=== PATIENT | male | born 1940 | race Caucasian/White ===

== ENCOUNTER → 2016-05-06 | Outpatient (REF) | payer MEDICARE ==
[~2016-05-06] MED LIST: ALLO10TA PO; ASPI81TA11 PO; BACT800T5 PO; BUSP10TA PO; CARV12.5 PO; CEPH500C PO; CETI10TA PO; COLC1TAB5 PO; COUM2.5T11 PO; CRES20TA PO; DICL50TA2 PO; FLOM5CAP PO; HYDR1TAB97 PO; METF500T PO; PANT40TA2 PO; SERT25TA85 PO; STIO1AER IN; VALS160T3 PO; VITA100037 PO; [UNRECOGNIZED DRUG - CODE] PO
== END | disposition home or self-care (01) ==
LOC: M LAB REF 16:21
PROVIDERS: ATTEND Surgery
DX: C44.519 Basal cell carcinoma of skin of other part of trunk (principal)

== ENCOUNTER 2016-09-09 18:03 | Emergency (ER) | payer MEDICARE ==
[~2016-09-09] VITALS: Ht 172.7 cm; Wt 93.0 kg
[~2016-09-09 18:03] MED LIST changes: +HYDR-3713 PO; -HYDR1TAB97 PO; +SERT25TA PO; -SERT25TA85 PO
[2016-09-09] MEDS ORDERED: DOXYCYCLINE HYCLATE 100 MG TAB As Ordered ONE (19:32)
[2016-09-09] MEDS ORDERED: DOXY100C37 PO (20:07)
[2016-09-09 20:17] VITALS: BP 137/78
[2016-09-09] MEDS ORDERED: DOXYCYCLINE HYCLATE 100 MG TAB PO ONE (20:30)
== END 2016-09-09 20:30 | disposition home or self-care (01) ==
LOC: M ED 19:20
DX: S30.860A Insect bite (nonvenomous) of lower back and pelvis, initial encounter (principal); W57.XXXA Bitten or stung by nonvenomous insect and other nonvenomous arthropods, initial encounter; Y92.89 Other specified places as the place of occurrence of the external cause; Y93.89 Activity, other specified; Y99.8 Other external cause status; E11.9 Type 2 diabetes mellitus without complications; N40.0 Benign prostatic hyperplasia without lower urinary tract symptoms; M10.9 Gout, unspecified; Z88.5 Allergy status to narcotic agent; Z79.899 Other long term (current) drug therapy; Z79.84 Long term (current) use of oral hypoglycemic drugs

== ENCOUNTER 2016-10-01 12:15 | Emergency (ER) | payer MEDICARE ==
[~2016-10-01] VITALS: Ht 172.7 cm; Wt 93.0 kg
[~2016-10-01 12:15] MED LIST changes: +DOXY100C37 PO
[2016-10-01] MEDS ORDERED: DOXY-278 PO (12:31)
[2016-10-01] MEDS ORDERED: FLAX10005 PO (12:31)
[2016-10-01] MEDS ORDERED: TRAD5TAB PO (12:31)
[2016-10-01] MEDS ORDERED: ASPI1TAB PO (12:31)
[2016-10-01] MEDS ORDERED: FURO40TA2 PO (12:31)
[2016-10-01] MEDS ORDERED: COCO1000 PO (12:31)
--- NOTE | 2016-10-01 13:29 | ED PDOC ---
Post-Departure Follow-Up Patient presents to the ED for evaluation of painless hematuria. He states that he noted blood in his urine last night. This morning, he again noted blood and a large clot. He denies any recent trauma, urinary symptoms, fever/ chills, abdominal pain. He has previously had a TURP for BPH. The remainder of his H&P and ROS are as noted on the T-sheet. Saline lock established, CBC, BMP, UA/Cx, coags and CT abd/pelvis w/o contrast ordered for evaluation YUNIOR DIEZ Oct 01, 2016 13:29
[2016-10-01 13:54] LABS: BASO # 0.1 K/mm3 (0.0-0.2); EOS # 0.2 K/mm3 (0.0-0.50); EOS % 2.3 % (0.0-3.0); LARGE UNSTAINED CELL # 0.2 K/mm3 (0.0-0.4); LARGE UNSTAINED CELL % 1.6 % (0.0-4.0); LYMPH # 2.2 K/mm3 (1.5-4.5); MEAN CORPUSCULAR HEMOGLOBIN 29.6 pg (27.0-33.0); MEAN CORPUSCULAR HGB CONC 34.4 g/dl (32.0-36.5); MEAN CORPUSCULAR VOLUME 86.1 fl (80.0-96.0); MONO # 0.6 K/mm3 (0.0-0.8); MONO % 5.9 % (0.0-5.0); NEUTROPHILS # 6.3 K/mm3 (1.8-7.7); NEUTROPHILS % 66.2 % (36.0-66.0); PLATELET COUNT, AUTOMATED 150 k/mm3 (150-450); RED CELL DISTRIBUTION WIDTH 14.6 % (11.5-14.5); WHITE BLOOD COUNT 9.4 K/mm3 (4.0-10.0)
[2016-10-01 13:57] LABS: INR 1.18
--- NOTE | 2016-10-01 14:09 | REP ---
CT ABDOMEN AND PELVIS WITHOUT IV OR ORAL CONTRAST: Renal stone protocol. HISTORY: Lower back pain and gross hematuria. Comparison CT study is from September 30, 2003. CT FINDINGS: Digital preliminary slurry blender radiograph demonstrates ventral hernia repair sutures projecting in the upper abdomen. The lung bases are essentially clear. Minimal linear fibrosis on the right. There are epicardial pacemaker leads seen coursing through a some xyphoid ventral broad-based hernia which transmits fat from the abdomen. The hernia repair is just below this. There is a tiny ventral hernia transmitting a small bowel loop without obstruction just below the hernia repair in the anterior abdominal wall. The liver and the spleen are normal in size and homogeneous in texture. The gallbladder is unremarkable. No pancreatic abnormality is seen. The adrenal glands are normal bilaterally. There is a cyst in the upper pole right kidney measuring 1.6 cm in diameter. There is a left lower pole renal cyst which is somewhat larger measuring 3.6 cm. Lastly, there is a lower pole cyst on the left which measures 4.6 cm in greatest diameter. These are both larger than on the [address] study. No intrarenal calculus is seen on either side. No renal mass lesion is observed. Normal caliber aorta is seen. Then the urinary bladder is not well distended. There is eccentric mural thickening along the right side of the bladder wall however and a right-sided bladder mass must be suspected. There are dystrophic calcifications in the prostate gland. Seminal vesicles are unremarkable. Ventral hernia mesh is seen in the lower abdomen bilaterally as well. No bony destructive lesion is seen. IMPRESSION: Probable right lateral bladder wall mass. No evidence of urinary calculus or renal mass. Bilateral renal cysts noted. Ventral hernia repair and bilateral inguinal hernia repair. Diverticulosis of the left and right colon. Signed by Zev Jimenez MD 10/01/2016 04:27 P
[2016-10-01 14:10] LABS: CALCIUM LEVEL 9.7 MG/DL (8.8-10.2); CREATININE FOR GFR 2.46 MG/DL (0.70-1.30); GLOMERULAR FILTRATION RATE 27.4 (>42); POTASSIUM SERUM 3.7 MEQ/L (3.5-5.1)
--- NOTE | 2016-10-01 14:57 | ED PDOC ---
Post-Departure Follow-Up Results reviewed. Discussed findings with Dr Pires. He advises that it's ok to discharge the patient with instructions to call the office to schedule follow-up next week. YUNIOR DIEZ. [facility] Oct 01, 2016 14:57
--- NOTE | 2016-10-01 15:02 | ED PDOC ---
Post-Departure Follow-Up Discussed results and discharge plan with the patient, including follow-up, next week with Dr Pires. Questions answered. Patient and his state understanding. YUNIOR DIEZ. [facility] Oct 01, 2016 15:02
[2016-10-01 15:20] VITALS: BP 110/67
--- NOTE | 2016-10-02 15:09 | ED PDOC ---
Post-Departure Follow-Up DR COBOS FAXED FORMAL REPORT OF CT ABD/P FOR FU Harshad Gaytan MD Oct 02, 2016 15:09
== END 2016-10-01 15:21 | disposition home or self-care (01) ==
LOC: M ED 14:13
DX: R31.0 Gross hematuria (principal); R93.5 Abnormal findings on diagnostic imaging of other abdominal regions, including retroperitoneum; I10 Essential (primary) hypertension; E11.9 Type 2 diabetes mellitus without complications; F32.9 Major depressive disorder, single episode, unspecified; E78.00 Pure hypercholesterolemia, unspecified; K57.92 Diverticulitis of intestine, part unspecified, without perforation or abscess without bleeding; I49.9 Cardiac arrhythmia, unspecified; Z95.0 Presence of cardiac pacemaker; Z87.891 Personal history of nicotine dependence; Z88.5 Allergy status to narcotic agent; Z79.899 Other long term (current) drug therapy; Z79.2 Long term (current) use of antibiotics; Z79.82 Long term (current) use of aspirin

== ENCOUNTER → 2016-10-04 | Outpatient (REF) | payer MEDICARE ==
[~2016-10-04] MED LIST changes: +ASPI1TAB PO; +COCO1000 PO; +DOXY-278 PO; +FLAX10005 PO; +FURO40TA2 PO; +TRAD5TAB PO
== END ==
LOC: M SMT 13:14
PROVIDERS: ATTEND Urology
DX: N32.89 Other specified disorders of bladder (principal)

== ENCOUNTER → 2016-10-20 | Outpatient (CLI) | payer MEDICARE ==
[~2016-10-20] MED LIST changes: +ALLO100T PO; +ASPI-101 PO; -ASPI81TA11 PO; +CARV6.25 PO; +CEFD1CAP8 PO; +COLC1TAB14 PO; -COLC1TAB5 PO; -COUM2.5T11 PO; +COUM2.5T17 PO; +Coumadin PO; -METF500T PO; +METF500T13 PO; +MUCI600T31 PO; +PROAAER10 INH; +SERT-138 PO; +TYLE325T5 PO; -VITA100037 PO; +VITA100067 PO
--- NOTE | 2016-10-20 12:21 | REP ---
Clinical: Adenopathy. Comparison: 05/23/2006 . Technique: PA and lateral. Findings: The mediastinum and cardiac silhouette are normal. Pacemaker in stable position. Evidence of prior sternotomy. The lung khalil are clear and without acute consolidation, effusion, or pneumothorax. The skeletal structures are intact and normal. Impression: No acute cardiopulmonary process. Signed by Osito Julio MD 10/20/2016 12:13 P
== END ==
LOC: M RAD 11:55
PROVIDERS: ATTEND Urology
DX: C67.2 Malignant neoplasm of lateral wall of bladder (principal); R59.1 Generalized enlarged lymph nodes

== ENCOUNTER → 2016-11-02 | Outpatient (REF) | payer MEDICARE | LOC: M LAB REF 11:57 | PROVIDERS: ATTEND Urology | DX: N32.89 Other specified disorders of bladder (principal); R31.0 Gross hematuria; C67.2 Malignant neoplasm of lateral wall of bladder ==

== ENCOUNTER → 2016-12-01 | Outpatient (CLI) | payer MEDICARE ==
[2016-12-01 17:54] LABS: MEAN CORPUSCULAR HEMOGLOBIN 28.8 pg (27.0-33.0); MEAN CORPUSCULAR HGB CONC 33.6 g/dl (32.0-36.5); MEAN CORPUSCULAR VOLUME 85.6 fl (80.0-96.0); RED CELL DISTRIBUTION WIDTH 14.4 % (11.5-14.5); WHITE BLOOD COUNT 7.8 K/mm3 (4.0-10.0)
[2016-12-01 19:51] LABS: CALCIUM LEVEL 9.2 MG/DL (8.8-10.2); CREATININE FOR GFR 1.93 MG/DL (0.70-1.30); GLOMERULAR FILTRATION RATE 36.3 (>42); POTASSIUM SERUM 4.4 MEQ/L (3.5-5.1)
== END ==
LOC: M LAB 16:31
PROVIDERS: ATTEND Urology
DX: C67.2 Malignant neoplasm of lateral wall of bladder (principal); N40.1 Benign prostatic hyperplasia with lower urinary tract symptoms; R73.01 Impaired fasting glucose

== ENCOUNTER 2017-02-02 00:05 | Inpatient (IN) | payer MEDICARE ==
[~2017-02-02] VITALS: Ht 172.7 cm; Wt 60.7 kg
[~2017-02-02 00:05] MED LIST changes: -ALLO100T PO; -CARV6.25 PO; -CEFD1CAP8 PO; -Coumadin PO; -MUCI600T31 PO; -PROAAER10 INH; -SERT-138 PO; -TYLE325T5 PO
[2017-02-02] MEDS ORDERED: CRES20TA PO (00:54)
[2017-02-02] MEDS ORDERED: ACETAMINOPHEN TAB 650MG DOSE (2X325MG) PO ONE (01:00)
[2017-02-02] MEDS ORDERED: NS 1,000 ML IV ONE (01:00)
[2017-02-02] MEDS ORDERED: ONDANSETRON 4MG/2ML VIAL (J2405) IV ONE (01:00)
[2017-02-02 02:00] LABS: INR 2.26
[2017-02-02 02:07] LABS: BASO # 0.1 10^3/uL (0.0-0.2); BASO % 0.4 % (0.0-1.0); IMMATURE GRANULOCYTE % 1.3 % (0-0); LYMPH # 0.7 10^3/uL (1.5-4.5); LYMPH % 5.2 % (24.0-44.0); MEAN CORPUSCULAR HEMOGLOBIN 27.6 pg (27.0-33.0); MEAN CORPUSCULAR HGB CONC 33.4 g/dl (32.0-36.5); MEAN CORPUSCULAR VOLUME 82.5 fl (80.0-96.0); MONO # 0.8 10^3/uL (0.0-0.8); MONO % 5.8 % (0.0-5.0); NEUTROPHILS # 11.9 10^3/uL (1.8-7.7); NEUTROPHILS % 87.3 % (36.0-66.0); PLATELET COUNT, AUTOMATED 105 10^3/uL (150-450); RED CELL DISTRIBUTION WIDTH 14.7 % (11.5-14.5); WHITE BLOOD COUNT 13.7 10^3/uL (4.0-10.0)
[2017-02-02 02:08] LABS: ALBUMIN 3.7 GM/DL (3.2-5.2); ALBUMIN/GLOBULIN RATIO 0.93 (1.00-1.93); BILIRUBIN,DIRECT 0.1 MG/DL (0.0-0.2); BILIRUBIN,TOTAL 0.5 MG/DL (0.2-1.0); CALCIUM LEVEL 8.9 MG/DL (8.8-10.2); CREATININE FOR GFR 2.28 MG/DL (0.70-1.30); GLOMERULAR FILTRATION RATE 29.9 (>42); POTASSIUM SERUM 4.6 MEQ/L (3.5-5.1); TOTAL PROTEIN 7.7 GM/DL (6.4-8.2)
[2017-02-02 02:13] LABS: MICROSCOPIC INDICATED? MAN YES (NO)
[2017-02-02 02:15] LABS: RBC, URINE TNTC /hpf (0-3)
[2017-02-02 02:19] LABS: BACTERIA, URINE SMALL AMOUNT; HYALINE CAST, URINE NONE SEEN /lpf (0-1); MICROSCOPIC EXAM UNSPUN; SQUAMOUS EPITHELIAL CELL URINE NONE SEEN /hpf (SMALL AMT)
[2017-02-02] MEDS ORDERED: PIPERACILLIN/TAZOBACTAM SOD 2.25 GM in D5W 50 ML IV ONE (02:45)
--- NOTE | 2017-02-02 03:10 | REPUSA ---
CLINICAL HISTORY: Abdominal pain. TECHNIQUE: Multiple axial, sagittal and coronal CT images were obtained through the abdomen and pelvi s without administration of IV contrast material. Patient ingested oral contrast. COMMENTS: Moderate sliding hiatal hernia. Partial small bowel obstruction. Transition zone in the right lower quadrant without bowel perforation or pneumatosis intestinalis. 3.5 cm right renal well-defined hypodense lesion suggestive of a cyst. Mild large bowel fecal stasis. Uncomplicated colonic diverticulosis. Atherosclerotic, tortuous ectatic aorta iliac arteries. Mild prostatomegaly. Prostatic calcifications. The liver is of uniform attenuation without mass or defect. There is no intra or extrahepatic biliary ductal dilatation. The spleen is normal. The gallbladder is within normal limits. The pancreas is of normal contour and attenuation characteristics. There is no evidence of adrenal mass. The kidneys are normal in size, shape and configuration. No renal or ureteral calculi are identified. There is no hydroureter or hydronephrosis. There is no evidence for appendicitis. There is no evidence of abdominal ascites or lymphadenopathy. There is no evidence of intrinsic or extrinsic bladder mass. There is no pelvic ascites or lymphadeno jenny. Images of the lung bases show no evidence of pleural or parenchymal mass. Minimal right pleural effusion. Passive atelectatic airspace disease of the right lower lobe. The bony structures are free of lytic or blastic lesions. Multilevel degenerative changes are seen in volving the thoracolumbar spine. Scattered calcifications are seen involving the aorta and major branches compatible with atherosclero sis. IMPRESSION: Partial small bowel obstruction. This was not present on prior exam performed on 11/19/2016. Transition zone in the right lower quadrant. No bowel perforation or pneumatosis intestinalis. Thank you for your kind referral of this patient.
[2017-02-02] MEDS ORDERED: TYLE325T5 PO (03:21)
[2017-02-02] MEDS ORDERED: ALLO100T PO (03:21)
[2017-02-02] MEDS ORDERED: CARV6.25 PO (03:21)
[2017-02-02] MEDS ORDERED: PROAAER10 INH (03:21)
[2017-02-02] MEDS ORDERED: Coumadin PO (03:21)
[2017-02-02] MEDS ORDERED: MUCI600T31 PO (03:21)
[2017-02-02] MEDS ORDERED: SERT-138 PO (03:21)
--- NOTE | 2017-02-02 03:47 | HPEPDOC ---
General Date of Admission 02-02-17 Chief Complaint The patient is a 76-year-old male admitted with a reason for visit of Urinary Problem. Source: Patient, Family Exam Limitations: No limitations Timing/Duration: 4-6 hours Associated Symptoms: Chills History of Present Illness 76 y/o male with past medical history of bladder cancer, CAD/CABG,COPD,HTN,DM2, Gout, COOPER w/ cpap,GERD,CKD3 and hx. of prostate cancer presents to the ED with complaint of "urinating out clots" four hours after receiving BCG therapy for his current bladder cancer. The pt states that when he had the BCG done in the past, he did have some very minor blood in his urine but today it was increased in amount and alarmed him, stated that he could feel the clots coming out and they were painful and dark in color. Admitted to chills and a fever of 103.1 at home during the event. Denied n/v, diarrhea, abdominal pain, cp or SOB or dizziness. The pt does state that he has been intermittently taking his Coumadin pills for his "sugar issues", as he was given them after his knee surgery over one year ago and apparently the pt did not finish them and has had some left over, he decided to take these left over pills with most recent ingestion being one day ago, because he thought they could help with his "sugar control for his diabetes". He denies hx of a. fib or extremity or pulmonary clots. Home Medications Scheduled (Valsartan/Hydrochlorothia 160-25 mg) 1 Tab Tab, 0.5 TAB PO BID, (Reported) Allopurinol (Allopurinol) 100 Mg Tab, 200 MG PO DAILY, (Reported) Aspirin (Aspirin 81) 81 Mg Tab, 81 MG PO DAILY, (Reported) Buspirone HCl (Buspirone HCl) 10 Mg Tab, 10 MG PO BID, (Reported) Carvedilol (Carvedilol) 6.25 Mg Tab, 6.25 MG PO BID, (Reported) Linagliptin Base (Tradjenta) 5 Mg Tab, 5 MG PO DAILY, (Reported) Pantoprazole Sodium (Pantoprazole Sodium) 40 Mg Tab, 40 MG PO DAILY, (Reported) Sertraline HCl (Sertraline HCl) 100 Mg Tab, 100 MG PO QHS, (Reported) Tamsulosin Hydrochloride (Flomax) 0.4 Mg Cap, 0.4 MG PO QHS, (Reported) [Coumadin] , Unknown Dose PO DAILY, (Reported) Scheduled PRN Albuterol Sulfate (Proair Hfa) 108 Mcg/Act Aer, 2 PUFF INH Q4H PRN for SOB/ WHEEZING, (Reported) Cetirizine HCl (Cetirizine HCl) 10 Mg Tab, 10 MG PO DAILY PRN for ALLERGIES, ( Reported) Guaifenesin (Mucinex) 600 Mg Tab, 600 MG PO Q12H PRN for CONGESTION, (Reported) Allergies Coded Allergies: Morphine (Verified Adverse Reaction, Mild, SENSITIVITY - ITCHING, 05/20/16) Past Medical History Medical History bladder cancer CAD/CABG- Follows with [facility] Nuclear Stress 07/23/15 Low risk EF 64%- [facility] COPD GOLD Stage 3- Dr Bedolla Wh[place]arral HTN DM2 RA SSS/pacer Gout Uses home CPAP GERD CKD3 Seasonal allergies hx prostate cancer Surgical History cataract Pacer CABG hernia repair bowel resection right TKA Family History Significant Family History: No pertinent family hx Social History * Smoker: Denies Alcohol: Denies Drugs: denies Psychosocial History: No pertinent psych hx Review of Symptoms Constitutional: Reports: Chills, Fever, Malaise, Fatigue, Denies: Night Sweats, Weakness Eyes: Denies: Pain, Vision change ENT: Denies: Ear Pain Skin: Denies: Rash, Lesions Pulmonary: Denies: Dyspnea, Cough Cardiovascular: Denies: Chest Pain, Palpitations, Lt Headedness Gastrointestinal: Denies: Nausea, Vomiting, Abdominal Pain, Diarrhea, Constipation, Melena, Hematochezia Genitourinary: Reports: Dysuria, Hematuria, Denies: Frequency, Incontinence, Retention Hematologic: Denies: Bruising Musculoskeletal: Denies: Neck Pain Neurological: Denies: Weakness Psych: Reports: Mood Normal Physical Examination General Exam: Positive: Alert, Cooperative, No Acute Distress Eye Exam: Positive: Conjunctiva & lids normal, EOMI, Negative: Sclera icteric, Ptosis ENT Exam: Positive: Atraumatic, Mucous membr. moist/pink, Pharynx Normal, Tongue Midline, Nares Patent, Negative: Pharyngeal Edema Neck Exam: Positive: Supple Chest Exam: Positive: Clear to auscultation, Normal air movement, Negative: Rales, Rhonchi, Wheezing Heart Exam: Positive: Rate Normal, Normal S1, Normal S2 Telemetry: Positive: No significant arrhythmia Abdomen Exam: Positive: Normal bowel sounds, Soft, Negative: Tenderness, Hepatospenomegaly Extremity Exam: Negative: Clubbing, Cyanosis, Edema Skin Exam: Positive: Nl turgor and temperature Vital Signs Vital Signs Date Time Temp Pulse Resp B/P (MAP) Pulse Ox O2 Delivery O2 Flow Rate FiO2 02/02/17 03:35 82 91 02/02/17 03:29 148/76 (100) 02/02/17 03:20 16 02/02/17 03:14 98.9 02/02/17 00:23 Room Air Laboratory Data Labs 24H Laboratory Tests 2 02/02/17 01:19: Bedside Urine Color (LAB) REDH, Bedside Urine Appearance (LAB) TURBIDH, Bedside Urine pH (LAB) 5.0, Bedside Urine Specific [place] (LAB 1.010, Bedside Urine Protein (LAB) 3+H, Bedside Urine Glucose (UA) NEGATIVE, Bedside Urine Ketones ( LAB) NEGATIVE, Bedside Urine Blood POSITIVEH, Bedside Urine Nitrite (LAB) OBSCUREDH, Bedside Urine Bilirubin (LAB) OBSCUREDH, Bedside Urine Urobilinogen ( LAB) OBSCUREDH, Bedside Urine Leukocyte Esterase (L POSITIVEH, Urine WBC 10-15H , Urine RBC TNTCH, Urine Squamous Epithelial Cells NONE SEEN, Urine Bacteria SMALL AMOUNTH, Urine Hyaline Casts NONE SEEN, Urine Sediment Examination UNSPUN 02/02/17 01:31: Immature Granulocyte % (Auto) 1.3H, White Blood Count 13.7H, Red Blood Count 5.04, Hemoglobin 13.9L, Hematocrit 41.6L, Mean Corpuscular Volume 82.5, Mean Corpuscular Hemoglobin 27.6, Mean Corpuscular Hemoglobin Concent 33.4, Red Cell Distribution Width 14.7H, Platelet Count 105L, Neutrophils (%) (Auto) 87.3H, Lymphocytes (%) (Auto) 5.2L, Monocytes (%) (Auto) 5.8H, Eosinophils (%) (Auto) 0.0, Basophils (%) (Auto) 0.4, Neutrophils # (Auto) 11.9H, Lymphocytes # (Auto) 0.7L, Monocytes # (Auto) 0.8, Eosinophils # (Auto) 0.0, Basophils # (Auto) 0.1, Immature Granulocyte # (Auto) 0.2H, Nucleated Red Blood Cells % (auto) 0.0, Prothrombin Time 25.8H, Prothromb Time International Ratio 2.26, Activated Partial Thromboplast Time 36.2, Anion Gap 6L, Glomerular Filtration Rate 29.9L, Lactic Acid Level 2.3*H, Calcium Level 8.9, Aspartate Amino Transf (AST/SGOT) 13L, Alanine Aminotransferase (ALT/SGPT) 19, Alkaline Phosphatase 54, Total Bilirubin 0.5, Direct Bilirubin 0.1, Total Protein 7.7, Albumin 3.7, Albumin/ Globulin Ratio 0.93L, Lipase 211 CBC/BMP Laboratory Tests 02/02/17 01:31 Red Blood Count 5.04, Mean Corpuscular Volume 82.5, Mean Corpuscular Hemoglobin 27.6, Mean Corpuscular Hemoglobin Concent 33.4, Red Cell Distribution Width 14.7 H, Neutrophils (%) (Auto) 87.3 H, Lymphocytes (%) (Auto) 5.2 L, Monocytes ( %) (Auto) 5.8 H, Eosinophils (%) (Auto) 0.0, Basophils (%) (Auto) 0.4, Neutrophils # (Auto) 11.9 H, Lymphocytes # (Auto) 0.7 L, Monocytes # (Auto) 0.8 , Eosinophils # (Auto) 0.0, Basophils # (Auto) 0.1 Microbiology Microbiology 02/02/17 Blood Culture, Received Pending 02/02/17 Blood Culture, Received Pending 02/02/17 Urine Culture, Received Pending Problems (1) Hematuria Status: Acute Problem Text: 2/2 UTI vs adverse reaction to BCG will begin cefepime will speak to urology in AM for cx on pt. UA, blood cx pending, pt is afebrile now but 102.3 on presentation WBC 13.7 will hold home aspirin for now ct ab/pelvis shows: Partial small bowel obstruction. This was not present on prior exam performed on 11/19/2016. Transition zone in the right lower quadrant. No bowel perforation or pneumatosis intestinalis. Thank you for your kind referral of this patient. (2) Hypertension Status: Chronic Response to Treatment: Stable Problem Text: 148/76 c/w home valsartan and coreg (3) Coronary artery disease Status: Chronic Response to Treatment: Stable Problem Text: holding pts home aspirin in light of hematuria (4) Stage III chronic kidney disease Status: Chronic Response to Treatment: Stable Problem Text: creatine 2.28 seems to be at baseline pt received bolus of fluids in ED, do not see need for fluid therapy at this time (5) Diabetes mellitus Status: Chronic Response to Treatment: Stable Problem Text: sliding scale coverage const. carb diet HgA1C pending (6) Gout Status: Chronic Response to Treatment: Stable Problem Text: c/w home allopurinol (7) DVT prophylaxis Status: Acute Response to Treatment: Stable Problem Text: scd teds Plan / VTE VTE Prophylaxis Ordered?: Yes GME ATTESTATION GME ATTESTATION My preceptor for this patient encounter was physically present in the building during the encounter and was fully available. As needed, all aspects of the patient interview, examination, medical decision making process, and medical care plan development were reviewed and approved by the preceptor. Preceptor is aware and concurs with the plan as stated in the body of this note and will attest to such by his/her cosignature. ATTENDING NOTE I have both independently examined this patient as well as reviewed the note. I have discussed in detail with the resident the findings and plan of treatment as documented in the residents note. I will continue to follow the patient and offer further guidance to the patients care as necessary during this hospital stay. JULISSA Mcallister MD, DO Feb 02, 2017 03:47 PAVITHRA JENKINS MD Feb 02, 2017 18:57
[2017-02-02] MEDS ORDERED: DEXTROSE 50% 50 ML SYRINGE IV PRN (04:45)
[2017-02-02] MEDS ORDERED: GLUCAGON FOR INJ 1 MG VIAL (J1610) SC PRN (04:45)
[2017-02-02] MEDS ORDERED: GLUCOSE 4 GM CHEW TABLET PO PRN (04:45)
[2017-02-02] MEDS ORDERED: guaiFENesin ER 600 MG TAB PO PRN (05:00)
[2017-02-02] MEDS ORDERED: CETIRIZINE (ZyrTEC) 10 MG TAB PO PRN (05:00)
[2017-02-02 06:00] VITALS: BP 105/55
--- NOTE | 2017-02-02 07:02 | ECGEPIP ---
Stationary ECG Study [facility] Test Date: 2017-02-02 Pat Name: URSULA NORRIS Department: Room: - Gender: M Management Scientist: : 1940 Requested By: PAVITHRA JENKINS Order Number: [id number] Reading MD: Janey Metzger Measurements Intervals [place] Rate: 64 P: 58 [place]: 164 QRS: 20 QRSD: 85 T: 31 QT: 416 QTc: 430 Interpretive Statements SINUS RHYTHM NONSPECIFIC ST T-WAVE ABNORMALITY NO PRIOR Electronically Signed On 02-02-2017 7:02:06 EDT by Janey Metzger
[2017-02-02 07:33] LABS: MEAN CORPUSCULAR HEMOGLOBIN 27.5 pg (27.0-33.0); MEAN CORPUSCULAR HGB CONC 33.3 g/dl (32.0-36.5); MEAN CORPUSCULAR VOLUME 82.6 fl (80.0-96.0); RED CELL DISTRIBUTION WIDTH 14.8 % (11.5-14.5); WHITE BLOOD COUNT 11.3 10^3/uL (4.0-10.0)
[2017-02-02 08:00] VITALS: BP 94/58
[2017-02-02 08:02] LABS: ALBUMIN 3.3 GM/DL (3.2-5.2); ALBUMIN/GLOBULIN RATIO 0.83 (1.00-1.93); BILIRUBIN,TOTAL 0.6 MG/DL (0.2-1.0); CREATININE FOR GFR 2.03 MG/DL (0.70-1.30); GLOMERULAR FILTRATION RATE 34.2 (>42); MAGNESIUM LEVEL 1.7 MG/DL (1.8-2.4); POTASSIUM SERUM 4.1 MEQ/L (3.5-5.1); TOTAL PROTEIN 7.3 GM/DL (6.4-8.2)
[2017-02-02] MEDS: CEFEPIME HCL 0.5 GM in D5W 50 ML IV SCH (08:23)
[2017-02-02] MEDS: HumaLOG INSULIN (NovoLOG) PER UNIT SC SCH ×3 (08:23→17:10)
[2017-02-02] MEDS: ALLOPURINOL 100 MG TAB PO SCH (08:24)
[2017-02-02] MEDS: PANTOPRAZOLE 40MG TAB (PROTONIX) PO SCH (08:24)
[2017-02-02] MEDS: busPIRone 10 MG TAB PO SCH ×2 (08:24→21:05)
[2017-02-02 09:00] VITALS: BP 94/58
[2017-02-02] MEDS ORDERED: CARVedilol 6.25 MG TAB PO SCH (09:00)
[2017-02-02] MEDS ORDERED: VALSARTAN 80 MG TAB (DIOVAN) PO SCH (09:00)
[2017-02-02] MEDS ORDERED: NS 500 ML IV ONE ×2 (09:45→12:30)
[2017-02-02] MEDS ORDERED: ACETAMINOPHEN TAB 650MG DOSE (2X325MG) PO PRN (10:30)
--- NOTE | 2017-02-02 11:49 | SMCUROLCON ---
Urology Consultation General Date of Consultation 02/02/17 Reason For Consultation This patient is seen for Pyelonephritis. History of Present Illness This is a 76 y/o M w/ a PMH significant for CAD s/p 3v CABG in 2009, CKD, BPH (s /p TURP several years ago), bladder neck contracture (s/p cysto and dilation in 2015), and bladder cancer s/p TURBT this year, presenting to the hospital for fevers and chills since yesterday. The patient notes that he has received 3 doses of intravesical BCG and experienced mild fevers and chills after the first two. Yesterday after the 3rd treatment he had a large amount of fevers and chills and therefore EMS was called. Per the patient's , his temp was 103 when they arrived. He has been in the ER since early this morning. Blood and urine cultures were obtained and cefepime has been given. He feels better at this time. Other than mild dysuria, he feels that he is emptying his bladder. He denies abdominal or flank pain. A CT A/P was obtained that was negative for stones or hydro. Past Medical History Medical History see HPI Surgical Hstory see HPI Medications Current Medications Current Medications Acetaminophen (Tylenol Tab) 650 mg Q4HP PRN PO PAIN OR FEVER; Start 02/02/17 at 10:30; Stop 03/04/17 at 10:29 Allopurinol (Zyloprim) 200 mg DAILY PO Last administered on 02/02/17 08:24; Start 02/02/17 at 09:00; Stop 03/04/17 at 08:59 Buspirone HCl (Buspar) 10 mg BID PO Last administered on 02/02/17 08:24; Start 02/02/17 at 09:00; Stop 03/04/17 at 08:59 Carvedilol (COReg) 6.25 mg BID PO ; Start 02/02/17 at 09:00; Stop 02/02/17 at 09:45; Status DC Cefepime HCl 0.5 gm/Dextrose 50 ml @ 100 mls/hr Q24H IV Last administered on 02/02/17 08:23; Start 02/02/17 at 08:00; Stop 02/09/17 at 07:59 Cetirizine HCl (ZyrTEC) 10 mg DAILY PRN PO ALLERGIES; Start 02/02/17 at 05:00 ; Stop 03/04/17 at 04:59 Dextrose (Dextrose 50%) 25 ml ASDIRECTED PRN IV SEE LABEL COMMENTS; Start 03/11 at 04:45; Stop 03/04/17 at 04:44 Glucagon (Glucagon) 1 mg ASDIRECTED PRN SC SEE LABEL COMMENTS; Start 02/02/17 at 04:45; Stop 03/04/17 at 04:44 Glucose (Glucose) 16 GM ASDIRECTED PRN PO SEE LABEL COMMENTS; Start 02/02/17 at 04:45; Stop 03/04/17 at 04:44 Guaifenesin (Mucinex Tab Er) 600 mg Q12H PRN PO CONGESTION; Start 02/02/17 at 05:00; Stop 03/04/17 at 04:59 Home Med (Med Rec Complete!) ASDIRECTED XX ; Start 02/02/17 at 03:30; Stop at 03:30; Status DC Insulin Human Lispro (HumaLOG INSULIN) SEE PROTOCOL TABLE AC SC Last administered on 02/02/17 08:23; Start 02/02/17 at 07:30; Stop 03/04/17 at 07 :29 Insulin Human Lispro (HumaLOG INSULIN) SEE PROTOCOL TABLE QHS SC ; Start at 21:00; Stop 03/04/17 at 20:59 Pantoprazole Sodium (Protonix) 40 mg DAILY PO Last administered on 02/02/17 08:24; Start 02/02/17 at 09:00; Stop 03/04/17 at 08:59 Sertraline HCl (Zoloft) 100 mg QHS PO ; Start 02/02/17 at 21:00; Stop at 20:59 Tamsulosin HCl (Flomax) 0.4 mg QHS PO ; Start 02/02/17 at 21:00; Stop at 20:59 Valsartan (Diovan) 160 mg DAILY PO ; Start 02/02/17 at 09:00; Stop 02/02/17 at 09:45; Status DC Allergies Allergies: Coded Allergies: Morphine (Verified Adverse Reaction, Mild, SENSITIVITY - ITCHING, 05/20/16) Review of Systems Constitutional: Reports: Fever, Chills Skin: Denies: Rash, Lesions Pulmonary: Denies: Dyspnea, Cough Cardiovascular: Denies Chest Pain, Denies Palpitations Gastrointestinal: Denies: Nausea, Vomiting, Abdominal Pain Genitourinary: Reports: Dysuria Musculoskeletal: Denies: Neck Pain, Back Pain Neurological: Denies: Weakness, Numbness, Incoordination, Change in Speech Psych: Reports: Mood Normal, Denies: Anxiety, Depression Physical Examination General Exam: Alert, No Acute Distress Chest Exam: Clear to auscultation Heart Exam: Rate Normal, Regular Rhythm Skin Exam: Nl turgor and temperature Psych Exam: Mental status NL, Mood NL Vital Signs/I&O Vital Signs Date Time Temp Pulse Resp B/P (MAP) Pulse Ox O2 Delivery O2 Flow Rate FiO2 02/02/17 09:00 94/58 02/02/17 09:00 65 02/02/17 08:00 97.7 18 96 Room Air I&O- Last 24 Hours up to 6 AM 02/03/17 06:00 Intake Total 600 ml Output Total 300 ml Balance 300 ml Laboratory Data 24H Labs Laboratory Tests 2 02/02/17 01:19: Bedside Urine Color (LAB) REDH, Bedside Urine Appearance (LAB) TURBIDH, Bedside Urine pH (LAB) 5.0, Bedside Urine Specific [place] (LAB 1.010, Bedside Urine Protein (LAB) 3+H, Bedside Urine Glucose (UA) NEGATIVE, Bedside Urine Ketones ( LAB) NEGATIVE, Bedside Urine Blood POSITIVEH, Bedside Urine Nitrite (LAB) OBSCUREDH, Bedside Urine Bilirubin (LAB) OBSCUREDH, Bedside Urine Urobilinogen ( LAB) OBSCUREDH, Bedside Urine Leukocyte Esterase (L POSITIVEH, Urine WBC 10-15H , Urine RBC TNTCH, Urine Squamous Epithelial Cells NONE SEEN, Urine Bacteria SMALL AMOUNTH, Urine Hyaline Casts NONE SEEN, Urine Sediment Examination UNSPUN 02/02/17 01:31: Immature Granulocyte % (Auto) 1.3H, White Blood Count 13.7H, Red Blood Count 5.04, Hemoglobin 13.9L, Hematocrit 41.6L, Mean Corpuscular Volume 82.5, Mean Corpuscular Hemoglobin 27.6, Mean Corpuscular Hemoglobin Concent 33.4, Red Cell Distribution Width 14.7H, Platelet Count 105L, Neutrophils (%) (Auto) 87.3H, Lymphocytes (%) (Auto) 5.2L, Monocytes (%) (Auto) 5.8H, Eosinophils (%) (Auto) 0.0, Basophils (%) (Auto) 0.4, Neutrophils # (Auto) 11.9H, Lymphocytes # (Auto) 0.7L, Monocytes # (Auto) 0.8, Eosinophils # (Auto) 0.0, Basophils # (Auto) 0.1, Immature Granulocyte # (Auto) 0.2H, Nucleated Red Blood Cells % (auto) 0.0, Prothrombin Time 25.8H, Prothromb Time International Ratio 2.26, Activated Partial Thromboplast Time 36.2, Anion Gap 6L, Glomerular Filtration Rate 29.9L, Lactic Acid Level 2.3*H, Calcium Level 8.9, Aspartate Amino Transf (AST/SGOT) 13L, Alanine Aminotransferase (ALT/SGPT) 19, Alkaline Phosphatase 54, Total Bilirubin 0.5, Direct Bilirubin 0.1, Total Protein 7.7, Albumin 3.7, Albumin/ Globulin Ratio 0.93L, Lipase 211 02/02/17 07:17: Anion Gap 8, Glomerular Filtration Rate 34.2L, Calcium Level 9.0, Aspartate Amino Transf (AST/SGOT) 12L, Alanine Aminotransferase (ALT/SGPT) 17, Alkaline Phosphatase 46, Total Bilirubin 0.6, Total Protein 7.3, Albumin 3.3, Albumin/ Globulin Ratio 0.83L, Estimated Mean Plasma Glucose 189H, Hemoglobin A1c 8.2H, Lactic Acid Followup at 4 Hours 1.7, Blood Urea Nitrogen 33H, Creatinine 2.03H, Sodium Level 136, Potassium Level 4.1, Chloride Level 102, Carbon Dioxide Level 26, Magnesium Level 1.7L, C-Reactive Protein, Quantitative 2.94H 02/02/17 07:18: Bedside Glucose (Misc Panel) 161H CBC/BMP Laboratory Tests 02/02/17 01:31 Red Blood Count 5.04, Mean Corpuscular Volume 82.5, Mean Corpuscular Hemoglobin 27.6, Mean Corpuscular Hemoglobin Concent 33.4, Red Cell Distribution Width 14.7 H, Neutrophils (%) (Auto) 87.3 H, Lymphocytes (%) (Auto) 5.2 L, Monocytes ( %) (Auto) 5.8 H, Eosinophils (%) (Auto) 0.0, Basophils (%) (Auto) 0.4, Neutrophils # (Auto) 11.9 H, Lymphocytes # (Auto) 0.7 L, Monocytes # (Auto) 0.8 , Eosinophils # (Auto) 0.0, Basophils # (Auto) 0.1 02/02/17 07:17 Red Blood Count 4.83, Mean Corpuscular Volume 82.6, Mean Corpuscular Hemoglobin 27.5, Mean Corpuscular Hemoglobin Concent 33.3, Red Cell Distribution Width 14.8 H, Calcium Level 9.0, Aspartate Amino Transf (AST/SGOT) 12 L, Alanine Aminotransferase (ALT/SGPT) 17, Alkaline Phosphatase 46, Total Bilirubin 0.6, Total Protein 7.3, Albumin 3.3 Microbiology Microbiology 02/02/17 Blood Culture, Received Pending 02/02/17 Blood Culture, Received Pending 02/02/17 Urine Culture, Received Pending Assessment This is a 76 y/o M w/ HG bladder cancer on intravesical BCG therapy, being admitted for fevers and chills after receiving a BCG treatment yesterday. Given his symptoms, he likely has a UTI, but BCG sepsis has to be a consideration as well. He improved after a dose of cefepime in the ER, making BCG sepsis less likely. Plan - f/u blood and urine cultures - continue broad spectrum antibiotics until cultures come back - if patient continues to spike fevers despite broad-spectrum antibiotics, will need to consider this as possible BCG sepsis - if that happens will need to obtain TB cultures and start anti-TB therapy - please obtain a PVR to ensure the patient is emptying his bladder well - if not, patient will need to have a catheter placed NEELA COBOS MD Feb 02, 2017 10:47
[2017-02-02 12:00] VITALS: BP 100/62
[2017-02-02] MEDS ORDERED: NS 1,000 ML IV SCH (12:30)
--- NOTE | 2017-02-02 13:46 | IPN ---
DATE: 02/02/2017 Mr. Salas feels much better than he did last night. No complaints of pain, chest pain, shortness of breath, is laughing and joking. Temperature 97.7. Pulse 65. Respiratory rate 18. Blood pressure 94/58. 96% on room air. Intake and output (I's and O's) notable for net fluid balance. Body mass index 31.8. Is awake. Appropriately interactive. Pleasantly conversant. Breathing is symmetrical at rest. Heart is regular rate and rhythm. Abdomen, soft, doughy, nontender. White cell count 11.3, hemoglobin 13.3, platelets of 113. BUN 33, creatinine 2.03 and improving. Hemoglobin A1c 8.2. Lactic acid is normalized at 1.7. Magnesium is 1.7. My assessment is as follows: This is a 76-year-old with hematuria and possible pyelonephritis. Plan is as follows: 1. Infectious disease. Patient is going to be continued on broad-spectrum antibiotics. Patient did receive BCG. Based on his clinic performance thus far, I believe that he most likely has a urinary tract infection (UTI) or pyelonephritis. Continue current care. I have discussed this case on the phone with Dr. Pires. I greatly appreciate his input in the patient's management. 2. Patient has hypertension. Currently is hypotensive. Holding valsartan and Coreg. 3. Patient has history of coronary artery disease. 4. Patient has chronic kidney disease stage III. Creatinine is improving. 5. Patient has diabetes mellitus. 6. Patient has gout. 7. 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 8. Patient has been taking Coumadin at home that he had left over from his orthopedic surgery in attempt to better control his blood sugars.
[2017-02-02 15:00] VITALS: BP 139/69
[2017-02-02 20:00] VITALS: BP 118/59
[2017-02-02] MEDS ORDERED: TAMSULOSIN 0.4 MG CAP PO SCH (21:00)
[2017-02-02] MEDS ORDERED: SERTRALINE 100 MG TAB PO SCH (21:00)
[2017-02-02] MEDS ORDERED: HumaLOG INSULIN (NovoLOG) PER UNIT SC SCH (21:00)
[2017-02-03] VITALS: BP 128/67
[2017-02-03 04:00] VITALS: BP 137/71
[2017-02-03 06:03] LABS: MEAN CORPUSCULAR HEMOGLOBIN 27.5 pg (27.0-33.0); MEAN CORPUSCULAR HGB CONC 32.8 g/dl (32.0-36.5); MEAN CORPUSCULAR VOLUME 83.9 fl (80.0-96.0); RED CELL DISTRIBUTION WIDTH 15.3 % (11.5-14.5); WHITE BLOOD COUNT 9.7 10^3/uL (4.0-10.0)
[2017-02-03 06:09] LABS: INR 1.98
[2017-02-03 06:28] LABS: ALBUMIN 2.9 GM/DL (3.2-5.2); ALBUMIN/GLOBULIN RATIO 0.76 (1.00-1.93); BILIRUBIN,TOTAL 0.3 MG/DL (0.2-1.0); CALCIUM LEVEL 8.2 MG/DL (8.8-10.2); CREATININE FOR GFR 1.95 MG/DL (0.70-1.30); GLOMERULAR FILTRATION RATE 35.8 (>42); MAGNESIUM LEVEL 1.8 MG/DL (1.8-2.4); POTASSIUM SERUM 4.1 MEQ/L (3.5-5.1); TOTAL PROTEIN 6.7 GM/DL (6.4-8.2)
[2017-02-03 08:00] VITALS: BP 170/80
[2017-02-03] MEDS: PANTOPRAZOLE 40MG TAB (PROTONIX) PO SCH (08:07)
[2017-02-03] MEDS: busPIRone 10 MG TAB PO SCH (08:07)
[2017-02-03] MEDS: CEFEPIME HCL 0.5 GM in D5W 50 ML IV SCH (08:08)
[2017-02-03] MEDS: HumaLOG INSULIN (NovoLOG) PER UNIT SC SCH ×2 (08:08→11:58)
[2017-02-03] MEDS: ALLOPURINOL 100 MG TAB PO SCH (08:08)
--- NOTE | 2017-02-03 10:13 | IPNPDOC ---
Assessment/Plan Date Seen The patient was seen on 02/03/17. Patient Summary This is a 76 y/o M w/ HG bladder cancer on intravesical BCG therapy, admitted for fevers and chills after receiving a BCG treatment on Tuesday. He has been well since receiving cefepime on admission. His urine culture is negative. Blood cultures are still pending. PVR yesterday was 27cc, indicating that he is emptying his bladder well. His symptoms were likely a reaction to BCG, but given his clinical improvement, not likely BCG sepsis. Given he has had worsening reactions w/ each BCG, I would recommend against any additional BCG treatments. The patient will discuss this w/ his urologist in [place] once he is discharged. Plan/VTE VTE Prophylaxis Ordered?: Yes Plan - continue to follow cultures - should blood cultures remain negative, should be ok discharge patient home tomorrow - strongly recommend against any additional intravesical BCG therapy - on discharge patient will continue care w/ his urologist in [place] Subjective Review oF Systems Chief Complaint The patient is a 76-year-old male admitted with a reason for visit of Pyelonephritis. Events since Last Encounter No acute events o/n. Patient denies pain. Denies dysuria. No feelings of incomplete emptying. No f/c/ns. Objective Physical Examination General Exam: Alert, Cooperative, No Acute Distress Heart Exam: Positive: Normal S1, Normal S2 ABDOMEN EXAM: Soft, No: Tenderness Skin Exam: Nl turgor and temperature Neuro Exam: Normal Speech Psych Exam: Mental status NL, Mood NL Vital Signs/I&O Vital Signs Date Time Temp Pulse Resp B/P (MAP) Pulse Ox O2 Delivery O2 Flow Rate FiO2 02/03/17 08:00 98.4 72 18 170/80 (110) 97 Room Air I&O- Last 24 Hours up to 6 AM 02/04/17 06:00 Output Total 200 ml Balance -200 ml Laboratory Data Labs 24H Laboratory Tests 2 02/02/17 11:40: Bedside Glucose (Misc Panel) 138H 02/02/17 16:56: Bedside Glucose (Misc Panel) 172H 02/02/17 20:46: Bedside Glucose (Misc Panel) 225H 02/03/17 05:43: Nucleated Red Blood Cells % (auto) 0.0, Prothrombin Time 23.2H, Prothromb Time International Ratio 1.98, Anion Gap 7L, Glomerular Filtration Rate 35.8L, Blood Urea Nitrogen 27H, Creatinine 1.95H, Sodium Level 139, Potassium Level 4.1, Chloride Level 107, Carbon Dioxide Level 25, Calcium Level 8.2L, Aspartate Amino Transf (AST/SGOT) 13L, Alanine Aminotransferase (ALT/SGPT) 18, Alkaline Phosphatase 40L, Total Bilirubin 0.3, Total Protein 6.7, Albumin 2.9L, Magnesium Level 1.8, C-Reactive Protein, Quantitative 5.33H, Albumin/Globulin Ratio 0.76L CBC/BMP Laboratory Tests 02/03/17 05:43 Red Blood Count 4.54, Mean Corpuscular Volume 83.9, Mean Corpuscular Hemoglobin 27.5, Mean Corpuscular Hemoglobin Concent 32.8, Red Cell Distribution Width 15.3 H, Calcium Level 8.2 L, Aspartate Amino Transf (AST/SGOT) 13 L, Alanine Aminotransferase (ALT/SGPT) 18, Alkaline Phosphatase 40 L, Total Bilirubin 0.3, Total Protein 6.7, Albumin 2.9 L FSBS Laboratory Tests Test 02/02/17 11:40 02/02/17 16:56 02/02/17 20:46 Range/Units Bedside Glucose (Misc Panel) 138 172 225 83-110 MG/DL Microbiology Microbiology 02/02/17 Blood Culture - Preliminary, Resulted No growth after 24 hours . All specim... 02/02/17 Blood Culture - Preliminary, Resulted No growth after 24 hours . All specim... 02/02/17 Urine Culture - Final, Complete NEELA COBOS MD Feb 03, 2017 10:03
[2017-02-03 12:00] VITALS: BP 145/71
[2017-02-03] MEDS ORDERED: CEFD1CAP8 PO (12:32)
--- NOTE | 2017-02-03 16:41 | DSES ---
DATE OF ADMISSION: 02/02/2017 DATE OF DISCHARGE: 02/03/2017 Specialists involved in his care include: Dr. Pires. No complications during his stay. No procedures performed during his stay. DISCHARGE DIAGNOSIS: Urinary tract infection. SECONDARY DIAGNOSES: 1. Bacille Calmette-[place] (BCG) reaction. 2. Coronary artery disease. 3. Bladder cancer. 4. Chronic obstructive pulmonary disease (COPD), Gold stage III. 5. Hypertension. 6. Diabetes. SUMMARY OF HIS HOSPITALIZATION: This is a 76-year-old who within one day of receiving Bacille Calmette-[place] (BCG) presented with fever, chills, and hematuria. He presented to our emergency department and was admitted to the hospitalist service. He was treated with empiric antibiotics and was seen in consultation by Dr. Pires for hospital BCG reaction. It was thought that because of his quick reaction to antibiotics that it was unlikely that he had a BCG reaction. He was treated with empiric antibiotics. Urine culture was not positive for any single organism of clinical significance. He improved to the point of ambulating without difficulty, tolerating a diet, and felt to back to his baseline so he is discharged home. On the day of discharge, he is awake, alert, pleasant and easily conversant. Temperature is 98.2, pulse 74, respiratory rate 18, blood pressure 145/71, 96% on room air. LABORATORY DATA: White cell count 9.7, platelets of 104. BUN 27, creatinine 1.95 which is likely his baseline. DISCHARGE INSTRUCTIONS: Include the followin. Followup with Dr. Degroot at [facility] 02/09/2017 at 10:00 a.m. 2. Call urology in [place] for followup instructions. 3. Diet and activity as tolerated. DISCHARGE MEDICATIONS: Continue with: - cefdinir 300 mg by mouth twice a day for seven days - albuterol two puffs inhaled every four hours as needed for shortness of breath or wheeze - allopurinol 200 mg by mouth daily - aspirin 81 mg by mouth daily - BuSpar 10 mg by mouth twice a day - Coreg 6.25 mg by mouth twice a day - cetirizine 10 mg by mouth daily as needed - Coumadin continue with home dosing - guaifenesin 600 mg every two hours as needed for congestion - Tradjenta 5 mg by mouth daily - Protonix 40 mg by mouth daily - sertraline 100 mg by mouth daily at bedtime - Flomax 0.4 mg by mouth daily at bedtime - valsartan/hydrochlorothiazide 160/25 half-tablet by mouth daily Please note that the patient was taking Coumadin at home and he is instructed to discontinue that.
== END 2017-02-03 14:58 | disposition home or self-care (01) | DRG 696 ==
LOC: EDBD 00:05 → M ED 00:05 → M ED INP 04:38 → M PCU 14:41
PROVIDERS: ADMIT Hospitalist; ATTEND Internal Medicine
DX: R31.9 Hematuria, unspecified (principal); I25.10 Atherosclerotic heart disease of native coronary artery without angina pectoris; J44.9 Chronic obstructive pulmonary disease, unspecified; I12.9 Hypertensive chronic kidney disease with stage 1 through stage 4 chronic kidney disease, or unspecified chronic kidney disease; N39.0 Urinary tract infection, site not specified; E11.22 Type 2 diabetes mellitus with diabetic chronic kidney disease; M10.9 Gout, unspecified; T50.A95A Adverse effect of other bacterial vaccines, initial encounter; G47.33 Obstructive sleep apnea (adult) (pediatric); J30.2 Other seasonal allergic rhinitis; I95.9 Hypotension, unspecified; N18.3 Chronic kidney disease, stage 3 (moderate); C67.9 Malignant neoplasm of bladder, unspecified; Z85.46 Personal history of malignant neoplasm of prostate; Z95.1 Presence of aortocoronary bypass graft; Z79.82 Long term (current) use of aspirin; Z79.899 Other long term (current) drug therapy; Z88.5 Allergy status to narcotic agent; Z95.0 Presence of cardiac pacemaker; Z96.651 Presence of right artificial knee joint; Z90.49 Acquired absence of other specified parts of digestive tract

== ENCOUNTER → 2017-12-16 | Outpatient (CLI) | payer MEDICARE | LOC: M RAD 12:53 | DX: R33.9 Retention of urine, unspecified (principal) | CPT/HCPCS: 76857 ==

== ENCOUNTER → 2018-02-07 | Outpatient (CLI) | payer MEDICARE ==
[2018-02-07 10:40] LABS: HEMATOCRIT 47.6 % (42.0-52.0); HEMOGLOBIN 15.5 g/dl (13.5-17.5); MEAN CORPUSCULAR HGB CONC 32.6 g/dl (32.0-36.5); MEAN CORPUSCULAR VOLUME 86.1 fl (80.0-96.0); RED BLOOD COUNT 5.53 10^6/uL (4.30-6.10); RED CELL DISTRIBUTION WIDTH 15.6 % (11.5-14.5); WHITE BLOOD COUNT 9.1 10^3/uL (4.0-10.0)
[2018-02-07 10:51] LABS: INR 0.98; PROTHROMBIN TIME 13.1 SECONDS (12.1-14.4)
[2018-02-07 10:59] LABS: ERYTHROCYTE SEDIMENTATION RATE 14 mm/hr (0-20)
[2018-02-07 11:02] LABS: ALBUMIN 3.9 GM/DL (3.2-5.2); ALBUMIN/GLOBULIN RATIO 0.91 (1.00-1.93); ALKALINE PHOSPHATASE 67 U/L (45-117); ALT/SGPT 23 U/L (12-78); ANION GAP 7 MEQ/L (8-16); AST/SGOT 15 U/L (7-37); BILIRUBIN,TOTAL 0.5 MG/DL (0.2-1.0); BLOOD UREA NITROGEN 32 MG/DL (7-18); CALCIUM LEVEL 8.8 MG/DL (8.8-10.2); CARBON DIOXIDE LEVEL 28 MEQ/L (21-32); CHLORIDE LEVEL 101 MEQ/L (98-107); CREATININE FOR GFR 2.58 MG/DL (0.70-1.30); GLOMERULAR FILTRATION RATE 25.8 (>42); GLUCOSE, FASTING 254 MG/DL (70-100); POTASSIUM SERUM 4.4 MEQ/L (3.5-5.1); SODIUM LEVEL 136 MEQ/L (136-145); TOTAL PROTEIN 8.2 GM/DL (6.4-8.2)
[2018-02-07 11:12] LABS: POS COUNT POS FLAG
== END ==
LOC: M LAB 09:34
DX: Z01.818 Encounter for other preprocedural examination (principal); M16.11 Unilateral primary osteoarthritis, right hip; J44.9 Chronic obstructive pulmonary disease, unspecified; E11.9 Type 2 diabetes mellitus without complications; Z95.0 Presence of cardiac pacemaker; Z98.890 Other specified postprocedural states; R94.31 Abnormal electrocardiogram [ECG] [EKG]
CPT/HCPCS: 71046

== ENCOUNTER 2018-02-27 05:44 | Inpatient (IN) | payer MEDICARE ==
[2018-02-27 06:28] LABS: HEMATOCRIT 46.1 % (42.0-52.0); HEMOGLOBIN 15.1 g/dl (13.5-17.5); MEAN CORPUSCULAR HGB CONC 32.8 g/dl (32.0-36.5); MEAN CORPUSCULAR VOLUME 85.4 fl (80.0-96.0); RED CELL DISTRIBUTION WIDTH 15.3 % (11.5-14.5); WHITE BLOOD COUNT 9.7 10^3/uL (4.0-10.0)
[2018-02-27 07:00] LABS: POS COUNT POS FLAG
[2018-02-27] MEDS: LR 1,000 ML IV ×4 (07:03→23:20)
[2018-02-27] MEDS: BUPIVACAINE LIPOSOME/PF 1.3% 20 ML VIAL (13.3MG/ML)(EXPAREL) As Ordered (07:13)
[2018-02-27] MEDS ORDERED: PROPOFOL 200 MG/20 ML VIAL As Ordered (07:18)
[2018-02-27] MEDS ORDERED: MIDAZOLAM INJ 2 MG/2 ML VIAL (J2250) As Ordered (07:18)
[2018-02-27] MEDS ORDERED: BUPIVACAINE/DEXTROSE 0.75% 2 ML AMP As Ordered (07:18)
[2018-02-27 07:21] LABS: GLUCOSE, FASTING 175 MG/DL (70-100)
[2018-02-27] MEDS: ceFAZolin 1GM INJ (J0690 PER 500MG) As Ordered (08:33)
[2018-02-27] MEDS: OMEGA-3 1000MG CAPSULE PO (09:00)
[2018-02-27] MEDS: TRANEXAMIC ACID 100 MG/ML 10ML VIAL As Ordered (09:00)
[2018-02-27] MEDS: EPINEPHrine INJ 1 MG/ML 1ML AMP As Ordered (09:00)
[2018-02-27] MEDS ORDERED: MORPHINE 1MG/ML IN 0.9% NACL 100ML IV BAG As Ordered (09:23)
[2018-02-27] MEDS ORDERED: ONDANSETRON 4MG/2ML VIAL (J2405) IV (10:00)
[2018-02-27] MEDS ORDERED: ACETAMINOPHEN TAB 650MG DOSE (2X325MG) PO (10:00)
[2018-02-27] MEDS ORDERED: HYDROMORPHONE HCL 0.5 MG/ 0.5 ML SYRINGE (J1170 PER 1) IV ×2 (10:00)
[2018-02-27] MEDS ORDERED: FLEET ENEMA PR (10:00)
[2018-02-27] MEDS ORDERED: fentaNYL 100 MCG/2 ML INJECTION (J3010) IV (10:00)
[2018-02-27] MEDS: PERCOCET 5MG/325MG TAB PO ×3 (12:57→20:58)
[2018-02-27] MEDS: HYDROMORPHONE HCL 0.5 MG/ 0.5 ML SYRINGE (J1170 PER 1) IV ×3 (14:23→21:53)
[2018-02-27] MEDS ORDERED: PANTOPRAZOLE 40MG TAB (PROTONIX) PO (14:30)
[2018-02-27] MEDS ORDERED: ALBUTEROL 90 MCG/ACT 8GM HFA INHALER INH (14:30)
[2018-02-27] MEDS ORDERED: GLUCAGON FOR INJ 1 MG VIAL (J1610) SC (14:30)
[2018-02-27] MEDS ORDERED: GLUCOSE 4 GM CHEW TABLET PO (14:30)
[2018-02-27] MEDS ORDERED: DEXTROSE 50% 50 ML SYRINGE IV (14:30)
[2018-02-27] MEDS ORDERED: guaiFENesin ER 600 MG TAB PO (14:30)
[2018-02-27 16:24] LABS: BEDSIDE GLUCOSE 134 MG/DL (83-110)
[2018-02-27] MEDS: LACTOBACILLUS ACIDOPHILUS CAP (BACID) PO (16:29)
[2018-02-27] MEDS: ALLOPURINOL 100 MG TAB PO (16:29)
[2018-02-27] MEDS: CETIRIZINE (ZyrTEC) 10 MG TAB PO (16:31)
[2018-02-27] MEDS: VITAMIN D 1,000 INTERNATIONAL UNITS TABLET PO (16:31)
[2018-02-27] MEDS: WARFARIN SOD 5 MG TAB PO (16:31)
[2018-02-27] MEDS: HumaLOG INSULIN (NovoLOG) PER UNIT SC ×2 (17:49→21:00)
[2018-02-27 20:31] LABS: BEDSIDE GLUCOSE 183 MG/DL (83-110)
[2018-02-27] MEDS: SYMBICORT 80/4.5MCG INHALER 6GM INH (21:00)
[2018-02-27] MEDS: CARVedilol 6.25 MG TAB PO (21:54)
[2018-02-27] MEDS: SERTRALINE 100 MG TAB PO (21:54)
[2018-02-27] MEDS: TAMSULOSIN 0.4 MG CAP PO (21:54)
[2018-02-27] MEDS: busPIRone 10 MG TAB PO (21:54)
[2018-02-28] MEDS: PERCOCET 5MG/325MG TAB PO ×4 (01:18→20:01)
[2018-02-28 06:14] LABS: HEMATOCRIT 38.6 % (42.0-52.0); MEAN CORPUSCULAR HGB CONC 32.4 g/dl (32.0-36.5); MEAN CORPUSCULAR VOLUME 86.4 fl (80.0-96.0); RED BLOOD COUNT 4.47 10^6/uL (4.30-6.10); RED CELL DISTRIBUTION WIDTH 15.2 % (11.5-14.5); WHITE BLOOD COUNT 11.3 10^3/uL (4.0-10.0)
[2018-02-28 06:22] LABS: INR 1.27; PROTHROMBIN TIME 16.1 SECONDS (12.1-14.4)
[2018-02-28 06:38] LABS: ANION GAP 6 MEQ/L (8-16); BLOOD UREA NITROGEN 27 MG/DL (7-18); CALCIUM LEVEL 8.3 MG/DL (8.8-10.2); CARBON DIOXIDE LEVEL 27 MEQ/L (21-32); CHLORIDE LEVEL 103 MEQ/L (98-107); GLOMERULAR FILTRATION RATE 32.8 (>42); GLUCOSE, FASTING 158 MG/DL (70-100); POTASSIUM SERUM 4.3 MEQ/L (3.5-5.1); SODIUM LEVEL 136 MEQ/L (136-145)
[2018-02-28 06:57] LABS: HEMOGLOBIN 12.5 g/dl (13.5-17.5); POS COUNT POS FLAG
[2018-02-28] MEDS: SYMBICORT 80/4.5MCG INHALER 6GM INH ×2 (07:35→20:22)
[2018-02-28] MEDS: HumaLOG INSULIN (NovoLOG) PER UNIT SC ×4 (08:35→21:00)
[2018-02-28] MEDS: busPIRone 10 MG TAB PO ×2 (08:36→20:58)
[2018-02-28] MEDS: ALLOPURINOL 100 MG TAB PO (08:36)
[2018-02-28] MEDS: LACTOBACILLUS ACIDOPHILUS CAP (BACID) PO (08:36)
[2018-02-28] MEDS: SENOKOT S TAB PO ×2 (08:36→20:59)
[2018-02-28] MEDS: CARVedilol 6.25 MG TAB PO ×2 (08:37→20:59)
[2018-02-28] MEDS: MIRALAX *UNIT DOSE* 17GM PACKET PO (08:37)
[2018-02-28] MEDS: MOM 30ML SUSPENSION UDC PO (08:37)
[2018-02-28] MEDS: OMEGA-3 1000MG CAPSULE PO (10:25)
[2018-02-28 11:44] LABS: BEDSIDE GLUCOSE 142 MG/DL (83-110)
[2018-02-28 16:47] LABS: BEDSIDE GLUCOSE 178 MG/DL (83-110)
[2018-02-28] MEDS: WARFARIN SOD 5 MG TAB PO (17:54)
[2018-02-28] MEDS: SERTRALINE 100 MG TAB PO (20:58)
[2018-02-28] MEDS: TAMSULOSIN 0.4 MG CAP PO (20:58)
[2018-02-28 21:16] LABS: BEDSIDE GLUCOSE 142 MG/DL (83-110)
[2018-03-01 06:53] LABS: HEMOGLOBIN 12.8 g/dl (13.5-17.5); MEAN CORPUSCULAR HEMOGLOBIN 28.4 pg (27.0-33.0); MEAN CORPUSCULAR HGB CONC 32.8 g/dl (32.0-36.5); MEAN CORPUSCULAR VOLUME 86.7 fl (80.0-96.0); RED CELL DISTRIBUTION WIDTH 15.4 % (11.5-14.5); WHITE BLOOD COUNT 13.5 10^3/uL (4.0-10.0)
[2018-03-01 07:10] LABS: POS COUNT POS FLAG
[2018-03-01 07:14] LABS: INR 1.15; PROTHROMBIN TIME 14.9 SECONDS (12.1-14.4)
[2018-03-01 07:21] LABS: ANION GAP 5 MEQ/L (8-16); BLOOD UREA NITROGEN 30 MG/DL (7-18); CALCIUM LEVEL 8.8 MG/DL (8.8-10.2); CARBON DIOXIDE LEVEL 30 MEQ/L (21-32); CHLORIDE LEVEL 102 MEQ/L (98-107); CREATININE FOR GFR 2.11 MG/DL (0.70-1.30); GLOMERULAR FILTRATION RATE 32.6 (>42); GLUCOSE, FASTING 134 MG/DL (70-100); MAGNESIUM LEVEL 2.1 MG/DL (1.8-2.4); POTASSIUM SERUM 4.3 MEQ/L (3.5-5.1); SODIUM LEVEL 137 MEQ/L (136-145)
[2018-03-01] MEDS: HumaLOG INSULIN (NovoLOG) PER UNIT SC ×4 (07:59→20:52)
[2018-03-01] MEDS: LACTOBACILLUS ACIDOPHILUS CAP (BACID) PO (08:00)
[2018-03-01] MEDS: CARVedilol 6.25 MG TAB PO ×2 (08:00→20:57)
[2018-03-01] MEDS: busPIRone 10 MG TAB PO ×2 (08:00→20:56)
[2018-03-01] MEDS: OMEGA-3 1000MG CAPSULE PO (08:00)
[2018-03-01] MEDS: ALLOPURINOL 100 MG TAB PO (08:03)
[2018-03-01] MEDS: PERCOCET 5MG/325MG TAB PO ×3 (08:03→22:48)
[2018-03-01] MEDS: MOM 30ML SUSPENSION UDC PO (08:04)
[2018-03-01] MEDS: SENOKOT S TAB PO ×2 (08:04→20:56)
[2018-03-01] MEDS: MIRALAX *UNIT DOSE* 17GM PACKET PO (08:04)
[2018-03-01] MEDS: SYMBICORT 80/4.5MCG INHALER 6GM INH ×2 (11:22→20:48)
[2018-03-01 12:04] LABS: BEDSIDE GLUCOSE 177 MG/DL (83-110)
[2018-03-01] MEDS: ASPIRIN 81 MG ENTERIC TAB PO (14:41)
[2018-03-01] MEDS: ENOXAPARIN 40 MG/0.4 ML SYRINGE (J1650) SC (14:42)
[2018-03-01 16:45] LABS: BEDSIDE GLUCOSE 173 MG/DL (83-110)
[2018-03-01] MEDS: WARFARIN SOD 7.5 MG TAB PO (17:48)
[2018-03-01 20:25] LABS: BEDSIDE GLUCOSE 142 MG/DL (83-110)
[2018-03-01] MEDS: SERTRALINE 100 MG TAB PO (20:56)
[2018-03-01] MEDS: TAMSULOSIN 0.4 MG CAP PO (20:56)
[2018-03-02 02:25] LABS: BEDSIDE GLUCOSE 149 MG/DL (83-110)
[2018-03-02 07:30] LABS: HEMATOCRIT 34.7 % (42.0-52.0); HEMOGLOBIN 11.2 g/dl (13.5-17.5); MEAN CORPUSCULAR HEMOGLOBIN 27.7 pg (27.0-33.0); MEAN CORPUSCULAR HGB CONC 32.3 g/dl (32.0-36.5); MEAN CORPUSCULAR VOLUME 85.9 fl (80.0-96.0); RED BLOOD COUNT 4.04 10^6/uL (4.30-6.10); RED CELL DISTRIBUTION WIDTH 15.4 % (11.5-14.5); WHITE BLOOD COUNT 11.1 10^3/uL (4.0-10.0)
[2018-03-02 07:33] LABS: PROTHROMBIN TIME 18.4 SECONDS (12.1-14.4)
[2018-03-02] MEDS: SYMBICORT 80/4.5MCG INHALER 6GM INH (07:43)
[2018-03-02 07:48] LABS: ANION GAP 6 MEQ/L (8-16); BLOOD UREA NITROGEN 36 MG/DL (7-18); CALCIUM LEVEL 8.4 MG/DL (8.8-10.2); CARBON DIOXIDE LEVEL 28 MEQ/L (21-32); CHLORIDE LEVEL 101 MEQ/L (98-107); CREATININE FOR GFR 2.31 MG/DL (0.70-1.30); GLOMERULAR FILTRATION RATE 29.4 (>42); GLUCOSE, FASTING 147 MG/DL (70-100); MAGNESIUM LEVEL 2.1 MG/DL (1.8-2.4); POTASSIUM SERUM 4.1 MEQ/L (3.5-5.1); SODIUM LEVEL 135 MEQ/L (136-145)
[2018-03-02] MEDS: SENOKOT S TAB PO (08:14)
[2018-03-02] MEDS: HumaLOG INSULIN (NovoLOG) PER UNIT SC ×2 (08:14→12:10)
[2018-03-02] MEDS: LACTOBACILLUS ACIDOPHILUS CAP (BACID) PO (08:15)
[2018-03-02] MEDS: ASPIRIN 81 MG ENTERIC TAB PO (08:15)
[2018-03-02] MEDS: VITAMIN D 1,000 INTERNATIONAL UNITS TABLET PO (08:15)
[2018-03-02] MEDS: ALLOPURINOL 100 MG TAB PO (08:15)
[2018-03-02] MEDS: OMEGA-3 1000MG CAPSULE PO (08:15)
[2018-03-02] MEDS: busPIRone 10 MG TAB PO (08:18)
[2018-03-02] MEDS: CARVedilol 6.25 MG TAB PO (08:18)
[2018-03-02] MEDS: MIRALAX *UNIT DOSE* 17GM PACKET PO (08:19)
[2018-03-02] MEDS: MOM 30ML SUSPENSION UDC PO (08:19)
[2018-03-02 08:38] LABS: POS COUNT POS FLAG
[2018-03-02] MEDS: PERCOCET 5MG/325MG TAB PO (09:31)
[2018-03-02 12:01] LABS: BEDSIDE GLUCOSE 124 MG/DL (83-110)
== END 2018-03-02 12:43 | disposition home or self-care (01) | DRG 470 ==
LOC: M OR 05:44 → M MS5PR 11:40
PROVIDERS: Orthopaedic Surgery
PROC: 0SR9029 Replacement of Right Hip Joint with Metal on Polyethylene Synthetic Substitute, Cemented, Open Approach (ICD-10-PCS; principal; 2018-02-27 07:30)
DX: M16.11 Unilateral primary osteoarthritis, right hip (principal); N18.3 Chronic kidney disease, stage 3 (moderate); Z79.899 Other long term (current) drug therapy; Z79.82 Long term (current) use of aspirin; I25.10 Atherosclerotic heart disease of native coronary artery without angina pectoris; J44.9 Chronic obstructive pulmonary disease, unspecified; K21.9 Gastro-esophageal reflux disease without esophagitis; G47.33 Obstructive sleep apnea (adult) (pediatric); I12.9 Hypertensive chronic kidney disease with stage 1 through stage 4 chronic kidney disease, or unspecified chronic kidney disease; E11.9 Type 2 diabetes mellitus without complications; K57.30 Diverticulosis of large intestine without perforation or abscess without bleeding; Z95.0 Presence of cardiac pacemaker; E78.00 Pure hypercholesterolemia, unspecified; M10.9 Gout, unspecified; Z85.46 Personal history of malignant neoplasm of prostate; Z85.51 Personal history of malignant neoplasm of bladder; Z96.651 Presence of right artificial knee joint; F41.9 Anxiety disorder, unspecified; F32.9 Major depressive disorder, single episode, unspecified; K59.00 Constipation, unspecified

== ENCOUNTER → 2018-03-06 | Outpatient (REF) | payer MEDICARE ==
[2018-03-06 12:39] LABS: INR 2.95; PROTHROMBIN TIME 31.4 SECONDS (12.1-14.4)
== END ==
LOC: M LABDRAW1 11:40
DX: Z79.01 Long term (current) use of anticoagulants (principal)
CPT/HCPCS: 85610

== ENCOUNTER → 2018-03-09 | Outpatient (REF) | payer MEDICARE ==
[2018-03-09 12:10] LABS: INR 2.79; PROTHROMBIN TIME 30.1 SECONDS (12.1-14.4)
== END ==
LOC: M LABDRAW1 11:21
DX: Z51.81 Encounter for therapeutic drug level monitoring (principal); Z79.01 Long term (current) use of anticoagulants; Z98.890 Other specified postprocedural states
CPT/HCPCS: 85610

== ENCOUNTER → 2018-03-13 | Outpatient (REF) | payer MEDICARE ==
[2018-03-13 12:27] LABS: INR 1.39; PROTHROMBIN TIME 17.3 SECONDS (12.1-14.4)
== END ==
LOC: M LABDRAW1 09:45
DX: Z51.81 Encounter for therapeutic drug level monitoring (principal); Z79.01 Long term (current) use of anticoagulants; Z96.641 Presence of right artificial hip joint
CPT/HCPCS: 85610

== ENCOUNTER → 2018-03-15 | Outpatient (REF) | payer MEDICARE ==
[2018-03-15 12:08] LABS: INR 1.23; PROTHROMBIN TIME 15.7 SECONDS (12.1-14.4)
== END ==
LOC: M LABDRAW1 11:31
DX: Z51.81 Encounter for therapeutic drug level monitoring (principal); Z79.01 Long term (current) use of anticoagulants; Z96.641 Presence of right artificial hip joint
CPT/HCPCS: 85610

== ENCOUNTER → 2018-03-20 | Outpatient (REF) | payer MEDICARE ==
[2018-03-20 12:30] LABS: INR 1.26
== END ==
LOC: M LABDRAW1 10:01
DX: Z79.01 Long term (current) use of anticoagulants (principal)
CPT/HCPCS: 85610

== ENCOUNTER → 2018-03-23 | Outpatient (REF) | payer MEDICARE ==
[2018-03-23 13:00] LABS: INR 1.51; PROTHROMBIN TIME 18.4 SECONDS (12.1-14.4)
== END ==
LOC: M LABDRAW1 11:46
DX: Z51.81 Encounter for therapeutic drug level monitoring (principal); Z79.01 Long term (current) use of anticoagulants; Z96.651 Presence of right artificial knee joint
CPT/HCPCS: 85610

== ENCOUNTER → 2018-03-27 | Outpatient (REF) | payer MEDICARE ==
[2018-03-27 13:28] LABS: INR 1.84; PROTHROMBIN TIME 21.6 SECONDS (12.1-14.4)
== END ==
LOC: M LABDRAW1 09:29
DX: Z51.81 Encounter for therapeutic drug level monitoring (principal); Z79.01 Long term (current) use of anticoagulants; Z98.890 Other specified postprocedural states
CPT/HCPCS: 85610

== ENCOUNTER → 2018-05-01 | Outpatient (REF) | payer MEDICARE ==
[~2018-05-01] MED LIST changes: +ALLO100T PO; -ASPI-101 PO; +ASPI-225 PO; +ASPI1CHW2 PO; +ASPI81TAEC PO; +CARV6.25 PO; +CEFD1CAP8 PO; +Coumadin PO; -DOXY-278 PO; +DOXY-350 PO; +Docusate Sod/Senna PO; +FISH7.5C PO; +FLOM0.4C39 PO; -FLOM5CAP PO; +GLIP5TAB20 PO; +LOSA100T5 PO; +MUCI600T31 PO; -PANT40TA2 PO; +PANT40TA3 PO; +PEG1POW PO; +PERC5TAB12 PO; +PROAAER10 INH; +PROBCAP4 PO; +SERT-138 PO; +SYMB80INH INH; +TYLE325T5 PO; +VITA500T3 PO; +WARF-18 PO
[2018-05-01 11:11] LABS: ALBUMIN 3.6 GM/DL (3.2-5.2); BILIRUBIN,TOTAL 0.4 MG/DL (0.2-1.0); CALCIUM LEVEL 8.7 MG/DL (8.8-10.2); CHOLESTEROL RISK RATIO 6.921 (<5); CREATININE FOR GFR 2.2 MG/DL (0.70-1.30); GLOMERULAR FILTRATION RATE 31.1 (>42); POTASSIUM SERUM 4.6 MEQ/L (3.5-5.1); TOTAL PROTEIN 7.7 GM/DL (6.4-8.2)
[2018-05-01 11:28] LABS: MALB URINE SIEMENS 29.2 MG/L; MAU/CREAT RATIO 21.9 MCG/MG (0.0-30.0)
[2018-05-01 11:38] LABS: HEMOGLOBIN A1c 6.8 %
== END ==
LOC: M LABDRAW1 09:15
PROVIDERS: ATTEND Nurse Practitioner Adult Health
DX: I25.708 Atherosclerosis of coronary artery bypass graft(s), unspecified, with other forms of angina pectoris (principal); E11.8 Type 2 diabetes mellitus with unspecified complications; E78.2 Mixed hyperlipidemia

== ENCOUNTER → 2018-08-09 | Outpatient (REF) | payer MEDICARE ==
[~2018-08-09] MED LIST changes: -ASPI1TAB PO; +ASPI81TA26 PO; -CRES20TA PO; +CRES20TA2 PO; -SERT25TA PO; +SERT25TA85 PO
[2018-08-09 16:48] LABS: HEMOGLOBIN A1c 7.6 %
== END ==
LOC: M SFHCPLAZ 14:07
PROVIDERS: ATTEND Nurse Practitioner Adult Health
DX: E11.8 Type 2 diabetes mellitus with unspecified complications (principal)
CPT/HCPCS: 36415; 83036; G0463

== ENCOUNTER → 2018-12-20 | Outpatient (REF) | payer MEDICARE ==
[~2018-12-20] MED LIST changes: +CYAN500T8 PO; -VITA500T3 PO
[2018-12-20 14:02] LABS: ALBUMIN 4.1 GM/DL (3.2-5.2); ALT/SGPT 21 U/L (12-78); BILIRUBIN,TOTAL 0.4 MG/DL (0.2-1.0); BLOOD UREA NITROGEN 33 MG/DL (7-18); CALCIUM LEVEL 9.3 MG/DL (8.8-10.2); CARBON DIOXIDE LEVEL 27 MEQ/L (21-32); CHLORIDE LEVEL 103 MEQ/L (98-107); CHOLESTEROL LEVEL 286 MG/DL (<200); CHOLESTEROL RISK RATIO 7.333 (<5); CREATININE FOR GFR 2.22 MG/DL (0.70-1.30); GLOMERULAR FILTRATION RATE 30.6 (>42); GLUCOSE, FASTING 137 MG/DL (70-100); HDL CHOLESTEROL 39 MG/DL (>40); NON-HDL-C 247 MG/DL; POTASSIUM SERUM 4.8 MEQ/L (3.5-5.1); SODIUM LEVEL 139 MEQ/L (136-145); TOTAL PROTEIN 8.1 GM/DL (6.4-8.2); TRIGLYCERIDES LEVEL 549 MG/DL (<150)
[2018-12-20 14:19] LABS: MALB URINE SIEMENS 16.6 MG/L; MAU/CREAT RATIO 14.6 MCG/MG (0.0-30.0)
[2018-12-20 14:20] LABS: HEMOGLOBIN A1c 6.8 %
== END ==
LOC: M SFHCPLAZ 11:27
PROVIDERS: ATTEND Nurse Practitioner Adult Health
DX: E11.8 Type 2 diabetes mellitus with unspecified complications (principal); I10 Essential (primary) hypertension; E78.2 Mixed hyperlipidemia
CPT/HCPCS: 36415; 80053; 80061; 82043; 83036; G0463

== ENCOUNTER 2019-03-08 13:50 | Emergency (ER) | payer MEDICARE ==
[~2019-03-08] VITALS: Ht 172.7 cm; Wt 93.6 kg
[2019-03-08] MEDS ORDERED: ACETAMINOPHEN 500 MG TAB PO ONE (15:45)
--- NOTE | 2019-03-08 16:29 | REP ---
Right rib series: Five views including PA chest. History: Bruising and pain. Comparison study: February 07, 2018. Findings: PA chest radiograph shows multilead pacemaker in the right heart via the left side. Median sternotomy wires are again seen. Heart size is borderline unchanged. There is some linear fibrosis in the left base. There is no evidence of pneumothorax or hydrothorax. Mediastinum is not traumatically widened. The aorta is calcific and somewhat tortuous. Multiple views of the right ribcage show no visible rib fracture or bony destructive lesion. There are sutures in the upper abdomen. Degenerative changes are seen in the thoracic spine. Impression: No acute abnormality. A multilead pacemaker. Borderline heart size. No rib fracture seen. Electronically Signed by Zev Jimenez MD 03/08/2019 05:24 P
--- NOTE | 2019-03-08 16:44 | REP ---
CT right shoulder without contrast: History: Severe bruising, swelling. Question triceps are bicep tear. Comparison: Right rib views. CT findings: The glenohumeral and acromioclavicular joints are normally aligned. There is osteoarthritic spurring at the AC joint and to a lesser extent at the glenohumeral articulation. There is no evidence of occult fracture. There is some inferolateral spurring of the acromion process. There is no visible soft tissue hematoma or abnormal fluid collection. The visualized right lung is unremarkable. Pacemaker is noted. Impression: No occult fracture. AC joint and glenohumeral joint effusion. No significant soft tissue hematoma or abnormal fluid collection is appreciated. Electronically Signed by Zev Jimenez MD 03/08/2019 05:24 P
--- NOTE | 2019-03-08 16:55 | REP ---
Right upper extremity duplex venous ultrasound: History: Severe bruising, swelling, pain. Rule out venous thrombosis. Findings: The right internal jugular, axillary, brachial, basilic, and cephalic veins are anechoic and compressible in the left upper extremity. Color flow imaging is homogeneous. Spectral Doppler interrogation is unremarkable. There is no evidence of right upper extremity venous thrombosis. Impression: Negative right upper extremity duplex venous ultrasound. No evidence of venous thrombosis. Electronically Signed by Zev Jimenez MD 03/08/2019 04:47 P
[2019-03-08 18:15] LABS: BASO # 0.1 10^3/uL (0.0-0.2); BASO % 0.9 % (0.0-1.0); HEMATOCRIT 42.8 % (42.0-52.0); HEMOGLOBIN 13.5 g/dl (13.5-17.5); LYMPH # 1.8 10^3/uL (1.5-5.0); LYMPH % 19.3 % (24.0-44.0); MEAN CORPUSCULAR HEMOGLOBIN 27.3 pg (27.0-33.0); MEAN CORPUSCULAR HGB CONC 31.5 g/dl (32.0-36.5); MEAN CORPUSCULAR VOLUME 86.5 fl (80.0-96.0); MONO # 0.8 10^3/uL (0.0-0.8); MONO % 8.8 % (0.0-5.0); NEUTROPHILS # 6.3 10^3/uL (1.5-8.5); NEUTROPHILS % 69.2 % (36.0-66.0); RED BLOOD COUNT 4.95 10^6/uL (4.30-6.10); WHITE BLOOD COUNT 9.1 10^3/uL (4.0-10.0)
[2019-03-08 18:24] LABS: INR 1.14; PROTHROMBIN TIME 14.4 SECONDS (11.8-14.0)
[2019-03-08 18:25] LABS: PARTIAL THROMBOPLASTIN TIME 27.9 SECONDS (25.0-38.4)
[2019-03-08] MEDS ORDERED: NS 1,000 ML IV ONE (18:30)
--- NOTE | 2019-03-08 18:37 | ECGEPIP ---
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
[2019-03-08 18:43] LABS: ALBUMIN 3.6 GM/DL (3.2-5.2); ALT/SGPT 22 U/L (12-78); BILIRUBIN,DIRECT < 0.1 MG/DL (0.0-0.2); BILIRUBIN,TOTAL 0.6 MG/DL (0.2-1.0); BLOOD UREA NITROGEN 31 MG/DL (7-18); CALCIUM LEVEL 9.2 MG/DL (8.8-10.2); CARBON DIOXIDE LEVEL 30 MEQ/L (21-32); CHLORIDE LEVEL 105 MEQ/L (98-107); CPK CREATINE PHOSPHOKINASE 147 U/L (39-308); CREATININE FOR GFR 2.14 MG/DL (0.70-1.30); GLUCOSE, FASTING 78 MG/DL (70-100); LIPASE 209 U/L (73-393); MB/CK RELATIVE INDEX 1.36 (< OR =4); SODIUM LEVEL 139 MEQ/L (136-145); TOTAL PROTEIN 8.2 GM/DL (6.4-8.2); TROPONIN I < 0.02 NG/ML (< 0.10)
[2019-03-08] MEDS ORDERED: PATIROMER SORBITEX CALCIUM 8.4 GM POWDER PACKET (VELTASSA) PO ONE (19:15)
[2019-03-08 19:28] VITALS: BP 155/74
--- NOTE | 2019-03-08 19:54 | REPVR ---
PROCEDURE INFORMATION: Exam: CT Chest Without Contrast Exam date and time: 03/08/2019 7:12 PM Clinical history: 78 years old, male; Other: Hematoma; Additional info: Looking hematoma TECHNIQUE: Imaging protocol: Computed tomography of the chest without contrast. 3D rendering: MIP reconstructed images were created and reviewed. Radiation optimization: All CT scans at this facility use at least one of these dose optimization techniques: automated exposure control; mA and/or kV adjustment per patient size (includes targeted exams where dose is matched to clinical indication); or iterative reconstruction. COMPARISON: CR Ribs uni W-PA CHEST ONLY 03/08/2019 3:49 PM FINDINGS: Tubes, catheters and devices: Cardiac pacing device demonstrated. Lungs: Unremarkable. No consolidation. No masses. Pleural space: Unremarkable. No pneumothorax. No pleural effusion. Heart: Status post CABG. Aorta: The aorta demonstrates mild atherosclerotic calcification. Lymph nodes: Unremarkable. No enlarged lymph nodes. Kidneys and ureters: Left renal hypodensity measures 3.6 cm likely representing a cyst. Finding is stable in comparison to the prior study 2016. Bones/joints: The spine demonstrates mild degenerative changes. Status post sternotomy. Soft tissues: Upper abdominal and lower thoracic midline subxiphoid ventral hernia. IMPRESSION: 1. Upper abdominal and lower thoracic midline subxiphoid ventral hernia. 2. No acute intrathoracic findings. Electronically signed by: Bola Domínguez On 03/08/2019 19:54:00 PM
== END 2019-03-08 20:29 | disposition left against medical advice (07) ==
LOC: M ED 13:50
DX: E87.5 Hyperkalemia (principal); S40.021A Contusion of right upper arm, initial encounter; S20.211A Contusion of right front wall of thorax, initial encounter; M79.89 Other specified soft tissue disorders; X50.0XXA Overexertion from strenuous movement or load, initial encounter; Y92.096 Garden or yard of other non-institutional residence as the place of occurrence of the external cause; Y93.H1 Activity, digging, shoveling and raking; Y99.8 Other external cause status; J44.9 Chronic obstructive pulmonary disease, unspecified; K21.9 Gastro-esophageal reflux disease without esophagitis; K57.92 Diverticulitis of intestine, part unspecified, without perforation or abscess without bleeding; N18.3 Chronic kidney disease, stage 3 (moderate); I25.10 Atherosclerotic heart disease of native coronary artery without angina pectoris; F41.9 Anxiety disorder, unspecified; F32.9 Major depressive disorder, single episode, unspecified; Z95.0 Presence of cardiac pacemaker; Z95.1 Presence of aortocoronary bypass graft; Z85.46 Personal history of malignant neoplasm of prostate; Z85.51 Personal history of malignant neoplasm of bladder

== ENCOUNTER → 2019-03-09 | Outpatient (CLI) | payer MEDICARE ==
[2019-03-09 13:43] LABS: CREATININE FOR GFR 1.94 MG/DL (0.70-1.30); GLOMERULAR FILTRATION RATE 35.8 (>42); POTASSIUM SERUM 4.7 MEQ/L (3.5-5.1)
== END ==
LOC: M LAB 12:36
DX: E87.5 Hyperkalemia (principal)

== ENCOUNTER → 2019-05-04 | Outpatient (REF) | payer MEDICARE ==
[2019-05-04 15:00] LABS: ALBUMIN 3.7 GM/DL (3.2-5.2); CALCIUM LEVEL 8.8 MG/DL (8.8-10.2); CREATININE FOR GFR 2.27 MG/DL (0.70-1.30); GLOMERULAR FILTRATION RATE 29.9 (>42); MAGNESIUM LEVEL 1.7 MG/DL (1.8-2.4); PHOSPHORUS LEVEL 1.7 MG/DL (2.5-4.9); POTASSIUM SERUM 4.9 MEQ/L (3.5-5.1); URIC ACID 5.8 MG/DL (3.5-7.2)
== END ==
LOC: M LAB REF 14:01
PROVIDERS: ATTEND Internal Medicine Nephrology
DX: N18.3 Chronic kidney disease, stage 3 (moderate) (principal); M1A.30X0 Chronic gout due to renal impairment, unspecified site, without tophus (tophi)

== ENCOUNTER → 2019-08-11 | Outpatient (CLI) | payer MEDICARE ==
[~2019-08-11] MED LIST changes: -ASPI-225 PO; +ASPI81TA78 PO
== END ==
LOC: M LABSMTC 10:00
PROVIDERS: ATTEND Family Medicine
DX: Z11.59 Encounter for screening for other viral diseases (principal); Z20.828 Contact with and (suspected) exposure to other viral communicable diseases

== ENCOUNTER 2020-02-22 10:44 | Emergency (ER) | payer MEDICARE ==
[~2020-02-22] VITALS: Ht 172.7 cm; Wt 101.6 kg
[~2020-02-22 10:44] MED LIST changes: +PANT40TA29 PO; -PANT40TA3 PO
--- NOTE | 2020-02-22 12:05 | REP ---
INDICATION: CHEST PAIN. COMPARISON: March 08, 2019.. TECHNIQUE: Upright AP radiograph. FINDINGS: A multilead pacemaker is again noted in the right heart view of the left side. Median sternotomy wires are noted. Moderate cardiac enlargement is seen. These findings are unchanged. Pulmonary vasculature is cephalized. There is mild linear bibasilar fibrosis. No acute infiltrate is seen. There is no evidence of pleural effusion or pulmonary edema. IMPRESSION: Cardiomegaly with pacemaker. Prior sternotomy. Mild bibasilar fibrosis. No evidence of pleural effusion, pulmonary edema, or infiltrate. <Electronically signed by Darin Jimenez > 02/22/20 [id number]
[2020-02-22] MEDS ORDERED: MAGN1CAP PO (12:33)
[2020-02-22] MEDS ORDERED: VALS160T3 PO (12:33)
[2020-02-22] MEDS ORDERED: MELO15TA28 PO (12:33)
[2020-02-22] MEDS ORDERED: ADV250INH PO (12:33)
[2020-02-22] MEDS ORDERED: ZYLO300T6 PO (12:33)
[2020-02-22] MEDS ORDERED: FURO40TA2 PO (12:33)
[2020-02-22] MEDS ORDERED: GLIP10TA18 PO (12:33)
[2020-02-22 12:34] LABS: BASO # 0.1 10^3/uL (0.0-0.2); BASO % 0.7 % (0.0-1.0); HEMATOCRIT 44.6 % (42.0-52.0); LYMPH # 1.4 10^3/uL (1.5-5.0); LYMPH % 15.5 % (24.0-44.0); MEAN CORPUSCULAR HEMOGLOBIN 28.3 pg (27.0-33.0); MEAN CORPUSCULAR HGB CONC 31.4 g/dl (32.0-36.5); MEAN CORPUSCULAR VOLUME 90.3 fl (80.0-96.0); MONO # 0.7 10^3/uL (0.0-0.8); MONO % 7.6 % (0.0-5.0); NEUTROPHILS # 6.6 10^3/uL (1.5-8.5); NEUTROPHILS % 74.7 % (36.0-66.0); RED BLOOD COUNT 4.94 10^6/uL (4.30-6.10); WHITE BLOOD COUNT 8.8 10^3/uL (4.0-10.0)
[2020-02-22 12:46] LABS: INR 1.03; PARTIAL THROMBOPLASTIN TIME 25.4 SECONDS (24.2-38.5); PROTHROMBIN TIME 13.7 SECONDS (12.5-14.3)
[2020-02-22 13:18] LABS: ALT/SGPT 26 U/L (12-78); BILIRUBIN,DIRECT < 0.1 MG/DL (0.0-0.2); BILIRUBIN,TOTAL 0.6 MG/DL (0.2-1.0); BLOOD UREA NITROGEN 28 MG/DL (7-18); CALCIUM LEVEL 9.3 MG/DL (8.8-10.2); CARBON DIOXIDE LEVEL 28 MEQ/L (21-32); CHLORIDE LEVEL 103 MEQ/L (98-107); CK-MB VALUE MASS 1.9 NG/ML (<3.6); CPK CREATINE PHOSPHOKINASE 126 U/L (39-308); CREATININE FOR GFR 2.41 MG/DL (0.70-1.30); GLOMERULAR FILTRATION RATE 27.8 (>42); GLUCOSE, FASTING 142 MG/DL (70-100); LIPASE 164 U/L (73-393); MB/CK RELATIVE INDEX 1.51 (< OR =4); NT-PRO BNP 741 PG/ML (<450); POTASSIUM SERUM 6.3 MEQ/L (3.5-5.1); SODIUM LEVEL 137 MEQ/L (136-145); TOTAL PROTEIN 8.3 GM/DL (6.4-8.2); TROPONIN I < 0.02 NG/ML (< 0.10)
[2020-02-22 13:57] LABS: CALCIUM LEVEL 9.7 MG/DL (8.8-10.2); CREATININE FOR GFR 2.38 MG/DL (0.70-1.30); GLOMERULAR FILTRATION RATE 28.2 (>42); POTASSIUM SERUM 5.2 MEQ/L (3.5-5.1)
--- NOTE | 2020-02-22 15:04 | REP ---
INDICATION: upper abdominal pain; left flank pain COMPARISON: 02/02/2017. TECHNIQUE: CT Scan of the abdomen and pelvis was performed without intravenous contrast. Sagittal and coronal reconstruction images performed. FINDINGS: Lung bases: There are mild bibasilar fibro atelectatic changes. In the midline of the upper abdomen there are metallic clips in the anterior abdominal wall presumably from prior hernia surgery. There is a small anterior abdominal hernia just superior to this containing noninflamed fat, at the level of the diaphragms. A little more inferiorly there is another smaller anterior abdominal hernia in the midline containing noninflamed fat. Liver: Grossly unremarkable. Gallbladder: Unremarkable. Spleen: Grossly unremarkable.. Adrenals: Normal. Pancreas: Grossly unremarkable.. Kidneys: No hydronephrosis or nephrolithiasis. Ureters demonstrate no dilatation or calculus. A cyst in the upper pole the right kidney laterally measures approximately 1 point 8 cm in diameter. There are 2 adjacent cysts in the lower pole of the left kidney measuring 4 cm and 5 cm in maximum diameter. Small and large bowel: There is diffuse colonic diverticulosis. There is no acute diverticulitis. There is large amount of fecal material in the sigmoid colon. Free fluid: None. Abdominal aorta: No aneurysm. Scattered atherosclerotic calcifications. Adenopathy: None. Appendix: Not inflamed. Osseous structures: There are degenerative changes of the spine without compression fracture. There is a right hip prosthesis. Pelvis: No mass. No bladder calculus seen. There are metallic clips in the anterior wall of the pelvis. IMPRESSION: No acute abnormalities identified. <Electronically signed by Federico Encarnacion > 02/22/20 [id number]
[2020-02-22 15:37] VITALS: BP 163/77
--- NOTE | 2020-02-23 07:48 | ECGEPIP ---
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
== END 2020-02-22 15:41 | disposition home or self-care (01) ==
LOC: M ED 10:44
DX: N18.6 End stage renal disease (principal); R10.12 Left upper quadrant pain; R10.32 Left lower quadrant pain; R39.198 Other difficulties with micturition; Z85.51 Personal history of malignant neoplasm of bladder; I11.9 Hypertensive heart disease without heart failure; E11.9 Type 2 diabetes mellitus without complications; K21.9 Gastro-esophageal reflux disease without esophagitis; K57.92 Diverticulitis of intestine, part unspecified, without perforation or abscess without bleeding; Z95.1 Presence of aortocoronary bypass graft; Z95.0 Presence of cardiac pacemaker; Z88.5 Allergy status to narcotic agent; Z79.899 Other long term (current) drug therapy; Z79.51 Long term (current) use of inhaled steroids

== ENCOUNTER 2020-07-17 11:35 | Inpatient (IN) | payer MEDICARE ==
[~2020-07-17] VITALS: Ht 172.7 cm; Wt 103.5 kg
[~2020-07-17 11:35] MED LIST changes: +ADV250INH PO; +ASPI-569 PO; -ASPI81TAEC PO; +CYAN500T14 PO; -CYAN500T8 PO; +GLIP10TA18 PO; +MAGN1CAP PO; +MELO15TA28 PO; -PEG1POW PO; +POLY17PO18 PO; +ZYLO300T6 PO
[2020-07-17] MEDS ORDERED: DIGOXIN INJ 0.5 MG/2 ML AMP (J1160) IV ONE ×2 (12:30→15:10)
[2020-07-17 12:38] LABS: BASO # 0.1 10^3/uL (0.0-0.2); BASO % 0.8 % (0.0-1.0); EOS # 0.1 10^3/uL (0.0-0.5); EOS % 0.5 % (0.0-3.0); HEMATOCRIT 41.5 % (42.0-52.0); LYMPH # 1.7 10^3/uL (1.5-5.0); LYMPH % 16.5 % (24.0-44.0); MEAN CORPUSCULAR HGB CONC 31.3 g/dl (32.0-36.5); MEAN CORPUSCULAR VOLUME 92.6 fl (80.0-96.0); MONO # 0.8 10^3/uL (0.0-0.8); MONO % 7.5 % (2.0-8.0); NEUTROPHILS # 7.5 10^3/uL (1.5-8.5); PLATELET COUNT, AUTOMATED 106 10^3/uL (150-450); RED BLOOD COUNT 4.48 10^6/uL (4.30-6.10); WHITE BLOOD COUNT 10.3 10^3/uL (4.0-10.0)
--- NOTE | 2020-07-17 12:45 | REP ---
INDICATION: CHEST PAIN. COMPARISON: Comparison chest x-ray is from February 22, 2020. TECHNIQUE: Portable upright AP chest radiograph. FINDINGS: Lungs are well inflated and free of infiltrate. There is mild linear fibrosis in the left base. Prior sternotomy is noted. Mild cardiomegaly is noted. Median sternotomy wires are seen. These findings are unchanged. Pulmonary vasculature is not increased. No evidence of pleural effusion or pulmonary edema seen. IMPRESSION: Cardiomegaly with pacemaker. Linear fibrosis left base. Otherwise no acute disease.. <Electronically signed by Darin Jimenez > 07/17/20 [id number]
[2020-07-17 13:11] LABS: ALBUMIN 4.1 GM/DL (3.2-5.2); ALT/SGPT 23 U/L (12-78); BILIRUBIN,DIRECT 0.1 MG/DL (0.0-0.2); BILIRUBIN,TOTAL 0.3 MG/DL (0.2-1.0); BLOOD UREA NITROGEN 73 MG/DL (7-18); CALCIUM LEVEL 8.8 MG/DL (8.8-10.2); CARBON DIOXIDE LEVEL 22 MEQ/L (21-32); CHLORIDE LEVEL 107 MEQ/L (98-107); CK-MB VALUE MASS 6.6 NG/ML (<3.6); CPK CREATINE PHOSPHOKINASE 263 U/L (39-308); CREATININE FOR GFR 3.73 MG/DL (0.70-1.30); GLOMERULAR FILTRATION RATE 16.8 (>42); GLUCOSE, FASTING 162 MG/DL (70-100); MB/CK RELATIVE INDEX 2.51 (< OR =4); POTASSIUM SERUM 5.4 MEQ/L (3.5-5.1); SODIUM LEVEL 138 MEQ/L (136-145); TOTAL PROTEIN 7.9 GM/DL (6.4-8.2); TROPONIN I < 0.02 NG/ML (< 0.10)
[2020-07-17 13:30] LABS: MAGNESIUM LEVEL 1.7 MG/DL (1.8-2.4)
[2020-07-17] MEDS ORDERED: ZINC1TAB2 PO (13:48)
[2020-07-17] MEDS ORDERED: BAYE325T13 PO (13:48)
[2020-07-17] MEDS ORDERED: ZOLO100T PO (13:48)
[2020-07-17] MEDS ORDERED: PROBCAP14 PO (13:48)
[2020-07-17] MEDS ORDERED: COLC0.6T47 PO (13:48)
[2020-07-17] MEDS ORDERED: D31000TA2 PO (13:48)
[2020-07-17] MEDS ORDERED: ACET-683 PO (13:50)
[2020-07-17 14:04] LABS: RSV AMPLIFICATION NEGATIVE (NEGATIVE)
[2020-07-17] MEDS ORDERED: MAG SULF 1GM/100ML (MAG RUN) 1 GM in IV 1 EA IV ONE (15:30)
[2020-07-17 17:01] VITALS: BP 138/86
[2020-07-17] MEDS: FUROSEMIDE 100MG/10ML VIAL (J1940) IV ONE ×2 (19:00→20:23)
[2020-07-17 20:00] VITALS: BP 117/66
[2020-07-17] MEDS: SYMBICORT 80/4.5MCG INHALER 6GM INH SCH (20:15)
[2020-07-17] MEDS: busPIRone 10 MG TAB PO SCH (21:16)
[2020-07-17] MEDS: DOCUSATE SODIUM 100MG CAPSULE PO SCH (21:16)
[2020-07-17] MEDS: APIXABAN 5 MG TAB (ELIQUIS) PO SCH (21:16)
[2020-07-17] MEDS: allopurinoL 300 MG TAB PO SCH (21:17)
[2020-07-17] MEDS: SERTRALINE 100 MG TAB PO SCH (21:17)
--- NOTE | 2020-07-17 23:21 | HPEPDOC ---
General Date of Admission 07/17/20 Date of Service: Jul 17, 2020 Chief Complaint The patient is a 79-year-old male admitted with a reason for visit of High Heartrate. Source: Patient, RN/MD History of Present Illness 79 year old male non complaint with doctor's appointments has not seen PMD for > 1 year and has missed many nephrology appointments, has not seen any cardiolog ist recently, with PMH of CAD s/p CABG, CKD stage 4 Baseline (creatinine 2.2 to 2.4), COPD does not use Symbicort as insurance does not pay for it only uses proair, COOPER does not use CPAP though as 2 CPAP machines at home ( because of high electric bill), Chronic SOB uses 's oxygen at night 1 to 2 liters ( not prescribed to him), obesity, bladder cancer and prostate cancer ( had 3 cycles of chemotherapy was supposed to get 6 but could not tolerate it) has noticed rapid heart rate in the 120s for the past 3 months. He has had intermittent palpitations also. He has also been having exertional SOB which has been worsening recently that prompted him to go to the ED at [facility] 2 days a go. At that time he was told that he was fluid overloaded and his heart rate was rapid . He was managed in the and was instructed to see his PMD or reed polisher. He came to our ED today for evaluation. In the ED he was noted to be in Afib with RVR with rate in 130s. He had soft BPs on arrival so he was given a dose of IV digoxin with improvement of heart rate to 110. He was also noted to have a cr eatinine of 3.7 elevated from baseline, hyperkalemia at 5.4 and hypomagnesemia at 1.7. He was admitted for Afib with RVR, Sourav on CKD and electrolyte imbalance. Home Medications Scheduled Allopurinol (Zyloprim) 300 Mg Tablet, 300 MG PO QHS, (Reported) Aspirin (Aspirin) 325 Mg Tablet, 325 MG PO DAILY, (Reported) Budesonide/Formoterol (Symbicort 80-4.5 Mcg Inhaler) 60 Puff/Inhaler Aers, 2 PUF F INH BID, (Reported) Buspirone HCl (Buspirone HCl) 10 Mg Tab, 10 MG PO BID, (Reported) Carvedilol (Carvedilol) 6.25 Mg Tab, 12.5 MG PO BID, (Reported) Cholecalciferol (Vitamin D3) (Vitamin D3) 1,000 Unit Tablet, 1,000 UNITS PO DAILY, (Reported) Cyanocobalamin (Vitamin B-12) (Vitamin B-12) 500 Mcg Tab, 1,000 MCG PO DAILY, (Reported) Glipizide (Glipizide ER) 10 Mg Tab.er.24, 10 MG PO DAILY, (Reported) Lactobacillus Acidophilus (Probiotic) 1 Each Capsule, 1 CAP PO DAILY, (Reported) Linagliptin (Tradjenta) 5 Mg Tab, 5 MG PO QHS, (Reported) Meloxicam (Meloxicam) 15 Mg Tablet, 15 MG PO DAILY, (Reported) Pantoprazole Sodium (Pantoprazole Sodium) 40 Mg Tab, 40 MG PO DAILY, (Reported) Sertraline Hcl (Zoloft) 100 Mg Tablet, 100 MG PO QHS, (Reported) Valsartan/Hydrochlorothiazide (Valsartan-Hctz 160-25 mg Tab) 1 Each Tablet, 1 TAB PO DAILY, (Reported) Zinc (Zinc) 50 Mg Tablet, 50 MG PO DAILY, (Reported) Scheduled PRN Acetaminophen (Acetaminophen) 500 Mg Tablet, 1,000 MG PO Q6H PRN for PAIN, (Reported) Colchicine (Colchicine) 0.6 Mg Tablet, 0.6 MG PO DAILY PRN for GOUT FLARE, (Reported) Allergies Coded Allergies: codeine (Verified Adverse Reaction, Mild, confusion, 03/08/19) morphine (Verified Adverse Reaction, Mild, itching, 03/08/19) Past Medical History Medical History CAD, S/P BYPASS DM II WITH NEUROPATHY HTN COPD using 's oxygen at night. Not prescribed. GERD COOPER has CPAP has not used for years. DIVERTULOSIS WITH PREVIOUS DIVERTICULITIS SINUS NODE DYSFUNCTION, S/P PACEMAKER SVT HYPERCHOLESTEROLEMIA CKD stage 4 BASAL CELL CARCINOMA GOUT BLADDER CANCER PROSTATE CANCER THORMBOCYTOPENIA GERD Surgical History DOUBLE HERNIA REPAIR 1996 PACEMAKER INSERTION 2001 PROSTATE SURGERY FOR BPH 2005 CATARACT BOTH EYES 2006 TRIPLE BYPASS- OPEN HEART SURGERY 2010 PACEMAKER GENERATOR REPLACEMENT 2010 BOWEL RESECTION- DIVERTICULITIS 2012 HERNIA REPAIR with MESH 2013 RIGHT KNEE COMPLETE REPLACEMENT 2016 TURBT (SECOND PROCEDURE WAS FOR RESTAGING, NEGATIVE PATHOLOGY) TURP/TUIBN 11/2016 RIGHT HIP ARTHROPLASTY 02/27/2018 Family History FATHER: , DIAGNOSED WITH DIABETES, HEART DISEASE MOTHER: , DIABETES, HYPERTENSION, HEART DISEASE SISTER: , BONE CANCER Social History * Smoker: former Smoker Alcohol: rarely Drugs: denies A-FIB/CHADSVASC A-FIB History Current/History of A-Fib/PAF?: No Review of Systems Constitutional: Denies: Chills, Fever, Night Sweats Eyes: Denies: Pain, Vision change ENT: Denies: Head Aches, Ear Pain, Dysphagia Skin: Denies: Rash, Lesions, Breakdown Pulmonary: Reports: Dyspnea Cardiovascular: Reports: Palpitations, Edema; Denies: Chest Pain, Orthopnea, Paroxysmal Noc. Dyspnea Gastrointestinal: Denies: Nausea, Vomiting, Abdominal Pain, Diarrhea Genitourinary: Denies: Dysuria, Frequency, Incontinence, Retention Hematologic: Denies: Bruising, Bleeding Excessively Physical Examination General Exam: Positive: Alert, Cooperative, No Acute Distress Eye Exam: Positive: PERRLA, Conjunctiva & lids normal, EOMI; Negative: Sclera icteric ENT Exam: Positive: Atraumatic, Mucous membr. moist/pink, Pharynx Normal Neck Exam: Positive: Supple; Negative: JVD, thyromegaly Chest Exam: Positive: Wheezing (few scattered wheezing.), Other (few basal crackles) Heart Exam: Positive: Tachycardic, Irregular Rhythm, Normal S1, Normal S2; Negative: Regular Rhythm, Gallops, Murmurs, Rubs Telemetry: Positive: Atrial fibrillation Abdomen Exam: Positive: Normal bowel sounds, Soft, Other (obese, abdominal scars); Negative: Tenderness Extremity Exam: Positive: Edema (1+ edema), Normal pulses; Negative: Clubbing, Cyanosis Skin Exam: Positive: Nl turgor and temperature; Negative: Breakdown, Lesion Neuro Exam: Positive: Normal Speech, Strength at 5/5 X4 ext, Normal Tone Psych Exam: Positive: Memory Intact, Oriented x 3 Vital Signs Vital Signs Date Time Temp Pulse Resp B/P (MAP) Pulse Ox O2 Delivery O2 Flow Rate FiO2 07/17/20 15:05 111 20 96 Room Air 07/17/20 15:00 109/76 (87) 07/17/20 11:36 98.6 Laboratory Data Labs 24H Laboratory Tests 2 07/17/20 12:06: Immature Granulocyte % (Auto) 1.7, Neutrophils (%) (Auto) 73.0H, Lymphocytes (%) (Auto) 16.5L, Monocytes (%) (Auto) 7.5, Eosinophils (%) (Auto) 0.5, Basophils (%) (Auto) 0.8, Neutrophils # (Auto) 7.5, Lymphocytes # (Auto) 1.7, Monocytes # (Auto) 0.8, Eosinophils # (Auto) 0.1, Basophils # (Auto) 0.1, Nucleated Red Blood Cells % (auto) 0.0, Anion Gap 9, Glomerular Filtration Rate 16.8L, Calcium Level 8.8, Magnesium Level 1.7L, Total Bilirubin 0.3, Direct Bilirubin 0.1, Aspartate Amino Transf (AST/SGOT) 15, Alanine Aminotransferase (ALT/SGPT) 23, Alkaline Phosphatase 51, Total Creatine Kinase 263, Creatine Kinase MB 6.6H, Creatine Kinase MB Relative Index 2.51, Troponin I < 0.02, Total Protein 7.9, Albumin 4.1, Albumin/Globulin Ratio 1.1, Thyroid Stimulating Hormone (TSH) 2.830 07/17/20 13:16: Coronavirus (COVID-19)(PCR) NEGATIVE, Influenza Type A (RT-PCR) NEGATIVE, Influenza Type B (RT-PCR) NEGATIVE, Respiratory Syncytial Virus (PCR) NEGATIVE CBC/BMP Laboratory Tests 07/17/20 12:06 Assessment/Plan 79 year old male non complaint with doctor's appointments has not seen PMD for > 1 year and has missed many nephrology appointments, has not seen any reed polisher recently, with PMH of CAD s/p CABG, CKD stage 4 Baseline (crea tinine 2.2 to 2.4), COPD does not use Symbicort as insurance does not pay for it only uses proair, COOPER does not use CPAP though as 2 CPAP machines at home ( because of high electric bill), Chronic SOB uses 's oxygen at night 1 to 2 liters ( not prescribed to him), obesity, bladder cancer and prostate cancer ( had 3 cycles of chemotherapy was supposed to get 6 but could not tolerate it) has noticed rapid heart rate in the 120s for the past 3 months. He has had intermittent palpitations also. He has also been having exertional SOB which has been worsening recently that prompted him to go to the ED at [facility] 2 days ago. At that time he was told that he was fluid overloaded and his heart rate was rapid . He was managed in the and was instructed to see his PMD or reed polisher. He came to our ED today for evaluation. In the ED he was noted to be in Afib with RVR with rate in 130s. He had soft BPs on arrival so he was given a dose of IV digoxin with improvement of heart rate to 110. He was also noted to have a creatinine of 3.7 elevated from baseline, hyperkalemia at 5.4 and hypomagnesemia at 1.7. He was admitted for Afib with RVR, Sourav on CKD and electrolyte imbalance. Afib with RVR will give another dose of IV digoxin and then continue po digoxin will resume coreg when Bp improves echo. will start on eliquis. stop ASA. Sourav on CKD will mild fluid overload will give 1 dose of IV lasix hold ARBs and HCTZ Has been on meloxicam. this is stopped. consult nephrology Hyperkalemia stop ARBs, 2 gm potassium diet Hypomagnesemia replaced COPD will continue symbicort. CAD/CABG will stop ASA as will be starting eliquis will restart coreg when bp better DM continue glipizide. Gout allopurinol Anxiety/depression sertraline and buspirone GERD PPI Sinus node dysfunction s/p pacemaker. Plan / VTE VTE Prophylaxis Ordered?: Yes MOLINA PEREA MD Jul 17, 2020 15:27
[2020-07-18] VITALS: BP 129/78
--- NOTE | 2020-07-18 01:50 | ECGEPIP ---
[facility] - ED Test Date: 2020-07-17 Pat Name: URSULA NORRIS Department: Room: - Gender: Male [employer] Bunch Trimmer: VINICIUS : 1940 Requested By: SALVATORE Singh Order Number: [id number] Reading MD: Arnold Elmore Measurements Intervals [place] Rate: 122 P: IN: QRS: 1 QRSD: 76 T: 7 QT: 312 QTc: 444 Interpretive Statements Atrial fibrillation/flutter with rapid ventricular rate NSTTW ABNORMALITY(S) RHYTHM/RATE CHANGE COMPARED TO 02/22/20 Electronically Signed on 07-18-2020 1:49:44 EDT by Arnold Elmore
[2020-07-18 04:00] VITALS: BP 101/55
[2020-07-18] MEDS: SYMBICORT 80/4.5MCG INHALER 6GM INH SCH ×2 (07:24→20:05)
[2020-07-18 07:42] LABS: BASO # 0.1 10^3/uL (0.0-0.2); BASO % 0.8 % (0.0-1.0); EOS # 0.1 10^3/uL (0.0-0.5); EOS % 0.6 % (0.0-3.0); HEMATOCRIT 42.2 % (42.0-52.0); HEMOGLOBIN 13.4 g/dl (13.5-17.5); LYMPH # 1.9 10^3/uL (1.5-5.0); LYMPH % 17.1 % (24.0-44.0); MEAN CORPUSCULAR HEMOGLOBIN 29.4 pg (27.0-33.0); MEAN CORPUSCULAR HGB CONC 31.8 g/dl (32.0-36.5); MEAN CORPUSCULAR VOLUME 92.5 fl (80.0-96.0); MONO # 0.9 10^3/uL (0.0-0.8); MONO % 8.5 % (2.0-8.0); NEUTROPHILS # 7.8 10^3/uL (1.5-8.5); RED BLOOD COUNT 4.56 10^6/uL (4.30-6.10); WHITE BLOOD COUNT 10.9 10^3/uL (4.0-10.0)
[2020-07-18] MEDS: PANTOPRAZOLE 40MG TAB (PROTONIX) PO SCH (07:58)
[2020-07-18] MEDS: glipiZIDE XL 5 MG TABCR PO SCH (07:58)
[2020-07-18] MEDS: APIXABAN 5 MG TAB (ELIQUIS) PO SCH ×2 (07:58→21:52)
[2020-07-18] MEDS: DOCUSATE SODIUM 100MG CAPSULE PO SCH ×2 (07:59→21:52)
[2020-07-18] MEDS: busPIRone 10 MG TAB PO SCH ×2 (07:59→21:51)
[2020-07-18] MEDS: DIGOXIN 0.25 MG TAB PO SCH (07:59)
[2020-07-18 08:00] VITALS: BP 142/88
[2020-07-18] MEDS: FUROSEMIDE 100MG/10ML VIAL (J1940) IV SCH ×2 (08:00→17:24)
[2020-07-18 08:05] LABS: CALCIUM LEVEL 8.8 MG/DL (8.8-10.2); CREATININE FOR GFR 3.61 MG/DL (0.70-1.30); GLOMERULAR FILTRATION RATE 17.4 (>42); POTASSIUM SERUM 5.1 MEQ/L (3.5-5.1)
[2020-07-18 08:21] LABS: NEUTROPHILS % 71.4 % (36.0-66.0)
[2020-07-18] MEDS ORDERED: ELIQ5TAB PO (09:02)
--- NOTE | 2020-07-18 09:18 | IPNPDOC ---
Subjective Date Seen The patient was seen on 07/18/20. Subjective Chief Complaint/HPI Patient is comfortable. No complaints this morning, No palpitation. No chest pain , no sob. Objective Physical Examination General Exam: Positive: Alert, Cooperative, No Acute Distress Eye Exam: Positive: PERRLA, Conjunctiva & lids normal, EOMI; Negative: Sclera icteric ENT Exam: Positive: Atraumatic, Mucous membr. moist/pink, Pharynx Normal Neck Exam: Positive: Supple; Negative: JVD, thyromegaly Chest Exam: Positive: Clear to auscultation, Other (few basal crackles) Heart Exam: Positive: Tachycardic, Irregular Rhythm, Normal S1, Normal S2; Negative: Regular Rhythm, Gallops, Murmurs, Rubs Telemetry: Positive: Atrial fibrillation Abdomen Exam: Positive: Normal bowel sounds, Soft, Other (obese, abdominal scars); Negative: Tenderness Extremity Exam: Positive: Edema (1+ edema), Normal pulses; Negative: Clubbing, Cyanosis Skin Exam: Positive: Nl turgor and temperature; Negative: Breakdown, Lesion Neuro Exam: Positive: Normal Speech, Strength at 5/5 X4 ext, Normal Tone Psych Exam: Positive: Memory Intact, Oriented x 3 Assessment /Plan Assessment 79 year old male non complaint with doctor's appointments has not seen PMD for > 1 year and has missed many nephrology appointments, has not seen any car diologist recently, with PMH of CAD s/p CABG, CKD stage 4 Baseline (creatinine 2.2 to 2.4), COPD does not use Symbicort as insurance does not pay for it only uses proair, COOPER does not use CPAP though as 2 CPAP machines at home ( because of high electric bill), Chronic SOB uses 's oxygen at night 1 to 2 liters ( not prescribed to him), obesity, bladder cancer and prostate cancer ( had 3 cycles of chemotherapy was supposed to get 6 but could not tolerate it) has noticed rapid heart rate in the 120s for the past 3 months. He has had intermittent palpitations also. He has also been having exertional SOB which has been worsening recently that prompted him to go to the ED at [facility] 2 days ago. At that time he was told that he was fluid overloaded and his heart rate was rapid . 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 He came to our ED today for evaluation. In the ED he was noted to be in Afib with RVR with rate in 130s. He had soft BPs on arrival so he was given a dose of IV digoxin with improvement of heart rate to 110. He was also noted to have a creatinine of 3.7 elevated from baseline, hyperkalemia at 5.4 and hypomagnesemia at 1.7. He was admitted for Afib with RVR, Samia on CKD and electrolyte imbalance. Afib with RVR will continue po digoxin and Coreg increased dose. echo. started on eliquis. stop ASA. Samia on CKD Continue IV lasix. hold ARBs and HCTZ Has been on meloxicam. this is stopped. consulted nephrology Hyperkalemia stop ARBs, 2 gm potassium diet Hypomagnesemia replaced COPD will continue symbicort. Pateitn only uses proair at home Not hypoxic. Did not need any oxygen at night. CAD/CABG will stop ASA as will be starting eliquis continue coreg DM continue glipizide. Gout allopurinol Anxiety/depression sertraline and buspirone GERD PPI Sinus node dysfunction s/p pacemaker. Plan/VTE VTE Prophylaxis Ordered?: Yes VS, I&O, 24H, Fishbone Vital Signs/I&O Vital Signs Date Time Temp Pulse Resp B/P (MAP) Pulse Ox O2 Delivery O2 Flow Rate FiO2 07/18/20 08:00 97.6 118 19 142/88 (106) 95 Room Air I&O- Last 24 Hours up to 6 AM 07/18/20 06:00 Intake Total 480 ml Output Total 150 ml Balance 330 ml Laboratory Data 24H LABS Laboratory Tests 2 07/17/20 12:06: Immature Granulocyte % (Auto) 1.7, Neutrophils (%) (Auto) 73.0H, Lymphocytes (%) (Auto) 16.5L, Monocytes (%) (Auto) 7.5, Eosinophils (%) (Auto) 0.5, Basophils (%) (Auto) 0.8, Neutrophils # (Auto) 7.5, Lymphocytes # (Auto) 1.7, Monocytes # (Auto) 0.8, Eosinophils # (Auto) 0.1, Basophils # (Auto) 0.1, Nucleated Red Blood Cells % (auto) 0.0, Anion Gap 9, Glomerular Filtration Rate 16.8L, Calcium Level 8.8, Magnesium Level 1.7L, Total Bilirubin 0.3, Direct Bilirubin 0.1, Aspartate Amino Transf (AST/SGOT) 15, Alanine Aminotransferase (ALT/SGPT) 23, Alkaline Phosphatase 51, Total Creatine Kinase 263, Creatine Kinase MB 6.6H, Creatine Kinase MB Relative Index 2.51, Troponin I < 0.02, Total Protein 7.9, Albumin 4.1, Albumin/Globulin Ratio 1.1, Thyroid Stimulating Hormone (TSH) 2.830 07/17/20 13:16: Coronavirus (COVID-19)(PCR) NEGATIVE, Influenza Type A (RT-PCR) NEGATIVE, Influenza Type B (RT-PCR) NEGATIVE, Respiratory Syncytial Virus (PCR) NEGATIVE 07/18/20 07:16: Immature Granulocyte % (Auto) 1.6, Neutrophils (%) (Auto) 71.4H, Lymphocytes (%) (Auto) 17.1L, Monocytes (%) (Auto) 8.5H, Eosinophils (%) (Auto) 0.6, Basophils (%) (Auto) 0.8, Neutrophils # (Auto) 7.8, Lymphocytes # (Auto) 1.9, Monocytes # (Auto) 0.9H, Eosinophils # (Auto) 0.1, Basophils # (Auto) 0.1, Nucleated Red Blood Cells % (auto) 0.0, Anion Gap 9, Glomerular Filtration Rate 17.4L, Calcium Level 8.8 CBC/BMP Laboratory Tests 07/17/20 12:06 07/18/20 07:16 MOLINA PEREA MD Jul 18, 2020 09:18
[2020-07-18] MEDS: CARVedilol 12.5 MG TAB PO SCH ×2 (09:40→21:52)
[2020-07-18 12:00] VITALS: BP 102/64
[2020-07-18 16:00] VITALS: BP 155/80
[2020-07-18] MEDS ORDERED: ACETAMINOPHEN 500 MG TAB PO PRN (17:50)
[2020-07-18] MEDS ORDERED: MOM 30ML SUSPENSION UDC PO PRN (17:50)
[2020-07-18] MEDS ORDERED: BREO1INH PO (17:53)
[2020-07-18] MEDS ORDERED: STIO1AER IN (17:55)
[2020-07-18 20:00] VITALS: BP 123/63
[2020-07-18] MEDS: SERTRALINE 100 MG TAB PO SCH (21:51)
[2020-07-18] MEDS: allopurinoL 300 MG TAB PO SCH (21:52)
[2020-07-18] MEDS: SENOKOT S TAB PO SCH (21:52)
[2020-07-19] VITALS: BP 112/64
[2020-07-19 04:00] VITALS: BP 112/64
[2020-07-19 05:27] LABS: BASO # 0.1 10^3/uL (0.0-0.2); BASO % 0.7 % (0.0-1.0); EOS # 0.1 10^3/uL (0.0-0.5); EOS % 0.7 % (0.0-3.0); HEMATOCRIT 41.6 % (42.0-52.0); HEMOGLOBIN 13.1 g/dl (13.5-17.5); LYMPH # 1.7 10^3/uL (1.5-5.0); LYMPH % 15.3 % (24.0-44.0); MEAN CORPUSCULAR HEMOGLOBIN 28.9 pg (27.0-33.0); MEAN CORPUSCULAR HGB CONC 31.5 g/dl (32.0-36.5); MEAN CORPUSCULAR VOLUME 91.8 fl (80.0-96.0); MONO # 1.1 10^3/uL (0.0-0.8); MONO % 9.7 % (2.0-8.0); NEUTROPHILS # 8.3 10^3/uL (1.5-8.5); NEUTROPHILS % 72.5 % (36.0-66.0); RED BLOOD COUNT 4.53 10^6/uL (4.30-6.10); WHITE BLOOD COUNT 11.4 10^3/uL (4.0-10.0)
[2020-07-19 05:50] LABS: ALBUMIN 3.8 GM/DL (3.2-5.2); CALCIUM LEVEL 8.5 MG/DL (8.8-10.2); CREATININE FOR GFR 3.71 MG/DL (0.70-1.30); GLOMERULAR FILTRATION RATE 16.9 (>42); PHOSPHORUS LEVEL 5.1 MG/DL (2.5-4.9); POTASSIUM SERUM 4.8 MEQ/L (3.5-5.1); URIC ACID 7.4 MG/DL (3.5-7.2)
[2020-07-19] MEDS: PANTOPRAZOLE 40MG TAB (PROTONIX) PO SCH (07:48)
[2020-07-19 07:49] VITALS: BP 115/65
[2020-07-19] MEDS: glipiZIDE XL 5 MG TABCR PO SCH (07:49)
[2020-07-19] MEDS: CARVedilol 12.5 MG TAB PO SCH (07:49)
[2020-07-19] MEDS: APIXABAN 5 MG TAB (ELIQUIS) PO SCH (07:50)
[2020-07-19] MEDS: SENOKOT S TAB PO SCH (07:50)
[2020-07-19] MEDS: DOCUSATE SODIUM 100MG CAPSULE PO SCH (07:50)
[2020-07-19] MEDS: DIGOXIN 0.25 MG TAB PO SCH (07:50)
[2020-07-19] MEDS: busPIRone 10 MG TAB PO SCH (07:56)
[2020-07-19 08:00] VITALS: BP 115/67
[2020-07-19] MEDS: SYMBICORT 80/4.5MCG INHALER 6GM INH SCH (08:29)
[2020-07-19 12:00] VITALS: BP 114/56
[2020-07-19] MEDS ORDERED: AMLO1TAB24 PO (12:50)
[2020-07-19] MEDS ORDERED: TORS20TA2 PO (12:50)
[2020-07-19] MEDS ORDERED: CARV12.5 PO (12:50)
[2020-07-19] MEDS ORDERED: DIGO0.253 PO (12:50)
--- NOTE | 2020-07-19 12:57 | IPN ---
PROGRESS NOTE DATE: 07/19/2020 Mr. Salas is seen this morning on his bedside. He is feeling better and denies any feeling of palpitations. He has no dyspnea or leg edema. He denies any nausea, vomiting, fever, or chills. PHYSICAL EXAMINATION: Temperature 97.5 degrees Fahrenheit, heart rate 92 per minute, respiratory rate 18 per minute, blood pressure 115/67 mmHg, and oxygen saturation 94% on room air. His head is atraumatic. Neck supple, and jugular venous distention (JVD) difficult to be assessed. Heart sounds are irregular and somewhat tachycardic. Lungs sound clear to auscultation. Abdomen is obese, soft, and nontender, and bowel sounds are normal. Extremities without any cyanosis or clubbing. He has no peripheral edema. Neurologically, he is awake, alert, and oriented times three. Today's labs show WBC count 11.4, hemoglobin 13, hematocrit 41.6. Sodium 136, potassium 4.8, CO2 of 23, BUN 81, and creatinine 3.7. His uric acid level is 7.4, potassium 8.5, and phosphorus 5.1. PROBLEMS: 1. Acute on chronic renal failure. His kidney function is essentially unchanged since admission. Patient has known history of stage IV of chronic kidney disease. At this point, there is no emergent indication for dialysis, and I have discussed with the patient and explained to him that he is likely to require dialysis in near future and will need to have an arteriovenous (AV) fistula placed. 2. Atrial fibrillation with rapid ventricular rate. This is most likely a chronic issue, and now his ventricular rate is well controlled. Patient can be followed up as an outpatient. He is on beta sean and digoxin. 3. Congestive heart failure. Volume status seems well compensated. Patient should be switched back to his regular outpatient diuretic. 4. History of gout. His uric acid level was slightly elevated, and he should continue with allopurinol. He is currently asymptomatic. DISPOSITION: From a renal standpoint, patient can be discharged to home today and followup with his primary architectural renderer as an outpatient.
--- NOTE | 2020-07-19 13:58 | DS.PDOC ---
Discharge Summary General Date of Admission Jul 17, 2020 at 15:09 Date of Discharge 07/19/20 Discharge Summary PROCEDURES PERFORMED DURING STAY: [None]. DISCHARGE DIAGNOSES: A fib with RVR. REBECCA on CKD stage 4. Hyperkalemia Hypomagnesemia SECONDARY DIAGNOSIS: CKD stage 4 CAD, S/P BYPASS DM II WITH NEUROPATHY HTN COPD using 's oxygen at night. Not prescribed. GERD COOPER has CPAP has not used for years. 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 COMPLICATIONS/CHIEF COMPLAINT: Afib/Ckd. HOSPITAL COURSE: 79 year old male non complaint with doctor's appointments has not seen PMD for > 1 year and has missed many nephrology appointments, has not seen any records and information manager recently, with PMH of CAD s/p CABG, CKD stage 4 Baseline (creatinine 2.2 to 2.4), COPD does not use Symbicort as insurance does not pay for it only uses proair, COOPER does not use CPAP though as 2 CPAP machines at home ( because of high electric bill), Chronic SOB uses 's oxygen at night 1 to 2 liters ( not prescribed to him), obesity, bladder cancer and prostate cancer ( had 3 cycles of chemotherapy was supposed to get 6 but could not tolerate it) has noticed rapid heart rate in the 120s for the past 3 months. He has had intermittent palpitations also. He has also been having exertional SOB which has been worsening recently that prompted him to go to the ED at [facility] 2 days ago. At that time he was told that he was fluid overloaded and his heart rate was rapid . He was managed in the and was instructed to see his PMD or records and information manager. He came to our ED today for evaluation. In the ED he was noted to be in Afib with RVR with rate in 130s. He had soft BPs on arrival so he was given a dose of IV digoxin with improvement of heart rate to 110. He was also noted to have a creatinine of 3.7 elevated from baseline, hyperkalemia at 5.4 and hypomagnesemia at 1.7. He was admitted for Afib with RVR, Rebecca on CKD and electrolyte imbalance. Afib with RVR will continue po digoxin and Coreg increased dose. echo done started on eliquis. stop ASA 325 Rebecca on CKD stage 4 stopped ARBs and HCTZ Has been on meloxicam. this is stopped. started on torsemide and amlodipine Hyperkalemia stopped Valsartan Hypomagnesemia replaced COPD will continue symbicort. Kathleen only uses proair at home Not hypoxic. Did not need any oxygen at night. CAD/CABG will stop ASA as will be starting eliquis continue coreg dose increased DM continue glipizide. Gout allopurinol Anxiety/depression sertraline and buspirone GERD PPI Sinus node dysfunction s/p pacemaker. DISCHARGE MEDICATIONS: Please see below. ALLERGIES: Please see below. PHYSICAL EXAMINATION ON DISCHARGE: VITAL SIGNS: Please see below. General Exam: Positive: Alert, Cooperative, No Acute Distress Eye Exam: Positive: PERRLA, Conjunctiva & lids normal, EOMI; Negative: Sclera icteric ENT Exam: Positive: Atraumatic, Mucous membr. moist/pink, Pharynx Normal Neck Exam: Positive: Supple; Negative: JVD, thyromegaly Chest Exam: Positive: Clear to auscultation, Other (few basal crackles) Heart Exam: Positive: Tachycardic, Irregular Rhythm, Normal S1, Normal S2; Negative: Regular Rhythm, Gallops, Murmurs, Rubs Telemetry: Positive: Atrial fibrillation Abdomen Exam: Positive: Normal bowel sounds, Soft, Other (obese, abdominal scars); Negative: Tenderness Extremity Exam: Positive: Edema (1+ edema), Normal pulses; Negative: Clubbing, Cyanosis Skin Exam: Positive: Nl turgor and temperature; Negative: Breakdown, Lesion Neuro Exam: Positive: Normal Speech, Strength at 5/5 X4 ext, Normal Tone Psych Exam: Positive: Memory Intact, Oriented x 3 LABORATORY DATA: Please see below. IMAGING: CXR: Lungs are well inflated and free of infiltrate. There is mild linear fibrosis in the left base. Prior sternotomy is noted. Mild cardiomegaly is noted. Median sternotomy wires are seen. These findings are unchanged. Pulmonary vasculature is not increased. No evidence of pleural effusion or pulmonary edema seen. IMPRESSION: Cardiomegaly with pacemaker. Linear fibrosis left base. Otherwise no acute disease.. ACTIVITY: [As tolerated]. DIET: Carb consistent diet, 2 liter fluid restriction DISCHARGE PLAN: Home DISPOSITION: . DISCHARGE INSTRUCTIONS: Follow up PMD in 2 weeks, Follow up with Nephrology in 1 week Follow up with own records and information manager. ITEMS TO FOLLOWUP ON ON OUTPATIENT: Echo results. DISCHARGE CONDITION: [Stable]. TIME SPENT ON DISCHARGE: 35 minutes. Vital Signs/I&Os Vital Signs Date Time Temp Pulse Resp B/P (MAP) Pulse Ox O2 Delivery O2 Flow Rate FiO2 07/19/20 12:00 98.1 93 18 114/56 (75) 94 Room Air I&O- Last 24 Hours up to 6 AM 07/19/20 06:00 Intake Total 1380 ml Output Total 2325 ml Balance -945 ml Laboratory Data Labs 24H Laboratory Tests 2 07/19/20 04:58: Immature Granulocyte % (Auto) 1.1, Neutrophils (%) (Auto) 72.5H, Lymphocytes (%) (Auto) 15.3L, Monocytes (%) (Auto) 9.7H, Eosinophils (%) (Auto) 0.7, Basophils (%) (Auto) 0.7, Neutrophils # (Auto) 8.3, Lymphocytes # (Auto) 1.7, Monocytes # (Auto) 1.1H, Eosinophils # (Auto) 0.1, Basophils # (Auto) 0.1, Nucleated Red Blood Cells % (auto) 0.0, Anion Gap 9, Glomerular Filtration Rate 16.9L, Uric Acid 7.4H, Calcium Level 8.5L, Phosphorus Level 5.1H, Albumin 3.8 07/19/20 11:54: Bedside Glucose (Misc Panel) 240H CBC/BMP Laboratory Tests 07/19/20 04:58 FSBS Laboratory Tests Test 07/19/20 11:54 Range/Units Bedside Glucose (Misc Panel) 240 83-110 MG/DL Discharge Medications Scheduled Allopurinol (Zyloprim) 300 Mg Tablet, 300 MG PO QHS, (Reported) Amlodipine Besylate (Amlodipine Besylate) 5 Mg Tablet, 5 MG PO BID Apixaban (Eliquis) 5 Mg Tablet, 5 MG PO BID Aspirin (Aspirin) 325 Mg Tablet, 325 MG PO DAILY, (Reported) Budesonide/Formoterol (Symbicort 80-4.5 Mcg Inhaler) 60 Puff/Inhaler Aers, 2 PUFF INH BID, (Reported) Buspirone HCl (Buspirone HCl) 10 Mg Tab, 10 MG PO BID, (Reported) Carvedilol (Carvedilol) 12.5 Mg Tablet, 25 MG PO BID Cholecalciferol (Vitamin D3) (Vitamin D3) 1,000 Unit Tablet, 1,000 UNITS PO DAILY, (Reported) Cyanocobalamin (Vitamin B-12) (Vitamin B-12) 500 Mcg Tab, 1,000 MCG PO DAILY, (Reported) Digoxin (Digoxin) 250 Mcg Tablet, 0.25 MG PO DAILY Glipizide (Glipizide ER) 10 Mg Tab.er.24, 10 MG PO DAILY, (Reported) Lactobacillus Acidophilus (Probiotic) 1 Each Capsule, 1 CAP PO DAILY, (Reported) Linagliptin (Tradjenta) 5 Mg Tab, 5 MG PO QHS, (Reported) Pantoprazole Sodium (Pantoprazole Sodium) 40 Mg Tab, 40 MG PO DAILY, (Reported) Sertraline Hcl (Zoloft) 100 Mg Tablet, 100 MG PO QHS, (Reported) Torsemide (Torsemide) 20 Mg Tablet, 20 MG PO DAILY Zinc (Zinc) 50 Mg Tablet, 50 MG PO DAILY, (Reported) Scheduled PRN Acetaminophen (Acetaminophen) 500 Mg Tablet, 1,000 MG PO Q6H PRN for PAIN, (Reported) Colchicine (Colchicine) 0.6 Mg Tablet, 0.6 MG PO DAILY PRN for GOUT FLARE, (Reported) Allergies Coded Allergies: codeine (Verified Adverse Reaction, Mild, confusion, 03/08/19) morphine (Verified Adverse Reaction, Mild, itching, 03/08/19) MOLINA PEREA MD Jul 19, 2020 13:58
--- NOTE | 2020-07-21 09:45 | CR ---
NEPHROLOGY CONSULTATION DATE: 07/18/2020 ATTENDING PHYSICIAN: Modesta Gonzalez M.D. REASON FOR CONSULTATION: Acute renal failure superimposed on chronic kidney disease. HISTORY OF PRESENT ILLNESS: Mr. Salas is a 79-year-old male with multiple chronic medical problems including history of coronary artery disease; status post CABG, history of stage 4 chronic kidney disease and history of COPD. He has longstanding type 2 diabetes, however, has very sporadic follow-up with his primary care physician and other physicians. He presented to the Emergency Room with palpitations and was noticed to have atrial fibrillation with rapid ventricular rate. He was also noticed to have acute renal failure superimposed on chronic kidney disease. He was admitted last evening and a nephrology consultation was requested. Patient is seen this morning. PAST MEDICAL HISTORY: Significant for: 1. Longstanding diabetes. 2. Stage 4 of chronic kidney disease. 3. Hypertension. 4. COPD. 5. Obstructive sleep apnea. 6. History of coronary artery disease; status post coronary artery bypass surgery. 7. History of pacemaker placement. 8. History of SVT; now atrial fibrillation. 9. Hypercholesterolemia. 10.History of gout. 11.History of bladder and prostate cancer. 12.History of chronic thrombocytopenia. 13.History of gastroesophageal reflux disease. PAST SURGICAL HISTORY: Also quite lengthy includin. Double hernia repair. 2. Pacemaker placement. 3. Prostate surgery. 4. Cataract surgery bilaterally. 5. Triple vessel coronary artery bypass surgery. 6. History of bowel resection due to diverticulitis. 7. History of incisional hernia repair. 8. Right knee surgery. 9. TURBT. 10.Right hip arthroplasty. FAMILY HISTORY: Father with diabetes and heart problems. Mother with hypertension, heart disease and diabetes. One sister is with bone cancer. PERSONAL AND SOCIAL HISTORY: Patient is a former smoker and denies any drug use. He rarely consumes alcohol. ALLERGIES: He has allergies to codeine and morphine. HOME MEDICATIONS: Include: 1. Allopurinol 300 mg daily. 2. Aspirin 325 mg daily. 3. Symbicort 80/4.5 mcg b.i.d. 4. Buspirone 10 mg b.i.d. 5. Carvedilol 6.25 mg b.i.d. 6. Vitamin D 1,000 units daily. 7. Vitamin B12 500 mcg daily. 8. Glipizide ER 10 mg daily. 9. Tradjenta 5 mg daily. 10.Meloxicam 15 mg daily. 11.Protonix 40 mg daily. 12.Zoloft 100 mg daily. 13.Valsartan/HCTZ 160/25 mg daily. REVIEW OF SYSTEMS: Patient denies any fever or chills. He reports shortness of breath and tachycardia, for which he was seen in the Emergency Room at hospital a few days ago, however, follow-up with his regular physicians have been very sporadic and has not seen his primary physician for about a year. Ears, nose and throat are unremarkable. He is quite talkative and talks mostly irrelevant. Cardiovascular system is significant for atrial fibrillation with rapid ventricular rate. He also has lower extremity edema. Respiratory system is significant for COPD and obstructive sleep apnea. He denies any hemoptysis or pleuritic type of chest pain. GI system is significant for gastroesophageal reflux disease. He denies any vomiting or diarrhea. system is significant for history of prostate cancer and bladder cancer. He denies any dysuria or hematuria. Musculoskeletal system is significant for leg edema and history of gout. Psychosocial system is significant for noncompliance with medical care. He denies any depression or anxiety. Neurological system is negative for seizures or stroke. Hematological system is significant for thrombocytopenia and anemia. Skin is negative for rash or ulcers. PHYSICAL EXAMINATION: VITALS: Temperature 97.3 degrees Fahrenheit, heart rate 92 per minute, respiratory rate 18 per minute, blood pressure 102/64 mmHg, oxygen saturation 93%. HEENT: Head is atraumatic. Neck is supple and JVD is about 7 to 8 cm above sternal angle. No thyroid enlargement. Oral mucosa is moist and healthy. LUNGS: With slightly diminished breath sounds at bases and basilar rales. HEART: Sounds are irregular and somewhat tachycardic. ABDOMEN: Obese, soft and nontender. Bowel sounds are normal. EXTREMITIES: Without any cyanosis or clubbing. Lower extremity edema is 1+. NEUROLOGIC: He is awake, alert and without a focal deficit. LABORATORY DATA: WBC 10.9, hemoglobin 13.4, hematocrit 42. Sodium 139, potassium 5.1, CO2 24, BUN 76, creatinine 3.61, glucose 125 and calcium 8.8. PROBLEMS: 1. Acute renal failure superimposed on chronic kidney disease: Patient has known history of stage 4 chronic kidney disease, however, he has not been seen by nephrology since November of last year. He has been noncompliant with his medical care. Acute kidney injury is most likely related to atrial fibrillation and it is quite possible that his kidney function will improve once his cardiac function is improved. There is no emergent indication for dialysis at present. 2. Congestive heart failure: Most likely related to rapid atrial fibrillation. I would suggest to diurese him and monitor kidney function on a daily basis. 3. Hyperkalemia: He had mild hyperkalemia on admission, which has already improved. He has been on angiotensin receptor sean as an outpatient, which should be stopped permanently due to decline in kidney function. 4. Hypertension: Blood pressure is somewhat on the low side and antihypertensives will need to be adjusted. Angiotensin receptor sean should be stopped and beta-sean and calcium channel blockers can be optimized. 5. Gout: Is currently asymptomatic and has been on Allopurinol 300 mg daily. His uric acid level should be checked and Allopurinol dose may need to be adjusted in view of decline in kidney function. Thank you for involving me in the care of Mr. Salas. I will follow him along with you.
--- NOTE | 2020-07-21 09:59 | ECHO ---
DATE OF PROCEDURE: 07/18/2020 Age: 79 Gender: Male REFERRING PHYSICIAN: Modesta Gonzalez MD. PATIENT LOCATION: Room 3217. REASON FOR STUDY: Cardiac arrhythmias. 2D MEASUREMENTS: IVS 1.2 cm LV 4.6 cm LVPW 1.2 cm LA 4.3 cm Aorta 3.3 cm IVC 1.9 cm DOPPLER MEASUREMENT Peak velocity across the aortic valve 1.9 m/s Peak velocity across the LVOT 0.9 m/s Mitral E 0.64 Maximum tricuspid valve velocity 2.4 m/s 2D COMMENTS: 1. Normal left ventricular size and wall thickness, but with a mildly to moderately depressed global left ventricular systolic function. The estimated left ventricular systolic ejection fraction is 40% to 45%. 2. Mildly dilated left atrium. The right atrium and the right ventricle also appear to be dilated. The right ventricular free wall was not well visualized. 3. The atrial septum appeared to be normal without evidence of defect or shunt. 4. Normal aortic root. 5. Trace pericardial effusion noted. No evidence of cardiac tamponade. 6. Mildly calcified aortic valve with minimally restricted leaflet motion. Mildly calcified mitral annulus with normal anterior mitral valve leaflet motion. Normal tricuspid valve and pulmonic valve. The proximal pulmonary artery branches also appear to be normal in size in limited views. 7. The inferior vena cava was mildly enlarged. Central venous pressure might be elevated. 8. Pacemaker/AICD wire artifacts noted. DOPPLER: Detects trace aortic regurgitation, trace mitral regurgitation, and mild tricuspid regurgitation. The calculated pulmonary artery systolic pressure varies between 30 to 40 mmHg. Assessment of the left ventricular diastolic function was limited. IMPRESSION: 1. Probably mildly to moderately depressed global left ventricular systolic function with normal left ventricular size. Assessment of the left ventricular diastolic function was inconclusive. 2. Aortic valve sclerosis with trivial aortic stenosis and trace aortic regurgitation. 3. Mildly enlarged left atrium with trace mitral regurgitation and mitral annular calcification. 4. Mild tricuspid regurgitation with mild pulmonary hypertension. The right heart chambers were dilated. Could not rule out some degree of right ventricular systolic dysfunction. 5. Trace pericardial effusion. No evidence of cardiac tamponade. 6. There were features of elevated central venous pressure, the inferior vena cava was mildly enlarged. 7. Pacemaker/AICD wire artifacts noted. [facility]
== END 2020-07-19 15:09 | disposition home or self-care (01) | DRG 309 ==
LOC: M ED 11:35 → M ED INP 15:09 → ENRESERV 16:00 → M PCU 16:50
PROVIDERS: ADMIT Internal Medicine Nephrology; ATTEND Internal Medicine Nephrology
DX: I48.91 Unspecified atrial fibrillation (principal); N17.9 Acute kidney failure, unspecified; N18.4 Chronic kidney disease, stage 4 (severe); I25.10 Atherosclerotic heart disease of native coronary artery without angina pectoris; E11.40 Type 2 diabetes mellitus with diabetic neuropathy, unspecified; I12.9 Hypertensive chronic kidney disease with stage 1 through stage 4 chronic kidney disease, or unspecified chronic kidney disease; J44.9 Chronic obstructive pulmonary disease, unspecified; G47.33 Obstructive sleep apnea (adult) (pediatric); K21.9 Gastro-esophageal reflux disease without esophagitis; I49.5 Sick sinus syndrome; E78.00 Pure hypercholesterolemia, unspecified; D69.6 Thrombocytopenia, unspecified; E11.22 Type 2 diabetes mellitus with diabetic chronic kidney disease; E83.42 Hypomagnesemia; F41.9 Anxiety disorder, unspecified; E87.5 Hyperkalemia; E66.9 Obesity, unspecified; M10.9 Gout, unspecified; F32.9 Major depressive disorder, single episode, unspecified; Z85.51 Personal history of malignant neoplasm of bladder; Z85.46 Personal history of malignant neoplasm of prostate; Z98.41 Cataract extraction status, right eye; Z98.42 Cataract extraction status, left eye; Z96.651 Presence of right artificial knee joint; Z95.0 Presence of cardiac pacemaker; Z90.49 Acquired absence of other specified parts of digestive tract; Z96.641 Presence of right artificial hip joint; Z79.82 Long term (current) use of aspirin; Z79.899 Other long term (current) drug therapy; Z88.5 Allergy status to narcotic agent; Z95.1 Presence of aortocoronary bypass graft; Z87.891 Personal history of nicotine dependence; Z20.822 Contact with and (suspected) exposure to COVID-19; Z92.21 Personal history of antineoplastic chemotherapy; Z68.34 Body mass index [BMI] 34.0-34.9, adult

== ENCOUNTER 2020-08-04 13:46 | Inpatient (IN) | payer MEDICARE ==
[~2020-08-04] VITALS: Ht 172.7 cm; Wt 96.6 kg
[~2020-08-04 13:46] MED LIST changes: +ACET-683 PO; +AMLO1TAB24 PO; +BAYE325T13 PO; +BREO1INH PO; +COLC0.6T47 PO; +D31000TA2 PO; +DIGO0.253 PO; +ELIQ5TAB PO; +PROBCAP14 PO; +TORS20TA2 PO; +ZINC1TAB2 PO; +ZOLO100T PO
[2020-08-04] MEDS ORDERED: NS 500 ML IV ONE (14:45)
--- NOTE | 2020-08-04 15:29 | REP ---
INDICATION: fall, left chest bruise. COMPARISON: 03/08/2019 TECHNIQUE: Noncontrast enhanced helical CT FINDINGS: Limited noncontrast enhanced evaluation of the mediastinum and pulmonary loren show no gross abnormalities or significant changes compared to the prior exam. There are no pleural or pericardial effusions. Respiratory motion artifact is seen throughout the lung khalil limiting the detail. No gross masses or pulmonary nodules have developed since the last exam. Evaluation of the osseous structures shows evidence of previous median sternotomy status quo. Degenerative changes are seen involving the imaged portion of the spine. There is no evidence of an acute fracture. The pacemaker devices unchanged. IMPRESSION: No evidence of acute disease or significant change compared to the prior exam as described above. <Electronically signed by Kiran Christianson > 08/04/20 [id number]
--- NOTE | 2020-08-04 15:48 | REP ---
INDICATION: ruq pain. COMPARISON: 02/22/2020 TECHNIQUE: No contrast FINDINGS: There is a small ventral hernia status quo. Limited evaluation of the liver, gallbladder, spleen, pancreas, adrenal glands, and kidneys show no gross abnormalities or significant changes from the prior exam. Left renal cysts are again noted and are unchanged. There are scattered colonic diverticula status quo. There is no evidence of free fluid or free air. Limited evaluation of the abdominal aorta and para-regions show no significant changes from the prior exam or gross abnormalities. There is no significant change in appearance of the imaged osseous structures. IMPRESSION: There is no evidence of acute disease or significant change compared to the prior exam. <Electronically signed by Kiran Christianson > 08/04/20 [id number]
[2020-08-04 16:08] LABS: BASO # 0.1 10^3/uL (0.0-0.2); BASO % 0.5 % (0.0-1.0); HEMATOCRIT 44.2 % (42.0-52.0); HEMOGLOBIN 14.3 g/dl (13.5-17.5); LYMPH # 1.5 10^3/uL (1.5-5.0); LYMPH % 14.3 % (24.0-44.0); MEAN CORPUSCULAR HEMOGLOBIN 29.4 pg (27.0-33.0); MEAN CORPUSCULAR HGB CONC 32.4 g/dl (32.0-36.5); MEAN CORPUSCULAR VOLUME 90.9 fl (80.0-96.0); MONO # 1.1 10^3/uL (0.0-0.8); NEUTROPHILS # 7.9 10^3/uL (1.5-8.5); NEUTROPHILS % 74.1 % (36.0-66.0); RED BLOOD COUNT 4.86 10^6/uL (4.30-6.10); WHITE BLOOD COUNT 10.6 10^3/uL (4.0-10.0)
[2020-08-04 16:16] LABS: INR 1.66
[2020-08-04 16:29] LABS: ALBUMIN 3.7 GM/DL (3.2-5.2); BILIRUBIN,DIRECT 0.2 MG/DL (0.0-0.2); BILIRUBIN,TOTAL 0.6 MG/DL (0.2-1.0); CALCIUM LEVEL 9.3 MG/DL (8.8-10.2); CK-MB VALUE MASS 1.8 NG/ML (<3.6); CREATININE FOR GFR 2.46 MG/DL (0.70-1.30); GLOMERULAR FILTRATION RATE 27.2 (>42); MB/CK RELATIVE INDEX 2.28 (< OR =4); POTASSIUM SERUM 3.9 MEQ/L (3.5-5.1); TOTAL PROTEIN 7.8 GM/DL (6.4-8.2); TROPONIN I 0.02 NG/ML (< 0.10)
--- NOTE | 2020-08-04 18:56 | REP ---
INDICATION: ruq pain. FINDINGS: Multiple ultrasonographic images of the liver show the hepatic parenchymal echo texture to appear unremarkable. There are no focal masses. There is no intrahepatic ductal dilatation. The common bile duct measures approximately 5 mm in its greatest transverse dimension. Multiple ultrasonographic images of the gallbladder show no focal or diffuse gallbladder wall thickening. There are no echogenic foci within the gallbladder lumen, which casts acoustic shadows. There is no pericholecystic edema. Images of the pancreatic region show no gross abnormality. The imaged portion of the right kidney is unchanged compared to prior renal ultrasound examination of 08/14/2015. IMPRESSION: Unremarkable right upper quadrant ultrasound. Accredited by the [employer] in General Ultrasound. <Electronically signed by Kiran Christianson > 08/04/20 [id number]
[2020-08-04] MEDS ORDERED: CARV25TA PO (19:39)
[2020-08-04] MEDS ORDERED: BUSP15TA47 PO (19:39)
[2020-08-04] MEDS ORDERED: TORS20TA2 PO (19:39)
[2020-08-04] MEDS ORDERED: ELIQ5TAB PO (19:39)
[2020-08-04] MEDS ORDERED: DIGO0.253 PO (19:39)
[2020-08-04] MEDS ORDERED: AMLO1TAB24 PO (19:39)
[2020-08-04 20:26] LABS: RSV AMPLIFICATION NEGATIVE (NEGATIVE)
[2020-08-04] MEDS ORDERED: APIXABAN 5 MG TAB (ELIQUIS) PO SCH (21:00)
[2020-08-04] MEDS ORDERED: DIGOXIN IMMUNE FAB (OVINE) 40MG VIAL (J1162) IV ONE (21:35)
[2020-08-04] MEDS ORDERED: MAALOX 30 ML SUSP *UDC PO PRN (21:45)
[2020-08-04] MEDS ORDERED: DEXTROSE 50% 50 ML SYRINGE IV PRN (21:55)
[2020-08-04] MEDS ORDERED: GLUCOSE 4GM CHEW TABLET PO PRN (21:55)
[2020-08-04] MEDS ORDERED: GLUCAGON INJ 1MG VIAL SC PRN (21:55)
[2020-08-04] MEDS: ACETAMINOPHEN TAB 650MG DOSE (2X325MG) PO PRN (22:13)
--- NOTE | 2020-08-04 22:24 | HPEPDOC ---
[facility] Medical History & Physical Date of Admission Aug 04, 2020 Date of Service: Aug 04, 2020 Attending Physician: KELSEY GARCIAS MD History and Physical CHIEF COMPLAINT: Nausea and visual disturbances HISTORY OF PRESENT ILLNESS: Taj (prefers to be called Skip) is a pleasant 79yo male with an extensive PMHx, most notably paroxysmal afib - - just started on eliquis after hospitalization 2 wks ago (07/19-) when px in afib w/ rvr, CKD stage IV, CAD s/p CABG x3, sinus node dysfunction sp pacemaker, NIDDM, COPD only using prn albuterol, sleep apnea not on cpap, and prostate CA/bladder CA/basal cell CA, who presented to the ED on 08/04/20 after being driven in by his (Bren) due to two weeks of nausea with dry heaves but no emesis, dry mouth, and constant "yellow flashes" in his field of vision. The dry heaves have gotten "so much worse" over the past 24-48 hours. Patient describes a dry mouth as "[place]," and the "yellow flashes" are constant but decrease in frequency as the day progresses. In addition, patient has been unable to eat any appreciable solid foods for the past week due to the persistent nausea. As mentioned, he was recently hospitalized at [facility] for 3 days late last month when he presented in atrial fibrillation with rapid ventricular response, as well as hyperkalemia and acute renal failure superimposed on his chronic kidney disease. He presented with softer blood pressures at that time and was given IV digoxin, which improved his HR. He was discharged home with 3 new medications: Eliquis 5 mg bid, digoxin (0.125 mg bid), and torsemide 20 mg qd. He reports that almost from the time he got home after discharge, his nausea, dry heaves, and yellow flashes started. He returned to the ED today simply because 2 weeks of symptoms was "long enough." He reports losing approximately 10 pounds unintentionally over the past 2 weeks due to the decreased solid food intake, and has had a productive cough of white/yellow sputum. At time of our admission exam, he denies any chest pain, chest pressure, palpitations, abdominal pain, constipation, diarrhea, or blood in stool. He also denies any recent fever, chills, or night sweats. It is important to note that patient is not the greatest historian, and some of information was supplied by his who is present at time of admission. In the emergency department, he had notable labs of WBC 10.6, BUN 34, creatinine 2.46, and digoxin level of 4. An UA and imaging were essentially unremarkable (RUQ U/S negative; CT chest and CT abd/pel showed no acute pathology). He was also administered a 500 cc NS bolus. Admitting hospitalist service spoke with on-call fast food restaurant manager regarding the digoxin level. Director Of Regulatory Affairs service recommended treating the patient with Digifab due to symptomatic, clinical digoxin toxicity in the setting of advanced CK D. Patient was admitted under the care of the hospitalist service with telemetry for continued management primarily for digoxin toxicity. Patient is a full code and that was verbally confirmed again in the ED. He does not currently have a primary care provider, and is been greater than 1 year since he has had 1. He has not seen any fast food restaurant manager recently and was struggling to follow-up with 1 after his most recent admission last month. He does follow regularly as an outpatient with Dr. Puckett of the [facility]. PAST MEDICAL HISTORY: Paroxysmal atrial fibrillation on Eliquis (admitted from for A. fib with RVR; discharged on oral digoxin) Coronary artery disease status post CABG 3 with pacemaker Simus node dysfunction, s/p pacemaker NIDDM with neuropathy Hypertension Chronic kidney disease stage IV; follows with Nephrology/Dr. Puckett as outpatient COPD; only uses prn albuterol inhaler at home and at times will use 's supplemental oxygen Sleep apnea, not using CPAP Hypercholesterolemia Prostate cancer; completed 3 cycles of chemotherapy and was supposed to get a total of 6 but stopped due to intolerance Basal cell carcinoma Bladder cancer Obesity Diverticulitis, s/p bowel resection in 2011 Diverticulosis BPH GERD Thrombocytopenia SVT Gout PAST SURGICAL HISTORY: Transurethral resection of bladder tumor (TURBT); second procedure was for restaging, negative pathology in October 2016 Transurethral resection of prostate (TURP)/transurethral incision of bladder neck, November 2016 Hernia repair 1995 Hernia repair with mesh, 2013. Bowel resection due to diverticulitis, 2011 Patient has had 2 total pacemakers; first pacemaker was inserted in 2001, with pacemaker generator replacement done in 2009 Coronary artery bypass graft 3, 2009 Cataract surgery both eyes, 2006 Prostate surgery for BPH, 2005 Right total knee arthroplasty, 2016. 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 He had 10 children from prior marriage and relationships, 8 children are still living. He formally smoked one pack per day of cigarettes for 10 years, but quit 30 years ago. He also formerly chewed tobacco but quit this 50 years ago. Currently drinks alcohol very rarely, about 2 times per month. Denies any current or former IV or illicit drug use FAMILY HISTORY: Father: ; heart disease and diabetes Mother: ; hypertension, diabetes, and heart disease Sister: at 65 years old due to bone cancer. Son: at 56 years old after IA and history of alcoholism ALLERGIES: Please see below. REVIEW OF SYSTEMS: 10 point review of systems complete, all negative otherwise stated in HPI HOME MEDICATIONS: Please see below. PHYSICAL EXAMINATION: VITAL SIGNS: Please see below. GENERAL APPEARANCE: Pleasant elderly obese male lying upright in bed. No acute distress. Alert and oriented 3. Accompanied by his . HEENT: Normocephalic, atraumatic. Noninjected sclerae, with no appreciable icterus., PERRLA. There is a small amount of exudate/discharge over the right lateral canthus. ORAL CAVITY: No upper or lower teeth present. Mildly dry mucous membranes with no fragile erythema or exudate. NECK: Wide circumference to neck. His soft with trachea midline. No lymphadenopa thy appreciated. CARDIOVASCULAR: Quite distant heart sounds. Borderline bradycardic rate, regular rhythm. No murmurs or rubs are appreciated, but again, heart sounds were distant. LUNGS: Decreased tidal volume was moderately diminished breath sounds bilaterally. Symmetric chest expansion. No significant adventitious breath sounds are appreciated. ABDOMEN: Soft, obese, with vertical midline well-healed scars, both superiorly and inferiorly to the umbilicus. There is diffuse mild tenderness in all quadrants with no rigidity. Difficult to assess for hepatosplenomegaly secondary to habitus. Normoactive bowel sounds throughout. EXTREMITIES: Bilateral lower extremities are free of pitting edema. No calf tenderness. Fungus of great toes bilaterally. NEUROLOGICAL: Alert and oriented 3. No focal deficits appreciated. Non- dysarthric speech. PSYCHIATRIC: Mood and affect appear appropriate. LABORATORY DATA: Please see below. IMAGING: CT abdomen/pelvis without contrast, 08/04/20 FINDINGS: There is a small ventral hernia status quo. Limited evaluation of the liver, gallbladder, spleen, pancreas, adrenal glands, and kidneys show no gross abnormalities or significant changes from the prior exam. Left renal cysts are again noted and are unchanged. There are scattered colonic diverticula status quo. There is no evidence of free fluid or free air. Limited evaluation of the abdominal aorta and para- regions show no significant changes from the prior exam or gross abnormalities. There is no significant change in appearance of the imaged osseous structures. IMPRESSION: There is no evidence of acute disease or significant change compared to the prior exam. CT chest without contrast, 08/04/20 FINDINGS: Limited noncontrast enhanced evaluation of the mediastinum and pulmonary loren show no gross abnormalities or significant changes compared to the prior exam. There are no pleural or pericardial effusions. Respiratory motion artifact is seen throughout the lung khalil limiting the detail. No gross masses or pulmonary nodules have developed since the last exam. Evaluation of the osseous structures shows evidence of previous median sternotomy status quo. Degenerative changes are seen involving the imaged portion of the spine. There is no evidence of an acute fracture. The pacemaker devices unchanged. IMPRESSION: No evidence of acute disease or significant change compared to the prior exam as described above. Right upper quadrant ultrasound, 08/04/20 IMPRESSION: Unremarkable right upper quadrant ultrasound. MICROBIOLOGY: Please see below. ASSESSMENT & PLAN: This is a 79yo male w/ extensive PMHx - - notable for parox Afib on eliquis, CAD s/p CABG x3, sinus node dysfubction s/p PM, NIDDM, COPD, sleep apnea not on home CPAP, and s/p basal cell/prostate/bladder CA, who presented on 08/04/20 w/ worsening nausea causing decreased solid food intake, dry heaves, and visual disturbances who was found to have a sDigoxin level of 4 and was admitted with telemetry and treated with IV Digifab for symptomatic, clinical digoxin toxicity. #Symptomatic digoxin toxicity -initial digoxin level of 4 -recently started on po digoxin (0.125 bid) upon hosp d/c two weeks ago; *has had characteristic digoxin side effect sxs since - - nausea, visual disturbances, and had witnessed PVCs on monitoring in the ED -admitting hospitalist service spoke with on-call fast food restaurant manager Dr. Loco who advised treating with Digifab. *Important to note Dr. Loco said sDigoxin levels will remain falsely elevated since DigiFab inactivates the digoxin, but it remains bounded immunoglobulin and hence the serum level will remain higher than the true amount. -Upon discharge, Dr. Loco will see the patient as an outpatient since the patient does not currently have a fast food restaurant manager. -telemetry ordered -Electrolytes were relatively unremarkable upon admission. #CKD Stage 4 -initial sCr 2.46; recent baseline appears to be about 2.22.4. *Of note, upon discharge 2 weeks ago, serum creatinine was 3 -Initial calculated GFR of 27%, which is actually improved from last GFR prior to discharge 2 weeks ago. -Follows with Dr. Puckett as an outpatient but has not seen him since his most recent discharge. -recently started on torsemide as outpt; this was contd upon admission. #NIDDM with neuropathy -SSI and FS ac & hs -CC & 2g Na diet -Hypoglycemic protocol #Paroxysmal afib -admitted just 2 weeks ago after presenting with afib w/ rvr. Started on eliquis -ekg was sinus rhythm upon ED presentation -home eliquis was continued, but due to pt nearly being 80yo and having a baseline Cr 2.2-2.4 (well above the 1.5 threshold for Eliquis dosing), decision was made to change bid dosing -has h/o sinus node dysfunction and is s/p pacemaker #COPD -reportedly only uses prn albuterol at home consistently since has reported insurance issues with symbicort; symbicort nonetheless continued -O2 88-92% titration orders #CAD s/p CABG -on telemetry #Anxiety and depression -home sertraline and buproprion contd #GERD -home ppi continued #History of gout -home allopurinol continued #DVT prophylaxis: home eliquis was continued, but due to pt nearly being 80yo and having a baseline Cr 2.2-2.4 (well above the 1.5 threshold for Eliquis dosing), decision was made to change bid dosing Code status: Full code Disposition: PCU admission with telemetry and observation for improvement in dig toxicity symptoms. Upon improvement, can be discharged with outpatient f/u with cardiology (Dr. Loco), nephro (Dr. Puckett), and to establish with a pcp. Vital Signs Vital Signs Date Time Temp Pulse Resp B/P (MAP) Pulse Ox O2 Delivery O2 Flow Rate FiO2 08/04/20 22:18 97.4 76 18 136/59 (84) 96 Room Air Laboratory Data Labs 24H Laboratory Tests 2 08/04/20 15:49: Immature Granulocyte % (Auto) 1.1, Neutrophils (%) (Auto) 74.1H, Lymphocytes (%) (Auto) 14.3L, Monocytes (%) (Auto) 10.0H, Eosinophils (%) (Auto) 0.0, Basophils (%) (Auto) 0.5, Neutrophils # (Auto) 7.9, Lymphocytes # (Auto) 1.5, Monocytes # (Auto) 1.1H, Eosinophils # (Auto) 0.0, Basophils # (Auto) 0.1, Nucleated Red Blood Cells % (auto) 0.0, Prothrombin Time 20.0H, Prothromb Time International Ratio 1.66, Activated Partial Thromboplast Time 31.0, Anion Gap 6L, Glomerular Filtration Rate 27.2L, Lactic Acid Level 1.4, Calcium Level 9.3, Total Bilirubin 0.6, Direct Bilirubin 0.2, Aspartate Amino Transf (AST/SGOT) 16, Alanine Aminotransferase (ALT/SGPT) 22, Alkaline Phosphatase 61, Total Creatine Kinase 79, Creatine Kinase MB 1.8, Creatine Kinase MB Relative Index 2.28, Troponin I 0.02, Total Protein 7.8, Albumin 3.7, Albumin/Globulin Ratio 0.9, Lipase 135, Digoxin Level 4.0*H 08/04/20 18:27: Urine Color YELLOW, Urine Appearance CLEAR, Urine pH 5.0, Urine Specific [place] 1.014, Urine Protein NEGATIVE, Urine Glucose (UA) NEGATIVE, Urine Ketones NEGATIVE, Urine Blood NEGATIVE, Urine Nitrite NEGATIVE, Urine Bilirubin NEGATIVE, Urine Urobilinogen 0.2, Urine Leukocyte Esterase NEGATIVE, Urine WBC (Auto) 1, Urine RBC (Auto) 2, Urine Hyaline Casts (Auto) 0, Urine Bacteria (Auto) NEGATIVE, Urine Squamous Epithelial Cells 0, Urine Sperm (Auto) 08/04/20 19:38: Coronavirus (COVID-19)(PCR) NEGATIVE, Influenza Type A (RT-PCR) NEGATIVE, Influenza Type B (RT-PCR) NEGATIVE, Respiratory Syncytial Virus (PCR) NEGATIVE CBC/BMP Laboratory Tests 08/04/20 15:49 Home Medications Scheduled Allopurinol (Zyloprim) 300 Mg Tablet, 300 MG PO QHS Amlodipine Besylate (Amlodipine Besylate) 5 Mg Tablet, 5 MG PO BID Apixaban (Eliquis) 5 Mg Tablet, 5 MG PO BID Budesonide/Formoterol (Symbicort 80-4.5 Mcg Inhaler) 60 Puff/Inhaler Aers, 2 PUFF INH BID Buspirone HCl (Buspirone HCl) 15 Mg Tablet, 15 MG PO BID Carvedilol (Carvedilol) 25 Mg Tablet, 25 MG PO BID Cholecalciferol (Vitamin D3) (Vitamin D3) 1,000 Unit Tablet, 1,000 UNITS PO DAILY Cyanocobalamin (Vitamin B-12) (Vitamin B-12) 500 Mcg Tab, 1,000 MCG PO DAILY Glipizide (Glipizide ER) 10 Mg Tab.er.24, 10 MG PO DAILY Lactobacillus Acidophilus (Probiotic) 1 Each Capsule, 1 CAP PO DAILY Linagliptin (Tradjenta) 5 Mg Tab, 5 MG PO QHS Pantoprazole Sodium (Pantoprazole Sodium) 40 Mg Tab, 40 MG PO DAILY Sertraline Hcl (Zoloft) 100 Mg Tablet, 100 MG PO QHS Torsemide (Torsemide) 20 Mg Tablet, 20 MG PO DAILY Zinc (Zinc) 50 Mg Tablet, 50 MG PO DAILY Scheduled PRN Acetaminophen (Acetaminophen) 500 Mg Tablet, 1,000 MG PO Q6H PRN for PAIN Colchicine (Colchicine) 0.6 Mg Tablet, 0.6 MG PO DAILY PRN for GOUT FLARE Allergies Coded Allergies: digoxin (Verified Adverse Reaction, Severe, 08/05/20) codeine (Verified Adverse Reaction, Mild, confusion, 03/08/19) morphine (Verified Adverse Reaction, Mild, itching, 03/08/19) A-FIB/CHADSVASC A-FIB History Current/History of A-Fib/PAF?: Yes Current PO Anticoag Therapy: Yes GME ATTESTATION GME ATTESTATION My faculty preceptor for this patient encounter was physically present during the encounter and was fully available. All aspects of the patient interview, examination, medical decision making process, and medical care plan development were reviewed and approved by the faculty preceptor. The faculty preceptor is aware and concurs with the plan as stated in the body of this note and will attest to such by his/her cosignature. ATTENDING NOTE I, Alexander Garcias, have independently examined this patient and performed my own physical exam, as well as reviewed the documentation and edited where necessary. I have discussed in detail with the resident / student the findings and plan of treatment as documented by the resident / student and edited their note. I agree with their findings and treatment plan and have edited their documentation. I will continue to follow the patient during this hospital stay. JAVIER RIVAS D.O. Aug 04, 2020 22:24 KELSEY GARCIAS MD Aug 12, 2020 06:44
[2020-08-04 22:49] VITALS: BP 113/75
[2020-08-04] MEDS ORDERED: NS IV ONE (23:00)
[2020-08-04] MEDS ORDERED: DIGOXIN IMMUNE FAB IV ONE (23:00)
[2020-08-04] MEDS: busPIRone 5 MG TAB PO SCH (23:27)
[2020-08-04] MEDS: SERTRALINE 100 MG TAB PO SCH (23:27)
[2020-08-04] MEDS: CARVedilol 12.5 MG TAB PO SCH (23:27)
[2020-08-05] VITALS (20 sets, daily range): BP systolic 109–145; BP diastolic 59–65; O2SAT 84–96
[2020-08-05] MEDS ORDERED: NS 1,000 ML IV ONE (02:00)
--- NOTE | 2020-08-05 02:45 | ECGEPIP ---
[facility] - ED Test Date: 2020-08-04 Pat Name: URSULA NORRIS Department: Room: - Gender: Male Etl Lead: BRIANNA : 1940 Requested By: SALVATORE Singh Order Number: [id number] Reading MD: Arnold Elmore Measurements Intervals [place] Rate: 63 P: 67 HI: 170 QRS: 9 QRSD: 86 T: 6 QT: 344 QTc: 352 Interpretive Statements Normal sinus rhythm Nonspecific ST abnormality RHYTHM/RATE CHANGE COMPARED TO 07/17/20 Electronically Signed on 08-05-2020 2:44:44 EDT by Arnold Elmore
[2020-08-05 05:46] LABS: HEMATOCRIT 38.9 % (42.0-52.0); HEMOGLOBIN 12.4 g/dl (13.5-17.5); MEAN CORPUSCULAR HEMOGLOBIN 29.2 pg (27.0-33.0); MEAN CORPUSCULAR HGB CONC 31.9 g/dl (32.0-36.5); MEAN CORPUSCULAR VOLUME 91.5 fl (80.0-96.0); RED BLOOD COUNT 4.25 10^6/uL (4.30-6.10); WHITE BLOOD COUNT 8.8 10^3/uL (4.0-10.0)
[2020-08-05 06:12] LABS: ALBUMIN 3.3 GM/DL (3.2-5.2); BILIRUBIN,TOTAL 0.5 MG/DL (0.2-1.0); CALCIUM LEVEL 8.9 MG/DL (8.8-10.2); CREATININE FOR GFR 2.1 MG/DL (0.70-1.30); GLOMERULAR FILTRATION RATE 32.6 (>42); POTASSIUM SERUM 3.2 MEQ/L (3.5-5.1); TOTAL PROTEIN 6.9 GM/DL (6.4-8.2)
[2020-08-05] MEDS ORDERED: POTASSIUM CHLORIDE 10 MEQ SR TABLET PO ONE (06:55)
[2020-08-05] MEDS ORDERED: MAG SULF 1GM/100ML (MAG RUN) 1 GM in IV 1 EA IV ONE (06:55)
[2020-08-05] MEDS: SYMBICORT 80/4.5MCG INHALER 6GM INH SCH ×2 (07:59→20:59)
[2020-08-05] MEDS: busPIRone 5 MG TAB PO SCH ×2 (09:17→20:57)
[2020-08-05] MEDS: HumaLOG INSULIN (NovoLOG) PER UNIT SC SCH ×4 (09:17→21:00)
[2020-08-05] MEDS: VITAMIN D 1,000 INTERNATIONAL UNITS TABLET PO SCH (09:17)
[2020-08-05] MEDS: CARVedilol 12.5 MG TAB PO SCH ×2 (09:18→20:59)
[2020-08-05] MEDS: APIXABAN 2.5 MG TAB (ELIQUIS) PO SCH ×2 (09:18→20:59)
[2020-08-05] MEDS: CYANOCOBALAMIN 500 MCG TAB PO SCH (09:18)
[2020-08-05] MEDS: TORSEMIDE 20 MG TAB PO SCH (09:18)
[2020-08-05] MEDS: PANTOPRAZOLE 40MG TAB (PROTONIX) PO SCH (09:19)
[2020-08-05] MEDS: amLODIPine 5 MG TAB PO SCH ×2 (09:19→20:58)
--- NOTE | 2020-08-05 09:25 | IPNPDOC ---
Text Note Date of Service The patient was seen on 08/05/20. NOTE Subjective: Patient seen and examined at bedside. No acute overnight events reported. Patient has no new medical complaints this morning. States he is feeling much better. Objective: General: NAD, lying comfortably in bed, in good spirits HEENT: NC/AT, EOMI Lungs: CTA B/L Heart: +S1S2, RRR Abd: obese, soft, NT, +BS Ext: no edema A/P: 79yo male w/ extensive PMHx - - notable for parox Afib on eliquis, CAD s/p CABG x3, sinus node dysfubction s/p PM, NIDDM, COPD, sleep apnea not on home CPAP, and s/p basal cell/prostate/bladder CA, who presented on 08/04/20 w/ worsening na usea causing decreased solid food intake, dry heaves, and visual disturbances who was found to have a sDigoxin level of 4 and was admitted with telemetry and treated with IV Digifab for symptomatic, clinical digoxin toxicity. #Symptomatic digoxin toxicity -initial digoxin level of 4 -recently started on po digoxin (0.125 bid) upon hosp d/c two weeks ago; *has had characteristic digoxin side effect sxs since - - nausea, visual disturbances, and had witnessed PVCs on monitoring in the ED -admitting hospitalist service spoke with on-call patient carrier Dr. Loco who advised treating with Digifab. *Important to note Dr. Loco said sDigoxin levels will remain falsely elevated since DigiFab inactivates the digoxin, but it remains bounded immunoglobulin and hence the serum level will remain higher than the true amount. -Upon discharge, Dr. Loco will see the patient as an outpatient since the patient does not currently have a patient carrier. -telemetry ordered -Electrolytes were relatively unremarkable upon admission. #CKD Stage 4 -initial sCr 2.46; recent baseline appears to be about 2.22.4. *Of note, upon discharge 2 weeks ago, serum creatinine was 3 -Initial calculated GFR of 27%, which is actually improved from last GFR prior to discharge 2 weeks ago. -Follows with Dr. Puckett as an outpatient but has not seen him since his most recent discharge. -recently started on torsemide as outpt; this was contd upon admission. #NIDDM with neuropathy -SSI and FS ac & hs -CC & 2g Na diet -Hypoglycemic protocol #Paroxysmal afib -admitted just 2 weeks ago after presenting with afib w/ rvr. Started on eliquis -ekg was sinus rhythm upon ED presentation -home eliquis was continued, but due to pt nearly being 80yo and having a baseline Cr 2.2-2.4 (well above the 1.5 threshold for Eliquis dosing), decision was made to change bid dosing -has h/o sinus node dysfunction and is s/p pacemaker #COPD -reportedly only uses prn albuterol at home consistently since has reported insurance issues with symbicort; symbicort nonetheless continued -O2 88-92% titration orders #CAD s/p CABG -on telemetry #Anxiety and depression -home sertraline and buproprion contd #GERD -home ppi continued #History of gout -home allopurinol continued #DVT prophylaxis: home eliquis was continued, but due to pt nearly being 80yo and having a baseline Cr 2.2-2.4 (well above the 1.5 threshold for Eliquis dosing), decision was made to change bid dosing Code status: Full code Disposition: PCU admission with telemetry and observation for improvement in dig toxicity symptoms. Upon improvement, can be discharged with outpatient f/u with cardiology (Dr. Loco), nephro (Dr. Puckett), and to establish with a pcp. VS,Fishbone, I+O VS, Fishbone, I+O Laboratory Tests 08/04/20 15:49 08/05/20 05:24 Vital Signs Date Time Temp Pulse Resp B/P (MAP) Pulse Ox O2 Delivery O2 Flow Rate FiO2 08/05/20 09:18 61 145/63 08/05/20 08:00 97.4 18 95 Room Air I&O- Last 24 Hours up to 6 AM 08/05/20 06:00 Intake Total 660 ml Output Total 0 ml Balance 660 ml SHAYNE BARBA MD Aug 05, 2020 09:25
[2020-08-05] MEDS: ACETAMINOPHEN TAB 650MG DOSE (2X325MG) PO PRN (18:15)
[2020-08-05] MEDS: SERTRALINE 100 MG TAB PO SCH (20:59)
[2020-08-05] MEDS: allopurinoL 300 MG TAB PO SCH (21:00)
[2020-08-06] VITALS (10 sets, daily range): BP systolic 122–150; BP diastolic 59–66; O2SAT 92–97
[2020-08-06 05:33] LABS: HEMATOCRIT 38.8 % (42.0-52.0); HEMOGLOBIN 12.4 g/dl (13.5-17.5); MEAN CORPUSCULAR VOLUME 90.9 fl (80.0-96.0); RED BLOOD COUNT 4.27 10^6/uL (4.30-6.10); WHITE BLOOD COUNT 8.5 10^3/uL (4.0-10.0)
[2020-08-06 05:48] LABS: CALCIUM LEVEL 8.8 MG/DL (8.8-10.2); CREATININE FOR GFR 2.09 MG/DL (0.70-1.30); GLOMERULAR FILTRATION RATE 32.8 (>42); MAGNESIUM LEVEL 1.6 MG/DL (1.8-2.4); POTASSIUM SERUM 3.4 MEQ/L (3.5-5.1)
[2020-08-06] MEDS: HumaLOG INSULIN (NovoLOG) PER UNIT SC SCH ×4 (07:30→20:12)
[2020-08-06] MEDS: SYMBICORT 80/4.5MCG INHALER 6GM INH SCH ×2 (08:08→20:31)
[2020-08-06] MEDS ORDERED: SLF 3 ML SYR IV PRN (09:55)
[2020-08-06] MEDS: amLODIPine 5 MG TAB PO SCH ×2 (10:06→20:38)
[2020-08-06] MEDS: busPIRone 5 MG TAB PO SCH ×2 (10:06→20:37)
[2020-08-06] MEDS: CARVedilol 12.5 MG TAB PO SCH ×2 (10:07→20:39)
[2020-08-06] MEDS: TORSEMIDE 20 MG TAB PO SCH (10:07)
[2020-08-06] MEDS: VITAMIN D 1,000 INTERNATIONAL UNITS TABLET PO SCH (10:07)
[2020-08-06] MEDS: CYANOCOBALAMIN 500 MCG TAB PO SCH (10:07)
[2020-08-06] MEDS: PANTOPRAZOLE 40MG TAB (PROTONIX) PO SCH (10:07)
[2020-08-06] MEDS: APIXABAN 2.5 MG TAB (ELIQUIS) PO SCH ×2 (10:08→20:38)
[2020-08-06] MEDS ORDERED: POTASSIUM CHLORIDE 10 MEQ SR TABLET PO ONE (10:30)
--- NOTE | 2020-08-06 11:19 | IPN ---
PROGRESS NOTE DATE: 08/06/2020 SUBJECTIVE: Taj is seen in PCU admitted with digoxin toxicity. He feels better. No more nausea or visual disturbance. Telemetry has been unremarkable. OBJECTIVE: VITAL SIGNS: Blood pressure 146/66, afebrile, heart rate 63. GENERAL: Alert, conversant, and hard of hearing. In no distress. LUNGS: Clear. HEART: Regular rate and rhythm. ABDOMEN: Soft and nontender with no masses. EXTREMITIES: No peripheral edema. SKIN: Unremarkable. NEUROLOGIC: Shows no tremor. LABORATORY DATA: CBC is unremarkable. Potassium 3.4, creatinine 2.09. IMPRESSION AND PLAN: 1. Digoxin toxicity status post Digibind. Follow-up digoxin levels are not reliable. Clinically he does not seem to be digoxin toxic. I would like him to stay another day on telemetry and then will discharge him. Dr. Loco will see him as an outpatient. 2. Stage IV chronic kidney disease. He has chronic kidney disease. Creatinine is actually better than it was during his last admission. He had an outpatient appointment to see nephrology, but was readmitted before he got to the outpatient appointment. 3. Diabetes. He is on fingerstick blood sugar with coverage. He can resume his diabetic medications as an outpatient. 4. Anticoagulation issues. Eliquis dose has been adjusted. He will need a primary care provider, as well as a cardiology referral upon discharge.
[2020-08-06] MEDS: SLF 3 ML SYR IV SCH ×2 (14:00→21:54)
[2020-08-06] MEDS: SERTRALINE 100 MG TAB PO SCH (20:37)
[2020-08-06] MEDS: allopurinoL 300 MG TAB PO SCH (20:38)
[2020-08-07] VITALS (14 sets, daily range): BP systolic 126–143; BP diastolic 60–79; O2SAT 93–96
[2020-08-07] MEDS: SLF 3 ML SYR IV SCH (05:39)
[2020-08-07 05:48] LABS: HEMATOCRIT 40.3 % (42.0-52.0); HEMOGLOBIN 12.9 g/dl (13.5-17.5); MEAN CORPUSCULAR HEMOGLOBIN 28.8 pg (27.0-33.0); RED BLOOD COUNT 4.48 10^6/uL (4.30-6.10); WHITE BLOOD COUNT 9.9 10^3/uL (4.0-10.0)
[2020-08-07 06:13] LABS: CALCIUM LEVEL 9.3 MG/DL (8.8-10.2); CREATININE FOR GFR 2.08 MG/DL (0.70-1.30); MAGNESIUM LEVEL 1.5 MG/DL (1.8-2.4); POTASSIUM SERUM 3.8 MEQ/L (3.5-5.1)
[2020-08-07] MEDS: SYMBICORT 80/4.5MCG INHALER 6GM INH SCH (07:05)
[2020-08-07] MEDS: PANTOPRAZOLE 40MG TAB (PROTONIX) PO SCH (08:01)
[2020-08-07] MEDS: HumaLOG INSULIN (NovoLOG) PER UNIT SC SCH ×2 (08:01→11:59)
[2020-08-07] MEDS: VITAMIN D 1,000 INTERNATIONAL UNITS TABLET PO SCH (08:01)
[2020-08-07] MEDS: amLODIPine 5 MG TAB PO SCH (08:01)
[2020-08-07] MEDS: CYANOCOBALAMIN 500 MCG TAB PO SCH (08:02)
[2020-08-07] MEDS: CARVedilol 12.5 MG TAB PO SCH (08:02)
[2020-08-07] MEDS: APIXABAN 2.5 MG TAB (ELIQUIS) PO SCH (08:02)
[2020-08-07] MEDS: TORSEMIDE 20 MG TAB PO SCH (08:03)
[2020-08-07] MEDS: busPIRone 5 MG TAB PO SCH (08:03)
--- NOTE | 2020-08-07 09:42 | IPN ---
PROGRESS NOTE DATE: 08/07/2020 SUBJECTIVE: Taj is having some problems with his pacemaker. He is having a rapid pacemaker discharge, tachycardia around 150, occurred last night and again this morning. Causes palpitations. He denies any chest pain or shortness of breath with this. He otherwise feels well. Digoxin toxicity symptoms have resolved. No nausea or visual disturbance. OBJECTIVE: VITAL SIGNS: Blood pressure is 126/60, pulse is 75. Telemetry was reviewed. Pacemaker firing at times around 150. HEENT: Unremarkable. LUNGS: Clear. HEART: Regular rhythm. ABDOMEN: Soft, nontender. EXTREMITIES: No peripheral edema. LABORATORY DATA: CBC unremarkable. Electrolytes unremarkable. Creatinine is down 2.0. IMPRESSION: 1. Pacemaker malfunction, spoke with Dr. Loco who will do a pacemaker interrogation and plans to see the patient as an outpatient for formal cardiology consultation. 2. Digoxin toxicity status post Digibind, clinically this is resolved. 3. Stage III-IV chronic kidney disease, creatinine is slowly improving. He is supposed to see Nephrology, after last appointment got readmitted before then. 4. Diabetes, continue sliding scale insulin coverage. 5. Atrial fibrillation, anticoagulation, the dose was adjusted after admission.
--- NOTE | 2020-08-07 16:20 | DSES ---
DISCHARGE SUMMARY DATE OF ADMISSION: 08/04/2020 DATE OF DISCHARGE: 08/07/2020 PRINCIPAL DIAGNOSIS: Digoxin toxicity. SECONDARY DIAGNOSES: 1. Malfunctioning cardiac pacemaker. 2. Acute superimposed on chronic kidney disease. 3. Type 2 diabetes. 4. Hypertensive heart disease. HISTORY OF PRESENT ILLNESS: Taj Salas was admitted with digoxin toxicity. See details in history and physical from admission. HOSPITAL COURSE: He was given Digibind and symptoms of digoxin toxicity resolved. He was observed on telemetry. Overnight and again this morning, he had pacemaker malfunction and Dr. Loco did pacemaker interrogation and reprogramming. 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 Renal function slowly improved during the hospitalization. Care needs to be taken when dosing medications in light of his renal function. Today the patient is insisting on discharge. He did wait until Dr. Loco could reprogram the pacemaker. I do not have Dr. Loco's notes back, but he called me indicating he has done the procedure and the pacemaker is functioning better currently. His physical examination is as summarized below. DISPOSITION: The patient is discharged in improved and stable condition. DISCHARGE INSTRUCTIONS: Follow-up with primary care provider in a week and follow-up with his coil spring assembler in [place] in one to two weeks. DISCHARGE MEDICATIONS: We stopped the digoxin. Otherwise, he is on 1. Tylenol as needed. 2. Allopurinol 300 mg q. h.s. 3. Amlodipine 5 mg b.i.d. 4. Eliquis 5 mg b.i.d. 5. Symbicort 80/4.5 one inhalation b.i.d. 6. Buspirone 15 mg b.i.d. 7. Carvedilol 25 mg b.i.d. 8. Vitamin D 1000 units daily. 9. Cholchicine 0.6 mg p.r.n. for gout flare-up. 10. Vitamin B12 at 1000 mcg daily. 11. Glipizide 10 mg daily. 12. Trajenta 5 mg q. h.s. 13. Protonix 40 mg daily. 14. Sertraline (Zoloft) 100 mg q. h.s. 15. Torsemide 20 mg daily. 16. Zinc. DISCHARGE ACTIVITY: As tolerated. DISCHARGE DIET: No added salt diet advised. DISCHARGE LABORATORY DATA: No pending labs at this time.
== END 2020-08-07 16:31 | disposition home or self-care (01) | DRG 392 ==
LOC: M ED 13:46 → M ED INP 21:20 → ENRESERV 21:49 → M PCU 22:40
PROVIDERS: ADMIT Family Medicine; ATTEND Family Medicine
DX: R11.0 Nausea (principal); N18.4 Chronic kidney disease, stage 4 (severe); T82.897A Other specified complication of cardiac prosthetic devices, implants and grafts, initial encounter; T46.0X5A Adverse effect of cardiac-stimulant glycosides and drugs of similar action, initial encounter; I48.0 Paroxysmal atrial fibrillation; I25.10 Atherosclerotic heart disease of native coronary artery without angina pectoris; I49.5 Sick sinus syndrome; I13.10 Hypertensive heart and chronic kidney disease without heart failure, with stage 1 through stage 4 chronic kidney disease, or unspecified chronic kidney disease; E78.00 Pure hypercholesterolemia, unspecified; E11.22 Type 2 diabetes mellitus with diabetic chronic kidney disease; J44.9 Chronic obstructive pulmonary disease, unspecified; K21.9 Gastro-esophageal reflux disease without esophagitis; N40.0 Benign prostatic hyperplasia without lower urinary tract symptoms; E66.9 Obesity, unspecified; M10.9 Gout, unspecified; D69.6 Thrombocytopenia, unspecified; F41.9 Anxiety disorder, unspecified; F32.9 Major depressive disorder, single episode, unspecified; E11.40 Type 2 diabetes mellitus with diabetic neuropathy, unspecified; G47.30 Sleep apnea, unspecified; Z85.46 Personal history of malignant neoplasm of prostate; Z85.51 Personal history of malignant neoplasm of bladder; Z85.828 Personal history of other malignant neoplasm of skin; Z45.018 Encounter for adjustment and management of other part of cardiac pacemaker; Z95.1 Presence of aortocoronary bypass graft; Z79.01 Long term (current) use of anticoagulants; Z92.21 Personal history of antineoplastic chemotherapy; Z90.49 Acquired absence of other specified parts of digestive tract; Z98.41 Cataract extraction status, right eye; Z98.42 Cataract extraction status, left eye; Z96.651 Presence of right artificial knee joint; Z96.641 Presence of right artificial hip joint; Z87.891 Personal history of nicotine dependence; Z20.822 Contact with and (suspected) exposure to COVID-19; Z79.84 Long term (current) use of oral hypoglycemic drugs; Z79.899 Other long term (current) drug therapy; Z88.5 Allergy status to narcotic agent; Z88.8 Allergy status to other drugs, medicaments and biological substances; Z68.32 Body mass index [BMI] 32.0-32.9, adult

== ENCOUNTER → 2020-10-28 | Outpatient (REF) | payer MEDICARE ==
[~2020-10-28] MED LIST changes: +BUSP15TA47 PO; +CARV25TA PO; -DOXY100C37 PO; +DOXY1CAP62 PO
== END ==
LOC: M LAB REF 17:04
PROVIDERS: ATTEND Internal Medicine Nephrology
DX: N18.4 Chronic kidney disease, stage 4 (severe) (principal)

== ENCOUNTER → 2020-11-26 | Outpatient (CLI) | payer MEDICARE ==
[2020-11-26 14:19] LABS: CALCIUM LEVEL 9.1 MG/DL (8.8-10.2); CHOLESTEROL RISK RATIO 7.696 (<5); CREATININE FOR GFR 2.03 MG/DL (0.70-1.30); GLOMERULAR FILTRATION RATE 33.9 (>42); HEMOGLOBIN A1c 6.7 %; POTASSIUM SERUM 4.5 MEQ/L (3.5-5.1)
[2020-11-26 14:26] LABS: MALB URINE SIEMENS 46.1 MG/L; MAU/CREAT RATIO 42.2 MCG/MG (0.0-30.0)
== END ==
LOC: M PLALAB 09:09
PROVIDERS: ATTEND Student in an Organized Health Care Education/Training Program
DX: E11.9 Type 2 diabetes mellitus without complications (principal)

== ENCOUNTER → 2021-01-21 | Outpatient (REF) | payer MEDICARE | LOC: M LAB REF 17:24 | PROVIDERS: ATTEND Internal Medicine Nephrology | DX: N18.32 Chronic kidney disease, stage 3b (principal) ==

== ENCOUNTER → 2021-02-06 | Outpatient (REF) | payer MEDICARE | LOC: M LAB REF 13:05 | PROVIDERS: ATTEND Internal Medicine Nephrology | DX: N18.32 Chronic kidney disease, stage 3b (principal) ==

== ENCOUNTER 2021-02-16 12:44 | Inpatient (IN) | payer MEDICARE ==
[~2021-02-16 12:44] MED LIST changes: +DOXY-443 PO; -DOXY1CAP62 PO
[2021-02-16] MEDS ORDERED: cefTRIAXone SOD 2 GM in D5W MINI-BAG PLUS 50 ML IV ONE ×2 (13:05→13:50)
[2021-02-16] MEDS ORDERED: NS 1,000 ML IV SCH (13:20)
--- NOTE | 2021-02-16 13:26 | REP ---
INDICATION: SEPSIS/SHOCK. COMPARISON: 07/17/2020 as well as other prior exams. TECHNIQUE: Single portable AP view of the chest was performed. FINDINGS: There is mild mixed interstitial and alveolar infiltrate in the lower lungs bilaterally. Cardiomegaly is unchanged. There is calcification and tortuosity of the thoracic aorta. The mediastinal silhouette is unchanged. Multiple sternal wires are present. A left pacemaker is again noted. IMPRESSION: Mild bilateral infiltrates. Cardiomegaly. <Electronically signed by Federico Encarnacion > 02/16/21 [id number]
[2021-02-16 13:33] LABS: VENOUS BASE EXCESS -1.4 (-2.0-2.0); VENOUS O2 SATURATION 93.4 % (60.0-80.0); VENOUS PARTIAL PRESSURE CO2 29.7 mmHg (38.0-50.0); VENOUS PARTIAL PRESSURE O2 66.2 mmHg (30.0-50.0); VENOUS PH 7.468 UNITS (7.330-7.430); VENOUS STANDARD HCO3 23.2 MEQ/L; VENOUS TOTAL CO2 21.9 MEQ/L (24.0-28.0)
[2021-02-16 13:37] LABS: BASO % 0.1 % (0.0-1.0); HEMATOCRIT 43.1 % (42.0-52.0); HEMOGLOBIN 14.2 g/dl (13.5-17.5); LYMPH # 0.8 10^3/uL (1.5-5.0); LYMPH % 11.4 % (24.0-44.0); MEAN CORPUSCULAR HEMOGLOBIN 26.4 pg (27.0-33.0); MEAN CORPUSCULAR HGB CONC 32.9 g/dl (32.0-36.5); MEAN CORPUSCULAR VOLUME 80.3 fl (80.0-96.0); MONO # 0.6 10^3/uL (0.0-0.8); MONO % 8.6 % (2.0-8.0); NEUTROPHILS # 5.7 10^3/uL (1.5-8.5); NEUTROPHILS % 79.1 % (36.0-66.0); RED BLOOD COUNT 5.37 10^6/uL (4.30-6.10); WHITE BLOOD COUNT 7.2 10^3/uL (4.0-10.0)
[2021-02-16 13:44] LABS: INR 1.8; PROTHROMBIN TIME 21.3 SECONDS (12.7-14.5)
[2021-02-16 13:45] LABS: PARTIAL THROMBOPLASTIN TIME 49.6 SECONDS (25.9-37.0)
[2021-02-16 13:56] LABS: AMORPHOUS SEDIMENT SMALL (NEGATIVE); APPEARANCE, URINE HAZY (CLEAR); BACTERIA, URINE AUTO NEGATIVE (NEGATIVE); BILIRUBIN, URINE AUTO NEGATIVE (NEGATIVE); BLOOD, URINE BLOOD 2+ (NEGATIVE); COLOR, URINE YELLOW (YELLOW); GLUCOSE, URINE (UA) AUTO NEGATIVE (NEGATIVE); KETONE, URINE AUTO TRACE mg/dL (NEGATIVE); LEUKOCYTE ESTERASE, URINE AUTO NEGATIVE (NEGATIVE); NITRITE, URINE AUTO NEGATIVE (NEGATIVE); PROTEIN, URINE AUTO 2+ mg/dL (NEGATIVE); RBC, URINE AUTO 1 /HPF (0-3); SPECIFIC GRAVITY URINE AUTO 1.016 (1.002-1.035); SQUAMOUS EPITHELIAL CELL UR AU 1 /HPF (0-6); WBC, URINE AUTO 2 /HPF (0-3)
[2021-02-16 14:04] LABS: BILIRUBIN,DIRECT 0.4 MG/DL (0.0-0.2); BILIRUBIN,TOTAL 0.8 MG/DL (0.2-1.0); C REACTIVE PROTEIN QUANTITATIV 20.9 MG/DL (0.00-0.30); CALCIUM LEVEL 8.8 MG/DL (8.8-10.2); CK-MB VALUE MASS 4.1 NG/ML (<3.6); CREATININE FOR GFR 2.09 MG/DL (0.70-1.30); GLOMERULAR FILTRATION RATE 32.7 (>35); MB/CK RELATIVE INDEX 0.6 (< OR =4); POTASSIUM SERUM 3.5 MEQ/L (3.5-5.1); TOTAL PROTEIN 7.3 GM/DL (6.4-8.2); TROPONIN I 0.12 NG/ML (< 0.10)
--- OUTSIDE RECORDS SUMMARY | 2021-02-16 14:13 | CCD | Continuity of Care Document ---
Author Author Pacer[facility] Taj Patel Organization Unknown Address [address] [place] [address], [place] [address] Phone Unavailable Care Team Providers Care Behavioral Health Aide Name Role Phone Ying Hall PA-C AUTM [phone] Pablito Christie MD AUTM [phone] Problems Active Problems Provider Date History of coronary artery bypass grafting Nato Loco MD Onset: 10/07/2020 Sinus node dysfunction Nato Loco MD Onset: 1 Cardiac pacemaker in situ Nato Loco MD Onset: 2020 Essential hypertension Nato Loco MD Onset: 1 Mixed hyperlipidemia Nato Loco MD Onset: 10/07/2020 Dietary management surveillance Nato Loco MD Onset: 10/07/2020 Atherosclerosis of coronary artery without angina pectoris D raoul Loco MD Onset: 10/07/2020 Atrial flutter Nato Loco MD Onset: 10/07/2020 Electrocardiogram abnormal ALLISON Joyce Onset: Social History Type Date Description Comments Sex Unknown ETOH Use Occasionally consumes alcohol Tobacco Use Start: Unknown End: Unknown Patient is a former smoker started at age 17, at most 1/2 ppd, quit 1989 Smoking Status Reviewed: 10/07/20 Patient is a former smoker st arted at age 17, at most 1/2 ppd, quit 1989 Exercise Type/Frequency Does not exercise curren tly Exercise Limitations Orthopedic Problem bilatera l foot pain Exercise Limitations Imbalance Allergies, Adverse Reactions, Alerts Active Allergies Criticality Reaction | Severity Comments Date Crestor Unable to assess criticality myalgia 10/07/2020 Gabapentin Unable to assess criticality Other (See Comments) 12/17/2020 Morphine And Related Unable to assess criticality Itching | Severe 12/17/2020 Tramadol Unable to assess criticality Other (See Comments) 12/17/2020 Inactive Allergies NKDA Unable to assess criticality 10/07/2020 Medications Active Medications SIG Qnty Indications Ordering Provide r Date Vascepa 1gm Capsules 2 caps by mouth twice a day (take with meals) 360caps E78.2 Nato Loco MD Colchicine 0.6mg Capsules 1 by mouth once daily Unknown 10/06/2020 Zinc Chelated 50mg Tablets 1 by mouth once daily Unknown 10/06/2020 Torsemide 20mg Tablets 1 by mouth every day as needed Unknown 10/06/2020 Zoloft 100mg Tablets 1 by mouth every day Unknown 10/06/2020 Pantoprazole Sodium 40mg Tablets D R 1 by mouth every day Unknown 10/06/2020 Tradjenta 5mg Tablets 1 by mouth every day Unknown 10/06/2020 Probiotic Capsules 1 by mouth every day Unknown 10/06/2020 Glipizide 10mg Tablets 1 b y mouth daily Unknown 10/06/2020 Vitamin B12 1000mcg Tablets ER 1 by mouth every day Unknown 10/06/2020 Vitamin D (Cholecalciferol) 25mcg (1000 Ut) Tablets 1 by mouth every day Unknown 021 Buspirone HCL 15mg Tablets 1 by mouth twice a day Unknown 10/06/2020 Budesonide/Formoterol Fumarate Dihydrate 160-4.5mcg/Act Aerosol 2 puff twice a day Unknown 10/06/2020 Eliquis 5mg Tablets 1 by mouth twice a day Unknown 10/06/2020 Amlodipine Besylate 5mg Tablets 1 by mouth every day Unknown 10/06/2020 Allopurinol 300mg Tablets 1 by mouth every day Unknown 10/06/2020 Acetaminophen Extra Strength 500mg Tablets 1-2 by mouth as needed Unknown 10/06 Immunizations Description No Information Available Vital Signs Date Vital Result Comment 12/05/2020 3:21pm Weight 217.00 lb Height 68 inches 5'8" BMI (Body Mass Index) 33.0 kg/m2 BP Systolic Sitting 120 mmHg Ra, large cuff BP Diastolic Sitting 78 mmHg Ra, large cuff 10/07/2020 1:02pm Weight 210.00 lb Home Weight 200lb home weight Height 68 inches 5'8" BMI (Body Mass Index) 31.9 kg/m2 Heart Rate 93 /min BP Systolic Sitting 133 mmHg CBP, large cuff/Ra BP Diastolic Sitting 71 mmHg CBP, large cuff/Ra Results Test Acquired Date Facility Test Result H/L Range Note Hemoglobin A1c 11/26/2020 [facility] [phone] Hemoglobin A1c 6.7 % Normal 1 Estimated Average Glucose 146 mg/dL High 60-110 Lipid Panel 11/26/2020 [facility] [phone] Triglycerides Level 382 mg/dL High <150 Cholesterol Level 254 mg/dL High <200 HDL Cholesterol 33 mg/dL Low >40 LDL Cholesterol 145 mg/dL High <100 Non-HDL-C 221 mg/dL Normal Cholesterol Risk Ratio 7.696 High <5 Basic Metabolic Profile 11/26/2020 [facility] [phone] Glucose, Fasting 161 mg/dL High 70-100 Blood Urea Nitrogen 31 mg/dL High 7-18 Creatinine For GFR 2.03 mg/dL High 0.70-1.30 Glomerular Filtration Rate 33.9 Low >42 2 Sodium Level 138 mEq/L Normal 136-145 Potassium Serum 4.5 mEq/L Normal 3.5-5.1 Chloride Level 104 mEq/L Normal 98-107 Carbon Dioxide Level 30 mEq/L Normal 21-32 Anion Gap 4 mEq/L Low 8-16 Calcium Level 9.1 mg/dL Normal 8.8-10.2 Microalbumin Random 11/26/2020 [facility] [phone] Creatinine, Urine 109.0 mg/dL Normal Malb Urine Siemens 46.1 mg/L Normal Rosoce/Creat Ratio 42.2 MCG/MG High 0.0-30.0 3 1 REFERENCE RANGES: <=5.6% NORMAL 5.7-6.4% SUGGESTS IMPAIRED GLUCOSE META BOLISM/PREDIABETIC >= 6.5% ABNORMAL 2 Units are mL/min/1.73 m2 Chronic Kidney Disease Staging per NKF: Stage I & II GFR >=60 Normal to Mildly Decreased Stage III GFR 30-59 Moderately Decreased Stage IV GFR 15-29 Severely Decreased Stage V GFR <15 Very Little GFR Left ESRD GFR <15 on FARM OPERATOR 3 THE [place] 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 THE THRESHOLD FOR CLINICAL ALBUMINURIA IS REACHED AT 300 MCG/MG. THE CLASSIFICATION OF A PATIENT SHOULD BE BASED UPON AT LEAST 2 OF 3 ABNORMAL RESULTS ON SPECIMENS COLLECTED WITHIN A 3 TO 6 MONTH TIME FRAME. Procedures Date Code Description Status 01/20/2021 22558 Remote Interrogate D evice Eval Cardioverter/Defibrillator-90 Days Completed 01/20/2021 09287 Remote Interrogation Device Eval Pacemaker System Up To 90 Days Completed 12/05/2020 97781 Office/Outpatient Established Mo d MDM 30-39 Min Completed 12/05/2020 35384 ECG 12-Lead Completed 10/07/2020 26330 Office/Outpatient New Moderate M DM 45-59 Minutes Completed 10/07/2020 45450 Arterial Pressure Wa veform Analysis For Assessment Of Central Art Completed 10/07/2020 67135 ECG 12-Lead Completed Medical Devices Description No Information Available Encounters Type Date Location Provider Dx Diagnosis Office Visit 12/05/2020 3:30p Main Office ALLISON Joyce I48 .3 Typical atrial flutter R94.31 Abnormal electrocardiogram [ ECG] [EKG] Office Visit 10/07/2020 1:00p Main Office Nato Loco MD I25.1 0 Athscl heart disease of [place] coronary artery w/o ang pctrs Z95.1 Presence of aortocoronary by pass graft I48.3 Typical atrial flutter I49.5 Sick sinus syndrome Z95.0 Presence of cardiac pacemake r I10 Essential (primary) hyperten latha E78.2 Mixed hyperlipidemia Z71.3 Dietary counseling and surve illance Assessments Date Code Description Provider 01/20/2021 Z95.0 Presence of cardiac pacemaker [facility] 12/05/2020 I48.3 Typical atrial flutter ALLISON Joyce 12/05/2020 R94.31 Abnormal electrocardiogram [ECG] [EKG] ALLISON Joyce 10/07/2020 I25.10 Atherosclerotic hear t disease of [place] coronary artery without angina pectoris Nato Loco MD 10/07/2020 Z95.1 Presence of aortocoronary bypass graft Nato Loco MD 10/07/2020 I48.3 Typical atrial flutter Nato Loco MD 10/07/2020 I49.5 Sick sinus syndrome Nato nickerson MD 10/07/2020 Z95.0 Presence of cardiac pacemaker Da vipavan Loco MD 10/07/2020 I10 Essential (primary) hypertension Nato Loco MD 10/07/2020 E78.2 Mixed hyperlipidemia Nato celis MD 10/07/2020 Z71.3 Dietary counseling and surveilla nce Nato Loco MD Plan of Treatment Future Appointment(s):* 04/22/2021 7:00 am - [facility] at Main Office * 04/14/2021 11:15 am - Nato Loco MD at Main Office 12/05/2020 - ALLISON Joyce* I48.3 Typical atrial flutter* Recommendations:* Continue Eliquis at the current dosage Will continue to monitor pacemaker reports for possible episodes of atrial flutter/atrial fibrillation Patient agreeable to contact the office with any sustained episodes of palpitations or tachycardia * R94.31 Abnormal electrocardiogram [ECG] [EKG]* Recommendations:* No further evaluation is needed at this time. * All * Follow up:* As scheduled with Dr. Loco Functional Status Functional Condition Comment Date Status Independent with all ADL's Activ e Mental Status Description No Information Available Referrals Refer to Reason for Referral Status Appt Date Juan Manuel-Pablito Soto MD 1. Paroxysmal Typical Atria l Flutter; please consider RF ablation so that patient can get off of long-term anticoagulation. 2. Pacemaker in situ with 2 atrial leads (both broken) and 1 ventricular lead (set to VVI 50); conservative management versus lead extractions and replacement of atrial lead. Sent [facility] [address] [place] [address] [phone]
--- OUTSIDE RECORDS SUMMARY | 2021-02-16 14:13 | CCD ---
Author Author [facility] Address Unknown Phone Unavailable Care Team Providers Care Brand Strategist Name Role Phone Ying Hall Unavailable PROBLEMS Type Condition ICD9-CM Code RDX47-CE Code Onset Dates Condition S tatus W/U Status Risk SNOMED Code Notes Problem Depression F32.9 Active confirmed 80493906 Problem Hypertension I10 Active confirmed 0047961 3 Problem Gout M10.9 Active confirmed 28469226 Problem Chronic obstructive pulmonary disease, unspecified COPD ty pe J44.9 Active confirmed 01927755 Problem Hyperlipidemia E78.5 Active confirmed 47298 004 Problem Chronic kidney disease, unspecified CKD stage N18. 9 Active confirmed 157439486 Problem Daytime somnolence R40.0 Active confirmed 1 00420161439 Problem Thrombocytopenia D69.6 Active confirmed 415 062763 Problem Atrial fibrillation, unspecified type I48.91 Ac tive confirmed 40313305 Problem Type 2 diabetes mellitus wit hout complication, unspecified whether fpc insulin use E11.9 Active confirmed 001230200 Problem Dysphagia, unspecified type R13.10 Active confirmed 96180939 Problem Arthritis M19.90 Active confirmed 7716548 Problem Essential hypertension I10 Active confirmed 48766984 Problem History of permanent cardiac pacemaker placement Z 95.0 Active confirmed 340046181 Problem Chronic congestive heart failure, unspecified he art failure type I50.9 Active confirmed 74288911 Problem Stage 4 chronic kidney disease N18.4 Active confir med 348852519 ALLERGIES Allergen (clinical drug ingredient) Drug/Non Drug Allergy do cumented on EMR Reaction Allergy Type Onset Date Status morphine Morphine Sulfate([facility] Code:[address]-48) rash Drug A llergy Active BCG Live Unknown Drug Allergy Active Gabapentin Unknown Non Drug Allergy Active Statins Muscle aches Non Drug Allergy Active ENCOUNTERS from 1940 to 2020-11-20 Encounter Location Date Provider Diagnosis [address] [address] Oct, Ying Hall IMMUNIZATIONS Vaccine Route Administration Date Status INFLUENZA 3 YRS AND OLDER Preservative free IM Intramuscular Mar 02, 2017 Administered Influenza preservative free IM Intramuscular Feb 06, 2020 Adm inistered Influenza preservative free IM Intramuscular Mar 15, 2019 Adm inistered Pneumococcal Prevnar 13 IM Intramuscular Jan 18, 2019 Admini stered SOCIAL HISTORY Tobacco Use: Social History Observation Description Date Details (start date - stop date) Former Smoker Sex Assigned At : Social History Observation Description Sex Assigned At Unknown Tobacco Use/Smoking Question Answer Notes Are you a former smoker How long has it been since you last smoked? > 10 years REASON FOR REFERRAL No Information VITAL SIGNS No information MEDICATIONS Medication SIG (Take, Route, Frequency, Duration) Notes Start Da te End Date Status Torsemide 20 MG as directed Orally A ctive Colcrys 0.6 MG 1 tablet Orally for 30 day(s) Active amLODIPine Besylate 5 MG 1 tablet Orally twice a day for 90 days Jul, Active Zinc 50 MG 1 tablet Orally Once a day for 30 day(s) Active Advair Diskus 250-50 MCG/DOSE 1 puff Inhalation once daily Dec, Not-Taking glipiZIDE XL 10 MG 1 tablet with food Orally Once a day for 90 Active Digoxin 250 MCG 0.5 tablet Orally Once a day for 30 day(s) Active Allopurinol 100 MG 1 tab Orally Once a day for 90 Active busPIRone HCl 15 MG 1 tablet Orally twice a day for 30 Active Tradjenta 5 MG 1 tablet Orally Once a day for 90 Active Sertraline HCl 100 MG 1 tablet Orally Once a day for 90 Active Acetaminophen 500 MG 1 capsule as needed Orally every 6 hrs Active Pantoprazole Sodium 40 MG 1 tablet Orally Once a day for 30 day(s) Active Vitamin B12 1000 MCG 1 tablet Orally Once a day for 30 day(s) Active busPIRone HCl 10 MG 1 tablet Orally twice a day Active Symbicort 80-4.5 MCG/ACT 2 puffs Inhalation Twice a day for 90 Active Vitamin D3 25 MCG (1000 UT) 1 capsule Orally Once a day for 30 day(s) Active ProAir HFA 108 (90 Base) MCG/ACT INHALE TWO PUFFS BY M OUTH EVERY 4 HOURS NEEDED for 75 Unknown 4 wheeled walker with seat as directed with long handl es and seat Dx 428 for 999 days Jun, Active Eliquis 5 MG orally Orally twice a day for 90 days Active Lactobacillus Probiotic - as directed Orally Active Carvedilol 25 MG 1 tablet with food Orally Twice a day for 90 day(s) Active PROCEDURES No Information RESULTS No Results REASON FOR VISIT refill MEDICAL (GENERAL) HISTORY Type Description Date Medical History Diverticulitis Medical History HTN Medical History Umbilical hernia Medical History colonoscopy 2007 (polyps) Medical History Gout Medical History DM with neuropathy Medical History Bursitis shoulder Medical History HLD Medical History CAD Medical History Bladder cancer Medical History Prostate cancer Medical History A fib Medical History CKD stage 4 Medical History CHF Surgical History Pacemaker 2010 Surgical History CABG 2009 Surgical History Colon resection 2011 Surgical History Prostate surgery 2004 Surgical History Hiatal hernia repair Nov 2013 Surgical History bladder surgery 2018 Hospitalization History With surgeries Hospitalization History [facility] allergic reaction 2017 Goals Section No Information Health Concerns No Information MEDICAL EQUIPMENT No Information MENTAL STATUS No Information FUNCTIONAL STATUS No Information ASSESSMENTS No Information PLAN OF TREATMENT Medication Medication Name Sig Start Date Stop Date Tradjenta 5 MG 1 tablet Orally Once a day for 90 Eliquis 5 MG orally Orally twice a day for 90 days busPIRone HCl 15 MG 1 tablet Orally twice a day for 30 Allopurinol 100 MG 1 tab Orally Once a day for 90 amLODIPine Besylate 5 MG 1 tablet Orally twice a day for 90 days Jul, Symbicort 80-4.5 MCG/ACT 2 puffs Inhalation Twice a day for 90 glipiZIDE XL 10 MG 1 tablet with food Orally Once a day for 90 Carvedilol 25 MG 1 tablet with food Orally Twice a day for 90 da y(s) Sertraline HCl 100 MG 1 tablet Orally Once a day for 90 Insurance Providers Payer Name Payer Address Payer Phone Insured Name Patient Relati onship to Insured Coverage Start Date Coverage End Date [employer] - [place]IC[place] [address] [place] [address] Taj Salas [employer] - [employer] [address] [facility] [address] Taj Salas [facility] [employer] [facility] [address] [facility] [phone] Taj Salas
--- OUTSIDE RECORDS SUMMARY | 2021-02-16 14:13 | CCD ---
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 He denies any angina or CHF symptoms. He apparently had a stress test in 2015 which was unremarkable. Problem Gout due to renal impairment, unspecifie d chronicity, unspecified site M10.30 Active confirmed 286246514 He is on a llopurinol and is followed by nephrology. Problem Gross hematuria R31.0 Active confirmed 1979 70014 Problem Anxiety F41.9 Active confirmed 19911999 Problem Essential hypertension I10 Active confirmed 95699914 Problem Benign prostatic hyperplasia with lower urinary tract symptoms N40.1 Active confirmed 789603166 He is on tamsul osin and is followed by the urologist. He had a TURP in November 2016. Problem Type 2 diabetes mellitus wit h complication, without long-term current use of insulin E11.8 Active confirmed 77124607 He is on glipizide and Tradjenta for his diabetes mellitus. He apparently has been followed at a different facility up until November of this year, and had his hemoglobin A1c monitored regularly, most recently apparently this past Summer. I do not have records from his prior provider. I am aware that his urine microalbumin was negative in January 2018 but his last hemoglobin A1c result is not available to me. He assures me it was acceptable. Problem Pacemaker Z95.0 Active confirmed 558795699 Problem Diverticulosis of intestine without bleeding, unspecified intestinal tract location K57.90 Active confirmed 79706324 Problem Right hip pain M25.551 Active confirmed 3169 [id number] Problem Hx of bladder cancer Z85.51 Active confirmed 754802844 Bladder cancer was resected in Summer 2016 and he is regularly followed by a urologist. 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 Problem Mixed hyperlipidemia E78.2 Active confirmed 613219960 He is not on statin therapy and I do not have sufficient records to know why this has not been provided to him. He is followed by a psychology tech. Problem Dysthymia F34.1 Active confirmed 33201597 T his is well-controlled with buspirone and sertraline. Problem Obstructive sleep apnea syndrome G47.33 Active conf irmed 90959780 He has a history of sleep apnea and is followed by the magento web developer. Problem Primary osteoarthritis of right hip M16.11 Acti ve confirmed 949953965 Problem Suspected sleep apnea G47.30 Active confirmed 54435374 Problem Chronic obstructive pulmonary disease, unspecified COPD ty pe J44.9 Active confirmed 13651993 Problem Paroxysmal atrial fibrillation I48.0 Active confir med 599081440 Problem Stage 3 chronic kidney disease N18.3 Active confir med 676112847 He is seen by nephrology. His preoperative testing indicates that his GFR is 26 with a creatinine of 2.58. With his nephrology visit just a week prior to that, his creatinine was 1.92 with a GFR of 34. PTH levels are followed in the nephrology office. He also apparently has hyperuricemia associated with his renal disease and is on allopurinol therapy. Problem Gastroesophageal reflux disease without esophagitis K21.9 Active confirmed 374462395 He is on Protonix th erapy with controlled symptoms. 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 He is also followed by a water valve repairer. Problem Mild asthma without complication, unspecified wh ether persistent J45.909 Active confirmed 841443989 He is on Symbi gadiel and sees a magento web developer regularly. Problem Depressed left ventricular systolic function I51.9 Active confirmed 232596570 Problem Coronary artery disease invo lving coronary bypass graft of [place] heart with angina pectoris I25.709 Active confirmed 096737111 ALLERGIES Allergen (clinical drug ingredient) Drug/Non Drug Allergy do cumented on EMR Reaction Allergy Type Onset Date Status morphine Morphine Sulfate([facility] Code:[address]-31) Confusion Drug A llergy Active gabapentin Gabapentin([facility] Code:[address]-78) shakes Drug Allergy Active tramadol Tramadol HCl([facility] Code:[address]-75) shakes Drug Aller gy Active ENCOUNTERS from 1940 to 2021-02-12 Encounter Location Date Provider Diagnosis [place] [id number] [facility] [phone] [place] [address] Jan, Ramakrishna Anjelica Dysthymia F34.1 ; Type 2 brisa betes mellitus with complication, without long-term current use of insulin E11.8 ; Paroxysmal atrial fibrillation I48.0 and Mild asthma without complication, unspecified whether persistent J45.909 IMMUNIZATIONS Vaccine Route Administration Date Status Influenza 18 yrs & older Flublok IM Intramuscular Feb 08, 2018 Administered Pneumococcal Adult 0.5mL Pneumovax 23 Unknown Jan 23 16 Administered SOCIAL HISTORY Tobacco Use: Social History Observation Description Date Details (start date - stop date) Former Smoker Sex Assigned At : Social History Observation Description Sex Assigned At Unknown Education: Question Answer Notes Level of Education: Finished High School Audit Question Answer Notes Total Score: 0 Interpretation: Alcohol Education Mormonism: Question Answer Notes Mormonism 08 Jain Domestic Violence: Question Answer Notes Status: Does the patient divulge that the partner hit them? No Does the patient divulge that the partner hits the chi ldren in the household? No Does the patient consider the partner abusive? No Has the patient ever been in a situation involving domestic violence? No Has the patietn ever been injured, homeb ound, or hospitalized due to an altercation with significant other? No Sexual Hx: Question Answer Notes Had sex in the last 12 months (vaginal, oral, or anal)? No Have you ever had an STD? No Drug and Alcohol Question Answer Notes Total Score: 0 Interpretation: No problems reported Alcohol Screening: Question Answer Notes Did you have a drink containing alcohol in the past year? Ye s Points 2 Interpretation Negative How many drinks did you have on a typica l day when you were drinking in the past year? 1 or 2 (0 points) How often did you have a drink containing alcohol in t he past year? Two to four times a month (2 points) BMI Care Goal Follow-Up Question Answer Notes Above Normal BMI Follow-Up Weight monitoring Tobacco Use: Question Answer Notes Are you a: former smoker How long has it been since you last smoked? > 10 years REASON FOR REFERRAL No Information VITAL SIGNS No information MEDICATIONS Medication SIG (Take, Route, Frequency, Duration) Notes Start Da te End Date Status Carvedilol 25 MG 1 tablet with food Orally Twice a day for 90 days Active Symbicort 80-4.5 MCG/ACT 2 puffs Inhalation Twice a day for 90 days Active Tamsulosin HCl 0.4 MG 1 capsule 30 minutes after t he same meal each day Orally Once a day Not-Taking Torsemide 20 MG as directed Orally on [facility] discharge 08/07/20Jul, 021 Active Tradjenta 5 MG 1 tablet Orally Once a day @ dinner for 90 days Active ProAir HFA 108 (90 Base) MCG/ACT 2 puffs Inhalation ev hanna 4 hours as needed for wheezing or dyspnea for 90 day(s) Jan, Active Losartan Potassium-HCTZ 100-25 MG 1 tablet Orally Once a day Not-Taking Lactobacillus Probiotic - as directed Orally Active Allopurinol 300 MG 1 tablet Orally once daily Active busPIRone HCl 15 MG 1 tablet Orally twice daily for 90 days Active Cyanocobalamin 500 MCG 1 tablet Orally Once a day for 30 day (s) on discharge from [facility] Active Acetaminophen 500 MG 1 capsule as needed Orally every 6 hrs as needed for pain on hospital d/c 08/07/20 Jul, Active ZyrTEC Allergy 10 mg 1 tablet Orally Once a day as needed for 90 day( s) Not-Taking Zinc 50 MG 1 tablet Orally Once a day for 30 day(s) on [facility] discharge 08/07/20 Jul, Active Vitamin D-3 1000 UNIT 1 capsule Orally Two per week Active Cholecalciferol 25 MCG (1000 UT) 1 capsule Orally Once a day for 30 day(s) on discharge 4/15/21 15 Apr, 2021 Active glipiZIDE 10 MG 1 tablet Orally Once a day for 90 days Active Eliquis 2.5 MG 1 tab Orally bid for 90 days 11 Dec, 2020 Active Sertraline HCl 100 MG 1 tablet Orally Once a day for 90 days Active amLODIPine Besylate 5 MG 1 tablet Orally bid for 90 days 1 5 Jul, 2020 Active Probiotic - 1 capsule Orally Daily A ctive Colchicine 0.6 MG 1 tablet Orally as needed for gout Active Nitroglycerine 0.4mg 1 tab sublingually prn angina for 30 day(s) Jan, Active Lancet Device - as directed topically Daily for 90 day(s) Jan, Active Pantoprazole Sodium 40 MG 1 tablet Orally Once a day Active Glucometer as directed topically Daily for 30 day(s) 2015 Active PROCEDURES No Information RESULTS No Results REASON FOR VISIT refills MEDICAL (GENERAL) HISTORY Type Description Date Medical History CAD, s/p CABG x3 in [facility] (2009); ALVAREZ to LAD, SVG to OM and diagonal Medical History DM II with neuropathy & CKD Medical History HTN Medical History COPD Gold Stage # Dr. Marta Romo; currently only uses as needed albuterol and at times will use supplemental oxygen Medical History GERD Medical History COOPER currently not using CPAP Medical History divertulosis with previous diverticuliti s Medical History Sick sinus syndrome, s/p pacemaker Medical History SVT Medical History hypercholesterolemia Medical History CKD Stage IV (follows w/ nep hro as outpt; recent sCr baseline of 2.2-2.4) Medical History basal cell carcinoma Medical History Gout Medical History Bladder Cancer Medical History Prostate Cancer; completed 3 cycles of chemotherapy and was supposed to get a total of 6 but stopped due to intolerance Medical History Paroxysmal atrial fibrillati on/flutter on Eliquis (07/19 through 07/21/20 A. fib with RVR hospital admission) Medical History BPH Medical History Acid reflux Medical History Symptomatic digoxin toxicity ; [facility] hospital admission from 08/04 through 08/07/20 Medical History Obesity; BMI of 32 in November 2020 Surgical History double hernia repair 1995 Surgical History pacemaker insertion 2001 Surgical History prostate surgery for BPH 2004 Surgical History cataract both eyes 2005 Surgical History triple bypass- open heart surgery 2009 Surgical History Pacemaker generator replacement 2009 Surgical History bowel resection- diverticulitis 2011 Surgical History hernia repair with mesh 2013 Surgical History right knee complete replacement 2015 Surgical History TURBT (second procedure was for restagin g, negative pathology) -10/2016 Surgical History TURP/TUIBN 11/2016 Surgical History right hip arthroplasty-Dr. Hicks Surgical History Pacemaker interrogation and reprogramming done by Dr. Loco during [facility] hospitalization July 2020 Surgical History Unspecified nasal surgery x2 Hospitalization History related to surgeries Hospitalization History Symptomatic digoxin toxicity 08/04 rough 08/07/2020 Hospitalization History Atrial fibrillation with rapid ventr icular rate 07/19 through 07/21/2020 Goals Section No Information Health Concerns No Information MEDICAL EQUIPMENT No Information MENTAL STATUS No Information FUNCTIONAL STATUS No Information ASSESSMENTS Encounter Date Diagnosis Assessment Notes Treatment Notes Treatm ent Clinical Notes Jan, Dysthymia (ICD-10 - F34.1) Jan, Type 2 diabetes mellitus wit h complication, without long-term current use of insulin (ICD-10 - E11.8) Jan, Paroxysmal atrial fibrillation (ICD-10 - I48.0) Jan, Mild asthma without complica tion, unspecified whether persistent (ICD-10 - J45.909) PLAN OF TREATMENT Medication Medication Name Sig Start Date Stop Date busPIRone HCl 15 MG 1 tablet Orally twice daily for 90 days Sertraline HCl 100 MG 1 tablet Orally Once a day for 90 days Carvedilol 25 MG 1 tablet with food Orally Twice a day for 90 da ys amLODIPine Besylate 5 MG 1 tablet Orally bid for 90 days Jul, ProAir HFA 108 (90 Base) MCG/ACT 2 puffs Inhalation ev hanna 4 hours as needed for wheezing or dyspnea for 90 day(s) Jan, glipiZIDE 10 MG 1 tablet Orally Once a day for 90 days Tradjenta 5 MG 1 tablet Orally Once a day @ dinner for 90 days Symbicort 80-4.5 MCG/ACT 2 puffs Inhalation Twice a day for 90 d ays Eliquis 2.5 MG 1 tab Orally bid for 90 days Dec, Next Appt Details Provider Name:Ramakrishna Anjelica, 2020-10-2 9 03:00:00 PM, [address] [facility] [address] , , [place], [address], Insurance Providers Payer Name Payer Address Payer Phone Insured Name Patient Relati onship to Insured Coverage Start Date Coverage End Date MEDICARE Part A and B [address] [facility] [phone] URSULA SALAS self [facility] CLAIM [facility] [address] [facility] [phone] URSULA SALAS self
--- OUTSIDE RECORDS SUMMARY | 2021-02-16 14:13 | CCD | Continuity of Care Document ---
Author Author Taj TONY MD Organization Unknown Address [address] [place] [address], [place] [address] Phone [phone] Care Team Providers Care Exercise Instruct Name Role Phone Ying Hall PA-C AUTM [phone] Pablito Christie MD AUTM [phone] Problems Active Problems Provider Date History of coronary artery bypass grafting Nato Tony MD Onset: 10/07/2020 Sinus node dysfunction Nato Tony MD Onset: 1 Cardiac pacemaker in situ Nato Tony MD Onset: 2020 Essential hypertension Nato Tony MD Onset: 1 Mixed hyperlipidemia Nato Tony MD Onset: 10/07/2020 Dietary management surveillance Nato Tony MD Onset: 10/07/2020 Atherosclerosis of coronary artery without angina pectoris D raoul Tony MD Onset: 10/07/2020 Atrial flutter Nato Tony MD Onset: 10/07/2020 Social History Type Date Description Comments Sex [...] Imbalance Allergies, Adverse Reactions, Alerts Active Allergies Reaction Severity Comments Date Crestor myalgia 10/07/2020 Inactive Allergies NKDA 10/07/2020 Medications Active Medications SIG Qnty Indications Ordering Provide r Date Vascepa 1gm Capsules 2 caps by mouth twice a day (take with meals) 360caps E78.2 Nato Tony MD Colchicine 0.6mg Capsules 1 by mouth [...] Available Vital Signs Date Vital Result Comment 10/07/2020 1:02pm Weight 210.00 lb Home Weight 200lb home weight Height 68 inches 5'8" BMI (Body Mass Index) 31.9 kg/m2 Heart Rate 93 /min BP Systolic Sitting 133 mmHg CBP, large cuff/Ra BP Diastolic Sitting 71 mmHg CBP, large cuff/Ra Results Test Acquired Date Facility Test Result H/L Range Note Hemoglobin A1c 11/26/2020 [facility] nter [phone] Hemoglobin A1c 6.7 % Normal 1 Estimated Average Glucose 146 mg/dL High 60-110 Lipid Panel 11/26/2020 [facility] nter [phone] Triglycerides Level 382 mg/dL High <150 Cholesterol Level 254 mg/dL High <200 HDL Cholesterol 33 mg/dL Low >40 LDL Cholesterol 145 mg/dL High <100 Non-HDL-C 221 mg/dL Normal Cholesterol Risk Ratio 7.696 High <5 Basic Metabolic Profile 11/26/2020 [facility] [phone] Glucose, Fasting 161 mg/dL High 70-100 Blood [...] 9.1 mg/dL Normal 8.8-10.2 Microalbumin Random 11/26/2020 [facility] nter [phone] Creatinine, Urine 109.0 mg/dL Normal Malb Urine Siemens 46.1 mg/L Normal [place]/Creat Ratio 42.2 MCG/MG High 0.0-30.0 3 CMP 07/15/2020 [facility] Albumin Serum/Plasma 3.8 Alt - SGPT 28 Calcium Ser/Plasma Mass/Vol 8.6 Carbon Dioxide Ser/Plasm 23 Chloride Serum/Plasma 105 Alkaline Phosphatase 44 Potassium 5.4 Protein Total 7.9 Sodium 140 Ast - Sgot 13 BUN - Urea Nitrogen 61 Glucose 122 Creatinine For GFR 3.23 CBC without Differential 07/15/2020 [facility] White Blood Count 8.5 Red Blood Count 4.46 Platelets 134 Hemoglobin 13.0 Hematocrit 39.5 Laboratory test finding 07/15/2020 [facility] Thyroid Stimulating Hormone 2.755 1 REFERENCE RANGES: <=5.6% NORMAL 5.7-6.4% SUGGESTS IMPAIRED GLUCOSE META BOLISM/PREDIABETIC >= 6.5% ABNORMAL 2 Units are mL/min/1.73 m2 Chronic Kidney Disease Staging per NKF: Stage I & II GFR >=60 Normal to Mildly Decreased Stage III GFR 30-59 Moderately Decreased Stage IV GFR 15-29 Severely Decreased Stage V GFR <15 Very Little GFR Left ESRD GFR <15 on [place]ER 3 THE [employer] 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 THE THRESHOLD FOR CLINICAL ALBUMINURIA IS REACHED AT 300 MCG/MG. THE CLASSIFICATION OF A PATIENT SHOULD BE BASED UPON AT LEAST 2 OF 3 ABNORMAL RESULTS ON SPECIMENS COLLECTED WITHIN A 3 TO 6 MONTH TIME FRAME. Procedures Date Code Description Status 10/07/2020 93084 Office/Outpatient New Moderate M DM 45-59 Minutes Completed 10/07/2020 15019 Arterial Pressure Wa veform Analysis For Assessment Of Central Art Completed 10/07/2020 88720 ECG 12-Lead Completed Medical Devices Description No Information Available Encounters Type Date Location Provider Dx Diagnosis Office Visit 10/07/2020 1:00p Main Office Nato Tony MD I25.1 0 Athscl heart disease of [place] coronary artery w/o ang pctrs Z95.1 Presence of aortocoronary by pass graft I48.3 Typical atrial flutter I49.5 Sick sinus syndrome Z95.0 Presence of cardiac pacemake r I10 Essential (primary) hyperten latha E78.2 Mixed hyperlipidemia Z71.3 Dietary counseling and surve illance Assessments Date Code Description Provider 10/07/2020 I25.10 Atherosclerotic hear t disease of [place] coronary artery without angina pectoris Nato Tony MD 10/07/2020 Z95.1 Presence of aortocoronary bypass graft Nato Tony MD 10/07/2020 I48.3 Typical atrial flutter Nato Tony MD 10/07/2020 I49.5 Sick sinus syndrome Nato nickerson MD 10/07/2020 Z95.0 Presence of cardiac pacemaker Da felice Tony MD 10/07/2020 I10 Essential (primary) hypertension Nato Tony MD 10/07/2020 E78.2 Mixed hyperlipidemia Nato celis MD 10/07/2020 Z71.3 Dietary counseling and surveilla nce Nato Tony MD Plan of Treatment Future Appointment(s):* 12/05/2020 3:30 pm - ALLISON Joyce at Main Office * 04/14/2021 11:15 am - Nato Tony MD at Main Office 10/07/2020 - Nato Tony MD* I25.10 Atherosclerotic heart disease of [place] coronary artery without angina pectoris* Recommendations:* Vascepa 2 g twice a day was added. Continue amlodipine and Eliquis at the current dosages. * Z95.1 Presence of aortocoronary bypass graft * I48.3 Typical atrial flutter* Referral:* Pablito Christie MD, Cardiac Electrophyslgy * Recommendations:* Radiofrequency ablation of typical atrial flutter was explained to the patient. A big advantage of this is that it affords the opportunity to discontinue long-term use of Eliquis if they typical atrial flutter ablation is successful at clearing the patient from atrial flutter. Patient (and his ) were agreeable to this approach. I have referred him to senior water/wastewater engineer Dr. Pablito Christie for consideration of RF ablation of typical atrial flutter. Continue Eliquis at the current dosage for now. Once the patient has had successful RF ablation of typical atrial flutter, he would be a candidate for discontinuation of Eliquis and placing him on aspirin (CAD, DM). * I49.5 Sick sinus syndrome * Z95.0 Presence of cardiac pacemaker* Recommendations:* Continue VVI 50. Since this patient will be seeing senior water/wastewater engineer Dr. Pablito Christie, who is also the physician involved in this patient's pacemaker procedure(s), I will seek his opinion as to whether or not the patient should have extraction of one or both atrial leads and implantation of a new atrial pacemaker lead. Given the potential for up to 2% risk of mortality with lead extraction and that the patient is not symptomatic with VVI 50, my feeling is that conservat page management (i.e., we have patient at VVI 50 without lead extraction and implantation of a new atrial lead) would be the best way to go. I wish to avoid placement of a new atrial pacing lead in the absence of lead extraction as the patient already has 3 cardiac rhythm management leads in the subclavian vein/innominate vein/SVC and adding a fourth aid would place the patient at significant risk for developing vein thrombosis and SVC syndrome. * I10 Essential (primary) hypertension* Recommendations:* Continue amlodipine and torsemide at the current dosages. Low-fat, whole-food, plant-based, low sodium nutrition with avoidance of added oils and fats and avoidance of refined carbohydrates was encouraged. Walking or equivalent aerobic activity for 40-60 minutes every day. * E78.2 Mixed hyperlipidemia* New Medication:* Vascepa 1 gm - 2 caps by mouth twice a day (take with meals) * Recommendations:* Vascepa 2 g twice a day with meals was prescribed. Nutrition and exercise advice as described above. * Z71.3 Dietary counseling and surveillance * All * Follow up:* Follow-up in 6 months. Functional Status Functional Condition Comment Date Status Independent with all ADL's Activ e Mental Status Description No Information Available Referrals Refer to Reason for Referral Status Appt Date Pablito Christie MD 1. Paroxysmal Typical Atria l Flutter; please consider RF ablation so that patient can get off of long-term anticoagulation. 2. Pacemaker in situ with 2 atrial leads (both broken) and 1 ventricular lead (set to VVI 50); conservative management versus lead extractions and replacement of atrial lead. Sent [facility] [address] [place] [address] [phone]
--- OUTSIDE RECORDS SUMMARY | 2021-02-16 14:13 | CCD | Continuity of Care Document ---
Author Author Taj GRANT Organization Unknown Address [address] [place] [address], [place] [address] Phone [phone] Care Team Providers Care Nursery Nurse Name Role Phone Ying Hall PA-C AUTM [phone] Pablito Christie MD AUTM [phone] Problems Active Problems Provider Date History of [...] Result H/L Range Note Hemoglobin A1c 11/26/2020 [facility] [phone] Hemoglobin A1c 6.7 % Normal 1 Estimated Average Glucose 146 mg/dL High 60-110 Lipid Panel 11/26/2020 [facility] [phone] Triglycerides Level 382 mg/dL High <150 Cholesterol Level 254 mg/dL High <200 HDL Cholesterol 33 mg/dL Low >40 LDL Cholesterol 145 mg/dL High <100 Non-HDL-C 221 mg/dL Normal Cholesterol Risk Ratio 7.696 High <5 Basic Metabolic Profile 11/26/2020 [facility] [phone] Glucose, Fasting 161 mg/dL High 70-100 Blood [...] 9.1 mg/dL Normal 8.8-10.2 Microalbumin Random 11/26/2020 [facility] [phone] Creatinine, Urine 109.0 mg/dL Normal Malb Urine [...] Little GFR Left ESRD GFR <15 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 THE THRESHOLD FOR CLINICAL ALBUMINURIA IS REACHED AT 300 MCG/MG. THE CLASSIFICATION OF A PATIENT SHOULD BE BASED UPON AT LEAST 2 OF 3 ABNORMAL RESULTS ON SPECIMENS COLLECTED WITHIN A 3 TO 6 MONTH TIME FRAME. Procedures Date Code Description Status 12/05/2020 42541 Office/Outpatient Established Mo d MDM 30-39 Min Completed 12/05/2020 75115 ECG 12-Lead Completed 10/07/2020 17646 Office/Outpatient New Moderate M DM 45-59 Minutes Completed 10/07/2020 36166 Arterial Pressure Wa veform Analysis For Assessment Of Central Art Completed 10/07/2020 07189 ECG 12-Lead Completed Medical Devices Description No Information Available Encounters Type Date Location Provider Dx Diagnosis Office Visit 12/05/2020 3:30p Main Office ALLISON Joyce I48 .3 Typical atrial flutter R94.31 Abnormal electrocardiogram [ ECG] [EKG] Office Visit 10/07/2020 1:00p Main Office Nato Loco MD 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 I48.3 Typical atrial flutter I49.5 Sick sinus syndrome Z95.0 Presence of cardiac pacemake r I10 Essential (primary) hyperten latha E78.2 Mixed hyperlipidemia Z71.3 Dietary counseling and surve illance Assessments Date Code Description Provider 12/05/2020 I48.3 Typical atrial flutter ALLISON Joyce 12/05/2020 R94.31 Abnormal electrocardiogram [ECG] [EKG] ALLISON Joyce 10/07/2020 I25.10 Atherosclerotic hear t disease of [place] coronary artery without angina pectoris Nato Loco MD 10/07/2020 Z95.1 Presence of aortocoronary bypass graft Nato Loco MD 10/07/2020 I48.3 Typical atrial flutter Nato Loco MD 10/07/2020 I49.5 Sick sinus syndrome Nato nickerson MD 10/07/2020 Z95.0 Presence of cardiac pacemaker Da felice Siddhartha Loco MD 10/07/2020 I10 Essential (primary) hypertension Nato Loco MD 10/07/2020 E78.2 Mixed hyperlipidemia Nato celis MD 10/07/2020 Z71.3 Dietary counseling and surveilla nce Nato Loco MD Plan of Treatment Future Appointment(s):* 04/14/2021 11:15 am - Nato Loco MD [...] extractions and replacement of atrial lead. Sent [facility] [address] [place] [address] [phone]
--- OUTSIDE RECORDS SUMMARY | 2021-02-16 14:13 | CCD | Continuity of Care Document ---
Author Author Taj GRANT Organization Unknown Address [address] [place] [address], [place] [address] Phone [phone] Care Team Providers Care Mirror Department Supervisor Name Role Phone Ying Hall PA-C AUTM [phone] Pablito Christie MD AUTM [phone] Problems Active Problems Provider Date History of [...] Crestor Unable to assess criticality myalgia 10/07/2020 Inactive Allergies NKDA Unable to assess criticality [...] Result H/L Range Note Hemoglobin A1c 11/26/2020 [facility] [phone] Hemoglobin A1c 6.7 % Normal 1 Estimated Average Glucose 146 mg/dL High 60-110 Lipid Panel 11/26/2020 [facility] [phone] Triglycerides Level 382 mg/dL High <150 Cholesterol Level 254 mg/dL High <200 HDL Cholesterol 33 mg/dL Low >40 LDL Cholesterol 145 mg/dL High <100 Non-HDL-C 221 mg/dL Normal Cholesterol Risk Ratio 7.696 High <5 Basic Metabolic Profile 11/26/[address] [facility] [phone] Glucose, Fasting 161 mg/dL High 70-100 Blood [...] 9.1 mg/dL Normal 8.8-10.2 Microalbumin Random 11/26/2020 [facility] [phone] Creatinine, Urine 109.0 mg/dL Normal Malb Urine [...] Little GFR Left ESRD GFR <15 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 THE THRESHOLD FOR CLINICAL ALBUMINURIA IS REACHED AT 300 MCG/MG. THE CLASSIFICATION OF A PATIENT SHOULD BE BASED UPON AT LEAST 2 OF 3 ABNORMAL RESULTS ON SPECIMENS COLLECTED WITHIN A 3 TO 6 MONTH TIME FRAME. Procedures Date Code Description Status 12/05/2020 69264 Office/Outpatient Established Mo d MDM 30-39 Min Completed 12/05/2020 07194 ECG 12-Lead Completed 10/07/2020 33995 Office/Outpatient New Moderate M DM 45-59 Minutes Completed 10/07/2020 54661 Arterial Pressure Wa veform Analysis For Assessment Of Central Art Completed 10/07/2020 35822 ECG 12-Lead Completed Medical Devices Description No Information Available Encounters Type Date Location Provider Dx Diagnosis Office Visit 12/05/2020 3:30p Main Office ALLISON Joyce I48 .3 Typical atrial flutter R94.31 Abnormal electrocardiogram [ ECG] [EKG] Office Visit 10/07/2020 1:00p Main Office Nato Loco MD 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 Sent [facility] [place] [address] [phone]
--- OUTSIDE RECORDS SUMMARY | 2021-02-16 14:15 | CCD ---
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 Operator Batch Name Role Phone Benny, Sita Cottrell PICKER/PULLER-C Unavailable Unavailabl e [facility] Unavailable Unavailabl e Benny, [facility] Unavailable Unavailabl e Benny, [facility]C Unavailable Unavailabl e Benny, [facility] Unavailable Unavailabl e Benny, [facility] L[facility]ON[facility]-C Unavailable Unavailabl e Benny, [facility]C Unavailable Unavailabl e Benny, [facility] Claus Cottrell PICKER/PULLER-C Unavailable Unavailabl e Benny, [facility]rell PICKER/PULLER-C Unavailable Unavailabl e Benny, [facility] Cottrell PICKER/PULLER-C Unavailable Unavailabl e Benny, [facility] LEMONSP-C Unavailable Unavailabl e Benny, [facility] Cottrell PICKER/PULLER-C Unavailable Unavailabl e Benny, [facility] Cottrell PICKER/PULLER-C Unavailable Unavailabl e Benny, [facility] LEMONSP-C Unavailable Unavailabl e Benny, Sita Cottrell PICKER/PULLER-C Unavailable Unavailabl e Benny, Sita Cottrell PICKER/PULLER-C Unavailable Unavailabl e Benny, Sita Cottrell PICKER/PULLER-C Unavailable Unavailabl e Benny, Sita Cottrell PICKER/PULLER-C Unavailable Unavailabl e Benny, Sita Cottrell PICKER/PULLER-C Unavailable Unavailabl e Benny, Sita Cottrell PICKER/PULLER-C Unavailable Unavailabl e Benny, Sita Cottrell PICKER/PULLER-C Unavailable Unavailabl e Benny, Sita Cottrell PICKER/PULLER-C Unavailable Unavailabl e Benny, Sita Cottrell PICKER/PULLER-C Unavailable Unavailabl e Benny, Sita Cottrell PICKER/PULLER-C Unavailable Unavailabl e Benny, Sita Cottrell PICKER/PULLER-C Unavailable Unavailabl e Benny, Sita Cottrell PICKER/PULLER-C Unavailable Unavailabl e Benny, Sita Cottrell PICKER/PULLER-C Unavailable Unavailabl e Benny, Sita Cottrell PICKER/PULLER-C Unavailable Unavailabl e Benny, Sita Cottrell PICKER/PULLER-C Unavailable Unavailabl e Benny, Sita Cottrell PICKER/PULLER-C Unavailable Unavailabl e Benny, Sita Cottrell PICKER/PULLER-C Unavailable Unavailabl e Benny, Sita Cottrell PICKER/PULLER-C Unavailable Unavailabl e Tech, Nuclear Bf Unavailable LECHUGA SR, GERARDO CHASE MD Unavailable Unavailable LECHUGA SR, GERARDO CHASE MD Unavailable Unavailable LECHUGA SR, GERARDO CHASE MD Unavailable Unavailable LECHUGA SR, GERARDO CHASE MD Unavailable Unavailable LECHUGA SR, GERARDO CHASE MD Unavailable Unavailable LECHUGA SR, GERARDO CHASE MD Unavailable Unavailable LECHUGA SR, GERARDO CHASE MD Unavailable Unavailable LECHUGA SR, GERARDO CHASE MD Unavailable Unavailable LECHUGA SR, GERARDO CHASE MD Unavailable Unavailable LECHUGA SR, GERARDO CHASE MD Unavailable Unavailable LECHUGA SR, GERARDO CHASE MD Unavailable Unavailable LECHUGA SR, GERARDO CHASE MD Unavailable Unavailable LECHUGA SR, GERARDO CHASE MD Unavailable Unavailable LECHUGA SR, GERARDO CHASE MD Unavailable Unavailable LECHUGA SR, GERARDO CHASE MD Unavailable Unavailable LECHUGA SR, GERARDO CHASE MD Unavailable Unavailable LECHUGA SR, GERARDO CHASE MD Unavailable Unavailable LECHUGA SR, GERARDO CHASE MD Unavailable Unavailable LECHUGA SR, GERARDO CHASE MD Unavailable Unavailable LECHUGA SR, GERARDO CHASE MD Unavailable Unavailable LECHUGA SR, GERARDO CHASE MD Unavailable Unavailable LECHUGA SR, GERARDO CHASE MD Unavailable Unavailable LECHUGA SR, GERARDO CHASE MD Unavailable Unavailable LECHUGA SR, GERARDO CHASE MD Unavailable Unavailable LECHUGA SR, GERARDO CHASE MD Unavailable Unavailable LECHUGA SR, GERARDO CHASE MD Unavailable Unavailable LECHUGA SR, GERARDO CHASE MD Unavailable Unavailable LECHUGA SR, GERARDO CHASE MD Unavailable Unavailable LECHUGA SR, GERARDO CHASE MD Unavailable Unavailable LECHUGA SR, GERARDO CHASE MD Unavailable Unavailable LECHUGA SR, GERARDO CHASE MD Unavailable Unavailable LECHUGA SR, GERARDO CHASE MD Unavailable Unavailable LECHUGA SR, GERARDO CHASE MD Unavailable Unavailable ELCHUGA SR, GERARDO CHASE MD Unavailable Unavailable LECHUGA SR, GERARDO CHASE MD Unavailable Unavailable LECHUGA SR, GERARDO CHASE MD Unavailable Unavailable LECHUGA SR, GERARDO CHASE MD Unavailable Unavailable LECHUGA SR, GERARDO CHASE MD Unavailable Unavailable LECHUGA SR, GERARDO CHASE MD Unavailable Unavailable LECHUGA SR, GERARDO CHASE MD Unavailable Unavailable LECHUGA SR, GERARDO CHASE MD Unavailable Unavailable LECHUGA SR, GERARDO CHASE MD Unavailable Unavailable LECHUGA SR, GERARDO CHASE MD Unavailable Unavailable LECHUGA SR, GERARDO CHASE MD Unavailable Unavailable LECHUGA SR, GERARDO CHASE MD Unavailable Unavailable LECHUGA SR, GERARDO CHASE MD Unavailable Unavailable LECHUGA SR, GERARDO CHASE MD Unavailable Unavailable LECHUGA SR, GERARDO CHASE MD Unavailable Unavailable LECHUGA SR, GERARDO CHASE MD Unavailable Unavailable LECHUGA SR, GERARDO CHASE MD Unavailable Unavailable LECHUGA SR, GERARDO CHASE MD Unavailable Unavailable LECHUGA SR, GERARDO CHASE MD Unavailable Unavailable LECHUGA SR, GERARDO CHASE MD Unavailable Unavailable LECHUGA SR, GERARDO CHASE MD Unavailable Unavailable LECHUGA SR, GERARDO CHASE MD Unavailable Unavailable LECHUGA SR, GERARDO CHASE MD Unavailable Unavailable RUDY, L BERTIN PA Unavailable Unavailable RUDY, L BERTIN PA Unavailable Unavailable RUDY, L BERTIN PA Unavailable Unavailable RUDY, L BERTIN PA Unavailable Unavailable RUDY, L BERTIN PA Unavailable Unavailable RUDY, L BERTIN PA Unavailable Unavailable RUDY, L BERTIN PA Unavailable Unavailable RUDY, L BERTIN PA Unavailable Unavailable RUDY, L BERTIN PA Unavailable Unavailable RUDY, L BERTIN PA Unavailable Unavailable RUDY, L BERTIN PA Unavailable Unavailable RUDY, L BERTIN PA Unavailable Unavailable RUDY, L BERTIN PA Unavailable Unavailable RUDY, L BERTIN PA Unavailable Unavailable RUDY, L BERTIN PA Unavailable Unavailable RUDY, L BERTIN PA Unavailable Unavailable ANTECOLVincent MD Unavailable Unavailable ANTECOL, Vincent CHASE MD Unavailable Unavailable ANTECOL, Vincent CHASE MD Unavailable Unavailable ANTECOL, Vincent CHASE MD Unavailable Unavailable ANTECOL, Vincent CHASE MD Unavailable Unavailable ANTECOL, Vincent CHASE MD Unavailable Unavailable ANTECOL, Vincent CHASE MD Unavailable Unavailable ANTECOL, Vincent CHASE MD Unavailable Unavailable ANTECOL, Vincent CHASE MD Unavailable Unavailable ANTECOL, Vincent CHASE MD Unavailable Unavailable ANTECOL, Vincent CHASE MD Unavailable Unavailable ANTECOL, Vincent CHASE MD Unavailable Unavailable ANTECOL, Vincent CHASE MD Unavailable Unavailable ANTECOL, Vincent CHASE MD Unavailable Unavailable ANTECOL, Vincent CHASE MD Unavailable Unavailable ANTECOL, Vincent CHASE MD Unavailable Unavailable ANTECOL, Vincent CHASE MD Unavailable Unavailable ANTECOL, Vincent CHASE MD Unavailable Unavailable ANTECOL, Vincent CHASE MD Unavailable Unavailable ANTECOL, Vincent CHASE MD Unavailable Unavailable ANTECOL, Vincent CHASE MD Unavailable Unavailable ANTECOL, Vincent CHASE MD Unavailable Unavailable ANTECOL, Vincent CHASE MD Unavailable Unavailable ANTECOL, Vincent CHASE MD Unavailable Unavailable ANTECOL, Vincent CHASE MD Unavailable Unavailable ANTECOL, Vincent CHASE MD Unavailable Unavailable ANTECOL, Vincent CHASE MD Unavailable Unavailable ANTECOL, Vincent CHASE MD Unavailable Unavailable ANTECOL, Vincent CHASE MD Unavailable Unavailable ANTECOL, Vincent CHASE MD Unavailable Unavailable ANTECOL, Vincent CHASE MD Unavailable Unavailable ANTECOL, Vincent CHASE MD Unavailable Unavailable ANTECOL, Vincent CHASE MD Unavailable Unavailable ANTECOL, Vincent CHASE MD Unavailable Unavailable ANTECOL, Vincent CHASE MD Unavailable Unavailable ANTECOL, Vincent CHASE MD Unavailable Unavailable ANTECOL, Vincent CHASE MD Unavailable Unavailable ANTECOL, Vincent CHASE MD Unavailable Unavailable ANTECOL, Vincent CHASE MD Unavailable Unavailable ANTECOL, Vincent CHASE MD Unavailable Unavailable ANTECOL, Vincent CHASE MD Unavailable Unavailable ANTECOL, Vincent CHASE MD Unavailable Unavailable ANTECOL, Vincent CHASE MD Unavailable Unavailable ANTECOL, Vincent CHASE MD Unavailable Unavailable ANTECOL, Vincent CHASE MD Unavailable Unavailable ANTECOL, Vincent CHASE MD Unavailable Unavailable ANTECOL, Vincent CHASE MD Unavailable Unavailable ANTECOL, Vincent CHASE MD Unavailable Unavailable ANTECOL, Vincent CHASE MD Unavailable Unavailable ANTECOL, Vincent CHASE MD Unavailable Unavailable ANTECOL, Vincent CHASE MD Unavailable Unavailable ANTECOL, Vincent CHASE MD Unavailable Unavailable ANTECOL, Vincent CHASE MD Unavailable Unavailable ANTECOL, Vincent CHASE MD Unavailable Unavailable Rafael, M Ying PA-C Unavailable Unavailable Rafael, M Ying PA-C Unavailable Unavailable Rafael, M Ying PA-C Unavailable Unavailable Rafael, M Ying PA-C Unavailable Unavailable Rafael, M Ying PA-C Unavailable Unavailable Rafael, M Ying PA-C Unavailable Unavailable Rafael, M Ying PA-C Unavailable Unavailable Rafael, M Ying PA-C Unavailable Unavailable Rafael, M Ying PA-C Unavailable Unavailable Rafael, M Ying PA-C Unavailable Unavailable Rafael, M Ying PA-C Unavailable Unavailable Rafael, M Ying PA-C Unavailable Unavailable Rafael, M Ying PA-C Unavailable Unavailable Rafael, M Ying PA-C Unavailable Unavailable Rafael, M Ying PA-C Unavailable Unavailable Rafael, M Ying PA-C Unavailable Unavailable Rafael, M Ying PA-C Unavailable Unavailable Rafael, M Ying PA-C Unavailable Unavailable Rafael, M Ying PA-C Unavailable Unavailable Rafael, M Ying PA-C Unavailable Unavailable Rafael, M Ying PA-C Unavailable Unavailable Rafael, M Ying PA-C Unavailable Unavailable Rafael, M Ying PA-C Unavailable Unavailable Rafael, M Ying PA-C Unavailable Unavailable Rafael, M Ying PA-C Unavailable Unavailable Rafael, M Ying PA-C Unavailable Unavailable Rafael, M Ying PA-C Unavailable Unavailable Rafael, M Ying PA-C Unavailable Unavailable Rafael, M Ying PA-C Unavailable Unavailable Rafael, M Ying PA-C Unavailable Unavailable Rafael, M Ying PA-C Unavailable Unavailable Rafael, M Ying PA-C Unavailable Unavailable Rafael, M Ying PA-C Unavailable Unavailable Rafael, M Ying PA-C Unavailable Unavailable Rafael, M Ying PA-C Unavailable Unavailable Rafael, M Ying PA-C Unavailable Unavailable ZABOROWSKI, J KORIN FIRE PREVENTION INSPECTOR Unavailable Unavailable ZABOROWSKI, J KORIN FIRE PREVENTION INSPECTOR Unavailable Unavailable ZABOROWSKI, J KORIN FIRE PREVENTION INSPECTOR Unavailable Unavailable ZABOROWSKI, J KORIN FIRE PREVENTION INSPECTOR Unavailable Unavailable ZABOROWSKI, J KORIN FIRE PREVENTION INSPECTOR Unavailable Unavailable ZABOROWSKI, J KORIN FIRE PREVENTION INSPECTOR Unavailable Unavailable ZABOROWSKI, J KORIN FIRE PREVENTION INSPECTOR Unavailable Unavailable ZABOROWSKI, J KORIN FIRE PREVENTION INSPECTOR Unavailable Unavailable ZABOROWSKI, J KORIN FIRE PREVENTION INSPECTOR Unavailable Unavailable ZABOROWSKI, J KORIN FIRE PREVENTION INSPECTOR Unavailable Unavailable ZABOROWSKI, J KORIN FIRE PREVENTION INSPECTOR Unavailable Unavailable ZABOROWSKI, J KORIN FIRE PREVENTION INSPECTOR Unavailable Unavailable ZABOROWSKI, J KORIN FIRE PREVENTION INSPECTOR Unavailable Unavailable ZABOROWSKI, J KORIN FIRE PREVENTION INSPECTOR Unavailable Unavailable ZABOROWSKI, J KORIN FIRE PREVENTION INSPECTOR Unavailable Unavailable ZABOROWSKI, J KORIN FIRE PREVENTION INSPECTOR Unavailable Unavailable ZABOROWSKI, J KORIN FIRE PREVENTION INSPECTOR Unavailable Unavailable ZABOROWSKI, J KORIN FIRE PREVENTION INSPECTOR Unavailable Unavailable ZABOROWSKI, J KORIN FIRE PREVENTION INSPECTOR Unavailable Unavailable ZABOROWSKI, J KROIN FIRE PREVENTION INSPECTOR Unavailable Unavailable ZABOROWSKI, J KORIN FIRE PREVENTION INSPECTOR Unavailable Unavailable ZABOROWSKI, J KORIN FIRE PREVENTION INSPECTOR Unavailable Unavailable ZABOROWSKI, J KORIN FIRE PREVENTION INSPECTOR Unavailable Unavailable ZABOROWSKI, J KORIN FIRE PREVENTION INSPECTOR Unavailable Unavailable ZABOROWSKI, J KORIN FIRE PREVENTION INSPECTOR Unavailable Unavailable ZABOROWSKI, J KORIN FIRE PREVENTION INSPECTOR Unavailable Unavailable ZABOROWSKI, J KORIN FIRE PREVENTION INSPECTOR Unavailable Unavailable ZABOROWSKI, J KORIN FIRE PREVENTION INSPECTOR Unavailable Unavailable ZABOROWSKI, J KORIN FIRE PREVENTION INSPECTOR Unavailable Unavailable ZABOROWSKI, J KORIN FIRE PREVENTION INSPECTOR Unavailable Unavailable ZABOROWSKI, J KORIN FIRE PREVENTION INSPECTOR Unavailable Unavailable ZABOROWSKI, J KORIN FIRE PREVENTION INSPECTOR Unavailable Unavailable ZABOROWSKI, J KORIN FIRE PREVENTION INSPECTOR Unavailable Unavailable ZABOROWSKI, J KORIN FIRE PREVENTION INSPECTOR Unavailable Unavailable ZABOROWSKI, J KORIN FIRE PREVENTION INSPECTOR Unavailable Unavailable ZABOROWSKI, J KORIN FIRE PREVENTION INSPECTOR Unavailable Unavailable ZABOROWSKI, J KORIN FIRE PREVENTION INSPECTOR Unavailable Unavailable ZABOROWSKI, J KORIN FIRE PREVENTION INSPECTOR Unavailable Unavailable ZABOROWSKI, J KORIN FIRE PREVENTION INSPECTOR Unavailable Unavailable ZABOROWSKI, J KORIN FIRE PREVENTION INSPECTOR Unavailable Unavailable ZABOROWSKI, J KORIN FIRE PREVENTION INSPECTOR Unavailable Unavailable ZABOROWSKI, J KORIN FIRE PREVENTION INSPECTOR Unavailable Unavailable ZABOROWSKI, J KORIN FIRE PREVENTION INSPECTOR Unavailable Unavailable ZABOROWSKI, J KORIN FIRE PREVENTION INSPECTOR Unavailable Unavailable ZABOROWSKI, J KORIN FIRE PREVENTION INSPECTOR Unavailable Unavailable ZABOROWSKI, J KORIN FIRE PREVENTION INSPECTOR Unavailable Unavailable ZABOROWSKI, J KORIN FIRE PREVENTION INSPECTOR Unavailable Unavailable ZABOROWSKI, J KORIN FIRE PREVENTION INSPECTOR Unavailable Unavailable ALEJO, L KATIE PA Unavailable Unavailable ALEJO, L KATIE PA Unavailable Unavailable ALEJO, L KATIE PA Unavailable Unavailable ALEJO, L KATIE PA Unavailable Unavailable ALEJO, L KATIE PA Unavailable Unavailable ALEJO, L KATIE PA Unavailable Unavailable ALEJO, L KATIE PA Unavailable Unavailable ALEJO, L KATIE PA Unavailable Unavailable ALEJO, L KATIE PA Unavailable Unavailable ALEJO, L KATIE PA Unavailable Unavailable ALEJO, L KATIE PA Unavailable Unavailable ALEJO, L KATIE PA Unavailable Unavailable ALEJO, L KATIE PA Unavailable Unavailable ALEJO, L KATIE PA Unavailable Unavailable ALEJO, L KATIE PA Unavailable Unavailable ALEJO, L KATIE PA Unavailable Unavailable ALEJO, L KATIE PA Unavailable Unavailable ALEJO, L KATIE PA Unavailable Unavailable ALEJO, L KATIE PA Unavailable Unavailable ALEJO, L KATIE PA Unavailable Unavailable ALEJO, L KATIE PA Unavailable Unavailable ALEJO, Paz WILSON PA Unavailable Unavailable Lundi, Saleem DPM Unavailable Unavailable Lundi, Saleem DPM Unavailable Unavailable Lundi, Saleem DPM Unavailable Unavailable Lundi, Saleem DPM Unavailable Unavailable Lundi, Saleem DPM Unavailable Unavailable Lundi, Saleem DPM Unavailable Unavailable Lundi, Saleem DPM Unavailable Unavailable Lundi, Saleem DPM Unavailable Unavailable Lundi, Saleem DPM Unavailable Unavailable Lundi, Saleem DPM Unavailable Unavailable Lundi, Saleem DPM Unavailable Unavailable Lundi, Saleem DPM Unavailable Unavailable Lundi, Saleem DPM Unavailable Unavailable Lundi, Saleem DPM Unavailable Unavailable Lundi, Saleem DPM Unavailable Unavailable Lundi, Saleem DPM Unavailable Unavailable Lundi, Saleem DPM Unavailable Unavailable Lundi, Saleem DPM Unavailable Unavailable Lundi, Saleem DPM Unavailable Unavailable Lundi, Saleem DPM Unavailable Unavailable Lundi, Saleem DPM Unavailable Unavailable Lundi, Saleem DPM Unavailable Unavailable Lundi, Saleem DPM Unavailable Unavailable Lundi, Saleem DPM Unavailable Unavailable Lundi, Saleem DPM Unavailable Unavailable Al Alexander Soto MD Unavailable Unavailable Al Alexander Soto MD Unavailable Unavailable Al Alexander Soto MD Unavailable Unavailable Alexander Haji MD Unavailable Unavailable Alexander Haji MD Unavailable Unavailable Alexander Haji MD Unavailable Unavailable Al Alexander Soto MD Unavailable Unavailable Alexander Haji MD Unavailable Unavailable Alexander Haji MD Unavailable Unavailable Alexander Haji MD Unavailable Unavailable Alexander Haji MD Unavailable Unavailable Al Alexander Soto MD Unavailable Unavailable Al Alexander Soto MD Unavailable Unavailable Al Alexander Soto MD Unavailable Unavailable Alexander Haji MD Unavailable Unavailable Alexander Haji MD Unavailable Unavailable Alexander Haji MD Unavailable Unavailable Alexander Haji MD Unavailable Unavailable Al Alexander Soto MD Unavailable Unavailable Alexander Haji MD Unavailable Unavailable Al Alexander Soto MD Unavailable Unavailable Alexander Haji MD Unavailable Unavailable Al Mudamgha, A Ali MD Unavailable Unavailable Al Mudamgha, A Ali MD Unavailable Unavailable Al Mudamgha, A Ali MD Unavailable Unavailable Al Mudamgha, A Ali MD Unavailable Unavailable Al Mudamgha, A Ali MD Unavailable Unavailable Al Mudamgha, A Ali MD Unavailable Unavailable Al Mudamgha, A Ali MD Unavailable Unavailable Al Mudamgha, A Ali MD Unavailable Unavailable Al Mudamgha, A Ali MD Unavailable Unavailable Al Mudamgha, A Ali MD Unavailable Unavailable Al Mudamgha, A Ali MD Unavailable Unavailable Al Mudamgha, A Ali MD Unavailable Unavailable Al Mudamgha, A Ali MD Unavailable Unavailable Al Mudamgha, A Ali MD Unavailable Unavailable Al Mudamgha, A Ali MD Unavailable Unavailable Al Mudamgha, A Ali MD Unavailable Unavailable Al Mudamgha, A Ali MD Unavailable Unavailable Al Mudamgha, A Ali MD Unavailable Unavailable Al Mudamgha, A Ali MD Unavailable Unavailable Al Mudamgha, A Ali MD Unavailable Unavailable Al Mudamgha, A Ali MD Unavailable Unavailable Al Mudamgha, A Ali MD Unavailable Unavailable Al Mudamgha, A Ali MD Unavailable Unavailable Al Mudamgha, A Ali MD Unavailable Unavailable Al Mudamgha, A Ali MD Unavailable Unavailable Al Mudamgha, A Ali MD Unavailable Unavailable Al Mudamgha, A Ali MD Unavailable Unavailable Al Mudamgha, A Ali MD Unavailable Unavailable Al Mudamgha, A Ali MD Unavailable Unavailable Al Mudamgha, A Ali MD Unavailable Unavailable Al Mudamgha, A Ali MD Unavailable Unavailable Al Mudamgha, A Ali MD Unavailable Unavailable Al Mudamgha, A Ali MD Unavailable Unavailable Al Mudamgha, A Ali MD Unavailable Unavailable Al Mudamgha, A Ali MD Unavailable Unavailable Al Mudamgha, A Ali MD Unavailable Unavailable Al Mudamgha, A Ali MD Unavailable Unavailable Al Mudamgha, A Ali MD Unavailable Unavailable Al Mudamgha, A Ali MD Unavailable Unavailable Al Mudamgha, A Ali MD Unavailable Unavailable Al Mudamgha, A Ali MD Unavailable Unavailable Al Mudamgha, A Ali MD Unavailable Unavailable Al Mudamgha, A Ali MD Unavailable Unavailable Al Mudamgha, A Ali MD Unavailable Unavailable Al Mudamgha, A Ali MD Unavailable Unavailable Al Mudamgha, A Ali MD Unavailable Unavailable Al Mudamgha, A Ali MD Unavailable Unavailable Al Mudamgha, A Ali MD Unavailable Unavailable Al Mudamgha, A Ali MD Unavailable Unavailable Al Mudamgha, A Ali MD Unavailable Unavailable Al Mudamgha, A Ali MD Unavailable Unavailable Al Mudamgha, A Ali MD Unavailable Unavailable Al Mudamgha, A Ali MD Unavailable Unavailable Al Mudamgha, A Ali MD Unavailable Unavailable Al Mudamgha, A Ali MD Unavailable Unavailable Al Mudamgha, A Ali MD Unavailable Unavailable Al Mudamgha, A Ali MD Unavailable Unavailable Al Mudamgha, A Ali MD Unavailable Unavailable Al Mudamgha, A Ali MD Unavailable Unavailable Al Mudamgha, A Ali MD Unavailable Unavailable Al Mudamgha, A Ali MD Unavailable Unavailable Al Mudamgha, A Ali MD Unavailable Unavailable Al Mudamgha, A Ali MD Unavailable Unavailable Al Mudamgha, A Ali MD Unavailable Unavailable Al Mudamgha, A Ali MD Unavailable Unavailable Re-disclosure Warning The records that you are about to access may contain information from federally-assisted alcohol or drug abuse programs. If such information is present, then the following federally mandated warning applies: This information has been disclosed to you from records protected by federal confidentiality rules (42 CFR part 2). The federal rules prohibit you from making any further disclosure of this information unless further disclosure is expressly permitted by the written consent of the person to whom it pertains or as otherwise permitted by 42 CFR part 2. A general authorization for the release of medical or other information is NOT sufficient for this purpose. The Federal rules restrict any use of the information to criminally investigate or prosecute any alcohol or drug abuse patient.The records that you are about to access may contain highly sensitive health information, the redisclosure of which is protected by Article 27-F of the [facility] Public Health law. If you continue you may have access to information: Regarding HIV / AIDS; Provided by facilities licensed or operated by the [facility] Office of Mental Health; or Provided by the [facility] Office for People With Developmental Disabilities. If such information is present, then the following [facility] mandated warning applies: This information has been disclosed to you from confidential records which are protected by state law. State law prohibits you from making any further disclosure of this information without the specific written consent of the person to whom it pertains, or as otherwise permitted by law. Any unauthorized further disclosure in violation of state law may result in a fine or shelter sentence or both. A general authorization for the release of medical or other information is NOT sufficient authorization for further disc losure. Allergies and Adverse Reactions Type Description Substance Reaction Status Data Source(s ) Propensity to adverse reactions METFORMIN AND RELATED Metformin And Related Active [facility] Drug Allergy Drug Allergy NKDA [facility] ([facility]) Family History Family Member Name Family Member Gender Family Member Status Date o f Status Description Data Source(s) Unknown Unknown Problem [facility] ([facility] [place]) Encounters Encounter Providers Location Date Indications Data Source(s ) Unknown [address] [facility] [address] 02/11/2021 12:00:00 AM EDT eCW1 (Critical access hospital) Outpatient Attender: Pablito Haji MD BF-BF 12/30/2020 12:00:0 0 AM EDT [facility] Outpatient Attender: BERTIN COOPER Main Office 12/05/2020 0 3:30:00 PM EDT MEDENT ([facility]) Outpatient [facility] 11/20/2020 12:00:00 AM EDT eCW1 ([facility]) Outpatient Attender: Pablito Haji MD Admitter: Pablito Haji MDReferrer: Pablito Haji MD [email or web address] 11/13/2020 07:28:00 AM EDT - 11/13/2020 02:10:00 PM EDT [facility] Patient discharged. Outpatient Referrer: Pablito Haji MD MOB-MOB.PAT 08:51:10 AM EDT - 11/08/2020 08:51:[address] [facility] Outpatient Attender: Pablito Haji MDReferrer: Pablito Montiel MD MOB-MOB.[email or web address] 11/04/2020 01:58:31 PM EDT - 11/04/2020 03:28:49 PM EDT [facility] Outpatient Attender: Pablito Haji MD BF-BF 10/22/2020 12:00:0 0 AM EDT [facility] Outpatient [id number] 10/14/2020 03:31:20 PM EDT [facility] Outpatient [id number] 10/13/2020 03:53:56 PM EDT [facility] Outpatient Attender: SALVATORE LOCO MD Main Office 10/07/2020 01:00:00 PM EDT [facility] ([facility]) Unknown [address] [facility] [address] 10/06/2020 12:00:00 AM EDT eCW1 (Critical access hospital) Outpatient [facility] 08/22/2020 12:00:00 AM EDT eCW1 ([facility]) Outpatient Attender: Pablito Haji MD BF-BF.[facility] 08/20/2020 07:44:3 4 AM EDT [facility] Outpatient FORMERLY [facility] 08/15/2020 12:00:00 AM EDT eCW1 [facility] Unknown [address] [facility] [address] 08/08/2020 12:00:00 AM EDT eCW1 ([facility]) Outpatient [facility] 08/08/2020 12:00:00 AM EDT eCW1 ([facility]) Outpatient [facility] 08/08/2020 12:00:00 AM EDT eCW1 ([facility] Outpatient [facility] 08/01/2020 12:00:00 AM EDT eCW1 [facility]) Outpatient Attender: Pablito Haji MD BF-BF 07/29/2020 12:00:0 0 AM EDT [facility] Outpatient Attender: Ying Hall PA-C 07/25/2020 08:39 :00 AM EDT [facility] ([facility]) TCM/Hospital Follow Up [facility] 07/25/2020 12:00:00 AM EDT eCW1 ([facility]) Outpatient [facility] 07/25/2020 12:00:00 AM EDT eCW1 ([facility] Outpatient [facility] 07/22/2020 12:00:00 AM EDT eCW1 ([facility]) Outpatient [facility] 07/21/2020 12:00:00 AM EDT eCW1 ([facility]) Emergency Attender: KATIE Ceballos: Alanna Hall PA-C EMERGENCY ROOM-ER 07/15/2020 03:19:00 PM EDT - 07/15/2020 07:32:00 PM EDT [facility] Patient discharged. Outpatient Attender: Ying Hall PA-C 07/15/2020 12:56 :00 PM EDT [facility] Outpatient [facility] 07/15/2020 12:00:00 AM EDT eCW1 ([facility]) Outpatient [facility] 07/11/2020 12:00:00 AM EDT eCW1 ([facility]) Outpatient [facility] 05/08/2020 12:00:00 AM EST eCW1 ([facility]) Outpatient [facility] 05/08/2020 12:00:00 AM EST eCW1 ([facility]) Outpatient [facility] 05/06/2020 12:00:00 AM EST eCW1 ([facility]) Outpatient [facility] 04/21/2020 12:00:00 AM EST eCW1 ([facility]) Outpatient [facility] 04/11/2020 12:00:00 AM EST eCW1 ([facility]) Outpatient Attender: Ying Hall PA-C 04/09/2020 01:20 :00 PM EST [facility] Outpatient [facility] 04/09/2020 12:00:00 AM EST eCW1 ([facility]) Outpatient [facility] 03/10/2020 12:00:00 AM EST eCW1 ([facility]) Outpatient [facility] 03/04/2020 12:00:00 AM EST eCW1 ([facility]) Outpatient Attender: SALVATORE LECHUGA SR 02/06/2020 10:40:00 AM EDT [facility] Outpatient [facility] 02/06/2020 12:00:00 AM EDT eCW1 ([facility]) Outpatient Attender: Saleem Llanos DPM 01/14/2020 11:30:00 AM EDT [facility] Outpatient [facility] 01/14/2020 12:00:00 AM EDT eCW1 ([facility]) Outpatient Attender: SALVATORE LECHUGA SR 01/09/2020 01:39:00 PM EDT [facility] Outpatient [facility] 01/09/2020 12:00:00 AM EDT eCW1 ([facility]) Outpatient [facility] 01/08/2020 12:00:00 AM EDT eCW1 ([facility]) Outpatient Attender: Bf TechReferrer: KORIN OnealBF.[facility] 01/04/2020 12:00:00 AM EDT [facility] Outpatient [facility] 01/01/2020 12:00:00 AM EDT eCW1 ([facility]) Outpatient Referrer: KORIN SALAZAR NP 12/26/2019 11:39:1 9 AM EDT [facility] Outpatient [facility] 12/26/2019 12:00:00 AM EDT eCW1 ([facility]) Outpatient Attender: SALVATORE LECHUGA SRReferrer: BRIANNE LECHUGA SR EMERGENCY ROOM-LAB 12/14/2019 11:27:00 AM EDT - 12/14/2019 11:27:00 AM EDT [facility] Outpatient Attender: SALVATORE LECHUGA SRReferrer: BRIANNE LECHUGA SR EMERGENCY ROOM-LAB 12/10/2019 11:03:00 AM EDT - 12/10/2019 11:03:00 AM EDT [facility] Outpatient Attender: KORIN NAYAKBF.[facility] 09/2019 12:00:00 AM EDT - 11/29/2019 03:50:[address] [facility] Outpatient Attender: Saleem Llanos DPShady 10/15/2019 11:00:00 AM EDT [facility] Outpatient Attender: SALVATORE LECHUGA SRReferrer: BRIANNE LECHUGA SR EMERGENCY ROOM-LAB 09/10/2019 08:53:00 AM EDT - 09/10/2019 08:53:00 AM EDT [facility] Outpatient Attender: SALVATORE LECHUGA SR 09/05/2019 10:00:00 AM EDT [facility] Outpatient Attender: SALVATORE LECHUGA SRReferrer: BRIANNE LECHUGA SR EMERGENCY ROOM-RIVCLI 01/18/2019 02:00:00 PM EDT - 01/18/2019 02:00:00 PM EDT [facility] Outpatient Attender: SALVATORE LECHUGA SRReferrer: SALVATORE More SR 06/07/2017 09:04:00 AM EST [facility] Outpatient Attender: Ronit Benny PICKER/PULLER-C EMERGENCY ROOM-ULTR A 11/28/2013 08:04:00 AM EDT [facility] Immunizations Vaccine Date Status Description Data Source(s) New in 2011. IIV4 02/06/2020 11:14:00 AM EDT completed eCW1 ([facility]) New in 2011. IIV4 02/06/2020 11:14:00 AM EDT completed eCW1 ([facility]) New in 2011. IIV4 02/06/2020 11:14:00 AM EDT completed eCW1 ([facility]) New in 2011. IIV4 02/06/2020 11:14:00 AM EDT completed eCW1 ([facility]) New in 2011. IIV4 02/06/2020 11:14:00 AM EDT completed eCW1 ([facility]) New in 2011. IIV4 02/06/2020 11:14:00 AM EDT completed eCW1 ([facility]) New in 2011. IIV4 02/06/2020 11:14:00 AM EDT completed eCW1 ([facility]) New in 2011. IIV4 02/06/2020 11:14:00 AM EDT completed eCW1 ([facility]) New in 2011. IIV4 02/06/2020 11:14:00 AM EDT completed eCW1 ([facility]) New in 2011. IIV4 02/06/2020 11:14:00 AM EDT completed eCW1 ([facility]) New in 2011. IIV4 02/06/2020 11:14:00 AM EDT completed eCW1 ([facility]) New in 2011. IIV4 02/06/2020 11:14:00 AM EDT completed eCW1 ([facility]) New in 2011. IIV4 02/06/2020 11:14:00 AM EDT completed eCW1 ([facility]) New in 2011. IIV4 02/06/2020 11:14:00 AM EDT completed eCW1 ([facility]) New in 2011. IIV4 02/06/2020 11:14:00 AM EDT completed eCW1 ([facility]) New in 2011. IIV4 02/06/2020 11:14:00 AM EDT completed eCW1 ([facility]) New in 2011. IIV4 02/06/2020 11:14:00 AM EDT completed eCW1 ([facility]) New in 2011. IIV4 02/06/2020 11:14:00 AM EDT completed eCW1 ([facility]) New in 2011. IIV4 02/06/2020 11:14:00 AM EDT completed eCW1 ([facility]) New in 2011. IIV4 02/06/2020 11:14:00 AM EDT completed eCW1 ([facility]) New in 2011. IIV4 02/06/2020 11:14:00 AM EDT completed eCW1 ([facility]) Medications Medication Brand Name Start Date Product Form Dose Route Admi nistrative Instructions Pharmacy Instructions Status Indications Reaction Description Data Source(s) 5 mg 02/06/2021 12:00:00 AM EDT tablet 180 TAKE ONE TABLET BY MOUTH TWICE A DAY TAKE ONE TABLET BY MOUTH TWICE A DAY SOLD: 02/10/2021 [facility] 100 mg 01/31/2021 12:00:00 AM EDT tablet 90 TAKE ONE TABLET BY MOUTH EVERY DAY TAKE ONE TABLET BY MOUTH EVERY DAY SOLD: 02/03/2021 [facility] 2.5 mg 01/21/2021 12:00:00 AM EDT tablet 90 TAKE ONE TABLET BY MOUTH EVERY DAY TAKE ONE TABLET BY MOUTH EVERY DAY SOLD: 01/26/2021 [facility] buspirone hydrochloride 15 MG Oral Tablet BUSPIRONE HCL 01/07/2021 12:00:00 AM EDT tablet 60 TAKE ONE TABLET BY MOUTH TWI CE A DAY TAKE ONE TABLET BY MOUTH TWICE A DAY SOLD: 02/06/2021 [facility] buspirone hydrochloride 15 MG Oral Tablet BUSPIRONE HCL 01/07/2021 12:00:00 AM EDT tablet 60 TAKE ONE TABLET BY MOUTH TWI CE A DAY TAKE ONE TABLET BY MOUTH TWICE A DAY SOLD: 01/08/2021 [facility] 2.5 mg 01/05/2021 12:00:00 AM EDT tablet 60 TAKE ONE TABLET BY MOUTH TWICE A DAY TAKE ONE TABLET BY MOUTH TWICE A DAY SOLD: 02/06/2021 [facility] 2.5 mg 01/05/2021 12:00:00 AM EDT tablet 60 TAKE ONE TABLET BY MOUTH TWICE A DAY TAKE ONE TABLET BY MOUTH TWICE A DAY SOLD: 01/08/2021 [facility] apixaban 2.5 MG Oral Tablet [Eliquis] Eliquis 2.5 MG Eliquis 2.5 MG 01/03/2021 12:00:00 AM EDT active Eliquis 2.5 MG eCW1 ([facility]) pantoprazole 40 MG Delayed Release Oral Tablet PANTOPRAZOLE SODIUM 12/25/2020 12:00:00 AM EDT tablet,delayed release (DR/EC) 30 T JACQUE ONE TABLET BY MOUTH EVERY DAY TAKE ONE TABLET BY MOUTH EVERY DAY SOLD: 12/27/2020 [facility] 10 mg 12/17/2020 12:00:00 AM EDT tablet extended release 24hr 90 TAKE ONE TABLET BY MOUTH EVERY DAY WITH FOOD TAKE ONE TABLET BY MOUTH EVERY DAY WITH FOOD SOLD: 12/20/2020 [facility] 80-4.5 mcg/actuation 11/21/2020 12:00:00 AM EDT HFA aerosol inhaler 30 INHALE TWO PUFFS BY MOUTH TWICE A DAY INHALE TWO PUFFS BY MOUTH TWICE A DAY SOLD: 11/24/2020 [facility] lidocaine (PF) (XYLOCAINE-MPF) 1 % injection [id number] 10:06:19 AM EDT active As needed, Start ing on Eileen 11/13/20 at 1006, Intra-Procedure [facility] Medication administered onsite normal saline flush 0.9 % injection 3 mL [id number] 11/13/2020 09:00:00 AM EDT 3 mL Intravenous active 3 mL , Intravenous, Every 8 hours (scheduled), First dose on Eileen 11/13/20 at 0900, Pre-op
Rapid push positive pressure flushing shall be performed with a 10 cc normal saline syringe to check the PATENCY of a PIV site prior to any infusion therapy initiation unless resistance is met.
[facility] Medication administered onsite normal saline flush 0.9 % injection 3 mL [id number] 11/13/2020 09:00:00 AM EDT 3 mL Intravenous active 3 mL , Intravenous, Every 8 hours (scheduled), First dose on Eileen 11/13/20 at 0900, Pre-op
Rapid push positive pressure flushing shall be performed with a 10 cc normal saline syringe to check the PATENCY of a PIV site prior to any infusion therapy initiation unless resistance is met.
[facility] Medication administered onsite 100 mg 11/03/2020 12:00:00 AM EDT tablet 90 TAKE ONE TABLET BY MOUTH EVERY DAY TAKE ONE TABLET BY MOUTH EVERY DAY SOLD: 11/06/2020 [facility] 300 mg 11/03/2020 12:00:00 AM EDT tablet 90 TAKE 1 TABLET BY MOUTH ONCE DAILY TAKE 1 TABLET BY MOUTH ONCE DAILY SOLD: 02/03/2021 [facility] 300 mg 11/03/2020 12:00:00 AM EDT tablet 90 TAKE 1 TABLET BY MOUTH ONCE DAILY TAKE 1 TABLET BY MOUTH ONCE DAILY SOLD: 11/06/2020 [facility] 1 gram 10/08/2020 12:00:00 AM EDT capsule 360 TAKE TWO CAPSULES BY MOUTH TWICE A DAY WITH MEALS TAKE TWO CAPSULES BY MOUTH TWICE A DAY WITH MEALS SOLD : 10/16/2020 [facility] 1 gram 10/08/2020 12:00:00 AM EDT capsule 360 TAKE TWO CAPSULES BY MOUTH TWICE A DAY WITH MEALS TAKE TWO CAPSULES BY MOUTH TWICE A DAY WITH MEALS SOLD : 01/16/2021 [facility] icosapent ethyl 1000 MG Oral Capsule [Vascepa] Vascepa 10/07/2020 12:00:00 AM EDT ORAL active [facility] Zinc Chelated 10/06/2020 12:00:00 AM EDT ORAL acti ve [facility] ([facility]) torsemide 20 MG Oral Tablet Torsemide 10/06/2020 12:00:00 AM EDT ORAL active [facility] ([facility]) Sertraline 100 MG Oral Tablet [Zoloft] Zoloft 10/06/2020 12:00:00 AM EDT ORAL active [facility] ([facility] pantoprazole 40 MG Delayed Release Oral Tablet Pantoprazole Sodium 10/06/2020 12:00:00 AM EDT ORAL active M EDENT ([facility]) Linagliptin 5 MG Oral Tablet [Tradjenta] Tradjenta 10/06/2020 12 :00:00 AM EDT ORAL active [facility] ([facility]) Probiotic Probiotic 10/06/2020 12:00:00 AM EDT ORAL act page [facility] ([facility]) Glipizide 10 MG Oral Tablet Glipizide 10/06/2020 12:00:00 AM EDT ORAL active [facility] ([facility]) Colchicine 0.6 MG Oral Capsule Colchicine 10/06/2020 12:00:00 AM EDT ORAL active [facility] ([facility]) Cholecalciferol 1000 UNT Oral Tablet Vitamin D (Cholecalcife rol) 10/06/2020 12:00:00 AM EDT ORAL active M EDENT ([facility]) buspirone hydrochloride 15 MG Oral Tablet Buspirone HCL 10/06/2020 12:00:00 AM EDT ORAL active [facility] ([facility]) 60 ACTUAT Budesonide 0.16 MG/ACTUAT / fo rmoterol fumarate 0.0045 MG/ACTUAT Metered Dose Inhaler Budesonide/Formoterol Fumarate Dihydrate 10/06/2020 12:00:00 AM EDT RESPIRATORY active [facility] ([facility]) apixaban 5 MG Oral Tablet [Eliquis] Eliquis 10/06/2020 12:00:00 AM E DT ORAL active [facility] ([facility]) Amlodipine 5 MG Oral Tablet Amlodipine Besylate 10/06/2020 12:00:00 A M EDT ORAL active [facility] ([facility]) Allopurinol 300 MG Oral Tablet Allopurinol 10/06/2020 12:00:00 AM EDT ORAL active [facility] ([facility]) Acetaminophen 500 MG Oral Tablet Acetaminophen Extra Strengt h 10/06/2020 12:00:00 AM EDT ORAL active M EDENT ([facility]) Vitamin B 12 1 MG Extended Release Oral Tablet Vitamin B12 10/06/2020 12:00:00 AM EDT ORAL active [facility] ([facility]) buspirone hydrochloride 15 MG Oral Tablet BUSPIRONE HCL 10/02/2020 12:00:00 AM EDT tablet 60 TAKE ONE TABLET BY MOUTH TWI CE A DAY TAKE ONE TABLET BY MOUTH TWICE A DAY SOLD: 12/11/2020 [facility] buspirone hydrochloride 15 MG Oral Tablet BUSPIRONE HCL 10/02/2020 12:00:00 AM EDT tablet 60 TAKE ONE TABLET BY MOUTH TWI CE A DAY TAKE ONE TABLET BY MOUTH TWICE A DAY SOLD: 11/11/2020 [facility] buspirone hydrochloride 15 MG Oral Tablet BUSPIRONE HCL 10/02/2020 12:00:00 AM EDT tablet 60 TAKE ONE TABLET BY MOUTH TWI CE A DAY TAKE ONE TABLET BY MOUTH TWICE A DAY SOLD: 10/14/2020 [facility] 5 mg 09/08/2020 12:00:00 AM EDT tablet 90 TAKE ONE TABLET BY MOUTH EVERY DAY TAKE ONE TABLET BY MOUTH EVERY DAY SOLD: 09/12/2020 [facility] 100 mg 09/08/2020 12:00:00 AM EDT tablet 90 TAKE ONE TABLET BY MOUTH EVERY DAY TAKE ONE TABLET BY MOUTH EVERY DAY SOLD: 09/12/2020 [facility] 5 mg 08/11/2020 12:00:00 AM EDT tablet 180 TAKE ONE TABLET BY MOUTH TWICE A DAY TAKE ONE TABLET BY MOUTH TWICE A DAY SOLD: 08/14/2020 [facility] 5 mg 08/11/2020 12:00:00 AM EDT tablet 180 TAKE ONE TABLET BY MOUTH TWICE A DAY TAKE ONE TABLET BY MOUTH TWICE A DAY SOLD: 08/14/2020 [facility] carvedilol 25 MG Oral Tablet CARVEDILOL 08/11/2020 12:00:00 AM EDT tab let 180 TAKE ONE TABLET BY MOUTH TWICE A DAY WITH FOOD TAKE ONE TABLET BY MOUTH TWICE A DAY WITH FOOD SOLD: 11/11/2020 [facility] 5 mg 08/11/2020 12:00:00 AM EDT tablet 180 TAKE ONE TABLET BY MOUTH TWICE A DAY TAKE ONE TABLET BY MOUTH TWICE A DAY SOLD: 11/11/2020 [facility] 5 mg 08/11/2020 12:00:00 AM EDT tablet 180 TAKE ONE TABLET BY MOUTH TWICE A DAY TAKE ONE TABLET BY MOUTH TWICE A DAY SOLD: 11/11/2020 [facility] carvedilol 25 MG Oral Tablet CARVEDILOL 08/11/2020 12:00:00 AM EDT tab let 180 TAKE ONE TABLET BY MOUTH TWICE A DAY WITH FOOD TAKE ONE TABLET BY MOUTH TWICE A DAY WITH FOOD SOLD: 08/14/2020 [facility] Amlodipine 5 MG Oral Tablet Amlodipine Besylate 5 MG Amlodip ine Besylate 5 MG 08/08/2020 12:00:00 AM EDT 1.0 {tablet} active Amlodipine Besylate 5 MG eCW1 ([facility]) Amlodipine 5 MG Oral Tablet Amlodipine Besylate 5 MG Amlodip ine Besylate 5 MG 08/08/2020 12:00:00 AM EDT 1.0 {tablet} active Aml[facility]ipine Besylate [facility] Amlodipine 5 MG Oral Tablet Amlodipine Besylate 5 MG Amlodip ine Besylate 5 MG 08/08/2020 12:00:00 AM EDT 1.0 {tablet} active Amlodipine Besylate 5 MG [facility] Amlodipine 5 MG Oral Tablet Amlodipine Besylate 5 MG Amlodip ine Besylate 5 MG 08/08/2020 12:00:00 AM EDT 1.0 {tablet} active Amlodipine Besylate 5 MG eCW1 ([facility]) Amlodipine 5 MG Oral Tablet amLODIPine Besylate 5 MG amLODIP ine Besylate 5 MG 08/08/2020 12:00:00 AM EDT 1.0 {tablet} active amLODIPine Besylate 5 MG eCW1 ([facility]) Amlodipine 5 MG Oral Tablet amLODIPine Besylate 5 MG amLODIP ine Besylate 5 MG 08/07/2020 12:00:00 AM EDT 1.0 {tablet} active amLODIPine Besylate 5 MG eCW1 ([facility]) Cholecalciferol 25 MCG (1000 UT) UNK 08/07/2020 12:00:00 AM ED T 1.0 {capsule} active Cholecalciferol 25 M CG (1000 UT) eCW1 ([facility]) Amlodipine 5 MG Oral Tablet AmLODIPine Besylate 5 MG AmLODIP ine Besylate 5 MG 08/07/2020 12:00:00 AM EDT 1.0 {tablet} active AmLODIPine Besylate 5 MG eCW1 ([facility]) Acetaminophen 500 MG UNK 08/07/2020 12:00:00 AM EDT 1. 0 {capsule_as_needed} active Acetaminophen 500 MG eCW1 ([facility]) apixaban 5 MG Oral Tablet [Eliquis] Eliquis 5 MG Eliquis 5 M G 08/07/2020 12:00:00 AM EDT active Eliquis 5 MG eCW1 ([facility]) Acetaminophen 500 MG UNK 08/07/2020 12:00:00 AM EDT 1. 0 {capsule_as_needed} active Acetaminophen 500 MG eCW1 ([facility]) Cholecalciferol 25 MCG (1000 UT) UNK 08/07/2020 12:00:00 AM ED T 1.0 {capsule} active Cholecalciferol 25 M CG (1000 UT) eCW1 ([facility]) Amlodipine 5 MG Oral Tablet amLODIPine Besylate 5 MG amLODIP ine Besylate 5 MG 08/07/2020 12:00:00 AM EDT 1.0 {tablet} active amLODIPine Besylate 5 MG eCW1 ([facility]) Zinc 50 MG Zinc 50 MG 08/07/2020 12:00:00 AM EDT 1.0 {tablet} active Zinc 50 MG [facility]CW[facility] apixaban 5 MG Oral Tablet [Eliquis] Eliquis 5 MG Eliquis 5 M G 08/07/2020 12:00:00 AM EDT active Eliquis 5 MG eCW1 ([facility]) Acetaminophen 500 MG UNK 08/07/2020 12:00:00 AM EDT 1. 0 {capsule_as_needed} active Acetaminophen 500 MG eCW1 ([facility]) Zinc 50 MG Zinc 50 MG 08/07/2020 12:00:00 AM EDT 1.0 {tablet} active Zinc 50 MG eCW1 ([facility] Zinc 50 MG Zinc 50 MG 08/07/2020 12:00:00 AM EDT 1.0 {tablet} active Zinc 50 MG eCW1 ([facility] torsemide 20 MG Oral Tablet Torsemide 20 MG Torsemide 20 MG 08/07/2020 12:00:00 AM EDT active Torsemide 20 MG e CW1 ([facility]) Cholecalciferol 25 MCG (1000 UT) UNK 08/07/2020 12:00:00 AM ED T 1.0 {capsule} active Cholecalciferol 25 M CG (1000 UT) eCW1 ([facility]) torsemide 20 MG Oral Tablet Torsemide 20 MG Torsemide 20 MG 08/07/2020 12:00:00 AM EDT active Torsemide 20 MG e CW1 ([facility]) torsemide 20 MG Oral Tablet Torsemide 20 MG Torsemide 20 MG 08/07/2020 12:00:00 AM EDT active Torsemide 20 MG e CW1 ([facility]) 4 wheeled walker with seat UNK 07/23/2020 12:00:00 AM EDT active 4 wheeled walker with seat eCW1 ([facility]) 4 wheeled walker with seat UNK 07/23/2020 12:00:00 AM EDT active 4 wheeled walker with seat eCW1 ([facility]) 4 wheeled walker with seat UNK 07/23/2020 12:00:00 AM EDT active 4 wheeled walker with seat eCW1 ([facility]) 4 wheeled walker with seat UNK 07/23/2020 12:00:00 AM EDT active 4 wheeled walker with seat eCW1 ([facility]) 4 wheeled walker with seat UNK 07/23/2020 12:00:00 AM EDT active 4 wheeled walker with seat eCW1 ([facility]) 4 wheeled walker with seat UNK 07/23/2020 12:00:00 AM EDT active 4 wheeled walker with seat eCW1 ([facility]) 4 wheeled walker with seat UNK 07/23/2020 12:00:00 AM EDT active 4 wheeled walker with seat eCW1 ([facility]) 4 wheeled walker with seat UNK 07/23/2020 12:00:00 AM EDT active 4 wheeled walker with seat eCW1 ([facility]) carvedilol 25 MG Oral Tablet CARVEDILOL 07/19/2020 12:00:00 AM EDT tab let 60 TAKE ONE TABLET BY MOUTH TWICE A DAY TAKE ONE TABLET BY MOUTH TWICE A DAY SOLD: 07/19/2020 [facility] 5 mg 07/19/2020 12:00:00 AM EDT tablet 60 TAKE ONE TABLET BY MOUTH TWICE A DAY TAKE ONE TABLET BY MOUTH TWICE A DAY SOLD: 07/19/2020 [facility] 20 mg 07/19/2020 12:00:00 AM EDT tablet 30 TAKE ONE TABLET BY MOUTH EVERY DAY TAKE ONE TABLET BY MOUTH EVERY DAY SOLD: 07/19/2020 [facility] Digoxin 0.25 MG Oral Tablet 250 mcg (0.25 mg) DIGOXIN 07/19/2020 12:00:00 AM EDT tablet 30 TAKE ONE TABLET BY MOUTH YASMANI DAY TAKE ONE TABLET BY MOUTH EVERY DAY SOLD: 07/19/2020 [facility] 5 mg 07/18/2020 12:00:00 AM EDT tablet 60 TAKE 1 TABLET [5MG] BY MOUTH TWO TIMES A DAY TAKE 1 TABLET [5MG] BY MOUTH TWO TIMES A DAY SOLD: 07/19/2020 [facility] buspirone hydrochloride 15 MG Oral Tablet BUSPIRONE HCL 06/20/2020 12:00:00 AM EST tablet 60 TAKE ONE TABLET BY MOUTH TWI CE A DAY TAKE ONE TABLET BY MOUTH TWICE A DAY SOLD: 07/31/2020 [facility] buspirone hydrochloride 15 MG Oral Tablet BUSPIRONE HCL 06/20/2020 12:00:00 AM EST tablet 60 TAKE ONE TABLET BY MOUTH TWI CE A DAY TAKE ONE TABLET BY MOUTH TWICE A DAY SOLD: 09/05/2020 [facility] buspirone hydrochloride 15 MG Oral Tablet BUSPIRONE HCL 06/20/2020 12:00:00 AM EST tablet 60 TAKE ONE TABLET BY MOUTH TWI CE A DAY TAKE ONE TABLET BY MOUTH TWICE A DAY SOLD: 06/28/2020 [facility] 80-4.5 mcg/actuation 05/14/2020 12:00:00 AM EST HFA aerosol inhaler 30 INHALE TWO PUFFS BY MOUTH TWICE A DAY INHALE TWO PUFFS BY MOUTH TWICE A DAY SOLD: 05/24/2020 [facility] 80-4.5 mcg/actuation 05/14/2020 12:00:00 AM EST HFA aerosol inhaler 30 INHALE TWO PUFFS BY MOUTH TWICE A DAY INHALE TWO PUFFS BY MOUTH TWICE A DAY SOLD: 08/26/2020 [facility] 100 mg 05/08/2020 12:00:00 AM EST tablet 90 TAKE ONE TABLET BY MOUTH EVERY DAY TAKE ONE TABLET BY MOUTH EVERY DAY SOLD: 05/08/2020 [facility] 160-25 mg 05/08/2020 12:00:00 AM EST tablet 90 TAKE ONE TABLET BY MOUTH EVERY DAY TAKE ONE TABLET BY MOUTH EVERY DAY SOLD: 05/08/2020 [facility] carvedilol 6.25 MG Oral Tablet CARVEDILOL 04/21/2020 12:00:00 AM EST tablet 360 TAKE TWO TABLETS BY MOUTH TWICE A DAY TAKE TWO TABLETS BY [facility] TWICE A DAY SOLD: 04/24/2020 [facility] buspirone hydrochloride 15 MG Oral Tablet BUSPIRONE HCL 04/10/2020 12:00:00 AM EST tablet 60 TAKE ONE TABLET BY MOUTH TWI CE A DAY TAKE ONE TABLET BY MOUTH TWICE A DAY SOLD: 04/16/2020 [facility] buspirone hydrochloride 15 MG Oral Tablet BUSPIRONE HCL 04/10/2020 12:00:00 AM EST tablet 60 TAKE ONE TABLET BY MOUTH TWI CE A DAY TAKE ONE TABLET BY MOUTH TWICE A DAY SOLD: 05/24/2020 [facility] 100 mg 03/11/2020 12:00:00 AM EST tablet 90 TAKE ONE TABLET BY MOUTH EVERY DAY TAKE ONE TABLET BY MOUTH EVERY DAY SOLD: 03/12/2020 [facility] 100 mg 03/11/2020 12:00:00 AM EST tablet 85 TAKE ONE TABLET BY MOUTH EVERY DAY TAKE ONE TABLET BY MOUTH EVERY DAY SOLD: 08/16/2020 [facility] buspirone hydrochloride 10 MG Oral Tablet BUSPIRONE HCL 03/11/2020 12:00:00 AM EST tablet 180 TAKE ONE TABLET BY MOUTH TWI CE A DAY TAKE ONE TABLET BY MOUTH TWICE A DAY SOLD: 03/12/2020 [facility] 5 mg 03/11/2020 12:00:00 AM EST tablet 90 TAKE ONE TABLET BY MOUTH EVERY DAY TAKE ONE TABLET BY MOUTH EVERY DAY SOLD: 06/11/2020 [facility] 10 mg 03/11/2020 12:00:00 AM EST tablet extended release 24hr 90 TAKE ONE TABLET BY MOUTH EVERY DAY WITH FOOD TAKE ONE TABLET BY MOUTH EVERY DAY WITH FOOD SOLD: 03/12/2020 [facility] 100 mg 03/11/2020 12:00:00 AM EST tablet 90 TAKE ONE TABLET BY MOUTH EVERY DAY TAKE ONE TABLET BY MOUTH EVERY DAY SOLD: 03/12/2020 [facility] 100 mg 03/11/2020 12:00:00 AM EST tablet 90 TAKE ONE TABLET BY MOUTH EVERY DAY TAKE ONE TABLET BY MOUTH EVERY DAY SOLD: 06/11/2020 [facility] 10 mg 03/11/2020 12:00:00 AM EST tablet extended release 24hr 90 TAKE ONE TABLET BY MOUTH EVERY DAY WITH FOOD TAKE ONE TABLET BY MOUTH EVERY DAY WITH FOOD SOLD: 06/11/2020 [facility] 5 mg 03/11/2020 12:00:00 AM EST tablet 90 TAKE ONE TABLET BY MOUTH EVERY DAY TAKE ONE TABLET BY MOUTH EVERY DAY SOLD: 03/12/2020 [facility] 100 mg 03/11/2020 12:00:00 AM EST tablet 5 TAKE ONE TABLET BY MOUTH EVERY DAY TAKE ONE TABLET BY MOUTH EVERY DAY SOLD: 08/09/2020 [facility] 300 mg 02/19/2020 12:00:00 AM EDT tablet 90 TAKE 1 TABLET BY MOUTH ONCE DAILY TAKE 1 TABLET BY MOUTH ONCE DAILY SOLD: 05/28/2020 [facility] 15 mg 02/18/2020 12:00:00 AM EDT tablet 90 TAKE ONE TABLET BY MOUTH EVERY DAY TAKE ONE TABLET BY MOUTH EVERY DAY SOLD: 05/28/2020 [facility] carvedilol 6.25 MG Oral Tablet CARVEDILOL 01/30/2020 12:00:00 AM EDT tablet 180 TAKE TWO TABLETS BY MOUTH TWICE A DAY TAKE TWO TABLETS BY MO UT TWICE A DAY SOLD: 02/08/2020 [facility] carvedilol 6.25 MG Oral Tablet CARVEDILOL 01/30/2020 12:00:00 AM EDT tablet 180 TAKE TWO TABLETS BY MOUTH TWICE A DAY TAKE TWO TABLETS BY MO UT TWICE A DAY SOLD: 03/08/2020 [facility] 250-50 mcg/dose 01/10/2020 12:00:00 AM EDT blister with sandi ce 180 INHALE ONE PUFF TWO TIMES A DAY FOR 90 DAYS INHALE ONE PUFF TWO TIMES A DAY FOR 90 D AYS SOLD: 04/10/2020 [facility] 60 ACTUAT Fluticasone propionate 0.25 MG /ACTUAT / salmeterol 0.05 MG/ACTUAT Dry Powder Inhaler [Advair] 250-50 mcg/dose FLUTICASONE PROPION/SALMETEROL 01/10/2020 12:00:00 AM EDT blister with device 180 I NHALE ONE PUFF TWO TIMES A DAY FOR 90 DAYS INHALE ONE PUFF TWO TIMES A DAY FOR 90 DAYS SOLD: 10/16/2020 [facility] 250-50 mcg/dose 01/10/2020 12:00:00 AM EDT blister with sandi ce 180 INHALE ONE PUFF TWO TIMES A DAY FOR 90 DAYS INHALE ONE PUFF TWO TIMES A DAY FOR 90 D AYS SOLD: 07/09/2020 [facility] 250-50 mcg/dose 01/10/2020 12:00:00 AM EDT blister with sandi ce 180 INHALE ONE PUFF TWO TIMES A DAY FOR 90 DAYS INHALE ONE PUFF TWO TIMES A DAY FOR 90 D AYS SOLD: 01/11/2020 [facility] 60 ACTUAT Fluticasone propionate 0.25 MG /ACTUAT / salmeterol 0.05 MG/ACTUAT Dry Powder Inhaler [Advair] Advair Diskus 250-50 MCG/DOSE Advair Diskus 250-50 MCG/DOSE 01/09/2020 12:00:00 AM EDT 1.0 {puff} suspe nded Advair Diskus 250-50 MCG/DOSE eCW1 ([facility]) 60 ACTUAT Fluticasone propionate 0.25 MG /ACTUAT / salmeterol 0.05 MG/ACTUAT Dry Powder Inhaler [Advair] Advair Diskus 250-50 MCG/DOSE Advair Diskus 250-50 MCG/DOSE 01/09/2020 12:00:00 AM EDT 1.0 {puff} activ e Advair Diskus 250-50 MCG/DOSE eCW1 ([facility]) 60 ACTUAT Fluticasone propionate 0.25 MG /ACTUAT / salmeterol 0.05 MG/ACTUAT Dry Powder Inhaler [Advair] Advair Diskus 250-50 MCG/DOSE Advair Diskus 250-50 MCG/DOSE 01/09/2020 12:00:00 AM EDT 1.0 {puff} activ e Advair Diskus 250-50 MCG/DOSE eCW1 ([facility]) 60 ACTUAT Fluticasone propionate 0.25 MG /ACTUAT / salmeterol 0.05 MG/ACTUAT Dry Powder Inhaler [Advair] Advair Diskus 250-50 MCG/DOSE Advair Diskus 250-50 MCG/DOSE 01/09/2020 12:00:00 AM EDT 1.0 {puff} suspe nded Advair Diskus 250-50 MCG/DOSE eCW1 ([facility]) 60 ACTUAT Fluticasone propionate 0.25 MG /ACTUAT / salmeterol 0.05 MG/ACTUAT Dry Powder Inhaler [Advair] Advair Diskus 250-50 MCG/DOSE Advair Diskus 250-50 MCG/DOSE 01/09/2020 12:00:00 AM EDT 1.0 {puff} activ e Advair Diskus 250-50 MCG/DOSE eCW1 ([facility]) 60 ACTUAT Fluticasone propionate 0.25 MG /ACTUAT / salmeterol 0.05 MG/ACTUAT Dry Powder Inhaler [Advair] Advair Diskus 250-50 MCG/DOSE Advair Diskus 250-50 MCG/DOSE 01/09/2020 12:00:00 AM EDT 1.0 {puff} activ e Advair Diskus 250-50 MCG/DOSE eCW1 ([facility]) 60 ACTUAT Fluticasone propionate 0.25 MG /ACTUAT / salmeterol 0.05 MG/ACTUAT Dry Powder Inhaler [Advair] Advair Diskus 250-50 MCG/DOSE Advair Diskus 250-50 MCG/DOSE 01/09/2020 12:00:00 AM EDT 1.0 {puff} suspe nded Advair Diskus 250-50 MCG/DOSE eCW1 ([facility]) 60 ACTUAT Fluticasone propionate 0.25 MG /ACTUAT / salmeterol 0.05 MG/ACTUAT Dry Powder Inhaler [Advair] Advair Diskus 250-50 MCG/DOSE Advair Diskus 250-50 MCG/DOSE 01/09/2020 12:00:00 AM EDT 1.0 {puff} activ e Advair Diskus 250-50 MCG/DOSE eCW1 ([facility]) 60 ACTUAT Fluticasone propionate 0.25 MG /ACTUAT / salmeterol 0.05 MG/ACTUAT Dry Powder Inhaler [Advair] Advair Diskus 250-50 MCG/DOSE Advair Diskus 250-50 MCG/DOSE 01/09/2020 12:00:00 AM EDT 1.0 {puff} suspe nded Advair Diskus 250-50 MCG/DOSE eCW1 ([facility]) 60 ACTUAT Fluticasone propionate 0.25 MG /ACTUAT / salmeterol 0.05 MG/ACTUAT Dry Powder Inhaler [Advair] Advair Diskus 250-50 MCG/DOSE Advair Diskus 250-50 MCG/DOSE 01/09/2020 12:00:00 AM EDT 1.0 {puff} activ e Advair Diskus 250-50 MCG/DOSE eCW1 ([facility]) 60 ACTUAT Fluticasone propionate 0.25 MG /ACTUAT / salmeterol 0.05 MG/ACTUAT Dry Powder Inhaler [Advair] Advair Diskus 250-50 MCG/DOSE Advair Diskus 250-50 MCG/DOSE 01/09/2020 12:00:00 AM EDT 1.0 {puff} activ e Advair Diskus 250-50 MCG/DOSE eCW1 ([facility]) 60 ACTUAT Fluticasone propionate 0.25 MG /ACTUAT / salmeterol 0.05 MG/ACTUAT Dry Powder Inhaler [Advair] Advair Diskus 250-50 MCG/DOSE Advair Diskus 250-50 MCG/DOSE 01/09/2020 12:00:00 AM EDT 1.0 {puff} suspe nded Advair Diskus 250-50 MCG/DOSE eCW1 ([facility]) 60 ACTUAT Fluticasone propionate 0.25 MG /ACTUAT / salmeterol 0.05 MG/ACTUAT Dry Powder Inhaler [Advair] Advair Diskus 250-50 MCG/DOSE Advair Diskus 250-50 MCG/DOSE 01/09/2020 12:00:00 AM EDT 1.0 {puff} activ e Advair Diskus 250-50 MCG/DOSE eCW1 ([facility]) 60 ACTUAT Fluticasone propionate 0.25 MG /ACTUAT / salmeterol 0.05 MG/ACTUAT Dry Powder Inhaler [Advair] Advair Diskus 250-50 MCG/DOSE Advair Diskus 250-50 MCG/DOSE 01/09/2020 12:00:00 AM EDT 1.0 {puff} suspe nded Advair Diskus 250-50 MCG/DOSE eCW1 ([facility]) 60 ACTUAT Fluticasone propionate 0.25 MG /ACTUAT / salmeterol 0.05 MG/ACTUAT Dry Powder Inhaler [Advair] Advair Diskus 250-50 MCG/DOSE Advair Diskus 250-50 MCG/DOSE 01/09/2020 12:00:00 AM EDT 1.0 {puff} activ e Advair Diskus 250-50 MCG/DOSE eCW1 ([facility]) 60 ACTUAT Fluticasone propionate 0.25 MG /ACTUAT / salmeterol 0.05 MG/ACTUAT Dry Powder Inhaler [Advair] Advair Diskus 250-50 MCG/DOSE Advair Diskus 250-50 MCG/DOSE 01/09/2020 12:00:00 AM EDT 1.0 {puff} suspe nded Advair Diskus 250-50 MCG/DOSE eCW1 ([facility]) 60 ACTUAT Fluticasone propionate 0.25 MG /ACTUAT / salmeterol 0.05 MG/ACTUAT Dry Powder Inhaler [Advair] Advair Diskus 250-50 MCG/DOSE Advair Diskus 250-50 MCG/DOSE 01/09/2020 12:00:00 AM EDT 1.0 {puff} suspe nded Advair Diskus 250-50 MCG/DOSE [facility]CW1 [facility] 60 ACTUAT Fluticasone propionate 0.25 MG /ACTUAT / salmeterol 0.05 MG/ACTUAT Dry Powder Inhaler [Advair] Advair Diskus 250-50 MCG/DOSE Advair Diskus 250-50 MCG/DOSE 01/09/2020 12:00:00 AM EDT 1.0 {puff} activ e Advair Diskus 250-50 MCG/DOSE eCW1 ([facility]) 60 ACTUAT Fluticasone propionate 0.25 MG /ACTUAT / salmeterol 0.05 MG/ACTUAT Dry Powder Inhaler [Advair] Advair Diskus 250-50 MCG/DOSE Advair Diskus 250-50 MCG/DOSE 01/09/2020 12:00:00 AM EDT 1.0 {puff} suspe nded Advair Diskus 250-50 MCG/DOSE eCW1 ([facility]) 60 ACTUAT Fluticasone propionate 0.25 MG /ACTUAT / salmeterol 0.05 MG/ACTUAT Dry Powder Inhaler [Advair] Advair Diskus 250-50 MCG/DOSE Advair Diskus 250-50 MCG/DOSE 01/09/2020 12:00:00 AM EDT 1.0 {puff} suspe nded Advair Diskus 250-50 MCG/DOSE eCW1 ([facility]) 60 ACTUAT Fluticasone propionate 0.25 MG /ACTUAT / salmeterol 0.05 MG/ACTUAT Dry Powder Inhaler [Advair] Advair Diskus 250-50 MCG/DOSE Advair Diskus 250-50 MCG/DOSE 01/09/2020 12:00:00 AM EDT 1.0 {puff} activ e Advair Diskus 250-50 MCG/DOSE eCW1 ([facility]) 60 ACTUAT Fluticasone propionate 0.25 MG /ACTUAT / salmeterol 0.05 MG/ACTUAT Dry Powder Inhaler [Advair] Advair Diskus 250-50 MCG/DOSE Advair Diskus 250-50 MCG/DOSE 01/09/2020 12:00:00 AM EDT 1.0 {puff} suspe nded Advair Diskus 250-50 MCG/DOSE eCW1 ([facility]) 60 ACTUAT Fluticasone propionate 0.25 MG /ACTUAT / salmeterol 0.05 MG/ACTUAT Dry Powder Inhaler [Advair] Advair Diskus 250-50 MCG/DOSE Advair Diskus 250-50 MCG/DOSE 01/09/2020 12:00:00 AM EDT 1.0 {puff} activ e Advair Diskus 250-50 MCG/DOSE eCW1 ([facility]) pantoprazole 40 MG Delayed Release Oral Tablet PANTOPRAZOLE SODIUM 12/27/2019 12:00:00 AM EDT tablet,delayed release (DR/EC) 90 T JACQUE 1 TABLET BY MOUTH ONCE A DAY TAKE 1 TABLET BY MOUTH ONCE A DAY SOLD: 06/28/2020 [facility] pantoprazole 40 MG Delayed Release Oral Tablet PANTOPRAZOLE SODIUM 12/27/2019 12:00:00 AM EDT tablet,delayed release (DR/EC) 90 T JACQUE 1 TABLET BY MOUTH ONCE A DAY TAKE 1 TABLET BY MOUTH ONCE A DAY SOLD: 09/29/2020 [facility] pantoprazole 40 MG Delayed Release Oral Tablet PANTOPRAZOLE SODIUM 12/27/2019 12:00:00 AM EDT tablet,delayed release (DR/EC) 90 T JACQUE 1 TABLET BY MOUTH ONCE A DAY TAKE 1 TABLET BY MOUTH ONCE A DAY SOLD: 03/29/2020 [facility] 40 mg 12/27/2019 12:00:00 AM EDT tablet,delayed release (DR/EC) 90 TAKE 1 TABLET BY MOUTH ONCE A DAY TAKE 1 TABLET BY MOUTH ONCE A DAY SOLD: 12/28/2019 [facility] 1 ML evolocumab 140 MG/ML Prefilled Syringe [Repatha] Repatha 140 MG/ML Repatha 140 MG/ML 12/26/2019 12:00:00 AM EDT 1.0 {ml} active Repatha 140 MG/ML eCW1 ([facility]) 1 ML evolocumab 140 MG/ML Prefilled Syringe [Repatha] Repatha 140 MG/ML Repatha 140 MG/ML 12/26/2019 12:00:00 AM EDT 1.0 {ml} active Repatha 140 MG/ML eCW1 [facility] 1 ML evolocumab 140 MG/ML Prefilled Syringe [Repatha] Repatha 140 MG/ML Repatha 140 MG/ML 12/26/2019 12:00:00 AM EDT 1.0 {ml} active Repatha 140 MG/ML eCW1 ([facility]) carvedilol 6.25 MG Oral Tablet CARVEDILOL 10/25/2019 12:00:00 AM EDT tablet 180 TAKE TWO TABLETS BY MOUTH TWICE A DAY TAKE TWO TABLETS BY MO UTH TWICE A DAY SOLD: 12/19/2019 [facility] 160-25 mg 10/15/2019 12:00:00 AM EDT tablet 60 TAKE 1 TABLET BY MOUTH ONCE A DAY TAKE 1 TABLET BY MOUTH ONCE A DAY SOLD: 01/11/2020 [facility] buspirone hydrochloride 10 MG Oral Tablet BUSPIRONE HCL 09/27/2019 12:00:00 AM EDT tablet 180 TAKE 1 TABLET BY MOUTH TWO T IMES A DAY TAKE 1 TABLET BY MOUTH TWO TIMES A DAY SOLD: 01/01/2020 [facility] 100 mg 09/27/2019 12:00:00 AM EDT tablet 90 TAKE 1 TABLET BY MOUTH ONCE A DAY TAKE 1 TABLET BY MOUTH ONCE A DAY SOLD: 01/01/2020 [facility] 10 mg 09/12/2019 12:00:00 AM EDT tablet extended release 24hr 90 TAKE 1 TABLET BY MOUTH ONCE A DAY WITH FOOD TAKE 1 TABLET BY MOUTH ONCE A DAY WITH F OOD SOLD: 12/19/2019 [facility] 10 mg 09/12/2019 12:00:00 AM EDT tablet extended release 24hr 90 TAKE 1 TABLET BY MOUTH ONCE A DAY WITH FOOD TAKE 1 TABLET BY MOUTH ONCE A DAY WITH F OOD SOLD: 09/12/2020 [facility] tramadol hydrochloride 50 MG Oral Tablet traMADol (ULT NEIDA) 50 MG tablet traMADol (ULTRAM) 50 MG tablet 09/05/2019 12:00:00 AM EDT 50 mg Oral aborted Take 50 mg by mouth as needed [facility] 5 mg 08/31/2019 12:00:00 AM EDT tablet 90 TAKE 1 TABLET BY MOUTH ONCE A DAY TAKE 1 TABLET BY MOUTH ONCE A DAY SOLD: 12/19/2019 [facility] meloxicam 15 MG Oral Tablet meloxicam (MOBIC) 15 MG ta blet meloxicam (MOBIC) 15 MG tablet 08/23/2019 12:00:00 AM EDT 15 mg Oral aborted Take 15 mg by mouth daily [facility] Zinc Gluconate 30 MG Oral Tablet Zinc 30 MG TABS Zinc 30 MG TABS Oral aborted Take by mouth daily [facility] MAGNESIUM GLUCONATE 250 MG Oral Tablet Magnesium Gluco michael 250 MG TABS Magnesium Gluconate 250 MG TABS 250 mg Oral aborted Take 250 mg by mouth daily [facility] Insurance Providers Payer name Policy type / Coverage type Policy ID Covered green party ID Covered green party's relationship to whitman Policy [place] Plan Information [place] [id number] S [id number] [place] [id number] S [id number] MEDICARE [id number] SP [id number] A [place] [employer] [id number] S [id number] MEDICARE [id number] SP [id number] [place] [id number] S [id number] [place] [employer] [id number] S [id number] MEDICARE [id number] Veron[place] [id number] [place] MED[employer] [id number] S [id number] [place] Med[place] [id number] Self [id number] [place] [id number] Self [place] [id number] Self [id number] [place] [id number] Self [id number] Medicare [facility] Medigap Part B [id number] [id number] Self [id number] Medicare [facility] Medigap Part B [id number] [id number] Self [id number] [facility] [place] [employer] [id number] Self Medicare [facility] Medigap Part B [id number] [id number] Self [id number] [facility] [place] [employer] Workers Compensation [id number] Self [id number] Medicaid [place] [id number] [place] [id number]. 3269.0 Self [id number] [place] [id number]. 3269.0 Self [id number] [place] [id number]. 3269.0 Self [id number] [place] [id number]. 3269.0 Self [id number] [place] [id number]. 3269.0 Self [id number] [place] [id number]. 3269.0 Self [id number] MEDICARE BLUE PPO 306 [id number] SP [id number] Medicaid [place] Med[place] Part B [id number] Self Medicare [facility] Medigap Part B [id number] Self [id number] [facility] [id number] Self 30 [id number] Medicaid [place] [id number]. 3269.0 Self [id number] [place] [id number] [id number] 83.3.227.99.991.3269.0 Self [id number] [facility] Healthcare Options [facility] [id number] Self 30 [id number] [place] [id number] 2.0.1.281161.3.227.99.991. 3269.0 Self [id number] [place] Med[place] [id number] 2.0.1.1138 83.3.227.99.991.3269.0 Self [id number] Medicaid [place] [id number] 2.0.1.876253.3.227.99.991. 3269.0 Self [id number] [facility] Part B [id number] Self [id number] Medicare [place] Medicare Primary [id number] Self [id number] [facility] Part B [id number] Self 30 [id number] Medicaid [place] Med[place] Part [place] [id number] 2.160.1.768969.3.227.99.991. 3269.0 Self [id number] [place] Med[place] Part B [id number] [id number] 83.3.227.99.991.3269.0 Self [id number] [facility] Medigap Part B [id number] Self 30 [id number] Medicaid [place] Medigap Part B [id number] 2.16.840.1.946930.3.227.99.991. 3269.0 Self [id number] [place] Med[place] Part B [id number] 2.16.840.1.1138 83.3.227.99.991.3269.0 Self [id number] [facility] Medigap Part B [id number] Self 30 [id number] Medicaid [place] Medigap Part B [id number] 2.160.1.115919.3.227.99.991. 3269.0 Self [id number] [facility] Options Medigap Part B [id number] Self Medicare [place] Medicare Primary [id number] Self [facility] [id number] Veronique [id number] [facility] [id number] [facility] [id number] Veronique [id number] [facility] [id number] SP [id number] [facility] [id number] SP [id number] [facility] [id number] SP [id number] [facility] [id number] SP [id number] [facility] [id number] SP [id number] [facility] [id number] SP [id number] [facility] [id number] SP [id number] INSURANCE COVID-19 COVID Veronique C OVID INSURANCE COVID-19 COVID Veronique C OVID INSURANCE COVID-19 COVID Veronique C OVID INSURANCE COVID-19 [id number] xOVID 2 [id number] [facility] PI PI [facility] Supplemental Plan Medigap Part B [id number] Self [id number] Medicare Medicare Primary [id number]. [id number] Self [id number] MEDICARE PI PI [facility] [place] [id number] 18 [id number] MEDICARE PART A [facility] [id number] 18 [id number] AARP O [id number] S [id number] [facility] Options Medigap Part B [id number] Self [place] [id number]. [id number] Self [facility] Medigap Part B [id number] 99.0 Self F Medicare [place] Medicare Primary [id number] Self Blue Shield MCR Advantage Medigap Part B [id number] Self MEDICAID [id number] SP [id number] MEDICAID M [id number] S [id number] BLUE CROSS BLUE SHIELD-O/P [id number] 18 [id number] TODAYS OPTIONS [id number] SP [id number] [place] Prog-Today's Opt Commercial [id number] Self BCBS [place] [id number] S [id number] BLUE CROSS BLUE SHIELD-CLINIC [id number] 18 [id number] BLUE CROSS BLUE SHIELD-O/P [id number] 18 [id number] BLUE CROSS BLUE SHIELD-CLINIC [id number] 18 [id number] MEDICARE [id number] SP [id number] [facility] [facility] [facility] OPT[facility] [id number] SP [id number] [facility] [facility] [facility] OPT[facility] [id number] SP [id number] MEDICARE [id number] MEDICARE [id number] Veronique [id number] [employer] [facility] OPTIONS [id number] S [id number] [place] MED[employer]ARE [employer] [id number] S [id number] [place]IC[place] [id number] S [id number] [facility] [facility] [facility] OPTIONS [id number] S [id number] [place] MED[place]ARE [employer] [id number] S [id number] [place]IC[place] [id number] S [id number] [facility] [id number] S [id number] MEDICARE C [id number] S [id number] AARP O [id number] S [id number] SELF PAY ONLY [id number] SP [id number] ANSI-Medicare Part B [id number] ANSI-Commercial [id number] ANSI-Medicare Part B [id number] ANSI-Commercial [id number] [employer] [place] [id number] 18 [id number] MEDICARE PART A [facility] [id number] 18 [id number] ANSI-Medicare Part B [id number] ANSI-Commercial [id number] ANSI-Commercial [id number] ANSI-Medicare Part B [id number] ANSI-Commercial [id number]-3qxu-9o21-45qg-6194504km723 ANSI-Medicare Part B [id number] [id number]-q2p76iws5o2q ANSI-Medicare Part B [id number] p287m8y2-638l-3f79-0735-7g6d5164x3zx ANSI-Commercial 7g3p506c-091h-80mq-5a17-lt246z70fa46 8l0x162j-230x-99ud-6a16-wc033j02tb40 ANSI-Medicare Part B [id number]-[id number] 460x9569-85x0-56t2-5598-s66q6k8eukgs ANSI-Commercial 11m09ec8-7b0u-723q-t4q8-ds6n63c97762 16t96xb4-4t0o-009m-e7a8-xb4o04z19163 Medicare [place] Primary [id number] 2.16.840.1.316107.3.227.99.991.3269.0 Self 4E [id number] ANSI-Medicare Part B [id number] [id number]-652r-ahlz-91u2c5dl8nn0 ANSI-Commercial 56b1289a-a7d9-42i3-nv4p-065664i5855r 24a1377o-b3m1-25u0-rb1v-395012h3798a ANSI-Medicare Part B [id number] emvx1031-oo2u-443c-gbu9-bp500989ugm4 ANSI-Commercial 7e299101-518w-6187-rt7m-6v841jo648q8 8s989960-461e-2162-lt3f-5b332uy998s9 ANSI-Medicare Part B [id number]-25v6-[id number] 1lfjy7e0-k8r5-77qu-17q3-x6lkh82m8z57 ANSI-Commercial 2sk1163q-9874-70s9-8798-1y91093w7u71 7dc2416m-[id number] Medicare [place] Medicare Primary [id number] 2.16.840.1.738088.3.227.99.991.3269.0 Self 4E [id number] Medicare [place] Medicare Primary [id number] 2.16.840.1.699023.3.227.99.991.3269.0 Self 4E [id number] ANSI-Commercial 3uf97h33-l705-53m3-xh0c-v3g7e284214c 9kv35a57-i025-31w1-is6n-u0w5m380578v ANSI-Medicare Part B [id number]-[id number] ANSI-Commercial s0683g02-906b-9v6j-6747-z4z6788y4nd7 v0099x37-953g-7x0v-3246-r3j5669e2zy7 ANSI-Medicare Part B [id number]-[id number]-a9g5-[id number] ANSI-Medicare Part B [id number]-[id number] bm52pkju-6602-8052-xsyh-61d94579fbi3 ANSI-Commercial 6227lkcg-5xy6-45w29xh4-06d6-g8z6-4993n7l7tq2v 0835ieom-7rb0-52j92zy8-90q3-u6v4-7620v7w0zh8q Medicare [place] Primary [id number] ..1.439308.3.227.99.991.3269.0 Self 4E [id number] Medicare [place] Primary [id number] .1.618669.3.227.99.991.3269.0 Self 4E [id number] MEDICARE [id number] SP [id number] [facility] Advantage Medigap Part B [id number] ..578525.3.227.99.991.3269.0 Self [id number] [id number] [place] MED[place]ARE DIVISION [id number] S [id number] MEDICARE - [place] [id number] S [id number] MEDICARE [id number] Veronique [id number] [facility] [id number] S [id number] MEDICARE C [id number] S [id number] A [employer] Supplemental Plan Medigap Part B [id number] .1.369693.3.227.99.802.549184.0 Self [id number] Medicare Medicare Primary [id number] .1.115080.3.227. 99.802.214616.0 Self [id number] [employer] Supplemental Plan Medigap Part B [id number] .1.431023.3.227.99.802.901810.0 Self [id number] Medicare Medicare Primary [id number] .1.124292.3.227. 99.802.381045.0 Self [id number] [facility] Supplemental Plan [place] Part B [id number] Self [id number] Medicare Medicare Primary [id number] Self [id number] Problems, Conditions, and Diagnoses Code Display Name Description Problem Type Effective Dates Data Source(s) I49.5 Sick sinus syndrome Sick sinus syndrome Diagnosis 0 12/30/2020 01:38:57 PM EDT [facility] I48.92 Unspecified atrial flutter Unspecified atrial flutter Diagnosis 11/13/2020 07:28:00 AM EDT [facility] U07.1 COVID-19 COVID-19 Diagnosis 11/08/2020 08:51:10 AM ED T [facility] R13.10 Dysphagia, unspecified DYSPHAGIA, UNSPECIFIED Diagnosi s 07/25/2020 08:39:00 AM [facility] N18.4 Chronic kidney disease, stage 4 (severe) CHRONIC KIDNEY DISEASE, STAGE 4 (SEVERE) Diagnosis 07/25/2020 08:39:00 AM [facility] I50.9 Heart failure, unspecified HEART FAILURE, UNSPECIFIED Diagnosis 07/25/2020 08:39:00 AM [facility] I48.91 Unspecified atrial fibrillation UNSPECIFIED ATRI AL FIBRILLATION Diagnosis 07/25/2020 08:39:00 AM [facility] 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 EMIC 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 (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) USE OF ORAL HYPOGLYCEMIC DRUGS Diagnosis 07/15/2020 03:19:00 PM EDT [facility] 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 [facility] (CURRENT) USE OF INHALED STEROIDS Diagnosis 07/15/2020 03:19:00 PM [facility] Z85.51 Personal history of malignant neoplasm o f bladder PERSONAL HISTORY OF MALIGNANT NEOPLASM OF BLADDER Diagnosis 07/15/2020 03:19:00 PM EDT [facility] Z87.891 Personal history of nicotine dependence PERSONAL HISTORY OF NICOTINE DEPENDENCE Diagnosis 07/15/2020 03:19:00 PM [facility] Z95.1 Presence of aortocoronary bypass graft P RESENCE OF AORTOCORONARY BYPASS GRAFT Diagnosis 07/15/2020 03:19:00 PM [facility] Z95.0 Presence of cardiac pacemaker PRESENCE OF CARDIAC PACE MAKER Diagnosis 07/15/2020 03:19:00 PM [facility] E78.00 PURE HYPERCHOLESTEROLEMIA, UNSPECIFIED P URE HYPERCHOLESTEROLEMIA, UNSPECIFIED Diagnosis 07/15/2020 03:19:00 PM [facility] I25.10 Atherosclerotic heart diseas e of [place] coronary artery without angina pectoris ATHSCL HEART DISEASE OF [place] CORONARY ARTERY W/O Diagnosis 07/15/2020 03:19:00 PM [facility] I10 Essential (primary) hypertension ESSENTIAL (PRIMARY) H YPERTENSION Diagnosis 07/15/2020 03:19:00 PM [facility] E11.9 Type 2 diabetes mellitus without complic ations TYPE 2 DIABETES MELLITUS WITHOUT COMPLICATIONS Diagnosis 07/15/2020 03:19:00 PM [facility] nuris N19 Unspecified kidney failure UNSPECIFIED KIDNEY FAILURE Diagnosis 07/15/2020 03:19:00 PM [facility] R00.0 Tachycardia, unspecified TACHYCARDIA, UNSPECIFIED Diag nosis 07/15/2020 03:19:00 PM [facility] R07.2 Precordial pain PRECORDIAL PAIN Diagnosis 07/15/2020 03:1 9:00 PM [facility] J44.9 Chronic obstructive pulmonary disease, u nspecified CHRONIC OBSTRUCTIVE PULMONARY DISEASE, UNSPECIFIED Diagnosis 07/15/2020 12:56:00 PM [facility] R06.02 Shortness of breath SHORTNESS OF BREATH Diagnosis 0 07/15/2020 12:56:00 PM [facility] R07.9 Chest pain, unspecified CHEST PAIN, UNSPECIFIED Diagno sis 07/15/2020 12:56:00 PM [facility] R25.1 Tremor, unspecified TREMOR, UNSPECIFIED Diagnosis 1 06/10/2019 01:20:00 PM [facility] F32.9 Major depressive disorder, single episod e, unspecified MAJOR DEPRESSIVE DISORDER, SINGLE EPISODE, UNSPECI Diagnosis 04/09/2020 01:20:00 PM [facility] M19.90 Unspecified osteoarthritis, unspecified site UNSPECIFIED OSTEOARTHRITIS, UNSPECIFIED SITE Diagnosis 04/09/2020 01:20:00 PM [facility] E78.5 Hyperlipidemia, unspecified HYPERLIPIDEMIA, UNSPECIFIE D Diagnosis 04/09/2020 01:20:00 PM [facility] Z71.89 Other specified counseling OTHER SPECIFIED COUNSELING Diagnosis 02/06/2020 10:40:00 AM [facility] Z23 Encounter for immunization ENCOUNTER FOR IMMUNIZATION Diagnosis 02/06/2020 10:40:00 AM [facility] L60.3 Nail dystrophy NAIL DYSTROPHY Diagnosis 01/14/2020 11:30: 00 AM [facility] L60.0 Ingrowing nail INGROWING NAIL Diagnosis 01/14/2020 11:30: 00 AM [facility] N18.9 Chronic kidney disease, unspecified CHRONIC KIDN EY DISEASE, UNSPECIFIED Diagnosis 01/14/2020 11:30:00 AM [facility] E11.22 Type 2 diabetes mellitus with diabetic c hronic kidney disease TYPE 2 DIABETES MELLITUS W DIABETIC CHRONIC KIDNEY DISEASE Diagnosis 11:30:00 AM [facility] Z71.2 Person consulting for explanation of exa mination or test findings PERSON CONSULTING FOR EXPLANATION OF EXAM OR TEST Diagnosis 01/09/2020 01:39: 00 PM [facility] M10.9 Gout, unspecified GOUT, UNSPECIFIED Diagnosis 01/09/2020 01:39:00 PM [facility] I25.709 [id number] 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) I48.0 [id number] Paroxysmal atrial fibrillation Problem 11/25/2020 12:00:00 AM EDT eCW1 ([facility]) G47.30 [id number] Suspected sleep apnea Problem 11/25/2020 12: 00:00 AM EDT eCW1 ([facility]) I48.92 Atrial flutter Atrial flutter [id number] 10/30/2020 12:00: 00 AM EDT [facility] I48.3 Atrial flutter Atrial flutter Problem 10/07/2020 12:00: 00 AM EDT [facility] ([facility]) I25.10 Atherosclerosis of coronary artery witho ut angina pectoris Atherosclerosis of coronary artery without angina pectoris Problem 10/07/2020 12:00:00 AM EDT [facility] ([facility]) Z71.3 Dietary management surveillance Dietary management deanna veillance Problem 10/07/2020 12:00:00 AM EDT [facility] ([facility]) E78.2 Mixed hyperlipidemia Mixed hyperlipidemia Problem 10/07/2020 12:00:00 AM EDT [facility] ([facility]) I10 Essential hypertension Essential hypertension Problem 10/07/2020 12:00:00 AM EDT [facility] ([facility]) Z95.0 Cardiac pacemaker in situ Cardiac pacemaker in situ Pr oblem 10/07/2020 12:00:00 AM EDT [facility] ([facility]) I49.5 Sinus node dysfunction Sinus node dysfunction Problem 10/07/2020 12:00:00 AM EDT [facility] ([facility]) Z95.1 History of coronary artery bypass grafti ng History of coronary artery bypass grafting Problem 10/07/2020 12:00:00 AM EDT [facility] ([facility]) N18.4 [id number] Stage 4 chronic kidney disease Problem 07/25/2020 12:00:00 AM EDT eCW1 ([facility]) I50.9 [id number] Chronic congestive heart failure , unspecified heart failure type Problem 07/25/2020 12:00:00 AM EDT eCW1 ([facility]) R13.10 [id number] Dysphagia, unspecified type Problem 07/26/19 12:00:00 AM EDT eCW1 ([facility]) I48.91 [id number] Atrial fibrillation, unspecified type Pro blem 07/25/2020 12:00:00 AM EDT eCW1 ([facility]ia) Z95.0 [id number] History of permanent cardiac pacemaker pl acement Problem 07/15/2020 12:00:00 AM EDT eCW1 ([facility]) I10 [id number] Essential hypertension Problem 04/09/2020 12 :00:00 AM EST eCW1 ([facility]) Surgeries/Procedures Procedure Description Date Indications Data Source(s) INTERROGATION EVAL REMOTE </90 D 1/2/LEAN SIX SIGMA SENIOR SPECIALIST LEAD PM 01/20 12:00:00 AM EDT [facility] ([facility]) INTERROGATION EVAL REMOTE </90 D 1/2/> LD CVDFB 2020 12:00:00 AM EDT [facility] ([facility]) ECG ROUTINE ECG W/LEAST 12 LDS W/I&R 12/05/2020 12:00: 00 AM EDT [facility] ([facility]) OFFICE OUTPATIENT VISIT 25 MINUTES 12/05/2020 12:00:00 AM EDT [facility] ([facility]) EP STUDY <td>EP STUDY</td><td>Routine </td><td>11/13/2020 10:21 AM EDT</td><td> Atrial flutter, unspecified type</td><td> </td> 11/13/2020 10:21:49 AM EDT Atrial flutter, unspecified type [facility] Atrial flutter, unspecified type POC GLUCOSE <td>POC GLUCOSE</td><td>Rout ine</td><td>11/13/2020 8:41 AM EDT</td><td></td><td> </td> 11/13/2020 08:41:00 AM EDT [facility] POCT POTASSIUM <td>POCT POTASSIUM</td><td>R outine</td><td>11/13/2020 8:41 AM EDT</td><td></td><td> </td> 11/13/2020 08:41:00 AM EDT [facility] BLOOD COUNT HEMATOCRIT <td>POCT HEMATOCRIT</td><td> Routine</td><td>11/13/2020 8:41 AM EDT</td><td></td><td> </td> 11/13/2020 08:41:00 AM EDT [facility] ECG ROUTINE ECG W/LEAST 12 LDS TRCG ONLY W/O I&R <td>E CG 12- LEAD</td><td>Routine</td><td>11/13/2020 8:09 AM EDT</td><td></td><td></td> 11/13/2020 08:09:[address] [facility] ECG ROUTINE ECG W/LEAST 12 LDS TRCG ONLY W/O I&R <td>E CG 12- LEAD</td><td>Routine</td><td>11/04/2020 3:24 PM EDT</td><td> Atrial flutter, unspecified type</td><td></td> 11/04/2020 03:24:29 PM EDT Atrial flutter, unspecified type [facility] Atrial flutter, unspecified type BLOOD COUNT COMPLETE AUTOMATED <td>CBC</td><td>Routine </td><td>11/04/2020 3:10 PM EDT</td><td> Atrial flutter, unspecified type</td><td> </td> 11/04/2020 03:10:00 PM EDT Atrial flutter, unspecified type [facility] Atrial flutter, unspecified type BLOOD TYPING ABO <td>TYPE AND SCREEN</td><td> Routine</td><td>11/04/2020 3:10 PM EDT</td><td> Atrial flutter, unspecified type</td><td> </td> 11/04/2020 03:10:00 PM EDT Atrial flutter, unspecified type [facility] Atrial flutter, unspecified type HEMOGLOBIN GLYCOSYLATED A1C <td>HEMOGLOBIN A1C</td><td>Routine</td><td>11/04/2020 3:10 PM EDT</td><td> Atrial flutter, unspecified type</td><td> </td> 11/04/2020 03:10:00 PM EDT Atrial flutter, unspecified type [facility] Atrial flutter, unspecified type BASIC METABOLIC PANEL CALCIUM TOTAL <td>BASIC METABOLI C PANEL</td><td>Routine</td><td>11/04/2020 3:10 PM EDT</td><td> Atrial flutter, unspecified type</td><td> </td> 11/04/2020 03:10:00 PM EDT Atrial flutter, unspecified type [facility] Atrial flutter, unspecified type ECG ROUTINE ECG W/LEAST 12 LDS W/I&R 10/07/2020 12:00: 00 AM EDT [facility] ([facility]) Arterial Pressure Waveform Analysis For Assessment Of Centra l Art 10/07/2020 12:00:00 AM EDT [facility] ([facility] OFFICE OUTPATIENT NEW 45 MINUTES 10/07/2020 12:00:00 A M EDT [facility] ([facility]) CYSTOURETHROSCOPY 03/17/2020 12:00:00 AM EST [facility] ([facility] [place]) Results ID Date Data Source [id number] 12/30/2020 08:01:24 PM EDT [facility] NT INFORMATIONPatient MRN Name Date of Age Gend*PT [id number] Taj Norris 1940 80 years M ---PT Location Admission Date/Time Visit ID Attending Provider --- --- --- --- EPI ID CSN Admitting Provider [id number] ---Name: Taj ThomasenDOB: 1Date: 12/30/20CIED Remote CheckImplanted Device 05/30/2019Device Bridges Supervisor -Device type Dual Chamber PPMMRI Conditional Device NoDevice was remotely interrogated and the following were evaluated:Battery statusSummary arrhythmia logsNew observationsFidelity of the EGM signalIntegrity of leads and lead impendence were reevaluatedConclusion:Normal pacemaker function.No significant changes continue to monitor.Signature: Pablito Christie MD, [facility]ENTERCardiac Electrophysiology and Arrhythmia ServiceDate: December 30, 2020Time: 8:01 PMThis document or parts of this document, were dictated using [employer]. A reasonable attempt at proofreading has been made to minimize errors.Please call with any questions or corrections. Name Value Range Interpretation Code Description Data Evelyn rce(s) Supporting Document(s) ID Date Data Source [id number] 11/26/2020 09:36:00 AM EDT MEDENT ([facility]) Name Value Range Interpretation Code Description Data Evelyn rce(s) Supporting Document(s) [place]/Creat Ratio 42.2 MCG/MG 0.0-30.0 [facility] ([facility]) THE 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 THE THRESHOLD FOR CLINICAL ALBUMINURIA IS REACHED AT 300 MCG/MG. THE CLASSIFICATION OF A PATIENT SHOULD BE BASED UPON AT LEAST 2 OF 3 ABNORMAL RESULTS ON SPECIMENS COLLECTED WITHIN A 3 TO 6 MONTH TIME FRAME. Malb Urine Siemens 46.1 mg/L [facility] ([facility]) Creatinine, Urine 109.0 mg/dL [facility] ([facility]) ID Date Data Source [id number] 11/26/2020 09:36:00 AM EDT [facility] ([facility]) Name Value Range Interpretation Code Description Data Evelyn rce(s) Supporting Document(s) Glucose, Fasting 161 mg/dL 70-100 [facility] ([facility]) Glomerular Filtration Rate 33.9 MED ENT ([facility]) <content>Units are mL/min/1.73 m2</content>
<content></content>
<content>Chronic Kidney Disease Staging per NKF:</content>
<content></content>
<content>Stage I & II GFR >=60 Normal to Mildly Decreased</content>
<content>Stage III GFR 30- 59 Moderately Decreased</content>
<content>Stage IV GFR 15-29 Severely Decreased</content>
<content>Stage V GFR <15 Very Little GFR Left</content>
<content>ESRD GFR <15 on HOME APPLIANCE INSTALLER</content>
<content></content> Creatinine For GFR 2.03 mg/dL 0.70-1.30 [facility] ([facility]) Blood Urea Nitrogen 31 mg/dL 7-18 [facility] ([facility]) Sodium Level 138 meq/L 136-145 MED[facility] ([facility]) Potassium Serum 4.5 meq/L 3.5-5.1 [facility] ([facility]) Carbon Dioxide Level 30 meq/L 21-32 MEDENT ([facility]) Chloride Level 104 meq/L 98-107 MED[facility] ([facility]) Calcium Level 9.1 mg/dL 8.8-10.2 [facility] ([facility]) Anion Gap 4 meq/L 8-16 [facility] ID Date Data Source [id number] 11/26/2020 09:36:00 AM EDT [facility] ([facility]) Name Value Range Interpretation Code Description Data Evelyn rce(s) Supporting Document(s) Triglycerides Level 382 mg/dL MED[facility] ([facility]) Cholesterol Level 254 mg/dL [facility] ([facility]) HDL Cholesterol 33 mg/dL [facility] ([facility]) LDL Cholesterol 145 mg/dL [facility] ([facility]) Non-HDL-C 221 mg/dL [facility] ([facility] Cholesterol Risk Ratio 7.696 [facility] ([facility]) ID Date Data Source [id number] 11/26/2020 09:36:00 AM EDT [facility] ([facility]) Name Value Range Interpretation Code Description Data Evelyn rce(s) Supporting Document(s) Hemoglobin A1c 6.7 % [facility] ([facility]) <content>REFERENCE RANGES:</content><br/ ><content></content>
<content><=5.6% NORMAL</content>
<content>5.7-6.4% SUGGESTS IMPAIRED GLUCOSE METABOLISM/PREDIABETIC</content>
<content>>= 6.5% ABNORMAL</content>
<content></content> Estimated Average Glucose 146 mg/dL 60-110 [facility] ([facility]) ID Date Data Source [id number] 11/13/2020 10:41:41 AM EDT [facility] Name Value Range Interpretation Code Description Data Evelyn rce(s) Supporting Document(s) &PDF [facility] YRIHZv7xHwUACxHt53/XUFblUKVsm3RyFIhaVZj1VFmaMKRrE8DobMvqFTYCA1LPPHBRM1KTXWVWMY3b oRX [file] ICAgICAgICAgICAgICAgICAgICAgICAgICAgICAgICAgICAgICAgICAgICAgICAgICAgICAgICAgICAg ICAgICAgICAgICAgICAgICANCiAgICAgICAgICAgIC AgICAgICAgICAgICAgICAgICAgICAgICAgICAgICAgICAgICAgICAgICAgICAgICAgICAgICAgICAgIC AgICAgICAgICAgICAgICAgICAgICAgICAgICANCiAgICAgICAgICAgICAgICAgICAgICAgICAgICAgIC AgICAgICAgICAgICAgICAgICAgICAgICAgICAgICAg ICAgICAgICAgICAgICAgICAgICAgICAgICAgICAgICAgICAgICANCiAgICAgICAgICAgICAgICAgICAg ICAgICAgICAgICAgICAgICAgICAgICAgICAgICAgICAgICAgICAgICAgICAgICAgICAgICAgICAgICAg ICAgICAgICAgICAgICAgICAgICANCiAgICAgICAgIC AgICAgICAgICAgICAgICAgICAgICAgICAgICAgICAgICAgICAgICAgICAgICAgICAgICAgICAgICAgIC AgICAgICAgICAgICAgICAgICAgICAgICAgICAgICANCiAgICAgICAgICAgICAgICAgICAgICAgICAgIC AgICAgICAgICAgICAgICAgICAgICAgICAgICAgICAg ICAgICAgICAgICAgICAgICAgICAgICAgICAgICAgICAgICAgICAgICANCiAgICAgICAgICAgICAgICAg ICAgICAgICAgICAgICAgICAgICAgICAgICAgICAgICAgICAgICAgICAgICAgICAgICAgICAgICAgICAg ICAgICAgICAgICAgICAgICAgICAgICANCiAgICAgIC AgICAgICAgICAgICAgICAgICAgICAgICAgICAgICAgICAgICAgICAgICAgICAgICAgICAgICAgICAgIC AgICAgICAgICAgICAgICAgICAgICAgICAgICAgICAgICANCiAgICAgICAgICAgICAgICAgICAgICAgIC AgICAgICAgICAgICAgICAgICAgICAgICAgICAgICAg ICAgICAgICAgICAgICAgICAgICAgICAgICAgICAgICAgICAgICAgICAgICANCiAgICAgICAgICAgICAg ICAgICAgICAgICAgICAgICAgICAgICAgICAgICAgICAgICAgICAgICAgICAgICAgICAgICAgICAgICAg ICAgICAgICAgICAgICAgICAgICAgICAgICANCjw/eH NiK3zhkFAttiM0G7ytTr0CPq2FVO5io3LlFGQvRThxziHiJksUXvXxYREmQxdGZgb9SGbnGB8BxMCvH3 AvY5CvRHmpFU1LPHZqBBDmxKYoJFFfUOWxQbI0IFHgUCvoJA2JnIMiMGidVDIkHKScZoLeBLUjLERcNH ZrIG6HKOIjW177lgZlIl4YCj2PTtOqRY2abw8JVnMa LUMlXevDDev9VIyqKP5FpHPoaHJgBYTjUHBSQxCcE0ygl0DeWgOwVEEYGZiaJS6Ex2XeeMKtZTf+Pg0K GZ8ns9QmTAsvOCOeUR6szr3RONxPWcGzC7VykIfqZMvinWslpfXvWC5QLCNyVYAxkMHvLIujYLHBMD3A KWvwAUPfWYZvibLfkAAlKMpoWQ7IUZNqtsBsPqJbLD BSDQo+Zu2PSD1mo8GaQKteVoJcKY1jwn8KSYdKYmUtF5E7xMGsV7G7XIevUr3VDGFeIFQtSTwpAOFXEJ vhGU5YQP2qzgM3RQ1OmVNxIRQoNSYbzNZuCQh7W81tpQFwTAsnMO0YBKH+Katty+Rb4QVNDoIGVgGKYhFy JmIBPRHaDnG2MqN4RSh4EvB2YqAA36mIdhhsVtMYde UP2NBP1xSVOfCIXQXA0CdCIuyN5iicSgLDRoXUROZnTaR36yyAFpEPNmSLS6BDVzPd8GMWBdM8CpvrAb nXcpvmWqOYHxVBYEWE4WBCwgaxZkgUQhwKdvHV43hCusDB4JDq8AIkQoFM6aov7PoJZnQm4DBRIvEf6H NHWoJOYlINIgLCB7JQVmZpIbOGyuFSMuRKXhYAJ3DA FgUHYjZL6XWrQrKXRxMVU8IcIsFUUvYWWgul7LGQBfUUCyEqI1JAXpXJYeRIErIMteWIRxRVOaVUucUO FtAVBtKS2HLmLoTGCrIOAeCfWmTAMiYKExtf7BFBWbOUVkKcCdORItPBVuTQDgOBecLINoKPJ1EHj6IT CkXZYrPF5JCmTwKROgOMNpZOJiQSGhWFWqmt2NTRWr NRHpZre3TEWjPAJyTQWbJFhtIPUvNGQ1ERByOBBySDYsLV7QQqJeDKEpGJhqVvVoGALuKVMntx2YKZIv PLWsOTH9EHRsPVPdMMAsDUfsVFEmVZI9OEJvFTFtNMZpVC5RTrFqNHQoLFg2CRTwZTNuLVFtie4BMMEv JWXgBEFxYrQdWVOaFTJkZEplEPRaMTU7CoviTTUpGF HlNY7ILzWuYVRaLFP9QCObJNOhPSYlih4YPKOwHSZqNCWeQmAwVIJtDDBuCXtvXIFeXVF5DYU3DEPdSW EzAQ4EOeOiAJCfGZjaHqklPMUyCOHbxr7WXNUwKIVpCuOxGZNvMJWmCQIsQJnkFNOuALK3ZAA7LHMrQS FhHP7DFvTdUMktDJGLYzn6DJpaO7a4ESSfWq6BP3Ct t3IiFhRyDJVCWBsvGT1bszHbHMElYx3PS6cMUkovEdLsDAHnIZB8UVT6MLgoMWn1XqBcQ7VvOAZzOPVy NA4yUUGeFIGiOQI9OPy6TgjnMGDjTySeMqOgOIAfZGF4ZKCyXdIwTG9OJo6JEdQ2BMS2dYDuWd6RCVp2 UDGKDuVaGL2PQOw= ID Date Data Source [id number] 11/13/2020 09:05:34 AM EDT [facility] INFORMATIONPatient MRN Name Date of Age Gend*PT [id number] Taj Norris W 1940 79 years M HOPPT Location Admission Date/Time Visit ID Attending [id number] 11/13/20727 --- Pablito Christie MD([id number]) EPI ID CSN Admitting Provider [id number] Pablito Christie MD([id number])H&P reviewed. The patient was examined and there are no changes to the H&P.Pablito Christie MD9:05 AM Name Value Range Interpretation Code Description Data Evelyn rce(s) Supporting Document(s) ID Date Data Source [id number] 11/13/2020 09:02:33 AM EDT [facility] Name Value Range Interpretation Code Description Data Evelyn rce(s) Supporting Document(s) EKG [facility] GQBJHs7nXgHRKcBtv5TwQgQbTVHjPA7qpoj9V1P9hBZqH5PszUKrc8opL9GlZ9RiMLAfGPEELO6InZZd jb2 [file] 3dS2VDzQZVJAKsdeupvR1X796XKRiq3oL1trgg7A+WSSJ+L58/iJ55mCR//zLTx/wvznv//electric meter inspector//8ZePP [file] d26ucqY3jY57t9ELl+ASSISTED LIVING ADMINISTRATOR+7H+4BgZ7CEW41bnYQ6p+UlcG9nCG6KHC2H0Av0OsMIim8E2mI/cJ/GR+2T9 [file] dgHa0cMgZnWWPEH9Ldu8YnRXNeEZDYDa5+RjW3MCK4yEFoBnr7BXw5QSawAGHKSo== ID Date Data Source [id number] 11/13/2020 08:49:46 AM EDT [facility] Name Value Range Interpretation Code Description Data Evelyn rce(s) Supporting Document(s) POC POTASSIUM 5.0 MMOL/L (3.6-5.2) [facility] PERFORMED BY [facility] CLINICAL STAFF ID Date Data Source [id number] 11/13/2020 08:49:46 AM EDT [facility] Name Value Range Interpretation Code Description Data Evelyn rce(s) Supporting Document(s) POC GLU 189 MG/DL (70-99) H [facility] PERFORMED BY [facility] ID Date Data Source [id number] 11/13/2020 08:49:46 AM EDT [facility] Name Value Range Interpretation Code Description Data Evelyn rce(s) Supporting Document(s) POC HCT 41 % (41.0-53.0) [facility] PERFORMED BY [facility]IN[facility] STA[facility] ID Date Data Source [id number] 11/11/2020 08:44:26 AM EDT [facility] Name Value Range Interpretation Code Description Data Evelyn rce(s) Supporting Document(s) SARS-COV-2 [facility] Not DetectedReference range: Not Detecte d This nucleic acid amplification test was developed and its performance characteristics determined by [employer]. Nucleic acid amplification tests include RT-PCR and TMA. This test has not been FDA cleared or approved. This test has been authorized by FDA under an Emergency Use Authorization (EUA). This test is only authorized for the duration of time the declaration that circumstances exist justifying the authorization of the emergency use of in vitro diagnostic tests for detection of SARS-CoV-2 virus and/or diagnosis of COVID-19 infection under section 564(b)(1) of the Act, 21 U.S.C. 360bbb-3(b) (1), unless the authorization is terminated or revoked sooner. When diagnostic testing is negative, the possibility of a false negative result should be considered in the context of a patient's recent exposures and the presence of clinical signs and symptoms consistent with COVID- 19. An individual without symptoms of COVID- 19 and who is not shedding S ARS-CoV-2 virus would expect to have a negative (not detected) result in this assay. Performed At: [facility] [place], [place] [id number] Anh Luis PhD Ph:[phone] ID Date Data Source [id number] 11/06/2020 09:00:00 AM EDT [facility] Name Value Range Interpretation Code Description Data Evelyn rce(s) Supporting Document(s) SARS coronavirus 2 RNA Not Detected [facility] [place] This lab was ordered by [facility] and reported by [facility]. ID Date Data Source [id number] 11/04/2020 03:42:56 PM EDT [facility] Name Value Range Interpretation Code Description Data Evelyn rce(s) Supporting Document(s) [facility] EHXDWe4yTeSPZfZdf7XtZyLkBEZlMW0yewy3K1G8lAInU9UojJYwb5qpI7BwS0XlROSxAZZWWI8KvYZd jb2 [file] SCWnS5A9s7sonOchSsqjttNGn1fBgmydRX2//professor of geology/tU7Ra7kP5NlCRZSMVeHyg/heH2VjJAZbwqxGI6Gs [file] MDkgMDAwMDAgbiAKMDAwMDAwMTczNCAwMDAwMCBuIA pzUMRqBQZpWNH5BYFvJYLgJW2tMaTbCRThATBaOGYxWeX2YwWzJfEAdDClsRofdgj2LYriK7t7UBIhCW hbFA9gddQwWJZfJiorYd6spHD8LYOkBltJEb3Kd4HcrmN9lsDzAuCsEWJxGdSbYG4J ID Date Data Source [id number] 11/04/2020 10:21:13 PM EDT [facility] SPEC EXP DATE 11/14/2020ATI ENT ABO/Rh B POSITIVEANTIBODY SCREEN NEGATIVETESTING SITE PERFORMED AT [address] [place] [address] Name Value Range Interpretation Code Description Data Evelyn rce(s) Supporting Document(s) TYPE AND SCREEN [facility] PATIENT ABO/Rh B POSITIVE ID Date Data Source [id number] 11/04/2020 07:33:05 PM EDT [facility] Name Value Range Interpretation Code Description Data Evelyn rce(s) Supporting Document(s) WBC 11.9 10*3/uL (4.1-11.0) H [facility] RESULT CHECKED RBC 4.89 10*6/uL (4.60-6.10) [facility] HGB 13.7 g/dL (13.5-18.0) [facility] HCT 40.5 % (41.0-53.0) L [facility] MCV 82.9 fL (80.0-95.0) [facility] MCH 28.0 pg (27.0-32.0) [facility] MCHC 33.8 g/dL (32.0-36.0) [facility] RDW 17.2 % (10.5-14.5) [facility] PLT (150-450) [facility] MPV PENDING fL (7.1-10.7) [facility] ID Date Data Source [id number] 11/04/2020 07:00:59 PM EDT [facility] Name Value Range Interpretation Code Description Data Evelyn rce(s) Supporting Document(s) SODIUM 141 mmol/L (136-145) [facility] POTASSIUM 4.0 mmol/L (3.6-5.2) [facility] CHLORIDE 102 mmol/L (100-108) [facility] CO2 29 mmol/L (22-31) [facility] ANION GAP 10 mmol/L (7-16) [facility] UREA NITROGEN 31 mg/dL (7-24) H [facility] CREATININE 2.19 mg/dL (0.80-1.30) H [facility] BUN/CREAT RATIO 14.2 RATIO (10.0-20.0) [facility] GLUCOSE 104 mg/dL (70-99) H [facility] CALCIUM 9.4 mg/dL (8.4-10.2) [facility] GFR 29 ml/min/1.73m2 (>59) L [facility] GFR ( AMER) 35 ml/min/1.73m2 (>59) L [facility] GFR INTERPRETATION [facility] --NORMAL KIDNEY FUNCTION OR MILD DISEASE - GFR >OR= 60CHRONIC KIDNEY DISEASE - GFR 15 - 59RENAL FAILURE - GFR <15 Est. GFR calculation based on the MDRDstudy equation, which assumes a steadystate for creatinine. Est. GFR should notbe used for medication dosing. ID Date Data Source [id number] 11/04/2020 06:43:50 PM EDT [facility] Name Value Range Interpretation Code Description Data Evelyn rce(s) Supporting Document(s) HEMOGLOBIN A1C @ 6.8 % (4.0-6.0) H [facility] Performed using Siemens [place] immunoassa y.Care must be taken when interpreting VnZ1rdzaoqrc in patients with a hemoglobin variantor decreased erythrocyte lifespan. Values 5.7 - 6.4% suggest prediabetes.Values >=6.5% are diagnostic for diabetes.REFERENCE: DIABETES CARE 2018: 41(S13-S27). EST AVERAGE GLUCOSE 148 mg/dL [facility] ID Date Data Source [id number] 11/04/2020 03:01:18 PM EDT [facility] NT INFORMATIONPatient MRN Name Date of Age Gend*PT [id number] Taj Norris 1940 79 years M OPPT Location Admission Date/Time Visit ID Attending Provider --- --- --- Pablito Christie MD([id number]) EPI ID CSN Admitting Provider [id number] ---OUTPATIENT / OBSERVATIONAL SURGICAL OR INVASIVE PROCEDUREName: Taj Norris : 1940 Sex: male Care Provider: [facility] Physician: Dr. Christie.Informant: Patient who is a poor historian.HISTORY OF PRESENT ILLNESS: 79 years old white male with history of irregularheart beats first diagnosed in 2011. He reports symptoms including heartpalpiations, heart racing with pain. He has shortness of breath at rest anddyspnea on exertion. Patient met with Dr. Christie, options were discussed,and he has now elected to undergo surgical intervention.PAST MEDICAL HISTORY:Past Medical History:Diagnosis Date Anxiety Atrial fibrillation Followed by Dr Loco Cancer Bladder Chronic kidney disease (CKD), stage III (moderate) Followed by Dr Puckett COPD (chronic obstructive pulmonary disease) Coronary artery disease Coronary artery disease involving [place] coronary artery of [place] heartwithout angina pectoris 12/07/2017 Diabetes mellitus Diverticulitis GERD (gastroesophageal reflux disease) Gout Hypertension Presence of permanent cardiac pacemaker 12/07/2017 Rheumatoid arthritisPAST SURGICAL HISTORY:Past Surgical History:Procedure Laterality Date CARDIAC CATHETERIZATION CATARACT EXTRACTION Bilateral 2007 COLECTOMY 2011 CORONARY ARTERY BYPASS GRAFT 2009 Triple HERNIA REPAIR Bilateral 1995 INSERT / REPLACE / REMOVE PACEMAKER PROSTATE SURGERY 2005 PROSTATECTOMY N/A 12/07/2016 Procedure: TRANSURETHRAL RESECTION PROSTATE; Surgeon: Juan Ortiz MD;Laterality: N/A; REFRACTIVE SURGERY REPLACEMENT TOTAL KNEE Right 07/2015 TOTAL HIP ARTHROPLASTY Right TRANSURETHRAL RESECTION OF BLADDER TUMOR N/A 10/12/2016 Procedure: CYSTOSCOPY TRANSURETHRAL RESECTION BLADDER TUMOR ; Surgeon: MD Nahun; Laterality: N/A; TRANSURETHRAL RESECTION OF BLADDER TUMOR N/A 11/09/2016 Procedure: CYSTOSCOPY TRANSURETHRAL RESECTION BLADDER TUMOR; Surgeon: MD Nahun; Laterality: N/A; UMBILICAL HERNIA REPAIR 2014ALLERGIES:AllergiesAllergen Reactions Morphine And Related Itching Gabapentin Oxycodone-Acetaminophen TramadolMEDICATIONS:Prior to Admission medicationsMedication Sig Start Date End Date Taking? Authorizing Providerallopurinol (ZYLOPRIM) 100 MG tablet Take 300 mg by mouth daily HistoricalProvider, MauramLODIPine (NORVASC) 5 MG tablet Take 5 mg by mouth 2 (two) times a dayHistorical Provider, MAURApixaban (ELIQUIS) 5 MG TABS tablet Take by mouth 2 (two) times a dayHistorical Provider, MAURAsc orbic Acid (VITAMIN C) 1000 MG tablet Take 1,000 mg by mouth 2 (two) times aday Historical Provider, budesonide-formoterol (SYMBICORT) 80-4.5 MCG/ACT inhaler Inhale 2 puffs 2 (two)times a day Historical Provider, busPIRone (BUSPAR) 10 MG tablet Take 10 mg by mouth 2 (two) times a day 15MGHistorical Provider, Yolandaarvedilol (COREG) 25 MG tablet Take 25 mg by mouth 2 (two) times a dayHistorical Provider, YOLANDAholecalciferol (VITAMIN D PO) Take 5,000 Units by mouth once a weekHistorical Provider, Yolandaolchicine 0.6 MG tablet Take 0.6 mg by mouth daily PRN Historical Provider,YOLANDAyanocobalamin (VITAMIN B12 PO) Take by mouth daily Historical Provider, Soheilaocusate sodium (COLACE) 100 MG capsule Take 100 mg by mouth 2 (two) times a dayHistorical Provider, furosemide (LASIX) 20 MG tablet Take 40 mg by mouth daily 1/2 qd HistoricalProvider, glipiZIDE (GLUCOTROL) 10 MG 24 hr tablet Take 10 mg by mouth daily 09/11/19Historical Provider, Linagliptin (TRADJENTA) 5 MG TABS Take 5 mg by mouth daily HistoricalProvider, MDMagnesium Gluconate 250 MG TABS Take 250 mg by mouth daily HistoricalProvider, MDmeloxicam (MOBIC) 15 MG tablet Take 15 mg by mouth daily 08/23/19 HistoricalProvider, MDpantoprazole (PROTONIX) 40 MG tablet Take 40 mg by mouth daily HistoricalProvider, MDProbiotic Product (PROBIOTIC ADVANCED PO) Take 2 capsules by mouth dailyHistorical Provider, Ravinertraline (ZOLOFT) 100 MG tablet Take 100 mg by mouth daily HistoricalProvider, traMADol (ULTRAM) 50 MG tablet Take 50 mg by mouth as needed 09/05/19Historical Provider, Zinc 30 MG TABS Take by mouth daily His torical Provider, RAVINocial HistoryTobacco Use Smoking status: Former Smoker Years: 35.00 Types: Cigarettes, Pipe, Cigars Quit date: 10/13/1999 Years since quittin.0 Smokeless tobacco: Former User Types: ChewVaping Use Vaping Use: Never usedSubstance Use Topics Alcohol use: Yes Comment: 0-1/day Drug use: NoFamily HistoryProblem Relation Age of Onset Malig Hyperthermia Neg HxREVIEW OF SYSTEMS:Respiratory: He has shortness of breath at rest and dyspnea on exertion. Deniesany shortness of breath, cough, yellow sputum production or wheezing.Cardiovascular: He reports symptoms including heart palpiations, heart racingwith pain.GI: Denies nausea, vomiting, diarrhea, constipation or melena.Endocrine: He checks blood sugars 1 times daily, am fasting values range vmra930 to 124.Musculoskeletal: Reports diffuse joint, back and neck pain. Using a cane forambulate.Neurologic: bilateral foot numbness, tingling. Denies anytremors or syncope.Vascular: Reports mild dependent edema. Denies claudication.PHYSICAL EXAM:GENERAL: He is a 79 years old, pleasant white male, in no acute distress at timeof examination. Vitals on arrival to the office are BP 115/68 (BP Location: Leftupper arm, Patient Position: Sitting) | Pulse 63 | Ht 1.727 m (5' 8") | Wt89.8 kg (198 lb) | SpO2 98% | BMI 30.11 kg/m Body mass index is 30.11kg/m ..Skin is pink, warm, and dry.NECK: He has a grade 3 airway. Neck is supple, midline, without cervicaladenopathy. No thyromegaly. No carotid bruits.MENTAL / NEUROLOGICAL STATUS: [id number]: Clear to auscultation. No wheezes, rhonchi or crackles.HEART: Rate regular rhythm irregular. S1, S2. No murmur, rub or gallop.ABDOMEN: Bowel sounds positive times four. Soft, non tender. No reboundtenderness. No hepatosplenomegaly. Negative CVAT.EXTREMITIES: Pulses are symmetrical. Trace edema.OPERATIVE SITE: Denies rash or lesion.Anesthesia complications: DeniesCSHA Frailty Scale :: 4/10 Vulnerable (while not dependent on others for dailyhelp, often symptoms limit activities. A common complaint is being "slowed up",and /or being tired during the day).Stop Bang Questionnaire - Total Score:STOP-Bang Total Score: 4ASSESSMENT: Primary Diagnosis/Indication: Atrial flutter unspecified.PLAN: Procedure: Ablation a flutter.11/04/2020 3:01 PMJose Mejia document or parts of this document, were dictated using Versafe speaking software. A reasonable attempt at proofreading has beenmade to minimize errors. Please call with any questions or corrections.* Name Value Range Interpretation Code Description Data Evelyn rce(s) Supporting Document(s) ID Date Data Source [id number] 10/22/2020 09:55:40 AM EDT [facility] GilbertPATIE NT INFORMATIONPatient MRN Name Date of Age Gend*PT [id number] Taj Norris W 1940 79 years M ---PT Location Admission Date/Time Visit ID Attending Provider --- --- --- --- EPI ID CSN Admitting Provider [id number] ---[facility] [id number] [facility] [address], [address] (First Floor)[place], [place] [address]Qa.: Fax: Matient: Taj Norris : 1Date: 10/22/20CARDIOLOGY ELECTROPHYSIOLOGY TELEMEDICINE CONSULTPatient was identified by name and date of .Verbal consent was obtained from the patient for this telemedicine visit.Patient is aware of the risks, limitations, and benefits of a telemedicinevisit.This telemedicine assessment was conducted remotely with the assistance ofSaleMove communication technology. Telephone Only Codes [id number]: 21-30 minutesof medical discussion: Telephone Only .Subjective:I was asked by Dr. Simpson to consult on this 79 years male with atrial flutterHISTORY OF PRESENT ILLNESS: Patient is a 79-year-old gentleman with a history ofsick sinus syndrome who recently has been complaining of palpitations and whohad documentation of what appears to be typical atrial flutter. The patientstates that he occasionally gets palpitations intermittently and unpredictably.This affects his exercise tolerance and his ability to do his activities. Hedenies any chest pain. He denies any shortness of breath. He denies anysyncope.PHx:CADCABG 3 (08/04/2009)- [place], [place]- ALVAREZ to LAD, SVG to OM & diagonal- Cardiac catheterization 2010 ([facility]); ALVAREZ atretic; nativevessels patentTypical atrial flutterSick sinus syndromeDual-chamber pacemaker in situ- sick sinus syndrome/chronotropic incompe tence- Medtronic dual chamber pacemaker implanted 12/27/2001- Medtronic dual- chamber pulse generator change 02/04/2011- Dr. Pablito Zambrano-ToñaFormerly [facility]ow[facility] Hospitalrimahamed pacemaker lead malfunction t6Wsshpbat hypertensionMixed hyperlipidemiaPSVTCKD stage IIIType II diabetesGoutCOPDFAMILY HISTORY: family history is not on file.SOCIAL HISTORY: reports that he quit smoking about 21 years ago. He quit after15.00 years of use. He has never used smokeless tobacco. He reports currentalcohol use of about 1.0 standard drink of alcohol per week. He reports that hedoes not use drugs.REVIEW OF SYSTEMS: Constitutional: Denies syncope. Denies fever, chills, weightloss or gain. Eyes: Denies blindness. Cardiovascular: Positive palpitations.Respiratory: Denies shortness of breath and dyspnea on exertion. GI: Deniesabdominal pain, nausea or vomiting. : Denies dysuria or hematuria.Musculoskeletal: Negative lower extremity edema. Integumentary: Denies rash.Neurologic: Denies seizures. Psychiatric: Denies depression or anxiety.Hematologic: Denies anemia.Current Outpatient Medications: allopurinol (ZYLOPRIM) 100 MG tablet, Take 300 mg by mouth daily , Disp: ,Rfl: amLODIPine (NORVASC) 5 MG tablet, Take 5 mg by mouth 2 (two) times a day ,Disp: , Rfl: Apixaban (ELIQUIS) 5 MG TABS tablet, Take by mouth 2 (two) times a day, Disp:, Rfl: Ascorbic Acid (VITAMIN C) 1000 MG tablet, Take 1,000 mg by mouth 2 ( two)times a day, Disp: , Rfl: budesonide-formoterol (SYMBICORT) 80-4.5 MCG/ACT inhaler, Inhale 2 puffs 2(two) times a day, Disp: , Rfl: busPIRone (BUSPAR) 10 MG tablet, Take 10 mg by mouth 2 (two) times a fgm22HJ, Disp: , Rfl: carvedilol (COREG) 25 MG tablet, Take 25 mg by mouth 2 (two) times a day,Disp: , Rfl: Cholecalciferol (VITAMIN D PO), Take 5,000 Units by mouth once a week , Disp:, Rfl: colchicine 0.6 MG tablet, Take 0.6 mg by mouth daily PRN, Disp: , Rfl: Cyanocobalamin (VITAMIN B12 PO), Take by mouth daily, Disp: , Rfl: docusate sodium (COLACE) 100 MG capsule, Take 100 mg by mouth 2 (two) times aday, Disp: , Rfl: furosemide (LASIX) 20 MG tablet, Take 40 mg by mouth daily 1/2 qd, Disp: ,Rfl: glipiZIDE (GLUCOTROL) 10 MG 24 hr tablet, Take 10 mg by mouth daily, Disp: ,Rfl: Linagliptin (TRADJENTA) 5 MG TABS, Take 5 mg by mouth daily, Disp: , Rfl: Magnesium Gluconate 250 MG TABS, Take 250 mg by mouth daily , Disp: , Rfl: meloxicam (MOBIC) 15 MG tablet, Take 15 mg by mouth daily, Disp: , Rfl: pantoprazole (PROTONIX) 40 MG tablet, Take 40 mg by mouth daily, Disp: , Rfl: Probiotic Product (PROBIOTIC ADVANCED PO), Take 2 capsules by mouth daily,Disp: , Rfl: sertraline (ZOLOFT) 100 MG tablet, Take 100 mg by mouth daily, Disp: , Rfl: traMADol (ULTRAM) 50 MG tablet, Take 50 mg by mouth as needed, Disp: , Rfl: Zinc 30 MG TABS, Take by mouth daily, Disp: , Rfl:ALLERGIES: is allergic to morphine and related, gabapentin,oxycodone-acetaminophen, and tramadol.PREVI OUSLY USED ANTI ARRHYTHMIC DRUGS: CarvedilolPOORLY TOLERATED MEDICATIONS: NoneObjective:PHYSICAL EXAMINATION: Deferred due to Telemedicine encounterSTUDIES REVIEWED: Referral records including EKGsEKG: Deferred due to telemedicine encounter.Assessment/Plan:ASSESSMENT/PLAN: This is a 79 years male With a history of atrial flutter. Ihad a long discussion with the patient regarding the anatomical andphysiological basis of typical versus atypical atrial flutter. Specifically therole of the right atrial isthmus in the obinna and maintenance of typicalatrial flutter was explained. A rate controlling s trategy with medicationsincluding digoxin, beta blockers and calcium channel blockers was discussed.The potential risk of developing a tachycardia induced cardiomyopathy withoutgood rate control was explained.During our visit, the patient and I had a comprehensive discussion regardingarrhythmia management using principles of shared decision making. This includeda discussion of antiarrhythmic medications including Class 1a , Class 1C, andClass III agents as well as both Class II and IV agents. I reviewed thepotentially life- threatening side effects of these medications, including butnot limited to fatal tachyarrhythmias, bradycardia, hypotension, heart block,pulmonary toxicity, liver toxicity as well as thyroid abnormalities. We alsoreviewed the required monitoring of these medications.EP guided therapy was explained in detail. The risks including but not limitedto vascular injury, perforation, tamponade, CHB, need for emergent open heartsurgery and were all explained. I told the patient that if they hadisthmus dependent flutter then complete closure of the right atrial isthmus withachievement of bidirectional block would result in a 90 to 95% long-term freedomfrom typical atrial flutter. If the patient had a successful ablation, thenanticoagulation could theoretically be discontinued 4 weeks post ablation. Lydia explained to the patient that in many cases they will present on the day ofthe procedure in sinus rhythm. If that were to be the case then induction ofatrial flutter would be attempted, although the ability to induce atrial flutteris considered low. Therefore if the patient presents in sinus rhythm and isnotinducible, then empiric isthmus ablation would be performed. After reviewingall the options, the patient clearly understands the issues related to ourdiscussion.At this point the patient would like to proceed with ablation. He will bescheduled on an elective basis. The patient tells me that he has a history ofrheumatoid arthritis and he is very concerned about his ability to lay on thetable because of pain. Because of this I will schedule the patient withanesthesia supportThis document or parts of this document, were dictated using [employer]. A reasonable attempt at proofreading has been made to minimize errors.Please call with any questions or corrections.I have spent 25 minutes with the patient, counseling/coordinating the patient'scar e. I discussed the diagnosis of atrial flutter and discussed Managementoption risks and benefitsFollow Up atrial flutter ablationSignature: Pablito Soto MD, [facility] CENTERCardiac Electrophysiology and Arrhythmia ServiceDate: October 22, 2020Time: 9:51 AMThis document or parts of this document, were dictated using [employer] Port[employer]. A reasonable attempt at proofreading has been made to minimize errors.Please call with any questions or corrections. Name Value Range Interpretation Code Description Data Evelyn rce(s) Supporting Document(s) ID Date Data Source [id number] 08/04/2020 07:38:00 PM EDT [facility] Name Value Range Interpretation Code Description Data Evelyn rce(s) Supporting Document(s) SARS coronavirus 2 RNA [Presence] in Res piratory specimen by WYATT with probe detection NEGATIVE [facility] This lab was ordered by [facility] a nd reported by [facility]. ID Date Data Source [id number] 07/30/2020 04:42:31 PM EDT [facility] GilbertPATIE NT INFORMATIONPatient MRN Name Date of Age Gend*PT [id number] Taj Norris 1940 79 years M ---PT Location Admission Date/Time Visit ID Attending Provider --- --- --- --- EPI ID CSN Admitting Provider [id number] ---Name: Taj ThomasenDOB: 1940ate: 07/30/20CIED Remote CheckImplanted Device 05/30/2019Device Bridges Supervisor -Device type Dual Chamber PPMMRI Conditional Device NoDevice was remotely interrogated and the following were evaluated:Battery statusSummary arrhythmia logsNew observationsFidelity of the EGM signalIntegrity of leads and lead impendence were reevaluatedConclusion:Normal pacemaker function.No significant changes continue to monitor.Signature: Pablito Christie MD, FAC, RSCardiac Electrophysiology and Arrhythmia ServiceDate: July 30, 2020Time: 4:42 PMThis document or parts of this document, were dictated using [employer]el[employer] Energy[employer]. A reasonable attempt at proofreading has been made to minimize errors.Please call with any questions or corrections. Name Value Range Interpretation Code Description Data Evelyn rce(s) Supporting Document(s) ID Date Data Source [id number] 07/17/2020 01:16:00 PM EDT [facility] Name Value Range Interpretation Code Description Data Evelyn rce(s) Supporting Document(s) SARS coronavirus 2 RNA [Presence] in Res piratory specimen by WYATT with probe detection NEGATIVE [facility] This lab was ordered by [facility] a nd reported by [facility]. ID Date Data Source [id number] 07/16/2020 05:00:00 PM EDT [facility] Patient: TAJ NORRIS [facility] - [facility]VisitID: [id number] [place] [address] [phone], MRegistration Date/Time: 07/15/2020 14:05 Weight:106 kg (S). Height/Length:66 inches (S). BMI:37.7 PAST HISTORYProblems:Diabetes Mellitus [Chronic].Diverticultits [Chronic].Hypertension [Chronic].Gout [Chronic].Elevated Cholesterol [Chronic].Coronary Artery Disease [Chronic].Bladder cancer [Chronic].Bursitis of shoulder [Chronic]. Additional Surgeries:Bladder surgery.Colonoscopy.Coronary Artery Bypass Graft.Hiatal hernia .Pacemaker.Prostatectomy. Medications:Advair Diskus Inhalation (Aerosol Powder Breath Activated 250-50 mcg/dose) 1 puff, daily, last dose today.Colcrys Oral (Tablet 0.6 mg) 1 tablet, daily, last dose today.Pantoprazole Sodium Oral (Tablet Delayed Release 40 mg) 1 tablet, daily, last dose today.busPIRone HCl Oral (Tablet 10 mg) 1 tablet, 2x a day, last dose today.Sertraline HCl Oral (Tablet 100 mg) 1 tablet, daily, last dose today.Carvedilol Oral (Tablet 6.25 mg) 1 tablet, 2x a day, last dose today.Valsartan-hydroCHLOROthiazide Oral (Tablet 160-25 mg) 1 tablet, daily, last dose today.glipiZIDE XL Oral (Tablet Extended Release 24 Hour 10 mg) 1 tablet, daily, last dose today.Allopurinol Oral (Tablet 100 mg) 1 tablet, daily, last dose today.ProAir HFA Inhalation 2 puffs, q4h as needed, last dose today.Tradjenta Oral (Tablet 5 mg) 1 tablet, daily, last dose today. Allergies:BCG Live. (unknown)Gabapentin. (unknown)Morphine.(rash)Statins. (muscle aches). FAMILY HISTORYNegative. No significant family medical history. (Electronically signed by River Donaldson 07/15/2020 19:55) Addenda for TAJ NORRIS VisitID: [id number] Date: 07/15/2020 07/16/2020 16:59LWBS/LWBT/AMA??? follow-up Spoke with pt's via telephone with the patient talking in the background. Pt's reports that pt is still not feeling well and that he has been in bed all day. Pt's also reports that the patient's HR is in the 120's. Pt's also reported that they were not able to get a sooner appt. with front end web designer. Appt. is scheduled in August. Advised pt and spouse for pt to return to the ER. They expressed understanding. Pt 's reported that she did not know if she could get the pt to go to the hospital again. (Electronically signed by Alisa Martinez R.N. - 07/16/2020 16:59) Name Value Range Interpretation Code Description Data Evelyn rce(s) Supporting Document(s) ID Date Data Source [id number] 07/15/2020 08:19:00 PM EDT [facility]: TAJ NORRIS [facility] - [facility]VisitID: [id number] [place] [address] [phone], MRegistration Date/Time: 07/15/2020 14:05 Weight:106 kg (S). Height/Length:66 inches (S). BMI:37.7 PAST HISTORYProblems:Diabetes Mellitus [Chronic].Diverticultits [Chronic].Hypertension [Chronic].Gout [Chronic].Elevated Cholesterol [Chronic].Coronary Artery Disease [Chronic].Bladder cancer [Chronic].Bursitis of shoulder [Chronic]. Additional Surgeries:Bladder surgery.Colonoscopy.Coronary Artery Bypass Graft.Hiatal hernia .Pacemaker.Prostatectomy. Medications:Advair Diskus Inhalation (Aerosol Powder Breath Activated 250-50 mcg/dose) 1 puff, daily, last dose today.Colcrys Oral (Tablet 0.6 mg) 1 tablet, daily, last dose today.Pantoprazole Sodium Oral (Tablet Delayed Release 40 mg) 1 tablet, daily, last dose today.busPIRone HCl Oral (Tablet 10 mg) 1 tablet, 2x a day, last dose today.Sertraline HCl Oral (Tablet 100 mg) 1 tablet, daily, last dose today.Carvedilol Oral (Tablet 6.25 mg) 1 tablet, 2x a day, last dose today.Valsartan-hydroCHLOROthiazide Oral (Tablet 160-25 mg) 1 tablet, daily, last dose today.glipiZIDE XL Oral (Tablet Extended Release 24 Hour 10 mg) 1 tablet, daily, last dose today.Allopurinol Oral (Tablet 100 mg) 1 tablet, daily, last dose today.ProAir HFA Inhalation 2 puffs, q4h as needed, last dose today.Tradjenta Oral (Tablet 5 mg) 1 tablet, daily, last dose today. Allergies:BCG Live. (unknown)Gabapentin. (unknown)Morphine.(rash)Statins. (muscle aches). FAMILY HISTORYNegative. No significant family medical history. (Electronically signed by River Donaldson 07/15/2020 19:55) Name Value Range Interpretation Code Description Data Evelyn rce(s) Supporting Document(s) ID Date Data Source [id number] 07/15/2020 05:54:00 PM EDT [facility] TSYSORDER [id number] Name Value Range Interpretation Code Description Data Evelyn rce(s) Supporting Document(s) TROPONIN I < 0.017 ng/mL 0.000-0.056 [facility] ID Date Data Source [id number] 07/15/2020 03:48:00 PM EDT [facility] DATE OF EXAMINATION: 07/15/2020 14:22 EDT CHEST 1 VIEW HISTORY: Chest pain TECHNIQUE: Single frontal radiograph of chest COMPARISON: None. FINDINGS: No evidence of focal consolidation, pneumothorax or large pleural effusion.Lungs are clear. Mediastinal structures are unremarkable. No aggressive osseouslesions. Dual-lead left-sided pacer device is noted. IMPRESSION: No focal consolidation. Electronically signed in PS360 by: Pablito Moya M.D. 07/15/2020 15:42 EDT Name Value Range Interpretation Code Description Data Evelyn rce(s) Supporting Document(s) ID Date Data Source [id number] 07/15/2020 03:27:00 PM EDT [facility] TSYSORDER [id number] Name Value Range Interpretation Code Description Data Evelyn rce(s) Supporting Document(s) FREE T4 0.8 ng/dL 0.76-1.46 [facility] ID Date Data Source [id number] 07/15/2020 03:27:00 PM EDT [facility] TSYSORDER [id number] Name Value Range Interpretation Code Description Data Evelyn rce(s) Supporting Document(s) TSH 2.755 uIU/mL 0.360-3.740 [facility] ID Date Data Source [id number] 07/15/2020 03:15:00 PM EDT [facility] TSYSORDER [id number] Name Value Range Interpretation Code Description Data Evelyn rce(s) Supporting Document(s) PARTIAL THROMBOPLASTIN TIME 22.9 SECONDS 21.2-27.3 [facility] ID Date Data Source [id number] 07/15/2020 03:15:00 PM EDT [facility] TSYSORDER [id number] Name Value Range Interpretation Code Description Data Evelyn rce(s) Supporting Document(s) PROTHROMBIN TIME (PATIENT) 11.6 SECONDS 9.1-11.6 [facility] INR 1.12 0.87-1.06 H [facility] ID Date Data Source [id number] 07/15/2020 02:53:00 PM EDT [facility] TSYSORDER [id number] Name Value Range Interpretation Code Description Data Evelyn rce(s) Supporting Document(s) WHITE BLOOD COUNT 8.5 K/mm3 4.0-10.0 [facility] al RED BLOOD COUNT 4.46 M/mm3 4.50-6.00 L [facility] HEMOGLOBIN 13.0 gm/dL 14.0-18.0 L [facility] HEMATOCRIT 39.5 % 42.0-54.0 L [facility] MEAN CELL VOLUME 88.6 fl 80-96 [facility] MEAN CORPUSCULAR HEMOGLOBIN 29.1 pg 27.0-31.0 [facility] MEAN CORPUSCULAR HGB CONC 32.9 g/dl 32.0-36.0 [facility] RED CELL DISTRIBUTION WIDTH 15.6 % 10.0-14.5 H [facility] PLATELET COUNT 134 K/mm3 172-450 L [facility] MEAN PLATELET VOLUME 10.8 fl 9.0-13.0 [facility] pital GRAN % 73.9 % 50-80.0 [facility] IG% 1.5 % 0.0-0.2 H [facility] LYMPH % 16.7 % 25.0-50.0 L [facility] MONO % 7.3 % 2.0-10.0 [facility] EOS % 0.0 % 0-5.0 [facility] BASO % 0.6 % 0.0-2.0 [facility] GRAN # 6.2 K/mm3 2.0-8.00 [facility] IG# 0.1 K/mm3 0.0-0.2 [facility] LYMPH # 1.4 K/mm3 1.0-5.0 [facility] MONO # 0.6 K/mm3 0.10-1.20 [facility] EOS # 0.0 K/mm3 0.0-0.5 [facility] BASO # 0.1 K/mm3 0.0-0.2 [facility] ID Date Data Source [id number] 07/15/2020 03:40:00 PM EDT [facility] TSYSORDER [id number] Name Value Range Interpretation Code Description Data Evelyn rce(s) Supporting Document(s) B-TYPE NATRIURETIC PEPTIDE 4079 pg/ml 0-450 *H [facility] ID Date Data Source [id number] 07/15/2020 03:14:00 PM EDT [facility] TSYSORDER [id number] Name Value Range Interpretation Code Description Data Evelyn rce(s) Supporting Document(s) MAGNESIUM 1.5 mg/dL 1.8-2.4 [facility] ID Date Data Source [id number] 07/15/2020 03:14:00 PM EDT [facility] TSYSORDER [id number] Name Value Range Interpretation Code Description Data Evelyn rce(s) Supporting Document(s) LIPASE 164 U/L 73-393 [facility] ID Date Data Source [id number] 07/15/2020 03:14:00 PM EDT [facility] TSYSORDER [id number] Name Value Range Interpretation Code Description Data Evelyn rce(s) Supporting Document(s) TROPONIN I < 0.017 ng/mL 0.000-0.056 [facility] ID Date Data Source [id number] 07/15/2020 03:14:00 PM EDT [facility] TSYSORDER [id number] Name Value Range Interpretation Code Description Data Evelyn rce(s) Supporting Document(s) GLUCOSE 122 mg/dL 74-106 H [facility] BLOOD UREA NITROGEN 61 mg/dL 7-18 *H [facility] 07/15/20 1528: BUN previously reported as: 61 *H mg/dL CREATININE 3.23 mg/dL 0.7-1.3 H [facility] SODIUM 140 mmol/L 136-145 [facility] POTASSIUM 5.4 mmol/L 3.5-5.1 H [facility] CHLORIDE 105 mmol/L 98-107 [facility] CO2 23 mmol/L 21-32 [facility] CALCIUM 8.6 mg/dL 8.5-10.1 [facility] ANION GAP 12.0 mmol/L 5-12 [facility] GLOMERULAR FILTRATION RATE 19 mL/min [facility] GFR IS CALCULATED IN mL/min/1.73m2 SHANTA L FUNCTION: >90MILDLY DECREASED: 60-89MILDY TO MODERATELY DECREASED: 45-59 MODERATELY TO SEVERELY DECREASED: 30-44SEVERELY DECREASED: 15-29RENAL FAILURE: <15 AST 13 U/L 15-37 L [facility] ALT 28 U/L 12-78 [facility] ALKALINE PHOSPHATASE 44 U/L 46-116 L [facility] pital TOTAL BILIRUBIN 0.5 mg/dL 0.2-1.0 [facility] TOTAL PROTEIN 7.9 g/dl 6.4-8.2 [facility] ALBUMIN 3.8 gm/dL 3.4-5.0 [facility] ID Date Data Source [id number] 07/15/2020 01:30:00 PM EDT [facility] ([facility]) Name Value Range Interpretation Code Description Data Evelyn rce(s) Supporting Document(s) Thyroid Stimulating Hormone 2.755 [facility] ([facility]) ID Date Data Source [id number] 07/15/2020 01:30:00 PM EDT [facility] ([facility]) Name Value Range Interpretation Code Description Data Evelyn rce(s) Supporting Document(s) Red Blood Count 4.46 [facility] ([facility]) White Blood Count 8.5 [facility] ([facility]) Platelets 134 [facility] ([facility]) Hemoglobin 13.0 [facility] ([facility]) Hematocrit 39.5 [facility] ([facility]) ID Date Data Source [id number] 07/15/2020 01:30:00 PM EDT [facility] ([facility] Name Value Range Interpretation Code Description Data Evelyn rce(s) Supporting Document(s) Albumin [Mass/volume] in Serum or Plasma 3.8 [facility] ([facility]) Alanine aminotransferase [Enzymatic activity/volume] in Serum or Pl asma 28 [facility] ([facility]) Calcium [Mass/volume] in Serum or Plasma 8.6 [facility] ([facility]) Carbon dioxide, total [Moles/volume] in Serum or Plasma 23 [facility] ([facility]) Chloride [Moles/volume] in Serum or Plasma 105 [facility] ([facility]) Alkaline phosphatase [Enzymatic activity/volume] in Serum or Plasma 4 4 [facility] ([facility]) Sodium 140 [facility] ([facility]) Protein [Mass/volume] in Serum or Plasma 7.9 [facility] ([facility]) Potassium [Moles/volume] in Serum or Plasma 5.4 [facility] ([facility]) Aspartate aminotransferase [Enzymatic activity/volume] in Serum or Plasma 13 [facility] ([facility]) Urea nitrogen [Mass/volume] in Serum or Plasma 61 [facility] ([facility]) Creatinine For GFR 3.23 [facility] ([facility] Glucose 122 [facility] ([facility]) ID Date Data Source [id number] 03/17/2020 11:27:00 AM EST [facility] ([facility] [place] Name Value Range Interpretation Code Description Data Evelyn rce(s) Supporting Document(s) Glucose [Mass/volume] in Serum or Plasma 138.0 mg/dL 70.0-99.0 [facility] ([facility] [place]) Creatinine [Mass/volume] in Serum or Plasma 2.37 mg/dL 0.72-1.25 [facility] ([facility] [place]) Carbon dioxide, total [Moles/volume] in Serum or Plasma 23.0 mmol/L 22.0-31.0 [facility] ([facility] [place]) Calcium [Mass/volume] in Serum or Plasma 9.3 mg/dL 8.4-10.2 [facility] ([facility]) Urea nitrogen [Mass/volume] in Serum or Plasma 31.0 mg/dL 7.0-24.0 [facility] ([facility]) BUN/Creat Ratio 13.1 [facility] ([facility]) Sodium [Moles/volume] in Serum or Plasma 139.0 mmol/L 136.0-145.0 [facility] ([facility]) K 5.2 mmol/L 3.6-5.2 [facility] ([facility]) Anion gap in Serum or Plasma 17.2 [facility] ([facility]) Chloride [Moles/volume] in Serum or Plasma 104.0 mmol/L 98.0-108.0 [facility] ([facility]) eGFR - Descent 31.4 [facility] ([facility]) eGFR -- Non- Descent 25.9 [facility] ([facility]) ID Date Data Source [id number] 03/17/2020 11:27:00 AM EST [facility] ([facility]) Name Value Range Interpretation Code Description Data Evelyn rce(s) Supporting Document(s) Prostate specific Ag [Mass/volume] in Serum or Plasma 0.65 ng/mL 0.00 -4.00 [facility] ([facility]) ID Date Data Source [id number] 03/17/2020 10:46:00 AM EST [facility] ([facility]) Name Value Range Interpretation Code Description Data Evelyn rce(s) Supporting Document(s) Glucose [Presence] in Urine Laboratory test result [facility] ([facility]) Protein [Presence] in Urine by Test strip Laboratory test result [facility] ([facility]) Ua Nitrite Laboratory test result [facility] ([facility]) Blood [Presence] in Urine by Visual Laboratory test result [facility] ([facility]) Ua Leuko Laboratory test result [facility] ([facility]) Color of Urine Laboratory test result [facility] ([facility]) Clarity of Urine Laboratory test result [facility] ([facility] [place]) Ketones [Presence] in Urine by Test strip Laboratory test result [facility] ([facility]) Ua Specific [place] 1.020 1.003-1.030 MEDE NT ([facility] [place]) Bilirubin.total [Presence] in Urine by Test strip Laboratory test res ult [facility] ([facility] [place]) pH of Urine by Test strip 5.5 5.0-7.5 [facility] ([facility] [place]) Urobilinogen [Mass/volume] in Urine by Test strip 0.2 E.U./dL 0.0-1.0 [facility] ([facility] [place]) ID Date Data Source [id number] 03/17/2020 10:45:00 AM EST [facility] ([facility] [place]) Name Value Range Interpretation Code Description Data Evelyn rce(s) Supporting Document(s) Specimen Adequacy Laboratory test result [facility] ([facility] [place]) Satisfactory for evaluation. Clinical History Laboratory test result [facility] ([facility] [place]) Gross Description Laboratory test result [facility] ([facility] [place]) Received in a specimen container, labele d with the patients name and , is Clear Yellow fluid consistent with urine, measuring approximately 60 ml. Microscopic Description Laboratory test result [facility] ([facility] [place]) BodySite Laboratory test result [facility] ([facility]) Voided - Clean Catch Final Diagnosis Laboratory test result [facility] ([facility]) NEGATIVE FOR HIGH-GRADE UROTHELIAL CARCI NOMA. [id number] Laboratory test result [facility] ([facility] [place]) CPTCode 91207 [facility] ([facility] [place] PDF Report Laboratory test result [facility] ([facility]) ID Date Data Source [id number] 03/17/2020 10:45:00 AM EST [facility] ([facility]) Name Value Range Interpretation Code Description Data Veelyn rce(s) Supporting Document(s) Cytology report of Urine Cyto stain Laboratory test result [facility] ([facility]) ID Date Data Source [id number] 01/04/2020 12:53:00 PM EDT [facility] CARDI[facility]ESS TEST LEXISCAN 1 DAYCLINICAL HISTORY: INDICATION FOR STUDY: Shortness of breath, chest pain, history of CAD status post CABG, CKD, permanent pacemaker placement.COMPARISON: None.TECHNIQUE: See below.FINDINGS: REGADENOSON INJECTIONINTERPRETATION:After injecting 0.4 mg of regadenoson, the patient was closely monitored with continuous ECG monitoring, heart rate, symptoms and blood pressure monitoring.The patient had chest pain during the regadenoson stress test.At baseline, the patient's heart rate was 64 beats per minute and blood pressure wa s 128/68 mmHg.During the regadenoson stress test, the patient's maximum heart rate was 78 beats per minute and max BP was 136/78 mmHg.At baseline, the patient's EKG showed normal sinus rhythm with some nonspecific ST-T changes a rate of 64 beats per minute with 78/min.During the regadenoson stress test, the patient did not have any acute ST-T changes suggestive of ischemia.The patient did not have any complex bradyarrhythmias or pauses during the regadenoson stress test.These findings are to be correlated with technetium scan.CONCLUSION:1. Uneventful regadenoson stress test.NUCLEAR REGADENOSON TECHN ETIUMUtilizing same day protocol with regadenoson, gated SPECT imaging was done 45 min after injecting 11.0 mCi (millicuries) of intravenous technetium sestamibi at rest, 33.0 mCi technetium sestamibi after regadenoson infusion. Left ventricular size was normal with normal left ventricular wall motion. Normal wall thickening. Post stress ejection fraction was 67%. Perfusion of anterior wall, septum, lateral wall, inferior wall, and the apex were normal, and there was no ischemia. TID 0.96. SDS = 0.On the raw image, there is no cardiac motion or extracardiac uptake.Image quality was adequate.IMPRESSION: 1. Normal regadenoson technetium perfusion scan, no ischemia.2. Normal left ventricular function; post stress ejection fraction 67%.Interpreting physician: JUWAN Ovalle MD, FAC, JOSE, FASNCDate: 01/04/2020Time: 4:23Transcribed by: on 01/08/2020 09:15 AMCDS G codes: , , , , ,CDS Modifier: , , , , ,cc:<<[email or web address]_[email or web address]>> Name Value Range Interpretation Code Description Data Evelyn rce(s) Supporting Document(s) Procedure Social History Code Duration Value Status Description Data Source(s ) Smoking 01/03/2021 12:00:00 AM EDT Former Smoker completed Former Smoker eCW1 ([facility]) Alcohol intake 11/13/2020 12:00:00 AM EDT Current drinker of al cohol (finding) completed Current drinker of alcohol (finding) [facility] Alcohol intake 11/04/2020 12:00:00 AM EDT Current drinker of al cohol (finding) completed Current drinker of alcohol (finding) [facility] Alcohol intake 10/21/2020 12:00:00 AM EDT Current drinker of al cohol (finding) completed Current drinker of alcohol (finding) [facility] Smoking 10/07/2020 12:00:00 AM EDT Patient is a former smoker completed Patient is a former smoker FREDY ([facility]) Smoking 07/25/2020 12:00:00 AM EDT Former Smoker completed Former Smoker eCW1 ([facility]) Smoking 07/25/2020 12:00:00 AM EDT Former Smoker completed Former Smoker eCW1 ([facility]) Smoking 07/25/2020 12:00:00 AM EDT Former Smoker completed Former Smoker eCW1 ([facility]) Smoking 07/25/2020 12:00:00 AM EDT Former Smoker completed Former Smoker eCW1 ([facility]) Smoking 07/25/2020 12:00:00 AM EDT Former Smoker completed Former Smoker eCW1 ([facility]) Smoking 07/25/2020 12:00:00 AM EDT Former Smoker completed Former Smoker eCW1 ([facility]) Smoking 07/25/2020 12:00:00 AM EDT Former Smoker completed Former Smoker eCW1 ([facility]) Smoking 07/25/2020 12:00:00 AM EDT Former Smoker completed Former Smoker eCW1 ([facility]) Smoking 07/15/2020 12:00:00 AM EDT Former Smoker completed Former Smoker eCW1 ([facility]) Smoking 07/15/2020 12:00:00 AM EDT Former Smoker completed Former Smoker eCW1 ([facility]) Smoking 07/15/2020 12:00:00 AM EDT Former Smoker completed Former Smoker eCW1 ([facility]) Smoking 04/09/2020 12:00:00 AM EST Former Smoker completed Former Smoker eCW1 ([facility]) Smoking 04/09/2020 12:00:00 AM EST Former Smoker completed Former Smoker eCW1 ([facility]) Smoking 04/09/2020 12:00:00 AM EST Former Smoker completed Former Smoker eCW1 ([facility]) Smoking 04/09/2020 12:00:00 AM EST Former Smoker completed Former Smoker eCW1 ([facility]) Smoking 04/09/2020 12:00:00 AM EST Former Smoker completed Former Smoker eCW1 ([facility]) Smoking 04/09/2020 12:00:00 AM EST Former Smoker completed Former Smoker eCW1 ([facility]) Smoking 04/09/2020 12:00:00 AM EST Former Smoker completed Former Smoker eCW1 ([facility]) Smoking 03/14/2020 12:00:00 AM EST Former Cigarette Smok er 1 Pack Daily completed Former Cigarette Smoker 1 Pack Daily [facility] ([facility] [place] Smoking 01/14/2020 12:00:00 AM EDT Former Smoker completed Former Smoker eCW1 ([facility]) Smoking 01/14/2020 12:00:00 AM EDT Former Smoker completed Former Smoker eCW1 ([facility]) Smoking 01/14/2020 12:00:00 AM EDT Former Smoker completed Former Smoker eCW1 ([facility]) Smoking 01/14/2020 12:00:00 AM EDT Former Smoker completed Former Smoker eCW1 ([facility]) Smoking 01/09/2020 12:00:00 AM EDT Former Smoker completed Former Smoker eCW1 ([facility]) Vital Signs ID Date Data Source UNK Name Value Range Interpretation Code Description Data Source(s) Body weight 217.00 [lb_av] 217.00 [lb_av] MEDEN T ([facility]) Body height 68 [in_i] 68 [in_i] [facility] ([facility]) 5'8" Body mass index (BMI) [Ratio] 33.0 kg/m2 33.0 k g/m2 [facility] ([facility]) Systolic blood pressure--sitting 120 mm[Hg] 120 mm[Hg] [facility] ([facility]) Ra, large cuff Diastolic blood pressure--sitting 78 mm[Hg] 78 mm[Hg] MEDREYMUNDO ([facility]) Ra, large cuff Systolic blood pressure 124 mm[Hg] 124 mm[Hg] [facility] Diastolic blood pressure 60 mm[Hg] 60 mm[Hg] [facility] Heart rate 61 /min 61 /min [facility] Body temperature 36.22 [place] 36.22 [place] [facility] Respiratory rate 16 /min 16 /min [facility] Oxygen saturation in Arterial blood by Pulse oximetry 96 % 96 % [facility] Body height 174 cm 174 cm [facility] Body weight 89.812 kg 89.812 kg [facility] Body mass index (BMI) [Ratio] 29.67 kg/m2 29.67 kg/m2 [facility] Heart rate 63 /min 63 /min [facility] Systolic blood pressure 115 mm[Hg] 115 mm[Hg] [facility] Diastolic blood pressure 68 mm[Hg] 68 mm[Hg] [facility] Body height 172.7 cm 172.7 cm [facility] Body weight 89.812 kg 89.812 kg [facility] Body mass index (BMI) [Ratio] 30.11 kg/m2 30.11 kg/m2 [facility] Oxygen saturation in Arterial blood by Pulse oximetry 98 % 98 % [facility] Body weight 210.00 [lb_av] 210.00 [lb_av] MEDEN T ([facility]) Systolic blood pressure--sitting 133 mm[Hg] 133 mm[Hg] [facility] ([facility]) CBP, large cuff/Ra Diastolic blood pressure--sitting 71 mm[Hg] 71 mm[Hg] MEDREYMUNDO ([facility]) CBP, large cuff/Ra Body height 68 [in_i] 68 [in_i] FREDY ([facility] 5'8" Body mass index (BMI) [Ratio] 31.9 kg/m2 31.9 k g/m2 [facility] ([facility]) Heart rate 93 /min 93 /min [facility] ([facility]) Body height 66 [in_i] 66 [in_i] eCW1 ([facility]) Body weight 219.8 [lb_av] 219.8 [lb_av] eCW1 ([facility]) Body mass index (BMI) [Ratio] 35.47 kg/m2 35.47 kg/m2 eCW1 ([facility]) Body temperature 98.3 [degF] 98.3 [degF] eCW1 ( [facility]) Heart rate 62 /min 62 /min eCW1 ([facility] [place]) Respiratory rate 20 /min 20 /min eCW1 ([facility]) Oxygen saturation in Arterial blood by Pulse oximetry 95 % 95 % eCW1 ([facility]) Body height 66 [in_i] 66 [in_i] eCW1 ([facility]) Body weight 233.8 [lb_av] 233.8 [lb_av] eCW1 ([facility]) Body mass index (BMI) [Ratio] 37.73 kg/m2 37.73 kg/m2 eCW1 ([facility]) Body temperature 98.0 [degF] 98.0 [degF] eCW1 ( [facility]) Heart rate 134 /min 134 /min eCW1 ([facility] [place]) Respiratory rate 20 /min 20 /min eCW1 ([facility]) Oxygen saturation in Arterial blood by Pulse oximetry 98 % 98 % eCW1 ([facility]) Body height 66 [in_i] 66 [in_i] eCW1 ([facility]) Body weight 226.0 [lb_av] 226.0 [lb_av] eCW1 ([facility]) Body mass index (BMI) [Ratio] 36.47 kg/m2 36.47 kg/m2 eCW1 ([facility]) Body temperature 98.0 [degF] 98.0 [degF] eCW1 ( [facility]) Heart rate 88 /min 88 /min eCW1 ([facility] [place]) Respiratory rate 18 /min 18 /min eCW1 ([facility]) Oxygen saturation in Arterial blood by Pulse oximetry 98 % 98 % eCW1 ([facility]) Body height 68 [in_i] 68 [in_i] MEDENT ([facility] [place] 5'8" Body weight 225.00 [lb_av] 225.00 [lb_av] MEDEN T ([facility] [place]) Systolic blood pressure 150 mm[Hg] 150 mm[Hg] M EDENT ([facility] [place]) Diastolic blood pressure 84 mm[Hg] 84 mm[Hg] MEDENT ([facility] [place]) Body weight 102.060 kg 102.060 kg MEDENT ([facility] [place]) Body mass index (BMI) [Ratio] 34.2 kg/m2 34.2 k g/m2 MEDENT ([facility] [place]) Body height 66 [in_i] 66 [in_i] eCW1 ([facility]) Body temperature 98.5 [degF] 98.5 [degF] eCW1 ( [facility]) Heart rate 80 /min 80 /min eCW1 ([facility] [place]) Respiratory rate 18 /min 18 /min eCW1 ([facility]) Oxygen saturation in Arterial blood by Pulse oximetry 98 % 98 % eCW1 ([facility]) Body height 66 [in_i] 66 [in_i] eCW1 ([facility]) Body weight 226 [lb_av] 226 [lb_av] eCW1 ([facility]) Body mass index (BMI) [Ratio] 36.47 kg/m2 36.47 kg/m2 eCW1 ([facility]) Body temperature 98.7 [degF] 98.7 [degF] eCW1 ( [facility]) Heart rate 72 /min 72 /min eCW1 ([facility] [place]) Respiratory rate 18 /min 18 /min eCW1 ([facility]) Oxygen saturation in Arterial blood by Pulse oximetry 97 % 97 % eCW1 ([facility]) Body height 66 [in_i] 66 [in_i] eCW1 ([facility]) Body weight 224.0 [lb_av] 224.0 [lb_av] eCW1 ([facility]) Body mass index (BMI) [Ratio] 36.15 kg/m2 36.15 kg/m2 eCW1 ([facility]) Body temperature 98.0 [degF] 98.0 [degF] eCW1 ( [facility]) Heart rate 80 /min 80 /min eCW1 ([facility] [place]) Respiratory rate 18 /min 18 /min eCW1 ([facility]) Oxygen saturation in Arterial blood by Pulse oximetry 98 % 98 % eCW1 ([facility]) Patient Treatment Plan of Care Planned Activity Planned Date Details Description Data Source (s) apixaban 2.5 MG Oral Tablet [Eliquis] 01/03/2021 12:00:00 AM EDT eCW1 ([facility]) normal saline flush 0.9 % injection 3 mL 11/13/2020 09:00:00 AM EDT [facility] normal saline flush 0.9 % injection 3 mL 11/13/2020 09:00:00 AM EDT [facility] Amlodipine 5 MG Oral Tablet 08/08/2020 12:00:00 AM EDT eCW1 ([facility]) Amlodipine 5 MG Oral Tablet 08/08/2020 12:00:00 AM EDT eCW1 ([facility]) Amlodipine 5 MG Oral Tablet 08/08/2020 12:00:00 AM EDT eCW1 ([facility]) Amlodipine 5 MG Oral Tablet 08/08/2020 12:00:00 AM EDT eCW1 ([facility]) Amlodipine 5 MG Oral Tablet 08/08/2020 12:00:00 AM EDT eCW1 ([facility]) Amlodipine 5 MG Oral Tablet 08/07/2020 12:00:00 AM EDT eCW1 ([facility]) 60 ACTUAT Fluticasone propionate 0.25 MG /ACTUAT / salmeterol 0.05 MG/ACTUAT Dry Powder Inhaler [Advair] 01/09/2020 12:00:00 AM EDT eCW1 ([facility]) 1 ML evolocumab 140 MG/ML Prefilled Syringe [Repatha] 12/26/2019 12:00:00 AM EDT eCW1 ([facility]) 1 ML evolocumab 140 MG/ML Prefilled Syringe [Repatha] 12/26/2019 12:00:00 AM EDT eCW1 ([facility]) 1 ML evolocumab 140 MG/ML Prefilled Syringe [Repatha] 12/26/2019 12:00:00 AM EDT eCW1 ([facility]) tramadol hydrochloride 50 MG Oral Tablet 09/05/2019 12:00:00 AM EDT [facility] meloxicam 15 MG Oral Tablet 08/23/2019 12:00:00 AM EDT [facility] Zinc Gluconate 30 MG Oral Tablet [facility] MAGNESIUM GLUCONATE 250 MG Oral Tablet [facility]
--- NOTE | 2021-02-16 14:26 | REP ---
INDICATION: cva. COMPARISON: None. TECHNIQUE: 5 mm contiguous transaxial sections were obtained from the skull base to the cerebral convexities. FINDINGS: The ventricles and sulci are consistent with the patient's age. There are no extra-axial fluid collections. There is no mass effect. Scattered deep white matter lucencies are seen bilaterally. This is without focality. The orbital and petrous structures, cerebellopontine angles, and posterior fossa are unremarkable. The sella turcica, cavernous, and paracavernous structures are essentially unremarkable. The visualized portions of the paranasal sinuses and mastoid air cells are clear. Images of the skull base show no gross abnormality. 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 There is no evidence of a focal lesion. Follow-up with MRI if clinically relevant. <Electronically signed by Kiran Christianson > 02/16/21 [id number]
[2021-02-16 14:59] LABS: RSV AMPLIFICATION NEGATIVE (NEGATIVE)
[2021-02-16] MEDS ORDERED: GLUCOSE 4GM CHEW TABLET PO PRN (16:20)
[2021-02-16] MEDS ORDERED: DEXTROSE 50% 50 ML SYRINGE IV PRN (16:20)
[2021-02-16] MEDS ORDERED: GLUCAGON INJ 1MG VIAL SC PRN (16:20)
--- OUTSIDE RECORDS SUMMARY | 2021-02-16 16:34 | CCD ---
Author Author [facility] Organization [facility] Address Unknown Phone Unavailable Care Team Providers Care Fingerprinter Name Role Phone Benny, Sita Cottrell COPPER MINER-C Unavailable Unavailabl e [facility], [facility] L[facility]ONSP-C Unavailable Unavailabl e Benny, [facility] LEMONSP-C Unavailable Unavailabl e Benny, [facility] LEMONSP-C Unavailable Unavailabl e Benny, [facility] LEMONSP-C Unavailable Unavailabl e Benny, [facility] LEMONSP-C Unavailable Unavailabl e Benny, [facility] LEMONSP-C Unavailable Unavailabl e Benny, [facility] Cottrell COPPER MINER-C Unavailable Unavailabl e Benny, [place] Cottrell COPPER MINER-C Unavailable Unavailabl e Benny, [facility] Cottrell COPPER MINER-C Unavailable Unavailabl e Benny, [facility] LEMONSP-C Unavailable Unavailabl e Benny, [facility] Cottrell COPPER MINER-C Unavailable Unavailabl e Benny, [facility] Cottrell COPPER MINER-C Unavailable Unavailabl e Benny, [facility] LEMONSP-C Unavailable Unavailabl e Benny, Sita Cottrell COPPER MINER-C Unavailable Unavailabl e Benny, Sita Cottrell COPPER MINER-C Unavailable Unavailabl e Benny, Sita Cottrell COPPER MINER-C Unavailable Unavailabl e Benny, Sita Cottrell COPPER MINER-C Unavailable Unavailabl e Benny, Sita Cottrell COPPER MINER-C Unavailable Unavailabl e Benny, Sita Cottrell COPPER MINER-C Unavailable Unavailabl e Benny, Sita Cottrell COPPER MINER-C Unavailable Unavailabl e Benny, Sita Cottrell COPPER MINER-C Unavailable Unavailabl e Benny, Sita Cottrell COPPER MINER-C Unavailable Unavailabl e Benny, Sita Cottrell COPPER MINER-C Unavailable Unavailabl e Benny, Sita Cottrell COPPER MINER-C Unavailable Unavailabl e Benny, Sita Cottrell COPPER MINER-C Unavailable Unavailabl e Benny, Sita Cottrell COPPER MINER-C Unavailable Unavailabl e Benny, Sita Cottrell COPPER MINER-C Unavailable Unavailabl e Benny, Sita Cottrell COPPER MINER-C Unavailable Unavailabl e Benny, Sita Cottrell COPPER MINER-C Unavailable Unavailabl e Benny, Sita Cottrell COPPER MINER-C Unavailable Unavailabl e Benny, Sita Cottrell COPPER MINER-C Unavailable Unavailabl e Tech, Nuclear Bf Unavailable [...] LECHUGA SR, GERARDO CHASE MD Unavailable Unavailable LECUHGA SR, GERARDO CHASE MD Unavailable Unavailable LECHUGA SR, GERARDO CHASE MD Unavailable Unavailable LECHUGA SR, GERARDO CHASE MD Unavailable Unavailable LECHUGA SR, GERARDO CHASE MD Unavailable Unavailable LECHUGA SR, GERARDO CHASE MD Unavailable Unavailable LECHUGA SR, GERARDO CHAES MD Unavailable Unavailable LECHUGA SR, GERARDO CHASE [...] Vincent CHASE MD Unavailable Unavailable ANTECOL, Vincent HCASE MD Unavailable Unavailable ANTECOL, Vincent CHASE MD [...] Ying PA-C Unavailable Unavailable ZABOROWSKI, J KORIN NEUROLOGY PHYSICIAN ASSISTANT Unavailable Unavailable ZABOROWSKI, J KORIN NEUROLOGY PHYSICIAN ASSISTANT Unavailable Unavailable ZABOROWSKI, J KORIN NEUROLOGY PHYSICIAN ASSISTANT Unavailable Unavailable ZABOROWSKI, J KORIN NEUROLOGY PHYSICIAN ASSISTANT Unavailable Unavailable ZABOROWSKI, J KORIN NEUROLOGY PHYSICIAN ASSISTANT Unavailable Unavailable ZABOROWSKI, J KORIN NEUROLOGY PHYSICIAN ASSISTANT Unavailable Unavailable ZABOROWSKI, J KORIN NEUROLOGY PHYSICIAN ASSISTANT Unavailable Unavailable ZABOROWSKI, J KORIN NEUROLOGY PHYSICIAN ASSISTANT Unavailable Unavailable ZABOROWSKI, J KORIN NEUROLOGY PHYSICIAN ASSISTANT Unavailable Unavailable ZABOROWSKI, J KORIN NEUROLOGY PHYSICIAN ASSISTANT Unavailable Unavailable ZABOROWSKI, J KORIN NEUROLOGY PHYSICIAN ASSISTANT Unavailable Unavailable ZABOROWSKI, J KORIN NEUROLOGY PHYSICIAN ASSISTANT Unavailable Unavailable ZABOROWSKI, J KORIN NEUROLOGY PHYSICIAN ASSISTANT Unavailable Unavailable ZABOROWSKI, J KORIN NEUROLOGY PHYSICIAN ASSISTANT Unavailable Unavailable ZABOROWSKI, J KORIN NEUROLOGY PHYSICIAN ASSISTANT Unavailable Unavailable ZABOROWSKI, J KORIN NEUROLOGY PHYSICIAN ASSISTANT Unavailable Unavailable ZABOROWSKI, J KORIN NEUROLOGY PHYSICIAN ASSISTANT Unavailable Unavailable ZABOROWSKI, J KORIN NEUROLOGY PHYSICIAN ASSISTANT Unavailable Unavailable ZABOROWSKI, J KORIN NEUROLOGY PHYSICIAN ASSISTANT Unavailable Unavailable ZABOROWSKI, J KORIN NEUROLOGY PHYSICIAN ASSISTANT Unavailable Unavailable ZABOROWSKI, J KORIN NEUROLOGY PHYSICIAN ASSISTANT Unavailable Unavailable ZABOROWSKI, J KORIN NEUROLOGY PHYSICIAN ASSISTANT Unavailable Unavailable ZABOROWSKI, J KORIN NEUROLOGY PHYSICIAN ASSISTANT Unavailable Unavailable ZABOROWSKI, J KORIN NEUROLOGY PHYSICIAN ASSISTANT Unavailable Unavailable ZABOROWSKI, J KORIN NEUROLOGY PHYSICIAN ASSISTANT Unavailable Unavailable ZABOROWSKI, J KORIN NEUROLOGY PHYSICIAN ASSISTANT Unavailable Unavailable ZABOROWSKI, J KORIN NEUROLOGY PHYSICIAN ASSISTANT Unavailable Unavailable ZABOROWSKI, J KORIN NEUROLOGY PHYSICIAN ASSISTANT Unavailable Unavailable ZABOROWSKI, J KORIN NEUROLOGY PHYSICIAN ASSISTANT Unavailable Unavailable ZABOROWSKI, J KORIN NEUROLOGY PHYSICIAN ASSISTANT Unavailable Unavailable ZABOROWSKI, J KORIN NEUROLOGY PHYSICIAN ASSISTANT Unavailable Unavailable ZABOROWSKI, J KORIN NEUROLOGY PHYSICIAN ASSISTANT Unavailable Unavailable ZABOROWSKI, J KORIN NEUROLOGY PHYSICIAN ASSISTANT Unavailable Unavailable ZABOROWSKI, J KORIN NEUROLOGY PHYSICIAN ASSISTANT Unavailable Unavailable ZABOROWSKI, J KORIN NEUROLOGY PHYSICIAN ASSISTANT Unavailable Unavailable ZABOROWSKI, J KORIN NEUROLOGY PHYSICIAN ASSISTANT Unavailable Unavailable ZABOROWSKI, J KORIN NEUROLOGY PHYSICIAN ASSISTANT Unavailable Unavailable ZABOROWSKI, J KORIN NEUROLOGY PHYSICIAN ASSISTANT Unavailable Unavailable ZABOROWSKI, J KORIN NEUROLOGY PHYSICIAN ASSISTANT Unavailable Unavailable ZABOROWSKI, J KORIN NEUROLOGY PHYSICIAN ASSISTANT Unavailable Unavailable ZABOROWSKI, J KORIN NEUROLOGY PHYSICIAN ASSISTANT Unavailable Unavailable ZABOROWSKI, J KORIN NEUROLOGY PHYSICIAN ASSISTANT Unavailable Unavailable ZABOROWSKI, J KORIN NEUROLOGY PHYSICIAN ASSISTANT Unavailable Unavailable ZABOROWSKI, J KORIN NEUROLOGY PHYSICIAN ASSISTANT Unavailable Unavailable ZABOROWSKI, J KORIN NEUROLOGY PHYSICIAN ASSISTANT Unavailable Unavailable ZABOROWSKI, J KORIN NEUROLOGY PHYSICIAN ASSISTANT Unavailable Unavailable ZABOROWSKI, J KORIN NEUROLOGY PHYSICIAN ASSISTANT Unavailable Unavailable ZABOROWSKI, J KORIN NEUROLOGY PHYSICIAN ASSISTANT Unavailable Unavailable ALEJO, L KATIE PA Unavailable [...] is protected by Article 27-F of the [facility] Public Health law. If you continue you may have access to information: Regarding HIV / AIDS; Provided by facilities licensed or operated by the [facility] Office of Mental Health; or Provided by the [facility] Office for People With Developmental Disabilities. If such information is present, then the following [facility] mandated warning applies: This information has been [...] law may result in a fine or chcf sentence or both. A general authorization for the release of medical or other information is NOT sufficient authorization for further disc losure. Allergies and Adverse Reactions Type Description Substance Reaction Status Data Source(s ) Propensity to adverse reactions METFORMIN AND RELATED Metformin And Related Active [facility] Drug Allergy Drug Allergy NKDA [facility] ([facility] Family History Family Member Name Family Member Gender Family Member Status Date o f Status Description Data Source(s) Unknown Unknown Problem [facility] ([facility] [place] Encounters Encounter Providers Location Date Indications Data Source(s ) Unknown [address] [facility] [address] 02/11/2021 12:00:00 AM EDT eCW1 ([facility]) Outpatient Attender: Pablito Haji MD BF-BF 12/30/2020 12:00:0 0 AM EDT [facility] Outpatient Attender: BERTIN COOPER Main Office 12/05/2020 0 3:30:00 PM EDT MEDENT ([facility]) Outpatient [facility] 11/20/2020 12:00:00 AM EDT eCW1 ([facility]) Outpatient Attender: Pablito Haji MD Admitter: Pablito Haji MDReferrer: Pablito Haji MD [email or web address] 11/13/2020 07:28:00 AM EDT - 11/13/2020 02:10:00 PM EDT [facility] Patient discharged. Outpatient Referrer: Pablito Haji MD MOB-MOB.PAT 08:51:10 AM EDT - 11/08/2020 08:51:13 AM EDT [facility] Outpatient Attender: Pablito Haji MDReferrer: Pablito Montiel MD MOB-MOB.PAT 11/04/2020 01:58:31 PM EDT - 11/04/2020 03:28:49 PM EDT [facility] Outpatient Attender: Pablito Haji MD BF-BF 10/22/2020 12:00:0 0 AM EDT [facility] Outpatient [id number] 10/14/2020 03:31:20 PM EDT [facility] Outpatient [id number] 10/13/2020 03:53:56 PM EDT [facility] Outpatient Attender: SALVATORE LOCO MD Main Office 10/07/2020 01:00:00 PM EDT MEDENT ([facility]) Unknown [address] [facility] [facility] [address] 10/06/2020 12:00:00 AM EDT eCW1 ([facility]) Outpatient [facility] 08/22/2020 12:00:00 AM EDT eCW1 ([facility]) Outpatient Attender: Pablito Haji MD BF-BF.CVS 08/20/2020 07:44:3 4 AM EDT [facility] Outpatient [facility] 08/15/2020 12:00:00 AM EDT eCW1 ([facility]) [place] [address] [facility] [address] 08/08/2020 12:00:00 AM EDT eCW1 ([facility]) Outpatient [facility] 08/08/2020 12:00:00 AM EDT eCW1 ([facility]) Outpatient [facility] 08/08/2020 12:00:00 AM EDT eCW1 ([facility]) Outpatient [facility] 08/01/2020 12:00:00 AM EDT eCW1 ([facility]) Outpatient Attender: Pablito Haji MD BF-BF 07/29/2020 12:00:0 0 AM EDT [facility] Outpatient Attender: Ying Hall PA-C 07/25/2020 08:39 :00 AM EDT [facility] ([facility]) TCM/Hospital Follow Up [facility] 07/25/2020 12:00:00 AM EDT eCW1 ([facility]) Outpatient [facility] 07/25/2020 12:00:00 AM EDT eCW1 ([facility]) Outpatient [facility] 07/22/2020 12:00:00 AM EDT eCW1 ([facility]) Outpatient [facility] 07/21/2020 12:00:00 AM EDT eCW1 ([facility]) Emergency Attender: KATIE Ceballos: Alanna Hall PA-C EMERGENCY ROOM-ER 07/15/2020 03:19:00 PM EDT - 07/15/2020 07:32:00 PM EDT [facility] Patient discharged. Outpatient Attender: Ying Hall PA-C 07/15/2020 12:56 :00 PM EDT [facility] Outpatient [facility] 07/15/2020 12:00:00 AM EDT eCW1 ([facility]) Outpatient [facility] 07/11/2020 12:00:00 AM EDT eCW1 ([facility]) Outpatient [facility] 05/08/2020 12:00:00 AM EST eCW1 ([facility]) Outpatient [facility] 05/08/2020 12:00:00 AM EST eCW1 ([facility]) Outpatient [facility] 05/06/2020 12:00:00 AM EST eCW1 ([facility]) Outpatient [facility] 04/21/2020 12:00:00 AM EST eCW1 ([facility]) Outpatient [facility] 04/11/2020 12:00:00 AM EST eCW1 ([facility]) Outpatient Attender: Ying Hall PA-C 04/09/2020 01:20 :00 PM EST [facility] Outpatient [facility] 04/09/2020 12:00:00 AM EST eCW1 ([facility]) Outpatient [facility] 03/10/2020 12:00:00 AM EST eCW1 ([facility]) Outpatient [facility] 03/04/2020 12:00:00 AM EST eCW1 ([facility]) Outpatient Attender: SALVATORE LECHUGA SR 02/06/2020 10:40:00 AM EDT [facility] Outpatient [facility] 02/06/2020 12:00:00 AM EDT eCW1 ([facility]) Outpatient Attender: Saleem Llanos DPM 01/14/2020 11:30:00 AM EDT [facility] Outpatient [facility] 01/14/2020 12:00:00 AM EDT eCW1 ([facility]) Outpatient Attender: SALVATORE LECHUGA SR 01/09/2020 01:39:00 PM EDT [facility] Outpatient [facility] 01/09/2020 12:00:00 AM EDT eCW1 ([facility]) Outpatient [facility] 01/08/2020 12:00:00 AM EDT eCW1 ([facility]) Outpatient Attender: Bf TechReferrer: KORIN OnealBF.CVS 01/04/2020 12:00:00 AM EDT [facility] Outpatient [facility] 01/01/2020 12:00:00 AM EDT eCW1 ([facility]) Outpatient Referrer: KORIN SALAZAR NP 12/26/2019 11:39:1 9 AM EDT [facility] Outpatient [facility] 12/26/2019 12:00:00 AM EDT eCW1 ([facility]) Outpatient Attender: SALVATORE LECHUGA SRReferrer: BRIANNE LECHUGA SR EMERGENCY ROOM-LAB 12/14/2019 11:27:00 AM EDT - 12/14/2019 11:27:00 AM EDT [facility] Outpatient Attender: SALVATORE LECHUGA SRReferrer: BRIANNE LECHUGA SR EMERGENCY ROOM-LAB 12/10/2019 11:03:00 AM EDT - 12/10/2019 11:03:00 AM EDT [facility] Outpatient Attender: KORIN NAYAKBF.CVS 09/2019 12:00:00 AM EDT - 11/29/2019 03:50:19 PM EDT [facility] Outpatient Attender: Saleem Llanos DPShady 10/15/2019 11:00:00 AM EDT [facility] Outpatient Attender: SALVATORE LECHUGA SRReferrer: BRIANNE LECHUGA SR EMERGENCY ROOM-LAB 09/10/2019 08:53:00 AM EDT - 09/10/2019 08:53:00 AM EDT [facility] Outpatient Attender: SALVATORE LECHUGA SR 09/05/2019 10:00:00 AM EDT [facility] Outpatient Attender: SALVATORE LECHUGA SRReferrer: BRIANNE LECHUGA SR EMERGENCY ROOM-RIVCLI 01/18/2019 02:00:00 PM EDT - 01/18/2019 02:00:00 PM EDT [facility] Outpatient Attender: SALVATORE LECHUGA SRReferrer: SALVATORE More SR 06/07/2017 09:04:00 AM EST [facility] Outpatient Attender: Ronit Benny COPPER MINER-C EMERGENCY ROOM-ULTR A 11/28/2013 08:04:00 AM EDT [facility] Immunizations Vaccine Date Status Description Data Source(s) New in 2011. IIV4 02/06/2020 11:14:00 AM EDT completed eCW1 ([facility]) New in 2011. IIV4 02/06/2020 11:14:00 AM EDT completed eCW1 ([facility]) New in 2011. IIV4 02/06/2020 11:14:00 AM EDT completed eCW1 ([facility]) New in 2011. IIV4 02/06/2020 11:14:00 AM EDT completed eCW1 ([facility]) New in 2011. IIV4 02/06/2020 11:14:00 AM EDT completed eCW1 ([facility]) New in 2011. IIV4 02/06/2020 11:14:00 AM EDT completed eCW1 ([facility]) New in 2011. IIV4 02/06/2020 11:14:00 AM EDT completed eCW1 ([facility]) New in 2011. IIV4 02/06/2020 11:14:00 AM EDT completed eCW1 ([facility]) New in 2011. IIV4 02/06/2020 11:14:00 AM EDT completed eCW1 ([facility]) New in 2011. IIV4 02/06/2020 11:14:00 AM EDT completed eCW1 ([facility]) New in 2011. IIV4 02/06/2020 11:14:00 AM EDT completed eCW1 ([facility]) New in 2011. IIV4 02/06/2020 11:14:00 AM EDT completed eCW1 ([facility]) New in 2011. IIV4 02/06/2020 11:14:00 AM EDT completed eCW1 ([facility]) New in 2011. IIV4 02/06/2020 11:14:00 AM EDT completed eCW1 ([facility]) New in 2011. IIV4 02/06/2020 11:14:00 AM EDT completed eCW1 ([facility]) New in 2011. IIV4 02/06/2020 11:14:00 AM EDT completed eCW1 ([facility]) New in 2011. IIV4 02/06/2020 11:14:00 AM EDT completed eCW1 ([facility]) New in 2011. IIV4 02/06/2020 11:14:00 AM EDT completed eCW1 ([facility]) New in 2011. IIV4 02/06/2020 11:14:00 AM EDT completed eCW1 ([facility]) New in 2011. IIV4 02/06/2020 11:14:00 AM EDT completed eCW1 ([facility]) New in 2011. IIV4 02/06/2020 11:14:00 AM EDT completed eCW1 ([facility]) Medications Medication Brand Name Start Date Product [...] AM EDT active Eliquis 2.5 MG eCW1 ([facility]) pantoprazole 40 MG Delayed Release Oral [...] Wilson lidocaine (PF) (XYLOCAINE-MPF) 1 % injection [id number] 10:06:19 AM EDT active As needed, Start ing on Eileen 11/13/20 at 1006, Intra-Procedure [facility] Medication administered onsite normal saline flush 0.9 % injection 3 mL [id number] 11/13/2020 09:00:00 AM EDT 3 mL Intravenous active 3 mL , Intravenous, Every 8 hours (scheduled), First dose on Eileen 11/13/20 at 0900, Pre-op
Rapid push positive pressure flushing shall be performed with a 10 cc normal saline syringe to check the PATENCY of a PIV site prior to any infusion therapy initiation unless resistance is met.
[facility] Medication administered onsite normal saline flush 0.9 % injection 3 mL [id number] 11/13/2020 09:00:00 AM EDT 3 mL Intravenous active 3 mL , Intravenous, Every 8 hours (scheduled), First dose on Eileen 11/13/20 at 0900, Pre-op
Rapid push positive pressure flushing shall be performed with a 10 cc normal saline syringe to check the PATENCY of a PIV site prior to any infusion therapy initiation unless resistance is met.
[facility] Medication administered onsite 100 mg 11/03/2020 12:00:00 [...] EDT ORAL active [facility] ([facility]) Zinc Chelated 10/06/2020 12:00:00 AM EDT ORAL acti ve MEDENT ([facility]) torsemide 20 MG Oral Tablet Torsemide 10/06/2020 12:00:00 AM EDT ORAL active MED[facility] ([facility]) Sertraline 100 MG Oral Tablet [Zoloft] Zoloft 10/06/2020 12:00:00 AM EDT ORAL active [facility] ([facility]) pantoprazole 40 MG Delayed Release Oral Tablet Pantoprazole Sodium 10/06/2020 12:00:00 AM EDT ORAL active M EDENT ([facility]) Linagliptin 5 MG Oral Tablet [Tradjenta] Tradjenta 10/06/2020 12 :00:00 AM EDT ORAL active [facility] ([facility]) Probiotic Probiotic 10/06/2020 12:00:00 AM EDT ORAL act page MEDENT ([facility]) Glipizide 10 MG Oral Tablet Glipizide 10/06/2020 12:00:00 AM EDT ORAL active MEDENT ([facility]) Colchicine 0.6 MG Oral Capsule Colchicine 10/06/2020 12:00:00 AM EDT ORAL active [facility] ([facility]) Cholecalciferol 1000 UNT Oral Tablet Vitamin D (Cholecalcife rol) 10/06/2020 12:00:00 AM EDT ORAL active M EDENT ([facility]) buspirone hydrochloride 15 MG Oral Tablet Buspirone HCL 10/06/2020 12:00:00 AM EDT ORAL active MEDENT ([facility]) 60 ACTUAT Budesonide 0.16 MG/ACTUAT / fo rmoterol fumarate 0.0045 MG/ACTUAT Metered Dose Inhaler Budesonide/Formoterol Fumarate Dihydrate 10/06/2020 12:00:00 AM EDT RESPIRATORY active MEDENT ([facility]) apixaban 5 MG Oral Tablet [Eliquis] Eliquis 10/06/2020 12:00:00 AM E DT ORAL active [facility] ([facility]) Amlodipine 5 MG Oral Tablet Amlodipine Besylate 10/06/2020 12:00:00 A M EDT ORAL active [facility] ([facility]) Allopurinol 300 MG Oral Tablet Allopurinol 10/06/2020 12:00:00 AM EDT ORAL active [facility] ([facility]) Acetaminophen 500 MG Oral Tablet Acetaminophen Extra Strengt h 10/06/2020 12:00:00 AM EDT ORAL active M EDENT ([facility]) Vitamin B 12 1 MG Extended Release Oral Tablet Vitamin B12 10/06/2020 12:00:00 AM EDT ORAL active MEDENT ([facility]) buspirone hydrochloride 15 MG Oral Tablet BUSPIRONE [...] {tablet} active Amlodipine Besylate 5 MG eCW1 ([facility] claudia) Amlodipine 5 MG Oral Tablet Amlodipine Besylate 5 MG Amlodip ine Besylate 5 MG 08/08/2020 12:00:00 AM EDT 1.0 {tablet} active Aml[facility]ipine Besylate 5 MG [facility] Amlodipine 5 MG Oral Tablet Amlodipine Besylate 5 MG Amlodip ine Besylate 5 MG 08/08/2020 12:00:00 AM EDT 1.0 {tablet} active Amlodipine Besylate 5 MG [facility] Amlodipine 5 MG Oral Tablet Amlodipine Besylate 5 MG Amlodip ine Besylate 5 MG 08/08/2020 12:00:00 AM EDT 1.0 {tablet} active Amlodipine Besylate 5 MG eCW1 ([facility] claudia) Amlodipine 5 MG Oral Tablet amLODIPine Besylate 5 MG amLODIP ine Besylate 5 MG 08/08/2020 12:00:00 AM EDT 1.0 {tablet} active amLODIPine Besylate 5 MG eCW1 ([facility]) Amlodipine 5 MG Oral Tablet amLODIPine Besylate 5 MG amLODIP ine Besylate 5 MG 08/07/2020 12:00:00 AM EDT 1.0 {tablet} active amLODIPine Besylate 5 MG eCW1 ([facility]) Cholecalciferol 25 MCG (1000 UT) UNK 08/07/2020 12:00:00 AM ED T 1.0 {capsule} active Cholecalciferol 25 M CG (1000 UT) eCW1 ([facility]) Amlodipine 5 MG Oral Tablet AmLODIPine Besylate 5 MG AmLODIP ine Besylate 5 MG 08/07/2020 12:00:00 AM EDT 1.0 {tablet} active AmLODIPine Besylate 5 MG eCW1 ([facility]) Acetaminophen 500 MG UNK 08/07/2020 12:00:00 AM EDT 1. 0 {capsule_as_needed} active Acetaminophen 500 MG eCW1 ([facility]) apixaban 5 MG Oral Tablet [Eliquis] Eliquis 5 MG Eliquis 5 M G 08/07/2020 12:00:00 AM EDT active Eliquis 5 MG eCW1 ([facility]) Acetaminophen 500 MG UNK 08/07/2020 12:00:00 AM EDT 1. 0 {capsule_as_needed} active Acetaminophen 500 MG eCW1 ([facility]) Cholecalciferol 25 MCG (1000 UT) UNK 08/07/2020 12:00:00 AM ED T 1.0 {capsule} active Cholecalciferol 25 M CG (1000 UT) eCW1 ([facility]) Amlodipine 5 MG Oral Tablet amLODIPine Besylate 5 MG amLODIP ine Besylate 5 MG 08/07/2020 12:00:00 AM EDT 1.0 {tablet} active amLODIPine Besylate 5 MG eCW1 ([facility]) Zinc 50 MG Zinc 50 MG 08/07/2020 12:00:00 AM EDT 1.0 {tablet} active Zinc 50 MG eCW1 ([facility]) apixaban 5 MG Oral Tablet [Eliquis] Eliquis 5 MG Eliquis 5 M G 08/07/2020 12:00:00 AM EDT active Eliquis 5 MG eCW1 ([facility]) Acetaminophen 500 MG UNK 08/07/2020 12:00:00 AM EDT 1. 0 {capsule_as_needed} active Acetaminophen 500 MG eCW1 ([facility]) Zinc 50 MG Zinc 50 MG 08/07/2020 12:00:00 AM EDT 1.0 {tablet} active Zinc 50 MG eCW1 ([facility]) Zinc 50 MG Zinc 50 MG 08/07/2020 12:00:00 AM EDT 1.0 {tablet} active Zinc 50 MG eCW1 ([facility]) torsemide 20 MG Oral Tablet Torsemide 20 MG Torsemide 20 MG 08/07/2020 12:00:00 AM EDT active Torsemide 20 MG e CW1 ([facility]) Cholecalciferol 25 MCG (1000 UT) UNK 08/07/2020 12:00:00 AM ED T 1.0 {capsule} active Cholecalciferol 25 M CG (1000 UT) eCW1 ([facility]) torsemide 20 MG Oral Tablet Torsemide 20 MG Torsemide 20 MG 08/07/2020 12:00:00 AM EDT active Torsemide 20 MG e CW1 ([facility]ly [facility]) torsemide 20 MG Oral Tablet Torsemide 20 MG Torsemide 20 MG 08/07/2020 12:00:00 AM EDT active Torsemide 20 MG e CW1 ([facility]) 4 wheeled walker with seat UNK 07/23/2020 12:00:00 AM EDT active 4 wheeled walker with seat eCW1 ([facility]) 4 wheeled walker with seat UNK 07/23/2020 12:00:00 AM EDT active 4 wheeled walker with seat eCW1 ([facility]) 4 wheeled walker with seat UNK 07/23/2020 12:00:00 AM EDT active 4 wheeled walker with seat eCW1 ([facility]) 4 wheeled walker with seat UNK 07/23/2020 12:00:00 AM EDT active 4 wheeled walker with seat eCW1 ([facility]) 4 wheeled walker with seat UNK 07/23/2020 12:00:00 AM EDT active 4 wheeled walker with seat eCW1 ([facility]) 4 wheeled walker with seat UNK 07/23/2020 12:00:00 AM EDT active 4 wheeled walker with seat eCW1 ([facility]) 4 wheeled walker with seat UNK 07/23/2020 12:00:00 AM EDT active 4 wheeled walker with seat eCW1 ([facility]) 4 wheeled walker with seat UNK 07/23/2020 12:00:00 AM EDT active 4 wheeled walker with seat eCW1 ([facility]) carvedilol 25 MG Oral Tablet CARVEDILOL 07/19/2020 [...] A DAY TAKE TWO TABLETS BY MO [facility] TWICE A DAY SOLD: 04/24/2020 [facility] [...] suspe nded Advair Diskus 250-50 MCG/DOSE eCW1 ([facility]audia) 60 ACTUAT Fluticasone propionate 0.25 MG /ACTUAT / salmeterol 0.05 MG/ACTUAT Dry Powder Inhaler [Advair] Advair Diskus 250-50 MCG/DOSE Advair Diskus 250-50 MCG/DOSE 01/09/2020 12:00:00 AM EDT 1.0 {puff} activ e Advair Diskus 250-50 MCG/DOSE eCW1 ([facility]audia) 60 ACTUAT Fluticasone propionate 0.25 MG /ACTUAT / salmeterol 0.05 MG/ACTUAT Dry Powder Inhaler [Advair] Advair Diskus 250-50 MCG/DOSE Advair Diskus 250-50 MCG/DOSE 01/09/2020 12:00:00 AM EDT 1.0 {puff} activ e Advair Diskus 250-50 MCG/DOSE eCW1 ([facility]) 60 ACTUAT Fluticasone propionate 0.25 MG /ACTUAT / salmeterol 0.05 MG/ACTUAT Dry Powder Inhaler [Advair] Advair Diskus 250-50 MCG/DOSE Advair Diskus 250-50 MCG/DOSE 01/09/2020 12:00:00 AM EDT 1.0 {puff} suspe nded Advair Diskus 250-50 MCG/DOSE eCW1 ([facility]) 60 ACTUAT Fluticasone propionate 0.25 MG /ACTUAT / salmeterol 0.05 MG/ACTUAT Dry Powder Inhaler [Advair] Advair Diskus 250-50 MCG/DOSE Advair Diskus 250-50 MCG/DOSE 01/09/2020 12:00:00 AM EDT 1.0 {puff} activ e Advair Diskus 250-50 MCG/DOSE eCW1 ([facility]) 60 ACTUAT Fluticasone propionate 0.25 MG /ACTUAT / salmeterol 0.05 MG/ACTUAT Dry Powder Inhaler [Advair] Advair Diskus 250-50 MCG/DOSE Advair Diskus 250-50 MCG/DOSE 01/09/2020 12:00:00 AM EDT 1.0 {puff} activ e Advair Diskus 250-50 MCG/DOSE eCW1 ([facility]) 60 ACTUAT Fluticasone propionate 0.25 MG /ACTUAT / salmeterol 0.05 MG/ACTUAT Dry Powder Inhaler [Advair] Advair Diskus 250-50 MCG/DOSE Advair Diskus 250-50 MCG/DOSE 01/09/2020 12:00:00 AM EDT 1.0 {puff} suspe nded Advair Diskus 250-50 MCG/DOSE eCW1 ([facility]) 60 ACTUAT Fluticasone propionate 0.25 MG /ACTUAT / salmeterol 0.05 MG/ACTUAT Dry Powder Inhaler [Advair] Advair Diskus 250-50 MCG/DOSE Advair Diskus 250-50 MCG/DOSE 01/09/2020 12:00:00 AM EDT 1.0 {puff} activ e Advair Diskus 250-50 MCG/DOSE eCW1 ([facility]) 60 ACTUAT Fluticasone propionate 0.25 MG /ACTUAT / salmeterol 0.05 MG/ACTUAT Dry Powder Inhaler [Advair] Advair Diskus 250-50 MCG/DOSE Advair Diskus 250-50 MCG/DOSE 01/09/2020 12:00:00 AM EDT 1.0 {puff} suspe nded Advair Diskus 250-50 MCG/DOSE eCW1 ([facility]) 60 ACTUAT Fluticasone propionate 0.25 MG /ACTUAT / salmeterol 0.05 MG/ACTUAT Dry Powder Inhaler [Advair] Advair Diskus 250-50 MCG/DOSE Advair Diskus 250-50 MCG/DOSE 01/09/2020 12:00:00 AM EDT 1.0 {puff} activ e Advair Diskus 250-50 MCG/DOSE eCW1 ([facility]) 60 ACTUAT Fluticasone propionate 0.25 MG /ACTUAT / salmeterol 0.05 MG/ACTUAT Dry Powder Inhaler [Advair] Advair Diskus 250-50 MCG/DOSE Advair Diskus 250-50 MCG/DOSE 01/09/2020 12:00:00 AM EDT 1.0 {puff} activ e Advair Diskus 250-50 MCG/DOSE eCW1 ([facility]) 60 ACTUAT Fluticasone propionate 0.25 MG /ACTUAT / salmeterol 0.05 MG/ACTUAT Dry Powder Inhaler [Advair] Advair Diskus 250-50 MCG/DOSE Advair Diskus 250-50 MCG/DOSE 01/09/2020 12:00:00 AM EDT 1.0 {puff} suspe nded Advair Diskus 250-50 MCG/DOSE eCW1 ([facility]) 60 ACTUAT Fluticasone propionate 0.25 MG /ACTUAT / salmeterol 0.05 MG/ACTUAT Dry Powder Inhaler [Advair] Advair Diskus 250-50 MCG/DOSE Advair Diskus 250-50 MCG/DOSE 01/09/2020 12:00:00 AM EDT 1.0 {puff} activ e Advair Diskus 250-50 MCG/DOSE eCW1 ([facility]) 60 ACTUAT Fluticasone propionate 0.25 MG /ACTUAT / salmeterol 0.05 MG/ACTUAT Dry Powder Inhaler [Advair] Advair Diskus 250-50 MCG/DOSE Advair Diskus 250-50 MCG/DOSE 01/09/2020 12:00:00 AM EDT 1.0 {puff} suspe nded Advair Diskus 250-50 MCG/DOSE eCW1 ([facility]) 60 ACTUAT Fluticasone propionate 0.25 MG /ACTUAT / salmeterol 0.05 MG/ACTUAT Dry Powder Inhaler [Advair] Advair Diskus 250-50 MCG/DOSE Advair Diskus 250-50 MCG/DOSE 01/09/2020 12:00:00 AM EDT 1.0 {puff} activ e Advair Diskus 250-50 MCG/DOSE eCW1 ([facility]) 60 ACTUAT Fluticasone propionate 0.25 MG [...] Advair Diskus 250-50 MCG/DOSE [facility]CW1 [facility] 60 ACTUAT Fluticasone propionate 0.25 MG /ACTUAT / salmeterol 0.05 MG/ACTUAT Dry Powder Inhaler [Advair] Advair Diskus 250-50 MCG/DOSE Advair Diskus 250-50 MCG/DOSE 01/09/2020 12:00:00 AM EDT 1.0 {puff} activ e Advair Diskus 250-50 MCG/DOSE eCW1 ([facility]) 60 ACTUAT Fluticasone propionate 0.25 MG /ACTUAT / salmeterol 0.05 MG/ACTUAT Dry Powder Inhaler [Advair] Advair Diskus 250-50 MCG/DOSE Advair Diskus 250-50 MCG/DOSE 01/09/2020 12:00:00 AM EDT 1.0 {puff} suspe nded Advair Diskus 250-50 MCG/DOSE eCW1 ([facility]) 60 ACTUAT Fluticasone propionate 0.25 MG /ACTUAT / salmeterol 0.05 MG/ACTUAT Dry Powder Inhaler [Advair] Advair Diskus 250-50 MCG/DOSE Advair Diskus 250-50 MCG/DOSE 01/09/2020 12:00:00 AM EDT 1.0 {puff} suspe nded Advair Diskus 250-50 MCG/DOSE eCW1 ([facility]) 60 ACTUAT Fluticasone propionate 0.25 MG /ACTUAT / salmeterol 0.05 MG/ACTUAT Dry Powder Inhaler [Advair] Advair Diskus 250-50 MCG/DOSE Advair Diskus 250-50 MCG/DOSE 01/09/2020 12:00:00 AM EDT 1.0 {puff} activ e Advair Diskus 250-50 MCG/DOSE eCW1 ([facility]) 60 ACTUAT Fluticasone propionate 0.25 MG /ACTUAT / salmeterol 0.05 MG/ACTUAT Dry Powder Inhaler [Advair] Advair Diskus 250-50 MCG/DOSE Advair Diskus 250-50 MCG/DOSE 01/09/2020 12:00:00 AM EDT 1.0 {puff} suspe nded Advair Diskus 250-50 MCG/DOSE eCW1 ([facility]) 60 ACTUAT Fluticasone propionate 0.25 MG /ACTUAT / salmeterol 0.05 MG/ACTUAT Dry Powder Inhaler [Advair] Advair Diskus 250-50 MCG/DOSE Advair Diskus 250-50 MCG/DOSE 01/09/2020 12:00:00 AM EDT 1.0 {puff} activ e Advair Diskus 250-50 MCG/DOSE eCW1 ([facility]) pantoprazole 40 MG Delayed Release Oral [...] 1.0 {ml} active Repatha 140 MG/ML eCW1 ([facility]) 1 ML evolocumab 140 MG/ML Prefilled Syringe [Repatha] Repatha 140 MG/ML Repatha 140 MG/ML 12/26/2019 12:00:00 AM EDT 1.0 {ml} active Repatha 140 MG/ML eCW1 ([facility] 1 ML evolocumab 140 MG/ML Prefilled Syringe [Repatha] Repatha 140 MG/ML Repatha 140 MG/ML 12/26/2019 12:00:00 AM EDT 1.0 {ml} active Repatha 140 MG/ML eCW1 ([facility]) carvedilol 6.25 MG Oral Tablet CARVEDILOL [...] Take 50 mg by mouth as needed [facility] 5 mg 08/31/2019 12:00:00 AM EDT tablet 90 TAKE 1 TABLET BY MOUTH ONCE A DAY TAKE 1 TABLET BY MOUTH ONCE A DAY SOLD: 12/19/2019 [facility] meloxicam 15 MG Oral Tablet meloxicam (MOBIC) 15 MG ta blet meloxicam (MOBIC) 15 MG tablet 08/23/2019 12:00:00 AM EDT 15 mg Oral aborted Take 15 mg by mouth daily [facility] Zinc Gluconate 30 MG Oral Tablet Zinc 30 MG TABS Zinc 30 MG TABS Oral aborted Take by mouth daily [facility] MAGNESIUM GLUCONATE 250 MG Oral Tablet Magnesium Gluco michael 250 MG TABS Magnesium Gluconate 250 MG TABS 250 mg Oral aborted Take 250 mg by mouth daily [facility] Insurance Providers Payer name Policy type / Coverage type Policy ID Covered democrat ID Covered democrat's relationship to whitman Policy [place] Plan Information [place] [id number] S [id number] [place] [id number] S [id number] MEDICARE [id number] SP [id number] A [place] [id number] S [id number] MEDICARE [id number] SP [id number] [place] [id number] S [id number] [place] [id number] S [id number] MEDICARE [id number] [place] [id number] [place] [id number] S [id number] [place] Med[place] Part B [id number] Self [id number] [place] Med[place] [id number] Self [place] Med[place] [id number] Self [id number] [place] Med[place] [id number] 83.3.227.99.991.3269.0 Self [id number] Medicare [facility] Medigap Part B [id number] 2.16.840.1.1138 83.3.227.99.991.3269.0 Self [id number] Medicare [facility] Medigap Part B [id number] 2.16.840.1.1138 83.3.227.99.991.3269.0 Self [id number] [facility] [employer]ur Workers Compensation [id number] Self Medicare [facility] Medigap Part B [id number] 2.16.840.1.1138 83.3.227.99.991.3269.0 Self [id number] [facility] Insur Workers Compensation [id number]9.991.3269.0 Self 01 [id number] [place] [id number] [place] [id number] 2.16.840.1.057608.3.227.99.991. 3269.0 Self [id number] [place] [id number] 2.16840.1.334485.3.227.99.991. 3269.0 Self [id number] [place] [id number] 2.16840.1.929428.3.227.99.991. 3269.0 Self [id number] [place] [id number] 2.16840.1.950269.3.227.99.991. 3269.0 Self [id number] [place] [id number] 2.16840.1.132212.3.227.99.991. 3269.0 Self [id number] [place] [id number] 2.16840.1.394981.3.227.99.991. 3269.0 Self [id number] MEDICARE BLUE PPO 306 [id number] SP [id number] [place] Med[place] Part B [id number] Self Medicare [facility] Medigap Part B [id number] 2.16840.1.1138 83.3.227.99.991.3269.0 Self [id number] [facility] [id number] 2.16840.1.265122.3.227.99.991.3269.0 Self 30 [id number] Medicaid [place] [id number] 2.16840.1.078057.3.227.99.991. 3269.0 Self [id number] [place] [id number] 2.160.1.1138 83.3.227.99.991.3269.[id number] [facility] [id number] 2.160.1.331148.3.227.99.991.3269.0 Self 30 [id number] [place] [id number] 2.0.1.824917.3.227.99.991. 3269.0 Self [id number] [place] Med[place] [id number] 2.0.1.1138 83.3.227.99.991.3269.0 Self [id number] [place] [id number] 2.0.1.469347.3.227.99.991. 3269.0 Self [id number] [facility] [id number] 2.0.1.797614.3.227.99.991.3269.0 Self [id number] [place] Primary [id number] 2.0.1.237866.3.227.99.991.3269.0 Self [id number] [facility] [id number] 2.160.1.340850.3.227.99.991.3269.0 Self 30 [id number] Medicaid [place] Med[place] Part [place] [id number] 2.160.1.021158.3.227.99.991. 3269.0 Self [id number] [place] [id number] 2.16.840.1.1138 83.3.227.99.991.3269.0 Self [id number] [facility] Medigap Part B [id number] 2.16.840.1.141581.3.227.99.991.3269.0 Self 30 [id number] Medicaid [place] Medigap Part B [id number] 2.16.840.1.538631.3.227.99.991. 3269.0 Self [id number] [place] B [id number] 2.16.840.1.1138 83.3.227.99.991.3269.0 Self [id number] [facility] Medigap Part B [id number] 2.160.1.826811.3.227.99.991.3269.0 Self 30 [id number] [place] Med[place] Part B [id number] 2.160.1.166443.3.227.99.991. 3269.0 Self [id number] [facility] Medigap Part B [id number] Self [place] Primary [id number] Self [facility] [id number] Veronique [id number] [facility] [id number] [facility] [id number] Veronique [id number] [facility] [id number] SP [id number] [facility] [id number] SP [id number] [facility] [id number] SP [id number] [facility] [id number] SP [id number] [facility] [id number] SP [id number] [facility] [id number] SP [id number] [facility] [id number] SP [id number] INSURANCE COVID-19 COVID Veronique C OVID INSURANCE COVID-19 COVID Veronique C OVID INSURANCE COVID-19 COVID Veronique C OVID INSURANCE COVID-19 [id number] [id number] [facility] PI PI [facility] Supplemental Plan Medigap Part B [id number] 2.0.1.300[id number] Self [id number] Medicare Medicare Primary [id number] 2.16.840.1.194461.3.227. 99.802.556433.0 Self [id number] MEDICARE PI PI [facility] [place] [place] [id number] 18 [id number] MEDICARE PART A [facility] [id number] 18 [id number] AARP O [id number] S [id number] [facility] Medigap Part B [id number] Self [place] 2.16.840.1.381665.3. 227.99.6619.69604.0 Self [facility] Medigap Part B [id number]9.8646.980 99.0 Self F Medicare [place] Medicare Primary 2.16.840.1.58568 3.3.227.99.8646.57581.0 Self Blue Shield MCR Advantage Medigap Part B [id number] Self MEDICAID [id number] SP [id number] MEDICAID M [id number] S [id number] BLUE CROSS BLUE SHIELD-O/P [id number] 18 [id number] TODAYS OPTIONS [id number] SP [id number] [place] Prog-Today's Opt Commercial [id number] Self BCBS [place] [id number] S [id number] BLUE CROSS BLUE SHIELD-CLINIC [id number] 18 [id number] BLUE CROSS BLUE SHIELD-O/P [id number] 18 [id number] BLUE CROSS BLUE SHIELD-CLINIC [id number] 18 [id number] MEDICARE [id number] SP [id number] [id number] [facility] OPT[facility] [id number] SP [id number] [facility] [id number] SP [id number] MEDICARE [id number] MEDICARE [id number] [place] [id number] [facility] CARE OPTIONS [id number] S [id number] [place] MED[place] [id number] S [id number] [place]IC[place] [id number] S [id number] [facility] OPT[facility] [id number] S [id number] [place] MED[place] [id number] S [id number] [place]IC[place] [id number] S [id number] [id number] S [id number] MEDICARE C [id number] S [id number] AARP O [id number] S [id number] SELF PAY ONLY [id number] SP [id number] ANSI-Medicare Part B [id number] ANSI-Commercial [id number] ANSI-Medicare Part B [id number] ANSI-Commercial [id number] [id number] [facility] [place] [id number] 18 [id number] MEDICARE PART A [facility] [id number] 18 [id number] ANSI-Medicare Part B [id number] ANSI-Commercial [id number] ANSI-Commercial [id number] ANSI-Medicare Part B [id number] ANSI-Commercial [id number] ANSI-Medicare Part B [id number] ANSI-Medicare Part B [id number] ANSI-Commercial [id number] ANSI-Medicare Part B [id number] ANSI-Commercial [id number] [place] [id number] 2.16.840.1.190377.3.227.99.991.3269.0 Self [id number] ANSI-Medicare Part B [id number] ANSI-Commercial [id number] ANSI-Medicare Part B [id number] ANSI-Commercial [id number] ANSI-Medicare Part B [id number] ANSI-Commercial [id number] [place] Primary [id number] 2.16.840.1.733195.3.227.99.991.3269.0 Self [id number] [place] Primary [id number] 2.16.840.1.038888.3.227.99.991.3269.0 Self [id number] ANSI-Commercial [id number] ANSI-Medicare Part B [id number] ANSI-Commercial [id number] ANSI-Medicare Part B [id number] ANSI-Medicare Part B [id number] ANSI-Commercial [id number] [place] [id number] Self [id number] [place] Primary [id number] .[id number].0 Self [id number] MEDICARE [id number] SP [id number] A [facility] Advantage Medigap Part B [id number] Self [id number] [place] MED[place]ARE DIVISION [id number] S [id number] [place] [id number] S [id number] MEDICARE [id number] [place] [id number] [facility] [id number] S [id number] MEDICARE C [id number] S [id number] A [facility] Supplemental Plan Medigap Part B [id number] Self [id number] Medicare Medicare Primary [id number] .[id number]. [id number] Self [id number] [facility] Supplemental Plan Medigap Part B [id number] .[id number] Self [id number] Medicare Medicare Primary [id number] .[id number]. [id number] [facility] Supplemental Plan Mediwever Part B [id number] 2..840.1.115378.3.227.99.802.767510.0 Self [id number] Medicare Medicare Primary [id number]. [id number] Self [id number] Problems, Conditions, and Diagnoses Code Display Name Description Problem Type Effective Dates Data Source(s) I49.5 Sick sinus syndrome Sick sinus syndrome Diagnosis 0 12/30/2020 01:38:57 PM EDT [facility] I48.92 Unspecified atrial flutter Unspecified atrial flutter Diagnosis 11/13/2020 07:28:00 AM EDT [facility] U07.1 COVID-19 COVID-19 Diagnosis 11/08/2020 08:51:10 AM ED T [facility] R13.10 Dysphagia, unspecified DYSPHAGIA, UNSPECIFIED Diagnosi s 07/25/2020 08:39:00 AM [facility] N18.4 Chronic kidney disease, stage 4 (severe) CHRONIC KIDNEY DISEASE, STAGE 4 (SEVERE) Diagnosis 07/25/2020 08:39:00 AM [facility] I50.9 Heart failure, unspecified HEART FAILURE, UNSPECIFIED Diagnosis 07/25/2020 08:39:00 AM [facility] I48.91 Unspecified atrial fibrillation UNSPECIFIED ATRI AL FIBRILLATION Diagnosis 07/25/2020 08:39:00 AM [facility] Z79.84 [employer]TERN[employer] AP[employer]ENTICE WOOD (CURRENT) USE OF ORAL HYPOGLYC EMIC DRUGS PATTERNMAK[employer] APPRENTICE WOOD (CURRENT) USE OF ORAL HYPOGLYCEMIC DRUGS Diagnosis 07/15/2020 03:19:00 PM EDT [facility] Z79.51 alf (current) use of inhaled stero ids [employer]TERN[employer] APPRENTICE WOOD (CURRENT) USE OF INHALED STEROIDS Diagnosis 07/15/2020 03:19:00 PM [facility] Z85.51 Personal history of malignant neoplasm o f bladder PERSONAL HISTORY OF MALIGNANT NEOPLASM OF BLADDER Diagnosis 07/15/2020 03:19:00 PM EDT [facility] Z87.891 Personal history of nicotine dependence PERSONAL HISTORY OF NICOTINE DEPENDENCE Diagnosis 07/15/2020 03:19:00 PM [facility] Z95.1 Presence of aortocoronary bypass graft P RESENCE OF AORTOCORONARY BYPASS GRAFT Diagnosis 07/15/2020 03:19:00 PM [facility] Z95.0 Presence of cardiac pacemaker PRESENCE OF CARDIAC PACE MAKER Diagnosis 07/15/2020 03:19:00 PM [facility] E78.00 PURE HYPERCHOLESTEROLEMIA, UNSPECIFIED P URE HYPERCHOLESTEROLEMIA, UNSPECIFIED Diagnosis 07/15/2020 03:19:00 PM [facility] I25.10 Atherosclerotic heart diseas e of [place] coronary artery without angina pectoris ATHSCL HEART DISEASE OF [place] CORONARY ARTERY W/O Diagnosis 07/15/2020 03:19:00 PM [facility] I10 Essential (primary) hypertension ESSENTIAL (PRIMARY) H YPERTENSION Diagnosis 07/15/2020 03:19:00 PM [facility] E11.9 Type 2 diabetes mellitus without complic ations TYPE 2 DIABETES MELLITUS WITHOUT COMPLICATIONS Diagnosis 07/15/2020 03:19:00 PM [facility]is N19 Unspecified kidney failure UNSPECIFIED KIDNEY FAILURE Diagnosis 07/15/2020 03:19:00 PM [facility] R00.0 Tachycardia, unspecified TACHYCARDIA, UNSPECIFIED Diag nosis 07/15/2020 03:19:00 PM [facility] R07.2 Precordial pain PRECORDIAL PAIN Diagnosis 07/15/2020 03:1 9:00 PM [facility] J44.9 Chronic obstructive pulmonary disease, u nspecified CHRONIC OBSTRUCTIVE PULMONARY DISEASE, UNSPECIFIED Diagnosis 07/15/2020 12:56:00 PM [facility] R06.02 Shortness of breath SHORTNESS OF BREATH Diagnosis 0 07/15/2020 12:56:00 PM [facility] R07.9 Chest pain, unspecified CHEST PAIN, UNSPECIFIED Diagno sis 07/15/2020 12:56:00 PM [facility] R25.1 Tremor, unspecified TREMOR, UNSPECIFIED Diagnosis 1 06/10/2019 01:20:00 PM [facility] F32.9 Major depressive disorder, single episod e, unspecified MAJOR DEPRESSIVE DISORDER, SINGLE EPISODE, UNSPECI Diagnosis 04/09/2020 01:20:00 PM [facility] M19.90 Unspecified osteoarthritis, unspecified site UNSPECIFIED OSTEOARTHRITIS, UNSPECIFIED SITE Diagnosis 04/09/2020 01:20:00 PM [facility] E78.5 Hyperlipidemia, unspecified HYPERLIPIDEMIA, UNSPECIFIE D Diagnosis 04/09/2020 01:20:00 PM [facility] Z71.89 Other specified counseling OTHER SPECIFIED COUNSELING Diagnosis 02/06/2020 10:40:00 AM [facility] Z23 Encounter for immunization ENCOUNTER FOR IMMUNIZATION Diagnosis 02/06/2020 10:40:00 AM [facility] L60.3 Nail dystrophy NAIL DYSTROPHY Diagnosis 01/14/2020 11:30: 00 AM [facility] L60.0 Ingrowing nail INGROWING NAIL Diagnosis 01/14/2020 11:30: 00 AM [facility] N18.9 Chronic kidney disease, unspecified CHRONIC KIDN EY DISEASE, UNSPECIFIED Diagnosis 01/14/2020 11:30:00 AM [facility] E11.22 Type 2 diabetes mellitus with diabetic c hronic kidney disease TYPE 2 DIABETES MELLITUS W DIABETIC CHRONIC KIDNEY DISEASE Diagnosis 11:30:00 AM [facility] Z71.2 Person consulting for explanation of exa mination or test findings PERSON CONSULTING FOR EXPLANATION OF EXAM OR TEST Diagnosis 01/09/2020 01:39: 00 PM [facility] M10.9 Gout, unspecified GOUT, UNSPECIFIED Diagnosis 01/09/2020 01:39:00 PM [facility] I25.709 [id number] 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 Problem 01/03/2021 12:00:00 AM EDT eCW1 ([facility]) I51.9 [id number] Depressed left ventricular systolic funct ion Problem 01/03/2021 12:00:00 AM EDT eCW1 ([facility]) R94.31 Electrocardiogram abnormal Electrocardiogram abnormal Problem 12/05/2020 12:00:00 AM EDT MEDREYMUNDO ([facility]) I48.0 [id number] Paroxysmal atrial fibrillation Problem 11/25/2020 12:00:00 AM EDT eCW1 ([facility]) G47.30 [id number] Suspected sleep apnea Problem 11/25/2020 12: 00:00 AM EDT eCW1 ([facility]) I48.92 Atrial flutter Atrial flutter [id number] 10/30/2020 12:00: 00 AM EDT [facility] I48.3 Atrial flutter Atrial flutter Problem 10/07/2020 12:00: 00 AM EDT MEDENT ([facility]) I25.10 Atherosclerosis of coronary artery witho ut angina pectoris Atherosclerosis of coronary artery without angina pectoris Problem 10/07/2020 12:00:00 AM EDT MEDENT ([facility]) Z71.3 Dietary management surveillance Dietary management deanna veillance Problem 10/07/2020 12:00:00 AM EDT MEDENT ([facility]) E78.2 Mixed hyperlipidemia Mixed hyperlipidemia Problem 10/07/2020 12:00:00 AM EDT MEDENT ([facility]) I10 Essential hypertension Essential hypertension Problem 10/07/2020 12:00:00 AM EDT MEDENT ([facility]) Z95.0 Cardiac pacemaker in situ Cardiac pacemaker in situ Pr oblem 10/07/2020 12:00:00 AM EDT MEDENT ([facility]) I49.5 Sinus node dysfunction Sinus node dysfunction Problem 10/07/2020 12:00:00 AM EDT MEDENT ([facility]) Z95.1 History of coronary artery bypass grafti ng History of coronary artery bypass grafting Problem 10/07/2020 12:00:00 AM EDT MEDENT ([facility]) N18.4 [id number] Stage 4 chronic kidney disease Problem 07/25/2020 12:00:00 AM EDT eCW1 ([facility]audia) I50.9 [id number] Chronic congestive heart failure , unspecified heart failure type Problem 07/25/2020 12:00:00 AM EDT eCW1 ([facility]) R13.10 [id number] Dysphagia, unspecified type Problem 07/26/19 12:00:00 AM EDT eCW1 ([facility]) I48.91 [id number] Atrial fibrillation, unspecified type Pro blem 07/25/2020 12:00:00 AM EDT eCW1 ([facility] claudia) Z95.0 [id number] History of permanent cardiac pacemaker pl acement Problem 07/15/2020 12:00:00 AM EDT eCW1 ([facility]) I10 [id number] Essential hypertension Problem 04/09/2020 12 :00:00 AM EST eCW1 ([facility]) Surgeries/Procedures Procedure Description Date Indications Data Source(s) INTERROGATION EVAL REMOTE </90 D 1/2/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 PM 01/20 12:00:00 AM EDT MEDENT ([facility]) INTERROGATION EVAL REMOTE </90 D 1/2/> LD CVDFB 2020 12:00:00 AM EDT MEDENT ([facility]) ECG ROUTINE ECG W/LEAST 12 LDS W/I&R 12/05/2020 12:00: 00 AM EDT MEDENT ([facility]) OFFICE OUTPATIENT VISIT 25 MINUTES 12/05/2020 12:00:00 AM EDT MEDENT ([facility]) EP STUDY <td>EP STUDY</td><td>Routine </td><td>11/13/2020 10:21 AM EDT</td><td> Atrial flutter, unspecified type</td><td> </td> 11/13/2020 10:21:49 AM EDT Atrial flutter, unspecified type [facility] Atrial flutter, unspecified type POC GLUCOSE <td>POC GLUCOSE</td><td>Rout ine</td><td>11/13/2020 8:41 AM EDT</td><td></td><td> </td> 11/13/2020 08:41:00 AM EDT [facility] POCT POTASSIUM <td>POCT POTASSIUM</td><td>R outine</td><td>11/13/2020 8:41 AM EDT</td><td></td><td> </td> 11/13/2020 08:41:00 AM EDT [facility] BLOOD COUNT HEMATOCRIT <td>POCT HEMATOCRIT</td><td> Routine</td><td>11/13/2020 8:41 AM EDT</td><td></td><td> </td> 11/13/2020 08:41:00 AM EDT [facility] ECG ROUTINE ECG W/LEAST 12 LDS TRCG ONLY W/O I&R <td>E CG 12- LEAD</td><td>Routine</td><td>11/13/2020 8:09 AM EDT</td><td></td><td></td> 11/13/2020 08:09:23 AM EDT [facility] ECG ROUTINE ECG W/LEAST 12 LDS TRCG ONLY W/O I&R <td>E CG 12- LEAD</td><td>Routine</td><td>11/04/2020 3:24 PM EDT</td><td> Atrial flutter, unspecified type</td><td></td> 11/04/2020 03:24:29 PM EDT Atrial flutter, unspecified type [facility] Atrial flutter, unspecified type BLOOD COUNT COMPLETE AUTOMATED <td>CBC</td><td>Routine </td><td>11/04/2020 3:10 PM EDT</td><td> Atrial flutter, unspecified type</td><td> </td> 11/04/2020 03:10:00 PM EDT Atrial flutter, unspecified type [facility] Atrial flutter, unspecified type BLOOD TYPING ABO <td>TYPE AND SCREEN</td><td> Routine</td><td>11/04/2020 3:10 PM EDT</td><td> Atrial flutter, unspecified type</td><td> </td> 11/04/2020 03:10:00 PM EDT Atrial flutter, unspecified type [facility] Atrial flutter, unspecified type HEMOGLOBIN GLYCOSYLATED A1C <td>HEMOGLOBIN A1C</td><td>Routine</td><td>11/04/2020 3:10 PM EDT</td><td> Atrial flutter, unspecified type</td><td> </td> 11/04/2020 03:10:00 PM EDT Atrial flutter, unspecified type [facility] Atrial flutter, unspecified type BASIC METABOLIC PANEL CALCIUM TOTAL <td>BASIC METABOLI C PANEL</td><td>Routine</td><td>11/04/2020 3:10 PM EDT</td><td> Atrial flutter, unspecified type</td><td> </td> 11/04/2020 03:10:00 PM EDT Atrial flutter, unspecified type [facility] Atrial flutter, unspecified type ECG ROUTINE ECG W/LEAST 12 LDS W/I&R 10/07/2020 12:00: 00 AM EDT MEDENT ([facility]) Arterial Pressure Waveform Analysis For Assessment Of Centra l Art 10/07/2020 12:00:00 AM EDT MEDENT ([facility]) OFFICE OUTPATIENT NEW 45 MINUTES 10/07/2020 12:00:00 A M EDT MEDENT ([facility]) CYSTOURETHROSCOPY 03/17/2020 12:00:00 AM EST MEDENT ([facility]) Results ID Date Data Source [id number] 12/30/2020 08:01:24 PM EDT [facility] NT INFORMATIONPatient MRN Name Date of Age Gend*PT [id number] Taj Norris 1940 80 years M ---PT Location Admission Date/Time Visit ID Attending Provider --- --- --- --- EPI ID CSN Admitting Provider [id number] ---Name: Taj ThomasenDOB: 1Date: 12/30[birth year]20CIED Remote CheckImplanted Device 05/30/2019Device Road Mechanic -Device type Dual Chamber PPMMRI Conditional Device NoDevice was remotely interrogated and the following were evaluated:Battery statusSummary arrhythmia logsNew observationsFidelity of the EGM signalIntegrity of leads and lead impendence were reevaluatedConclusion:Normal pacemaker function.No significant changes continue to monitor.Signature: Pablito Christie MD, [facility] CENTERCardiac Electrophysiology and Arrhythmia ServiceDate: December 30, 2020Time: 8:01 PMThis document or parts of this document, were dictated using [employer]. A reasonable attempt at proofreading has been made to minimize errors.Please call with any questions or corrections. Name Value Range Interpretation Code Description Data Evelyn rce(s) Supporting Document(s) ID Date Data Source [id number] 11/26/2020 09:36:00 AM EDT MEDENT ([facility]) Name Value Range Interpretation Code Description Data Evelyn rce(s) Supporting Document(s) Roscoe/Creat Ratio 42.2 MCG/MG 0.0-30.0 MEDENT ([facility]) THE 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 THE THRESHOLD FOR CLINICAL ALBUMINURIA IS REACHED AT 300 MCG/MG. THE CLASSIFICATION OF A PATIENT SHOULD BE BASED UPON AT LEAST 2 OF 3 ABNORMAL RESULTS ON SPECIMENS COLLECTED WITHIN A 3 TO 6 MONTH TIME FRAME. Malb Urine Siemens 46.1 mg/L MEDENT ([facility]) Creatinine, Urine 109.0 mg/dL MEDENT ([facility]) ID Date Data Source [id number] 11/26/2020 09:36:00 AM EDT MEDENT ([facility]) Name Value Range Interpretation Code Description Data Evelyn rce(s) Supporting Document(s) Glucose, Fasting 161 mg/dL 70-100 [facility] Glomerular Filtration Rate 33.9 MED ENT ([facility]) <content>Units are mL/min/1.73 m2</content>
<content></content>
<content>Chronic Kidney Disease Staging per NKF:</content>
<content></content>
<content>Stage I & II GFR >=60 Normal to Mildly Decreased</content>
<content>Stage III GFR 30- 59 Moderately Decreased</content>
<content>Stage IV GFR 15-29 Severely Decreased</content>
<content>Stage V GFR <15 Very Little GFR Left</content>
<content>ESRD GFR <15 on GARMENT TAG STRINGER</content>
<content></content> Creatinine For GFR 2.03 mg/dL 0.70-1.30 MEDENT ([facility]) Blood Urea Nitrogen 31 mg/dL 7-18 MEDENT ([facility]) Sodium Level 138 meq/L 136-145 MEDENT ([facility]) Potassium Serum 4.5 meq/L 3.5-5.1 MEDENT ([facility]) Carbon Dioxide Level 30 meq/L 21-32 MEDENT ([facility]) Chloride Level 104 meq/L 98-107 MEDENT ([facility]) Calcium Level 9.1 mg/dL 8.8-10.2 MEDENT ([facility]) Anion Gap 4 meq/L 8-16 [facility]ENT [facility] ID Date Data Source [id number] 11/26/2020 09:36:00 AM EDT MEDENT ([facility]) Name Value Range Interpretation Code Description Data Evelyn rce(s) Supporting Document(s) Triglycerides Level 382 mg/dL MEDENT ([facility]) Cholesterol Level 254 mg/dL MEDENT ([facility]) HDL Cholesterol 33 mg/dL MEDENT ([facility]) LDL Cholesterol 145 mg/dL MEDENT ([facility]) Non-HDL-C 221 mg/dL MEDENT ([facility]) Cholesterol Risk Ratio 7.696 MEDENT ([facility]) ID Date Data Source [id number] 11/26/2020 09:36:00 AM EDT MEDENT ([facility]) Name Value Range Interpretation Code Description Data Evelyn rce(s) Supporting Document(s) Hemoglobin A1c 6.7 % MEDENT ([facility]) <content>REFERENCE RANGES:</content><br/ ><content></content>
<content><=5.6% NORMAL</content>
<content>5.7-6.4% SUGGESTS IMPAIRED GLUCOSE METABOLISM/PREDIABETIC</content>
<content>>= 6.5% ABNORMAL</content>
<content></content> Estimated Average Glucose 146 mg/dL 60-110 MEDENT ([facility]) ID Date Data Source [id number] 11/13/2020 10:41:41 AM EDT [facility] Name Value Range Interpretation Code Description Data Evelyn rce(s) Supporting Document(s) &PDF [facility] PRYRTh2bYbZSDjRq63/XEHseRBLqq0SqSSinNQf2EAdxJXKuK0EvrHtiXIGPT9TVJMFMI0OBIINLRT1r oRX [file] ICAgICAgICAgICAgICAgICAgICAgICAgICAgICAgICAgICAgICAgICAgICAgICAgICAgICAgICAgICAg ICAgICAgICAgICAgICAgICANCiAgICAgICAgICAgIC AgICAgICAgICAgICAgICAgICAgICAgICAgICAgICAgICAgICAgICAgICAgICAgICAgICAgICAgICAgIC AgICAgICAgICAgICAgICAgICAgICAgICAgICANCiAgICAgICAgICAgICAgICAgICAgICAgICAgICAgIC AgICAgICAgICAgICAgICAgICAgICAgICAgICAgICAg ICAgICAgICAgICAgICAgICAgICAgICAgICAgICAgICAgICAgICANCiAgICAgICAgICAgICAgICAgICAg ICAgICAgICAgICAgICAgICAgICAgICAgICAgICAgICAgICAgICAgICAgICAgICAgICAgICAgICAgICAg ICAgICAgICAgICAgICAgICAgICANCiAgICAgICAgIC AgICAgICAgICAgICAgICAgICAgICAgICAgICAgICAgICAgICAgICAgICAgICAgICAgICAgICAgICAgIC AgICAgICAgICAgICAgICAgICAgICAgICAgICAgICANCiAgICAgICAgICAgICAgICAgICAgICAgICAgIC AgICAgICAgICAgICAgICAgICAgICAgICAgICAgICAg ICAgICAgICAgICAgICAgICAgICAgICAgICAgICAgICAgICAgICAgICANCiAgICAgICAgICAgICAgICAg ICAgICAgICAgICAgICAgICAgICAgICAgICAgICAgICAgICAgICAgICAgICAgICAgICAgICAgICAgICAg ICAgICAgICAgICAgICAgICAgICAgICANCiAgICAgIC AgICAgICAgICAgICAgICAgICAgICAgICAgICAgICAgICAgICAgICAgICAgICAgICAgICAgICAgICAgIC AgICAgICAgICAgICAgICAgICAgICAgICAgICAgICAgICANCiAgICAgICAgICAgICAgICAgICAgICAgIC AgICAgICAgICAgICAgICAgICAgICAgICAgICAgICAg ICAgICAgICAgICAgICAgICAgICAgICAgICAgICAgICAgICAgICAgICAgICANCiAgICAgICAgICAgICAg ICAgICAgICAgICAgICAgICAgICAgICAgICAgICAgICAgICAgICAgICAgICAgICAgICAgICAgICAgICAg ICAgICAgICAgICAgICAgICAgICAgICAgICANCjw/eH JiU6xslLFljzV9T4jgVw1NVo0KZW1qs7AkVQPqEOmgvjBmFmqBWnCdLKJfMqzUYlr9XKvwVO4GwCZiX7 WbM5XvYFfrJQ0AJNPoTKXnxJNpYHGnMWZlHeB7YPTeCQkwDN4GsOFxEUcgZAZeITIuXxTzTVRlFCTfJJ JoAN5CBEBgF117wsCmBy9NLn8LOdSuGP0mwi9AYpKb WKKkXurBWvw4IJiiKV5PlUKtqDNfZIXjPKHLUqQcB2pbv7OnLtTtPJLOUGwtOG9Ub2DszEXtGIs+Pg0K PB1rc3ZjRFycQYCaBC8rmu3BGZdGCeSfN9LqlFvnUHgqrNubtnAcAV9HHQWaUHSabHIlFZowEUMWKY4D FIifQJKbZRAjkqFhdGBlMDmkNQ4PRINmmsLwKrUtZC BSDQo+Vp3AAS3dd7DdCTjlXoPnFG3rzr8JDEvLPcFrP5W8eQCqK1M5AOoaYr9JTIGkJHKxHEvyVEXQWN wvGV7YES3jwsF7NM0TnBOyLDJuQQAidOKzMGw7B08jyZTvUJqtFR9EGLA+Katty+Ei4WRURwLVOuVSEkCo FuWDGAVcJkU8ToP6SJi0EkS7GcSA00fVetnuEaPUol GA4REV7vMCTwBPKJQE7XeCMroO2xppUqHWYnZFQGSrNuV85bcDZqHBHsSHF4RMKwXb9BZKOsT5UpjeJc uDrkouMnEEOkVFUWVH2YHEeadbVunSOyuJrmJS25sIxxRW1UWh2MRlIlUT7jgg5TmXAjPj3MBPNfPn7P KEMdDRJfXRBwJWZ2SUEmJfCmHQmnLTNtQPHuHXL0FH OxYNWuVR9YAwLkKKMsSOD7QrAwDGUuVFWogj9KSPIqXMEuHqH6ALClEYLmWHPzRPbeYEIsAVAkTKkaII LdMKEeUD6HFmKeAJQpLSUfVlHpPGUkPHXqsu0JGJFdWDDsJdCdSXKyMHDfPQLeWGkpRXJeYSA9GDo0BO TvQHTeKT2IKmAcEWQuVIYkNQZiCKTzVBVhmq1JWYGk VDCfAsn1VPUcKCVmQIWzKAesGQInOGQ5LVGcTXDwOMLgEK3QQaTwTUCyRKoyFdUxSQUeJWNjgs1GAMLv KRNiRBM5KJYwBAJoPWMoNXkxWPOsSIX1HZSpOLThDLXpDM3SIdGdJKAwHSl4OVUeCVCaLZTydp3LPHHq UURbZMFoItDqXJGuOXAeRPxgBYVoDHU1PyrwDURdWS FcTP7VCfCoBAEvYZV7WFMaMHVmWOGsat3MNLKnEQVkWWQvRwRpEEHzYBClYVwxNEDhZFQ8OZC9YYUyBD CrME9ELkTeVPAoVDwgXbllKGJsXWNjry0IPBOwOUVyRzUvSAUmRCUaUQQgKRkuWAWgLTJ5ZDG4WPCtDA JbDM3OYiEuOXzqELTECsi6UThjG5w5EXFlHo6UE5Va r8UrRsTbROSYAEgwSM1jiuMkYLNfCw0GO4lBKrcsRvUrEFClPVX9YAH0OJiwEEr4UuOqD6XtLIVeIDIq VO5rOIOoLCMqLEK2VNs5BgfwKKOlBoEtTgJtBGGgWPC9BOIaJrIdKP4ZJc4KSeP1TBS1jWYsXc1ZEBf9 RPKUPnAfIU1TJKr= ID Date Data Source [id number] 11/13/2020 09:05:34 AM EDT [facility] NT INFORMATIONPatient MRN Name Date of Age Gend*PT [id number] Taj Norris W 1940 79 years M HOPPT Location Admission Date/Time Visit ID Attending [id number] 11/13/20727 --- Pablito Christie MD([id number]) EPI ID CSN Admitting Provider [id number] Pablito Christie MD([id number])H&P reviewed. The patient was examined and there are no changes to the H&P.Pablito Christie MD9:05 AM Name Value Range Interpretation Code Description Data Evelyn rce(s) Supporting Document(s) ID Date Data Source [id number] 11/13/2020 09:02:33 AM EDT [facility] Name Value Range Interpretation Code Description Data Evelyn rce(s) Supporting Document(s) EKG [facility] GJODSn2qBjYDWsOls8CtCnRrQZMzWR9zkbh8M8H8zSRiQ7HipIYei3vqX9UkB4BiESVeJNZWTN1HtMIe jb2 [file] 4jB2XPvYCRSDXxuftcdL3P891TVJet5eD3vigz1E+WSSJ+L58/hK38qXC//zLTx/wvznv//senior grant writer//8ZePP [file] l20nekT2eW05u1GBd+RECRUITING INTERN+7H+9BuT7UPH74ndKB2p+SarJ3sFL5MPH3M3Oa6OhVMyf3Q6uE/cJ/GR+2T9 [file] lvQr5uSrRlLBVQZ5Yxd0KrLFPfIAFLHs1+QjN7LMG1fUTlXck5FCa2UQmnWTGOKn== ID Date Data Source [id number] 11/13/2020 08:49:46 AM EDT [facility] Name Value Range Interpretation Code Description Data Evelyn rce(s) Supporting Document(s) POC POTASSIUM 5.0 MMOL/L (3.6-5.2) [facility] PERFORMED BY [facility] CLINICAL STAFF ID Date Data Source [id number] 11/13/2020 08:49:46 AM EDT [facility] vijay [facility]NE[facility] Name Value Range Interpretation Code Description Data Evelyn rce(s) Supporting Document(s) POC GLU 189 MG/DL (70-99) H [facility] PERFORMED BY [facility]IN[facility] STA[facility] ID Date Data Source [id number] 11/13/2020 08:49:46 AM EDT [facility]ijay [facility]NE[facility] Name Value Range Interpretation Code Description Data Evelyn rce(s) Supporting Document(s) POC HCT 41 % (41.0-53.0) [facility] Tena Manrique PERFORMED BY [facility]IN[facility] STA[facility] ID Date Data Source [id number] 11/11/2020 08:44:26 AM EDT [facility] Name Value Range Interpretation Code Description Data Evelyn rce(s) Supporting Document(s) SARS-COV-2 [facility] Srikanth Not DetectedReference range: Not Detecte d This nucleic acid amplification test was developed and its performance characteristics determined by [employer]. Nucleic acid amplification tests include RT-PCR and [...] detected) result in this assay. Performed At: [address] [place], [place] [id number] Anh Luis PhD Ph:[id number] ID Date Data Source [id number] 11/06/2020 09:00:00 AM EDT [facility] Name Value Range Interpretation Code Description Data Evelyn rce(s) Supporting Document(s) SARS coronavirus 2 RNA Not Detected [facility] This lab was ordered by [facility] and reported by [facility]. ID Date Data Source [id number] 11/04/2020 03:42:56 PM EDT [facility] Name Value Range Interpretation Code Description Data Evelyn rce(s) Supporting Document(s) [facility] RIATKv4wOtPVAbUey8CfPsVaMATdYC5duib1H7H7jPAyA2HpxMVer6ldT0YoP0AdNUBzZNVIMJ6ZcUEu jb2 [file] MDkgMDAwMDAgbiAKMDAwMDAwMTczNCAwMDAwMCBuIA bhNYIjUEAqUZI9VCRtLSVmUF8qSrAwLZIiXCCxUOEfJaI6JfHaWbRUmQZuwErdmba5UYxlR3n2CZXnFW gtQW8megHjVAMhPjmgDz3viWC5GRHcRvrFLa7Rl9LfipT6zqVdQhTmVXDcTcDzGJ5O ID Date Data Source [id number] 11/04/2020 10:21:13 PM EDT [facility] SPEC EXP DATE 11/14/2020ATI ENT ABO/Rh B POSITIVEANTIBODY SCREEN NEGATIVETESTING SITE PERFORMED AT [address] [place] [address] Name Value Range Interpretation Code Description Data Evelyn rce(s) Supporting Document(s) TYPE AND SCREEN [facility] PATIENT ABO/Rh B POSITIVE ID Date Data Source [id number] 11/04/2020 07:33:05 PM EDT [facility] Name Value Range Interpretation Code Description Data Evelyn rce(s) Supporting Document(s) WBC 11.9 10*3/uL (4.1-11.0) H [facility] RESULT CHECKED RBC 4.89 10*6/uL (4.60-6.10) [facility] HGB 13.7 g/dL (13.5-18.0) [facility] HCT 40.5 % (41.0-53.0) L [facility] MCV 82.9 fL (80.0-95.0) [facility] MCH 28.0 pg (27.0-32.0) [facility] MCHC 33.8 g/dL (32.0-36.0) [facility] RDW 17.2 % (10.5-14.5) H [facility] PLT (150-450) [facility] MPV PENDING fL (7.1-10.7) [facility] ID Date Data Source [id number] 11/04/2020 07:00:59 PM EDT [facility] Name Value Range Interpretation Code Description Data Evelyn rce(s) Supporting Document(s) SODIUM 141 mmol/L (136-145) [facility] POTASSIUM 4.0 mmol/L (3.6-5.2) [facility] CHLORIDE 102 mmol/L (100-108) [facility] CO2 29 mmol/L (22-31) [facility] ANION GAP 10 mmol/L (7-16) [facility] UREA NITROGEN 31 mg/dL (7-24) H [facility] CREATININE 2.19 mg/dL (0.80-1.30) H [facility] BUN/CREAT RATIO 14.2 RATIO (10.0-20.0) [facility] GLUCOSE 104 mg/dL (70-99) H [facility] CALCIUM 9.4 mg/dL (8.4-10.2) [facility] GFR 29 ml/min/1.73m2 (>59) L [facility] GFR ( AMER) 35 ml/min/1.73m2 (>59) L [facility] GFR INTERPRETATION [facility] --NORMAL KIDNEY FUNCTION OR MILD DISEASE - GFR >OR= 60CHRONIC KIDNEY DISEASE - GFR 15 - 59RENAL FAILURE - GFR <15 Est. GFR calculation based on the MDRDstudy equation, which assumes a steadystate for creatinine. Est. GFR should notbe used for medication dosing. ID Date Data Source [id number] 11/04/2020 06:43:50 PM EDT [facility] Name Value Range Interpretation Code Description Data Evelyn rce(s) Supporting Document(s) HEMOGLOBIN A1C @ 6.8 % (4.0-6.0) H [facility] Performed using Siemens Ambia immunoassa y.Care must be taken when interpreting TdW2vqduvihd in patients with a hemoglobin variantor decreased erythrocyte lifespan. Values 5.7 - 6.4% suggest prediabetes.Values >=6.5% are diagnostic for diabetes.REFERENCE: DIABETES CARE 2018: 41(S13-S27). EST AVERAGE GLUCOSE 148 mg/dL [facility] ID Date Data Source [id number] 11/04/2020 03:01:18 PM EDT [facility] NT INFORMATIONPatient MRN Name Date of Age Gend*PT [id number] Taj Norris 1940 79 years M OPPT Location Admission Date/Time Visit ID Attending Provider --- --- --- Pablito Christie MD([id number]) EPI ID CSN Admitting Provider [id number] ---OUTPATIENT / OBSERVATIONAL SURGICAL OR INVASIVE PROCEDUREName: Taj Norris : 1940 Sex: male Care Provider: [facility] Physician: Dr. Christie.Informant: Patient who is [...] Coronary artery disease Coronary artery disease involving clark's point coronary artery of clark's point heartwithout angina pectoris 12/07/2017 Diabetes mellitus Diverticulitis [...] 1 times daily, am fasting values range rutl046 to 124.Musculoskeletal: Reports diffuse joint, back and [...] thyromegaly. No carotid bruits.MENTAL / NEUROLOGICAL STATUS: [id number]: Clear to auscultation. No wheezes, rhonchi or [...] parts of this document, were dictated using [employer] speaking software. A reasonable attempt at proofreading has beenmade to minimize errors. Please call with any questions or corrections.* Name Value Range Interpretation Code Description Data Evelyn rce(s) Supporting Document(s) ID Date Data Source [id number] 10/22/2020 09:55:40 AM EDT [facility] NT INFORMATIONPatient MRN Name Date of Age Gend*PT [id number] Taj Norris W 1940 79 years M ---PT Location Admission Date/Time Visit ID Attending Provider --- --- --- --- EPI ID CSN Admitting Provider [id number] ---[facility] [id number] [facility], [address] (First Floor)[place], [place] [address]Wn.: Fax: Oatient: Taj Norris : 1Date: 10/22/20CARDIOLOGY ELECTROPHYSIOLOGY TELEMEDICINE CONSULTPatient was identified by name and date of .Verbal consent was obtained from the patient for this telemedicine visit.Patient is aware of the risks, limitations, and benefits of a telemedicinevisit.This telemedicine assessment was conducted remotely with the assistance ofLiveGO communication technology. Telephone Only Codes 97948: 21-30 minutesof medical discussion: Telephone Only .Subjective:I [...] of breath. He denies anysyncope.PHx:CADCABG 3 (08/04/2009)- [place], [place]- ALVAREZ to LAD, SVG to OM & diagonal- Cardiac catheterization 2010 ([facility]); ALVAREZ atretic; nativevessels patentTypical atrial flutterSick sinus syndromeDual-chamber pacemaker in situ- sick sinus syndrome/chronotropic incompe tence- Medtronic dual chamber pacemaker implanted 12/27/2001- [employer] dual- chamber pulse generator change 02/04/2011- Dr. Pablito Zambrano-ToñaNov[facility] Hospitalrimahamed pacemaker lead malfunction [id number] hypertensionMixed hyperlipidemiaPSVTCKD stage IIIType II diabetesGoutCOPDFAMILY HISTORY: [...] mg by mouth 2 (two) times a irf12PR, Disp: , Rfl: carvedilol (COREG) 25 MG [...] parts of this document, were dictated using Meaningfy. A reasonable attempt at proofreading has been made to minimize errors.Please call with any questions or corrections.I have spent 25 minutes with the patient, counseling/coordinating the patient'scar e. I discussed the diagnosis of atrial flutter and discussed Managementoption risks and benefitsFollow Up atrial flutter ablationSignature: Pablito Soto MD, [facility] CENTERCardiac Electrophysiology and Arrhythmia ServiceDate: October 22, 2020Time: 9:51 AMThis document or parts of this document, were dictated using SoFi. A reasonable attempt at proofreading has been made to minimize errors.Please call with any questions or corrections. Name Value Range Interpretation Code Description Data Evelyn rce(s) Supporting Document(s) ID Date Data Source [id number] 08/04/2020 07:38:00 PM EDT [facility] Name Value Range Interpretation Code Description Data Evelyn rce(s) Supporting Document(s) SARS coronavirus 2 RNA [Presence] in Res piratory specimen by WYATT with probe detection NEGATIVE [facility] This lab was ordered by [facility] a nd reported by [facility]. ID Date Data Source [id number] 07/30/2020 04:42:31 PM EDT [facility] CenterPATIE NT INFORMATIONPatient MRN Name Date of Age Gend*PT [id number] Taj Norris 1940 79 years M ---PT Location Admission Date/Time Visit ID Attending Provider --- --- --- --- EPI ID CSN Admitting Provider [id number] ---Name: Taj ThomasenDOB: 1940ate: 07/30/20CIED Remote CheckImplanted Device 05/30/2019Device Road Mechanic -Device type Dual Chamber PPMMRI Conditional Device NoDevice was remotely interrogated and the following were evaluated:Battery statusSummary arrhythmia logsNew observationsFidelity of the EGM signalIntegrity of leads and lead impendence were reevaluatedConclusion:Normal pacemaker function.No significant changes continue to monitor.Signature: Pablito Christie MD, FAC, RSCardiac Electrophysiology and Arrhythmia ServiceDate: July 30, 2020Time: 4:42 PMThis document or parts of this document, were dictated using Stars Expressware. A reasonable attempt at proofreading has been made to minimize errors.Please call with any questions or corrections. Name Value Range Interpretation Code Description Data Evelyn rce(s) Supporting Document(s) ID Date Data Source [id number] 07/17/2020 01:16:00 PM EDT [facility] Name Value Range Interpretation Code Description Data Evelyn rce(s) Supporting Document(s) SARS coronavirus 2 RNA [Presence] in Res piratory specimen by WYATT with probe detection NEGATIVE [facility] This lab was ordered by [facility] a nd reported by [facility]. ID Date Data Source [id number] 07/16/2020 05:00:00 PM EDT [facility] Patient: TAJ NORRIS Observation R eport - [facility].VisitID: [id number] [place] [address] [phone], MRegistration Date/Time: 07/15/2020 14:05 Weight:106 kg (S). [...] 07/15/2020 19:55) Addenda for TAJ NORRIS VisitID: [id number] Date: 07/15/2020 07/16/2020 16:59LWBS/LWBT/AMA??? follow-up Spoke with pt's via telephone with the patient talking in the background. Pt's reports that pt is still not feeling well and that he has been in bed all day. Pt's also reports that the patient's HR is in the 120's. Pt's also reported that they were not able to get a sooner appt. 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 Appt. is scheduled in August. Advised pt and spouse for pt to return to the ER. They expressed understanding. Pt 's reported that she did not know if she could get the pt to go to the hospital again. (Electronically signed by Alisa Martinez R.N. - 07/16/2020 16:59) Name Value Range Interpretation Code Description Data Evelyn rce(s) Supporting Document(s) ID Date Data Source [id number] 07/15/2020 08:19:00 PM [facility]: TAJ NORRIS Charlene R eport - [facility].VisitID: [id number] [place] [address] [phone], MRegistration Date/Time: 07/15/2020 14:05 Weight:106 kg (S). [...] rce(s) Supporting Document(s) ID Date Data Source [id number] 07/15/2020 05:54:[address] [facility] TSYSORDER [id number] Name Value Range Interpretation Code Description Data Evelyn rce(s) Supporting Document(s) TROPONIN I < 0.017 ng/mL 0.000-0.056 [facility] ID Date Data Source [id number] 07/15/2020 03:48:[address] [facility] DATE OF EXAMINATION: 07/15/2020 14:22 EDT CHEST [...] rce(s) Supporting Document(s) ID Date Data Source [id number] 07/15/2020 03:27:[address] [facility] TSYSORDER [id number] Name Value Range Interpretation Code Description Data Evelyn rce(s) Supporting Document(s) FREE T4 0.8 ng/dL 0.76-1.46 [facility] ID Date Data Source [id number] 07/15/2020 03:27:[address] [facility] TSYSORDER [id number] Name Value Range Interpretation Code Description Data Evelyn rce(s) Supporting Document(s) TSH 2.755 uIU/mL 0.360-3.740 [facility] ID Date Data Source [id number] 07/15/2020 03:15:00 PM EDT [facility] l TSYSORDER [id number] Name Value Range Interpretation Code Description Data Evelyn rce(s) Supporting Document(s) PARTIAL THROMBOPLASTIN TIME 22.9 SECONDS 21.2-27.3 [facility] ID Date Data Source [id number] 07/15/2020 03:15:00 PM EDT [facility] l TSYSORDER [id number] Name Value Range Interpretation Code Description Data Evelyn rce(s) Supporting Document(s) PROTHROMBIN TIME (PATIENT) 11.6 SECONDS 9.1-11.6 [facility] INR 1.12 0.87-1.06 H [facility] ID Date Data Source [id number] 07/15/2020 02:53:00 PM EDT [facility] l TSYSORDER [id number] Name Value Range Interpretation Code Description Data Evelyn rce(s) Supporting Document(s) WHITE BLOOD COUNT 8.5 K/mm3 4.0-10.0 [facility] al RED BLOOD COUNT 4.46 M/mm3 4.50-6.[address] [facility] HEMOGLOBIN 13.0 gm/dL 14.0-18.0 L [facility] HEMATOCRIT 39.5 % 42.0-54.0 L [facility] MEAN CELL VOLUME 88.6 fl 80-96 [facility] MEAN CORPUSCULAR HEMOGLOBIN 29.1 pg 27.0-31.0 [facility] MEAN CORPUSCULAR HGB CONC 32.9 g/dl 32.0-36.0 [facility] RED CELL DISTRIBUTION WIDTH 15.6 % 10.0-14.5 H [facility] PLATELET COUNT 134 K/mm3 172-450 L [facility] MEAN PLATELET VOLUME 10.8 fl 9.0-13.0 [facility] pital GRAN % 73.9 % 50-80.0 [facility] IG% 1.5 % 0.0-0.2 H [facility] LYMPH % 16.7 % 25.0-50.0 L [facility] MONO % 7.3 % 2.0-10.0 [facility] EOS % 0.0 % 0-5.0 [facility] BASO % 0.6 % 0.0-2.0 [facility] GRAN # 6.2 K/mm3 2.0-8.00 [facility] IG# 0.1 K/mm3 0.0-0.2 [facility] LYMPH # 1.4 K/mm3 1.0-5.0 [facility] MONO # 0.6 K/mm3 0.10-1.20 [facility] EOS # 0.0 K/mm3 0.0-0.5 [facility] BASO # 0.1 K/mm3 0.0-0.2 [facility] ID Date Data Source [id number] 07/15/2020 03:40:00 PM EDT [facility] TSYS[facility] [id number] Name Value Range Interpretation Code Description Data Evelyn rce(s) Supporting Document(s) B-TYPE NATRIURETIC PEPTIDE 4079 pg/ml 0-450 *H [facility] ID Date Data Source [id number] 07/15/2020 03:14:00 PM EDT [facility] TSYSORDER [id number] Name Value Range Interpretation Code Description Data Evelyn rce(s) Supporting Document(s) MAGNESIUM 1.5 mg/dL 1.8-2.4 [facility] ID Date Data Source [id number] 07/15/2020 03:14:00 PM EDT [facility] TSYSORDER [id number] Name Value Range Interpretation Code Description Data Evelyn rce(s) Supporting Document(s) LIPASE 164 U/L 73-393 [facility] ID Date Data Source [id number] 07/15/2020 03:14:00 PM EDT [facility] TSYSORDER [id number] Name Value Range Interpretation Code Description Data Evelyn rce(s) Supporting Document(s) TROPONIN I < 0.017 ng/mL 0.000-0.056 [facility] ID Date Data Source [id number] 07/15/2020 03:14:00 PM EDT [facility] TSYSORDER [id number] Name Value Range Interpretation Code Description Data Evelyn rce(s) Supporting Document(s) GLUCOSE 122 mg/dL 74-106 H [facility] BLOOD UREA NITROGEN 61 mg/dL 7-18 *H [facility] 07/15/20 1528: BUN previously reported as: 61 *H mg/dL CREATININE 3.23 mg/dL 0.7-1.3 H [facility] SODIUM 140 mmol/L 136-145 [facility] POTASSIUM 5.4 mmol/L 3.5-5.1 H [facility] CHLORIDE 105 mmol/L 98-107 [facility] CO2 23 mmol/L 21-32 [facility] CALCIUM 8.6 mg/dL 8.5-10.1 [facility] ANION GAP 12.0 mmol/L 5-12 [facility] GLOMERULAR FILTRATION RATE 19 mL/min [facility] GFR IS CALCULATED IN mL/min/1.73m2 SHANTA L FUNCTION: >90MILDLY DECREASED: 60-89MILDY TO MODERATELY DECREASED: 45-59 MODERATELY TO SEVERELY DECREASED: 30-44SEVERELY DECREASED: 15-29RENAL FAILURE: <15 AST 13 U/L 15-37 L [facility] ALT 28 U/L 12-78 [facility] ALKALINE PHOSPHATASE 44 U/L 46-116 L [facility] pital TOTAL BILIRUBIN 0.5 mg/dL 0.2-1.0 [facility] TOTAL PROTEIN 7.9 g/dl 6.4-8.2 [facility] ALBUMIN 3.8 gm/dL 3.4-5.0 [facility] ID Date Data Source [id number] 07/15/2020 01:30:00 PM EDT [facility]) Name Value Range Interpretation Code Description Data Evelyn rce(s) Supporting Document(s) Thyroid Stimulating Hormone 2.755 [facility] ([facility]) ID Date Data Source [id number] 07/15/2020 01:30:00 PM EDT [facility] ([facility]) Name Value Range Interpretation Code Description Data Evelyn rce(s) Supporting Document(s) Red Blood Count 4.46 [facility] ([facility]) White Blood Count 8.5 [facility] ([facility]) Platelets 134 [facility] ([facility]) Hemoglobin 13.0 [facility] ([facility]) Hematocrit 39.5 [facility] ([facility]) ID Date Data Source [id number] 07/15/2020 01:30:00 PM EDT [facility] ([facility]) Name Value Range Interpretation Code Description Data Evelyn rce(s) Supporting Document(s) Albumin [Mass/volume] in Serum or Plasma 3.8 [facility] ([facility]) Alanine aminotransferase [Enzymatic activity/volume] in Serum or Pl asma 28 [facility] ([facility]) Calcium [Mass/volume] in Serum or Plasma 8.6 [facility] ([facility]) Carbon dioxide, total [Moles/volume] in Serum or Plasma 23 [facility] ([facility]) Chloride [Moles/volume] in Serum or Plasma 105 [facility] ([facility]) Alkaline phosphatase [Enzymatic activity/volume] in Serum or Plasma 4 4 [facility] ([facility]) Sodium 140 [facility] ([facility]) Protein [Mass/volume] in Serum or Plasma 7.9 [facility] ([facility]) Potassium [Moles/volume] in Serum or Plasma 5.4 [facility] ([facility]) Aspartate aminotransferase [Enzymatic activity/volume] in Serum or Plasma 13 [facility] ([facility]) Urea nitrogen [Mass/volume] in Serum or Plasma 61 [facility] ([facility]) Creatinine For GFR 3.23 [facility] ([facility]) Glucose 122 [facility] ([facility]) ID Date Data Source [id number] 03/17/2020 11:27:00 AM EST [facility] ([facility] Name Value Range Interpretation Code Description Data Evelyn rce(s) Supporting Document(s) Glucose [Mass/volume] in Serum or Plasma 138.0 mg/dL 70.0-99.0 [facility] ([facility]) Creatinine [Mass/volume] in Serum or Plasma 2.37 mg/dL 0.72-1.25 [facility] ([facility]) Carbon dioxide, total [Moles/volume] in Serum or Plasma 23.0 mmol/L 22.0-31.0 [facility] ([facility]) Calcium [Mass/volume] in Serum or Plasma 9.3 mg/dL 8.4-10.2 [facility] ([facility]) Urea nitrogen [Mass/volume] in Serum or Plasma 31.0 mg/dL 7.0-24.0 [facility] ([facility]) BUN/Creat Ratio 13.1 [facility] ([facility]) Sodium [Moles/volume] in Serum or Plasma 139.0 mmol/L 136.0-145.0 [facility] ([facility]) K 5.2 mmol/L 3.6-5.2 [facility] ([facility]) Anion gap in Serum or Plasma 17.2 [facility] ([facility]) Chloride [Moles/volume] in Serum or Plasma 104.0 mmol/L 98.0-108.0 [facility] ([facility]) eGFR - Descent 31.4 ME [facility] ([facility]) eGFR -- Non- Descent 25.9 [facility] ([facility]) ID Date Data Source [id number] 03/17/2020 11:27:00 AM EST [facility] ([facility]) Name Value Range Interpretation Code Description Data Evelyn rce(s) Supporting Document(s) Prostate specific Ag [Mass/volume] in Serum or Plasma 0.65 ng/mL 0.00 -4.00 [facility] ([facility]) ID Date Data Source [id number] 03/17/2020 10:46:00 AM EST [facility] ([facility]) Name Value Range Interpretation Code Description Data Evelyn rce(s) Supporting Document(s) Glucose [Presence] in Urine Laboratory test result [facility] ([facility]) Protein [Presence] in Urine by Test strip Laboratory test result [facility] ([facility]) Ua Nitrite Laboratory test result ME DENT ([facility]) Blood [Presence] in Urine by Visual Laboratory test result [facility] ([facility]) Ua Leuko Laboratory test result ME [facility] ([facility]) Color of Urine Laboratory test result [facility] ([facility]) Clarity of Urine Laboratory test result [facility] ([facility] Ketones [Presence] in Urine by Test strip Laboratory test result [facility] ([facility]) Ua Specific [place] 1.020 1.003-1.030 MEDE NT ([facility]) Bilirubin.total [Presence] in Urine by Test strip Laboratory test res ult [facility] ([facility]) pH of Urine by Test strip 5.5 5.0-7.5 [facility] ([facility]) Urobilinogen [Mass/volume] in Urine by Test strip 0.2 E.U./dL 0.0-1.0 [facility] ([facility]) ID Date Data Source [id number] 03/17/2020 10:45:00 AM EST [facility] ([facility] Name Value Range Interpretation Code Description Data Evelyn rce(s) Supporting Document(s) Specimen Adequacy Laboratory test result [facility] ([facility]) Satisfactory for evaluation. Clinical History Laboratory test result [facility] ([facility]) Gross Description Laboratory test result [facility] ([facility]) Received in a specimen container, labele d with the patients name and , is Clear Yellow fluid consistent with urine, measuring approximately 60 ml. Microscopic Description Laboratory test result [facility] ([facility]) BodySite Laboratory test result ME [facility] ([facility]) Voided - Clean Catch Final Diagnosis Laboratory test result [facility] ([facility]) NEGATIVE FOR HIGH-GRADE UROTHELIAL CARCI NOMA. [id number] Laboratory test result [facility] ([facility]) CPTCode 83467 [facility] PDF Report Laboratory test result [facility] ([facility]) ID Date Data Source [id number] 03/17/2020 10:45:00 AM EST [facility] ([facility]) Name Value Range Interpretation Code Description Data Evelyn rce(s) Supporting Document(s) Cytology report of Urine Cyto stain Laboratory test result [facility] ([facility]) ID Date Data Source [id number] 01/04/2020 12:53:00 PM EDT [facility] [...] EDT Former Smoker completed Former Smoker eCW1 ([facility]) Alcohol intake 11/13/2020 12:00:00 AM EDT Current drinker of al cohol (finding) completed Current drinker of alcohol (finding) [facility] Alcohol intake 11/04/2020 12:00:00 AM EDT Current drinker of al cohol (finding) completed Current drinker of alcohol (finding) [facility] Alcohol intake 10/21/2020 12:00:00 AM EDT Current drinker of al cohol (finding) completed Current drinker of alcohol (finding) [facility] Smoking 10/07/2020 12:00:00 AM EDT Patient is a former smoker completed Patient is a former smoker FREDY ([facility]) Smoking 07/25/2020 12:00:00 AM EDT Former Smoker completed Former Smoker eCW1 ([facility]) Smoking 07/25/2020 12:00:00 AM EDT Former Smoker completed Former Smoker eCW1 ([facility]) Smoking 07/25/2020 12:00:00 AM EDT Former Smoker completed Former Smoker eCW1 ([facility]) Smoking 07/25/2020 12:00:00 AM EDT Former Smoker completed Former Smoker eCW1 ([facility]) Smoking 07/25/2020 12:00:00 AM EDT Former Smoker completed Former Smoker eCW1 ([facility]) Smoking 07/25/2020 12:00:00 AM EDT Former Smoker completed Former Smoker eCW1 ([facility]) Smoking 07/25/2020 12:00:00 AM EDT Former Smoker completed Former Smoker eCW1 ([facility]) Smoking 07/25/2020 12:00:00 AM EDT Former Smoker completed Former Smoker eCW1 ([facility]) Smoking 07/15/2020 12:00:00 AM EDT Former Smoker completed Former Smoker eCW1 ([facility]) Smoking 07/15/2020 12:00:00 AM EDT Former Smoker completed Former Smoker eCW1 ([facility]) Smoking 07/15/2020 12:00:00 AM EDT Former Smoker completed Former Smoker eCW1 ([facility]) Smoking 04/09/2020 12:00:00 AM EST Former Smoker completed Former Smoker eCW1 ([facility]) Smoking 04/09/2020 12:00:00 AM EST Former Smoker completed Former Smoker eCW1 ([facility]) Smoking 04/09/2020 12:00:00 AM EST Former Smoker completed Former Smoker eCW1 ([facility]) Smoking 04/09/2020 12:00:00 AM EST Former Smoker completed Former Smoker eCW1 ([facility]) Smoking 04/09/2020 12:00:00 AM EST Former Smoker completed Former Smoker eCW1 ([facility]) Smoking 04/09/2020 12:00:00 AM EST Former Smoker completed Former Smoker eCW1 ([facility]) Smoking 04/09/2020 12:00:00 AM EST Former Smoker completed Former Smoker eCW1 ([facility]) Smoking 03/14/2020 12:00:00 AM EST Former Cigarette Smok er 1 Pack Daily completed Former Cigarette Smoker 1 Pack Daily [facility] ([facility] Smoking 01/14/2020 12:00:00 AM EDT Former Smoker completed Former Smoker eCW1 ([facility]) Smoking 01/14/2020 12:00:00 AM EDT Former Smoker completed Former Smoker eCW1 ([facility]) Smoking 01/14/2020 12:00:00 AM EDT Former Smoker completed Former Smoker eCW1 ([facility]) Smoking 01/14/2020 12:00:00 AM EDT Former Smoker completed Former Smoker eCW1 ([facility]) Smoking 01/09/2020 12:00:00 AM EDT Former Smoker completed Former Smoker eCW1 ([facility]) Vital Signs ID Date Data Source UNK Name Value Range Interpretation Code Description Data Source(s) Body weight 217.00 [lb_av] 217.00 [lb_av] MEDEN T ([facility]) Body height 68 [in_i] 68 [in_i] [facility] ([facility]) 5'8" Body mass index (BMI) [Ratio] 33.0 kg/m2 33.0 k g/m2 [facility] ([facility]) Systolic blood pressure--sitting 120 mm[Hg] 120 mm[Hg] [facility] ([facility]) Ra, large cuff Diastolic blood pressure--sitting 78 mm[Hg] 78 mm[Hg] [facility] ([facility]) Ra, large cuff Systolic blood pressure 124 mm[Hg] 124 mm[Hg] [facility] Diastolic blood pressure 60 mm[Hg] 60 mm[Hg] [facility] Heart rate 61 /min 61 /min Health system Body temperature 36.22 [place] 36.22 [place] [facility] Respiratory rate 16 /min 16 /min [facility] Oxygen saturation in Arterial blood by Pulse oximetry 96 % 96 % [facility] Body height 174 cm 174 cm [facility] Body weight 89.812 kg 89.812 kg [facility] Body mass index (BMI) [Ratio] 29.67 kg/m2 29.67 kg/m2 [facility] Heart rate 63 /min 63 /min Health system Systolic blood pressure 115 mm[Hg] 115 mm[Hg] [facility] Body height 172.7 cm 172.7 cm [facility] Diastolic blood pressure 68 mm[Hg] 68 mm[Hg] [facility] Body weight 89.812 kg 89.812 kg [facility] Body mass index (BMI) [Ratio] 30.11 kg/m2 30.11 kg/m2 [facility] Oxygen saturation in Arterial blood by Pulse oximetry 98 % 98 % [facility] Body weight 210.00 [lb_av] 210.00 [lb_av] VICKIEN T ([facility]) Body height 68 [in_i] 68 [in_i] FREDY ([facility]) 5'8" Body mass index (BMI) [Ratio] 31.9 kg/m2 31.9 k g/m2 [facility] ([facility]) Heart rate 93 /min 93 /min MEDREYMUNDO ([facility]) Systolic blood pressure--sitting 133 mm[Hg] 133 mm[Hg] [facility] ([facility]) CBP, large cuff/Ra Diastolic blood pressure--sitting 71 mm[Hg] 71 mm[Hg] [facility] ([facility]) CBP, large cuff/Ra Body height 66 [in_i] 66 [in_i] eCW1 ([facility]) Body weight 219.8 [lb_av] 219.8 [lb_av] eCW1 ([facility]) Body mass index (BMI) [Ratio] 35.47 kg/m2 35.47 kg/m2 eCW1 ([facility]) Body temperature 98.3 [degF] 98.3 [degF] eCW1 ( [facility]) Heart rate 62 /min 62 /min eCW1 ([facility]) Respiratory rate 20 /min 20 /min eCW1 ([facility] [place]) Oxygen saturation in Arterial blood by Pulse oximetry 95 % 95 % eCW1 ([facility]) Body height 66 [in_i] 66 [in_i] eCW1 ([facility]) Body weight 233.8 [lb_av] 233.8 [lb_av] eCW1 ([facility]) Body mass index (BMI) [Ratio] 37.73 kg/m2 37.73 kg/m2 eCW1 ([facility]) Body temperature 98.0 [degF] 98.0 [degF] eCW1 ( [facility]) Heart rate 134 /min 134 /min eCW1 ([facility]) Respiratory rate 20 /min 20 /min eCW1 ([facility] [place]) Oxygen saturation in Arterial blood by Pulse oximetry 98 % 98 % eCW1 ([facility]) Body height 66 [in_i] 66 [in_i] eCW1 ([facility]) Body weight 226.0 [lb_av] 226.0 [lb_av] eCW1 ([facility]) Body mass index (BMI) [Ratio] 36.47 kg/m2 36.47 kg/m2 eCW1 ([facility]) Body temperature 98.0 [degF] 98.0 [degF] eCW1 ( [facility]) Heart rate 88 /min 88 /min eCW1 ([facility]) Respiratory rate 18 /min 18 /min eCW1 ([facility] [place]) Oxygen saturation in Arterial blood by Pulse oximetry 98 % 98 % eCW1 ([facility]) Body height 68 [in_i] 68 [in_i] MEDENT ([facility] 5'8" Body weight 225.00 [lb_av] 225.00 [lb_av] MEDEN T ([facility]) Systolic blood pressure 150 mm[Hg] 150 mm[Hg] M EDENT ([facility]) Diastolic blood pressure 84 mm[Hg] 84 mm[Hg] MEDENT ([facility]) Body weight 102.060 kg 102.060 kg MEDENT ([facility] Body mass index (BMI) [Ratio] 34.2 kg/m2 34.2 k g/m2 MEDENT ([facility]) Body height 66 [in_i] 66 [in_i] eCW1 ([facility]) Body temperature 98.5 [degF] 98.5 [degF] eCW1 ( [facility]) Heart rate 80 /min 80 /min eCW1 ([facility]) Respiratory rate 18 /min 18 /min eCW1 ([facility] [place]) Oxygen saturation in Arterial blood by Pulse oximetry 98 % 98 % eCW1 ([facility]) Body height 66 [in_i] 66 [in_i] eCW1 ([facility]) Body weight 226 [lb_av] 226 [lb_av] eCW1 ([facility]) Body mass index (BMI) [Ratio] 36.47 kg/m2 36.47 kg/m2 eCW1 ([facility]) Body temperature 98.7 [degF] 98.7 [degF] eCW1 ( [facility]) Heart rate 72 /min 72 /min eCW1 ([facility]) Respiratory rate 18 /min 18 /min eCW1 ([facility] [place]) Oxygen saturation in Arterial blood by Pulse oximetry 97 % 97 % eCW1 ([facility]) Body height 66 [in_i] 66 [in_i] eCW1 ([facility]) Body weight 224.0 [lb_av] 224.0 [lb_av] eCW1 ([facility]) Body mass index (BMI) [Ratio] 36.15 kg/m2 36.15 kg/m2 eCW1 ([facility]) Body temperature 98.0 [degF] 98.0 [degF] eCW1 ( [facility]) Heart rate 80 /min 80 /min eCW1 ([facility]) Respiratory rate 18 /min 18 /min eCW1 ([facility] [place]) Oxygen saturation in Arterial blood by Pulse oximetry 98 % 98 % eCW1 ([facility]) Patient Treatment Plan of Care Planned Activity Planned Date Details Description Data Source (s) apixaban 2.5 MG Oral Tablet [Eliquis] 01/03/2021 12:00:00 AM EDT eCW1 ([facility]) normal saline flush 0.9 % injection 3 mL 11/13/2020 09:00:00 AM EDT [facility] normal saline flush 0.9 % injection 3 mL 11/13/2020 09:00:00 AM EDT [facility] Amlodipine 5 MG Oral Tablet 08/08/2020 12:00:00 AM EDT eCW1 ([facility]) Amlodipine 5 MG Oral Tablet 08/08/2020 12:00:00 AM EDT eCW1 ([facility]) Amlodipine 5 MG Oral Tablet 08/08/2020 12:00:00 AM EDT eCW1 ([facility]) Amlodipine 5 MG Oral Tablet 08/08/2020 12:00:00 AM EDT eCW1 ([facility]) Amlodipine 5 MG Oral Tablet 08/08/2020 12:00:00 AM EDT eCW1 ([facility]) Amlodipine 5 MG Oral Tablet 08/07/2020 12:00:00 AM EDT eCW1 ([facility]) 60 ACTUAT Fluticasone propionate 0.25 MG /ACTUAT / salmeterol 0.05 MG/ACTUAT Dry Powder Inhaler [Advair] 01/09/2020 12:00:00 AM EDT eCW1 ([facility]) 1 ML evolocumab 140 MG/ML Prefilled Syringe [Repatha] 12/26/2019 12:00:00 AM EDT eCW1 ([facility]) 1 ML evolocumab 140 MG/ML Prefilled Syringe [Repatha] 12/26/2019 12:00:00 AM EDT eCW1 ([facility]) 1 ML evolocumab 140 MG/ML Prefilled Syringe [Repatha] 12/26/2019 12:00:00 AM EDT eCW1 ([facility]) tramadol hydrochloride 50 MG Oral Tablet 09/05/2019 12:00:00 AM EDT [facility] meloxicam 15 MG Oral Tablet 08/23/2019 12:00:00 AM EDT [facility] Zinc Gluconate 30 MG Oral Tablet [facility] MAGNESIUM GLUCONATE 250 MG Oral Tablet [facility]
--- NOTE | 2021-02-16 16:51 | HPEPDOC ---
General Date of Admission Feb 16, 2021 at 16:08 Date of Service: Feb 16, 2021 Chief Complaint The patient is a 80-year-old male admitted with a reason for visit of Acute Resp Failure W Hypoxia,Pneumonia Due Tocov19. Source: Patient History of Present Illness Mr. Salas is an 80-year-old male with CAD status post CABG, diabetes complicated with neuropathy, atrial fibrillation, and prostate and bladder cancer who presents with slurred/garbled speech and cough. He was subsequently found to have Covid pneumonia. Patient is a poor historian and his history does not match with his 's history. Patient tells me that about 2 weeks ago his was feeling ill. He then started feeling ill about a week ago. Denies any recent travel or hospitalizations. Denies any fever or chills, chest pain, abdominal pain, diarrhea, or dysuria. He does have headache and cough. He is hard of hearing. tells me that patient has been feeling ill for the past 3 weeks. He was sedentary and sleeping in the chair most of the time. They wanted him to go to the ED but he did not want to go. He had a slurred speech at home, and they were concerned that he had a stroke. They made him come to the ED for evaluation. While in the ED, he has been hypoxic. 85% at room air. He eventually required 8 L to maintain saturation of 90%. Otherwise afebrile, nontachycardic, and st able blood pressure. CT head demonstrates advance deep white matter ischemic disease but no evidence of a focal lesion. Chest x-rays demonstrate bilateral infiltrates. On labs, there is no leukocytosis. Patient does have CRP of 20.9. Rest of Covid labs are pending. Patient will be admitted for acute hypoxic respiratory failure secondary to Covid pneumonia. Home Medications Scheduled Allopurinol (Zyloprim) 300 Mg Tablet, 300 MG PO QHS, (Reported) Amlodipine Besylate (Amlodipine Besylate) 5 Mg Tablet, 5 MG PO BID, (Reported) Apixaban (Eliquis) 5 Mg Tablet, 5 MG PO BID, (Reported) Budesonide/Formoterol (Symbicort 80-4.5 Mcg Inhaler) 60 Puff/Inhaler Aers, 2 PUFF INH BID, (Reported) Buspirone HCl (Buspirone HCl) 15 Mg Tablet, 15 MG PO BID, (Reported) Carvedilol (Carvedilol) 25 Mg Tablet, 25 MG PO BID, (Reported) Cholecalciferol (Vitamin D3) (Vitamin D3) 1,000 Unit Tablet, 1,000 UNITS PO DAILY, (Reported) Cyanocobalamin (Vitamin B-12) (Vitamin B-12) 500 Mcg Tab, 1,000 MCG PO DAILY, (Reported) Glipizide (Glipizide ER) 10 Mg Tab.er.24, 10 MG PO DAILY, (Reported) Lactobacillus Acidophilus (Probiotic) 1 Each Capsule, 1 CAP PO DAILY, (Reported) Linagliptin (Tradjenta) 5 Mg Tab, 5 MG PO QHS, (Reported) Pantoprazole Sodium (Pantoprazole Sodium) 40 Mg Tab, 40 MG PO DAILY, (Reported) Sertraline Hcl (Zoloft) 100 Mg Tablet, 100 MG PO QHS, (Reported) Torsemide (Torsemide) 20 Mg Tablet, 20 MG PO DAILY, (Reported) Zinc (Zinc) 50 Mg Tablet, 50 MG PO DAILY, (Reported) Scheduled PRN Acetaminophen (Acetaminophen) 500 Mg Tablet, 1,000 MG PO Q6H PRN for PAIN, (Reported) Colchicine (Colchicine) 0.6 Mg Tablet, 0.6 MG PO DAILY PRN for GOUT FLARE, (Reported) Allergies Coded Allergies: digoxin (Verified Adverse Reaction, Severe, 08/05/20) codeine (Verified Adverse Reaction, Mild, confusion, 03/08/19) morphine (Verified Adverse Reaction, Mild, itching, 03/08/19) Past Medical History Medical History 1. Proximal atrial fibrillation on Eliquis 2. CAD status post CABG x3 with pacemaker 3. Sinus node dysfunction status post pacemaker 4. Noninsulin dependent diabetes mellitus with neuropathy 5. Hypertension 6. CKD stage IV 7. COPD 8. Sleep apnea, not using CPAP 9. Hypercholesterolemia 10. Prostate cancer status post incomplete chemo, patient did not tolerate chemotherapy 11. Basal cell carcinoma 12. Bladder cancer 13. Obesity 14. Diverticulitis status post bowel resection 15. BPH 16. GERD 17. Thrombocytopenia 18. SVT 19. Gout Surgical History 1. Transurethral resection of bladder tumor 2. Transurethral resection of prostate 3. Hernia repair x2 4. Bowel resection due to diverticulitis 5. Pacemaker placement 6. CABG x3 7. Cardiac surgery 8. Prostate surgery 9. Right total knee arthroplasty 10. Right total hip arthroplasty 11. Unspecified nasal surgery x2 Family History Father: , history of heart disease and diabetes Mother: , history of hypertension, diabetes, and heart disease Social History * Smoker: former Smoker (Per chart he is a former smoker) Alcohol: rarely (Per chart, rarely drinks alcohol) A-FIB/CHADSVASC A-FIB History Current/History of A-Fib/PAF?: Yes Current PO Anticoag Therapy: Yes Review of Systems Constitutional: Denies: Chills, Fever Eyes: Denies: Vision change ENT: Reports: Head Aches; Denies: Sore Throat Skin: Denies: Rash Pulmonary: Reports: Dyspnea, Cough Cardiovascular: Denies: Chest Pain Gastrointestinal: Denies: Abdominal Pain Genitourinary: Denies: Dysuria Hematologic: Denies: Bruising Neurological: Reports: Other Symptoms (Neuropathy) Psych: Denies: Anxiety, Depression Physical Examination General Exam: Positive: Alert, Cooperative Eye Exam: Positive: EOMI, Other Eye Symptoms (Erythema in his eyes) Chest Exam: Positive: Rales, Rhonchi Heart Exam: Positive: Rate Normal, Regular Rhythm Abdomen Exam: Positive: Normal bowel sounds, Soft; Negative: Tenderness Extremity Exam: Negative: Edema Neuro Exam: Negative: Normal Speech (Garbled speech) Psych Exam: Positive: Mental status NL, Mood NL Vital Signs Vital Signs Date Time Temp Pulse Resp B/P (MAP) Pulse Ox O2 Delivery O2 Flow Rate FiO2 02/16/21 14:53 Nasal Cannula 8.0 02/16/21 14:45 141/67 (91) 02/16/21 14:44 80 93 02/16/21 13:02 98.6 26 Laboratory Data Labs 24H Laboratory Tests 2 02/16/21 13:02: Bedside Glucose (Misc Panel) 222H 02/16/21 13:20: Immature Granulocyte % (Auto) 0.8, Neutrophils (%) (Auto) 79.1H, Lymphocytes (%) (Auto) 11.4L, Monocytes (%) (Auto) 8.6H, Eosinophils (%) (Auto) 0.0, Basophils (%) (Auto) 0.1, Neutrophils # (Auto) 5.7, Lymphocytes # (Auto) 0.8L, Monocytes # (Auto) 0.6, Eosinophils # (Auto) 0.0, Basophils # (Auto) 0.0, Nucleated Red Blood Cells % (auto) 0.0, Prothrombin Time 21.3H, Prothromb Time International Ratio 1.80, Activated Partial Thromboplast Time 49.6H, Blood Gas Bicarbonate Standard 23.2, Venous Blood pH 7.468H, Venous Blood Partial Pressure CO2 29.7L, Venous Blood Partial Pressure O2 66.2H, Venous Blood Total Carbon Dioxide 21.9L, Venous Blood HCO3 21.0L, Venous Blood Oxygen Saturation 93.4H, Venous Blood Base Excess -1.4, Anion Gap 11, Glomerular Filtration Rate 32.7L, Lactic Acid Level 1.9, Calcium Level 8.8, Total Bilirubin 0.8, Direct Bilirubin 0.4H, Aspartate Amino Transf (AST/SGOT) 65H, Alanine Aminotransferase (ALT/SGPT) 25, Alkaline Phosphatase 51, Total Creatine Kinase 688H, Creatine Kinase MB 4.1H, Creatine Kinase MB Relative Index 0.60, Troponin I 0.12H, C-Reactive Protein, Quantitative 20.90H, Total Protein 7.3, Albumin 3.0L, Albumin/Globulin Ratio 0.7, Amylase Level 20L, Coronavirus (COVID-19)(PCR) POSITIVEA, Influenza Type A (RT-PCR) NEGATIVE, Influenza Type B (RT-PCR) NEGATIVE, Respiratory Syncytial Virus (PCR) NEGATIVE 02/16/21 13:39: Urine Color YELLOW, Urine Appearance HAZY, Urine pH 5.0, Urine Specific [place] 1.016, Urine Protein 2+H, Urine Glucose (Auto)(UA) NEGATIVE, Urine Ketones (A uto) TRACEH, Urine Blood 2+H, Urine Nitrite NEGATIVE, Urine Bilirubin NEGATIVE, Urine Urobilinogen 2.0H, Urine Leukocyte Esterase (Auto) NEGATIVE, Urine WBC (Auto) 2, Urine RBC (Auto) 1, Urine Hyaline Casts (Auto) 0, Urine Bacteria (Auto) NEGATIVE, Urine Squamous Epithelial Cells 1, Urine Amorphous Sediment (Auto) SMALLH, Urine Sperm (Auto) 02/16/21 14:07: POC Troponin I (Misc) 0.12H 02/16/21 16:14: CBC/BMP Laboratory Tests 02/16/21 13:20 Microbiology Microbiology 02/16/21 Urine Culture, Received Pending 02/16/21 Blood Culture, Received Pending 02/16/21 Blood Culture, Received Pending Assessment/Plan Mr. Salas is an 80-year-old male with CAD status post CABG, diabetes complicated with neuropathy, atrial fibrillation, and prostate and bladder cancer who presents with slurred/garbled speech and cough. Patient was subsequently found to have Covid pneumonia and acute hypoxic respiratory failure. Patient is requiring 8 L of oxygen to maintain saturation. Patient will be given remdesivir, steroids, and antibiotics. Otherwise, patient has a pacemaker and unable to have MRI. Another option would be to repeat CT head tomorrow to look for CVA. Plan / VTE VTE Prophylaxis Ordered?: Yes Plan Plan 1. Acute hypoxic respiratory failure -Secondary to COVID PNA -Required 8L on admission -Treating underlying condition 2. COVID PNA -Start remdesivir and dexamethasone -Ceftriaxone and azithromycin day 1 -De-escalate antibiotics base on procalcitonin 3. Slurred speech -Unable to obtain MRI -CT head negative for CVA -Repeat CT head tomorrow -Speech therapy 4. Paroxysmal atrial fibrillation -Med rec not completed at this time. Going off of the external med rec, patient is on Carvedilol 25mg BID and Eliquis 2.5mg BID -Continue Carvedilol -Patient has history of thrombocytopenia. We do not know the platelet count tonight due to platelet clumping. Spoke with oncology, will need to order EDTA free platelet count. -Holding Eliquis until we know platelet count 5. NIDDM type 2 -Sliding scale insulin and carbohydrate consistent diet 6. Hypertension -Med rec not completed at this time. Going off of the external med rec, patient is on amlodipine 5mg qD -Continue amlodipine 7. Gout -Med rec not completed at this time. Going off of the external med rec, patient is on allopurinol 300mg qD -Continue allopurinol 8. COPD -Med rec not completed at this time. Going off of the external med rec, patient is on budesonide-formoterol -Start Symbicort and PRN duonebs 9. Thrombocytopenia -We do not know patient's platelet count at this time due to platelet clumping. Oncology recommends EDTA free platelet counts -No aspirin until we know platelet count -No Eliquis until we know platelet count 10. CKD stage 3 -Baseline creatinine around 2 -At baseline -Supportive care 11. DVT ppx -SCD and TEDs Disposition: Pending clinical improvement. Please adjust med rec when completed. If platelet count is reasonable, please restart Aleida. ROSY STRE[address] DO Feb 16, 2021 16:51
[2021-02-16 16:52] LABS: INR 1.76; PROTHROMBIN TIME 20.9 SECONDS (12.7-14.5)
[2021-02-16 16:53] LABS: PARTIAL THROMBOPLASTIN TIME 43.6 SECONDS (25.9-37.0)
[2021-02-16 16:55] LABS: D-DIMER QUANT 926.55 ng/ml (<500)
[2021-02-16 17:04] LABS: C REACTIVE PROTEIN QUANTITATIV 20.8 MG/DL (0.00-0.30); MAGNESIUM LEVEL 2.2 MG/DL (1.8-2.4)
[2021-02-16] MEDS: HumaLOG INSULIN (NovoLOG) PER UNIT SC SCH ×2 (17:30→19:56)
[2021-02-16 18:03] LABS: INR 1.86; PROTHROMBIN TIME 21.8 SECONDS (12.7-14.5)
[2021-02-16 18:04] LABS: PARTIAL THROMBOPLASTIN TIME 41.9 SECONDS (25.9-37.0)
[2021-02-16 18:06] LABS: D-DIMER QUANT 915.65 ng/ml (<500)
[2021-02-16 18:07] LABS: MAGNESIUM LEVEL 2.2 MG/DL (1.8-2.4)
--- NOTE | 2021-02-16 18:28 | ECGEPIP ---
[facility] - ED Test Date: 2021-02-16 Pat Name: URSULA NORRIS Department: Room: - Gender: Male [employer]: MARY ELLEN : 1940 Requested By: Viviana Villatoro Order Number: [id number] Reading MD: Viviana Villatoro Measurements Intervals [place] Rate: 76 P: 39 VA: 140 QRS: -6 QRSD: 74 T: 56 QT: 388 QTc: 436 Interpretive Statements Sinus rhythm with premature supraventricular complexes and with frequent premature ventricular complexes Nonspecific ST and T wave abnormality increased ectopy/rate 08/04/20 Electronically Signed on 02-16-2021 18:28:27 EDT by Viviana Villatoro
[2021-02-16] MEDS: cefTRIAXone SOD 1 GM in D5W MINI-BAG PLUS 50 ML IV SCH (19:55)
[2021-02-16] MEDS: SYMBICORT 80/4.5MCG INHALER 6GM INH SCH (20:00)
[2021-02-16] MEDS: dexameTHASONE 4 MG/ML 1ML VIAL (J1100 PER 1MG) IV SCH (20:14)
[2021-02-16 20:16] LABS: PLTBLUE- EDTA FREE CALC 118 K/mm3 (172-450); PLTBLUE- EDTA FREE MACHINE 107 10^3/uL (172-450)
[2021-02-16] MEDS: AZITHROMYCIN INJ 500 MG, VIAL MATE ADAPTER 1 EACH in NS 250 ML IV SCH (20:53)
[2021-02-16 21:20] VITALS: BP 130/72
[2021-02-16] MEDS ORDERED: REMDESIVIR 200 MG in NS 250 ML IV ONE (22:00)
[2021-02-17] VITALS (19 sets, daily range): BP systolic 92–154; BP diastolic 56–88; O2SAT 76–95
[2021-02-17] MEDS ORDERED: SODIUM CHLORIDE 0.9% INJ 10 ML SYR IV ONE
[2021-02-17] MEDS ORDERED: PROAAER10 INH (06:43)
[2021-02-17] MEDS ORDERED: VASC1CAP2 PO (06:43)
[2021-02-17] MEDS ORDERED: ALLO300T2 PO (06:43)
[2021-02-17] MEDS ORDERED: HOME MED LIST COMPLETE! XX SCH (06:45)
[2021-02-17 07:25] LABS: BASO % 0.2 % (0.0-1.0); HEMATOCRIT 43.4 % (42.0-52.0); HEMOGLOBIN 13.8 g/dl (13.5-17.5); LYMPH # 0.6 10^3/uL (1.5-5.0); LYMPH % 8.4 % (24.0-44.0); MEAN CORPUSCULAR HGB CONC 31.8 g/dl (32.0-36.5); MEAN CORPUSCULAR VOLUME 81.7 fl (80.0-96.0); MONO # 0.5 10^3/uL (0.0-0.8); MONO % 6.9 % (2.0-8.0); NEUTROPHILS # 5.6 10^3/uL (1.5-8.5); NEUTROPHILS % 83.6 % (36.0-66.0); RED BLOOD COUNT 5.31 10^6/uL (4.30-6.10); WHITE BLOOD COUNT 6.7 10^3/uL (4.0-10.0)
[2021-02-17 07:35] LABS: PLTBLUE- EDTA FREE CALC 130 K/mm3 (172-450); PLTBLUE- EDTA FREE MACHINE 118 10^3/uL (172-450)
[2021-02-17 07:46] LABS: ALBUMIN 2.5 GM/DL (3.2-5.2); BILIRUBIN,DIRECT 0.3 MG/DL (0.0-0.2); BILIRUBIN,TOTAL 0.5 MG/DL (0.2-1.0); CALCIUM LEVEL 9.2 MG/DL (8.8-10.2); CREATININE FOR GFR 1.96 MG/DL (0.70-1.30); GLOMERULAR FILTRATION RATE 35.2 (>35); MAGNESIUM LEVEL 2.3 MG/DL (1.8-2.4); POTASSIUM SERUM 3.3 MEQ/L (3.5-5.1); TOTAL PROTEIN 7.7 GM/DL (6.4-8.2)
[2021-02-17] MEDS: SYMBICORT 80/4.5MCG INHALER 6GM INH SCH ×3 (08:00→19:41)
[2021-02-17] MEDS ORDERED: POTASSIUM CHLORIDE 10MEQ SR TABLET PO ONE (09:00)
[2021-02-17] MEDS: CARVedilol 12.5 MG TAB PO SCH ×3 (09:00→19:55)
[2021-02-17] MEDS: APIXABAN 2.5 MG TAB (ELIQUIS) PO SCH ×2 (09:00→09:48)
[2021-02-17] MEDS: amLODIPine 5 MG TAB PO SCH ×3 (09:00→19:56)
[2021-02-17 09:28] LABS: TROPONIN I 0.15 NG/ML (< 0.10)
[2021-02-17] MEDS: HumaLOG INSULIN (NovoLOG) PER UNIT SC SCH ×4 (09:49→20:43)
[2021-02-17 14:51] LABS: ABG BASE EXCESS -0.9 (-2.0-2.0); ABG HCO3 23.4 MEQ/L (22.0-26.0); ABG O2 SATURATION 94.6 % (95.0-99.0); ABG PARTIAL PRESSURE CO2 37.8 mmHg (35.0-45.0); ABG PARTIAL PRESSURE O2 70.3 mmHg (75.0-100.0); ABG STANDARD HCO3 23.6 MEQ/L (22.0-26.0); ABG TOTAL CO2 24.5 MEQ/L (23.0-31.0); ABG pH (ARTERIAL) 7.409 UNITS (7.350-7.450)
--- NOTE | 2021-02-17 15:19 | IPNPDOC ---
Date Seen The patient was seen on 02/17/21. Progress Note SUBJECTIVE: Patient seen examined at bedside. He is alert and oriented. Has garbled speech but no facial asymmetry. Patient denies any chest pain palpitations nausea vomiting diarrhea. He is on max Vapotherm at FiO2 100% with 40 L/min flow rate. OBJECTIVE PHYSICAL EXAMINATION: VITAL SIGNS: please see below General: NAD, comfortable HEENT: PERRLA, EOMI, sclerae clear Neck: supple, normal ROM, no JVD Respiratory: Reduced inspiratory effort, rales bilateral lung bases. No wheezing. CVS: Tachycardic, irregular, normal S1, S2, no murmurs Abdo: soft, no masses, no hepatosplenomegaly, BS+, no rebound tenderness Extremities: no edema, pulses 2+ MSK: no joint deformities, normal ROM Neuro: no focal neuro deficits, moving all 4 extremities, CN2-12 intact. Strength 5/5 in all 4 extremities. No nystagmus. Slurred speech, no facial asymmetry, no ambulatory uvular deviation. No tongue deviation. Psych: calm, cooperative, AAO x 3 LABORATORY DATA, IMAGING STUDIES, MICROBIOLOGY: Please see below. Echocardiogram: Ordered on 02/17/2021 DVT prophylaxis ordered?: Eliquis 2.5 mg twice daily. ASSESSMENT AND PLAN: Mr. Macias is an 80-year-old male with a history of CAD status post CABG, type 2 diabetes with neuropathy, atrial fibrillation on Eliquis, and history of prostate and bladder cancer. He presented to the ER with slurred slurred speech as well as cough. He was diagnosed with COVID-19 pneumonia. He has felt ill for approximately 2 to 3 weeks. Family had concern for CVA, CT head without contrast showed no acute intracranial abnormality. Given the fact that the patient has a pacemaker he is unable to receive an MRI scan. Repeat CT head on 02/17/2021. PROBLEMS: #. Acute hypoxic respiratory failure - 2/2 covid-19 pneumonia - this morning on max vapotherm, required addition of NRB - ABG obtained, no respiratory acidosis - d/w Dr. Lazo. Transfer to ICU. CPAP 10 mmH20 with FiO2 100% - Bipap if develops respiratory acidosis - c/w remdesivir (Day #2). C/w Dexamethaseone 6 mg IV (Day #2) - c/w symbicort, add combivent. - Ceftriaxone (Day #2). Azithromycin (Day #2). #. Slurred speech -Unable to obtain MRI -CT head negative for CVA -Repeat CT head pending. - if negative consider myasthenia gravis workup - Speech therapy evaluation: recommending pureed solids, honey thick liquids, meds crushed in applesauce. - will resume PO meds #. Paroxysmal atrial fibrillation -takes coreg 25 mg BID, eliquis 2.5 mg BID - did not receive medication this morning, due to slurred speech - in RVR this morning, HR 140s - transfered to ICU for CPAP due to hypoxia - ordered 5 mg IV metoprolol x 3 doses max, with moderate improvement in HR to 120s. - given 150 mg IV amiodarone, without significant change - d/w Dr. Santamaria. Recommends to c/w PO therapy with coreg 25 mg BID as tolerated. - convert eliquis to lovenox renal dosage - EDTA free PLTs obtained, 130 - will monitor closely for bleeding. #. NIDDM type 2 -Sliding scale insulin and carbohydrate consistent diet #. Hypertension - amlodipine 5 mg BID, unable to take PO at this time - BP normotensive at this time. #. Gout -Continue allopurinol #. COPD -c/w Symbicort and PRN duonebs #. Thrombocytopenia - EDTA free PLT 130. - eliquis was resumed, converted to [place] lovenox, renally dosed as patient is unable to take PO #. CKD stage 3 -Baseline creatinine around 2 -At baseline -Supportive care #. DVT ppx -lovenox Disposition: Pending clinical improvement. VS, I&O, 24H, Fishbone Vital Signs/I&O Vital Signs Date Time Temp Pulse Resp B/P (MAP) Pulse Ox O2 Delivery O2 Flow Rate FiO2 02/17/21 14:57 100 02/17/21 14:38 97.5 135 30 124/80 (95) 93 NIPPV (BIPAP/CPAP) 02/17/21 08:00 15.0 I&O- Last 24 Hours up to 6 AM 02/17/21 06:00 Intake Total 850 ml Balance 850 ml Laboratory Data 24H LABS Laboratory Tests 2 02/16/21 16:14: Prothrombin Time 20.9H, Prothromb Time International Ratio 1.76, Activated Partial Thromboplast Time 43.6H, Fibrinogen 791H, D-Dimer, Quantitative 926.55H, Magnesium Level 2.2, Ferritin 371, Lactate Dehydrogenase 337H, C-Reactive Protein, Quantitative 20.80H, Procalcitonin 0.67 02/16/21 17:25: Prothrombin Time 21.8H, Prothromb Time International Ratio 1.86, Activated Partial Thromboplast Time 41.9H, Fibrinogen 777H, D-Dimer, Quantitative 915.65H, Magnesium Level 2.2, Ferritin 388, Lactate Dehydrogenase 341H, Procalcitonin 0.70, BQ-Ugd-Y-Type Natriuretic Peptide 3711H 02/16/21 20:03: Platelet Count, EDTA Free 118L 02/16/21 21:53: Bedside Glucose (Misc Panel) 162H 02/17/21 07:01: Immature Granulocyte % (Auto) 0.9, Neutrophils (%) (Auto) 83.6H, Lymphocytes (%) (Auto) 8.4L, Monocytes (%) (Auto) 6.9, Eosinophils (%) (Auto) 0.0, Basophils (%) (Auto) 0.2, Neutrophils # (Auto) 5.6, Lymphocytes # (Auto) 0.6L, Monocytes # (Auto) 0.5, Eosinophils # (Auto) 0.0, Basophils # (Auto) 0.0, Nucleated Red Blood Cells % (auto) 0.0, Platelet Count, EDTA Free 130L, Anion Gap 10, Glomerular Filtration Rate 35.2, Calcium Level 9.2, Magnesium Level 2.3, Total Bilirubin 0.5, Direct Bilirubin 0.3H, Aspartate Amino Transf (AST/SGOT) 158H, Alanine Aminotransferase (ALT/SGPT) 43, Alkaline Phosphatase 52, Troponin I 0.15#H, Total Protein 7.7, Albumin 2.5L, Albumin/Globulin Ratio 0.5 02/17/21 11:54: Bedside Glucose (Misc Panel) 155H 02/17/21 14:43: Blood Gas Bicarbonate Standard 23.6, Arterial Blood pH 7.409, Arterial Blood Partial Pressure CO2 37.8, Arterial Blood Partial Pressure O2 70.3L, Arterial Blood Total CO2 24.5, Arterial Blood HCO3 23.4, Arterial Blood Base Excess -0.9, Arterial Blood Oxygen Saturation 94.6L 02/17/21 14:47: CBC/BMP Laboratory Tests 02/17/21 07:01 Microbiology Microbiology 02/16/21 Urine Culture, Received Pending 02/16/21 Blood Culture - Preliminary, Resulted No growth after 24 hours . All specim... 02/16/21 Blood Culture - Preliminary, Resulted No growth after 24 hours . All specim... LAURA CANAS MD Feb 17, 2021 15:19
[2021-02-17] MEDS ORDERED: COMBIVENT RESPIMAT 100-20MCG INHALER 4GM INH PRN (15:20)
[2021-02-17] MEDS: METOPROLOL 5 MG/5 ML VIAL IV SCH ×3 (15:27→15:49)
[2021-02-17 15:40] LABS: CALCIUM LEVEL 9.8 MG/DL (8.8-10.2); CREATININE FOR GFR 1.83 MG/DL (0.70-1.30); FREE T4 1.21 NG/DL (0.76-1.46); GLOMERULAR FILTRATION RATE 38.1 (>35); MAGNESIUM LEVEL 2.4 MG/DL (1.8-2.4); PHOSPHORUS LEVEL 3.6 MG/DL (2.5-4.9); POTASSIUM SERUM 3.4 MEQ/L (3.5-5.1); THYROID STIMULATING HORMONE 1.39 uIU/ML (0.358-3.740); TROPONIN I 0.1 NG/ML (< 0.10)
[2021-02-17] MEDS ORDERED: AMIODARONE HCL 150 MG in IV 1 EA IV ONE (16:10)
[2021-02-17] MEDS ORDERED: POTASSIUM CHLORIDE 10% LIQ 20 MEQ/15 ML UDC PO ONE (16:10)
--- NOTE | 2021-02-17 17:51 | REPVR ---
PROCEDURE INFORMATION: Exam: CT Head Without Contrast Exam date and time: 02/17/2021 5:20 PM Age: 80 years old Clinical indication: Pain; Headache; Additional info: Repeat CT head for slurred speech, cannot have mri TECHNIQUE: Imaging protocol: Computed tomography of the head without contrast. Radiation optimization: All CT scans at this facility use at least one of these dose optimization techniques: automated exposure control; mA and/or kV adjustment per patient size (includes targeted exams where dose is matched to clinical indication); or iterative reconstruction. COMPARISON: CT Head without contrast 02/16/2021 2:01 PM FINDINGS: Brain: No intracranial mass, focal mass effect or midline shift. No acute intracranial hemorrhage. Mild decreased attenuation in periventricular/centrum semiovale white matter. No focal effacement of cortical sulci to indicate acute cortical infarct. Prominent ventricles and CSF spaces suggest parenchymal volume loss. Paranasal sinuses: Visualized paranasal sinuses are unremarkable. Mastoid air cells: Mastoid air cells are normally aerated. Orbital cavity: Visualized globes and orbits are unremarkable. Bones/joints: No calvarial fracture or destructive process. Soft tissues: No focal extracranial soft tissue swelling. IMPRESSION: 1. No acute intracranial abnormality or interval change 2. Atrophy and chronic microangiopathic change in supratentorial white matter. Electronically signed by: Efren Gilliam On 02/17/2021 17:51:32 PM
[2021-02-17] MEDS: cefTRIAXone SOD 1 GM in D5W MINI-BAG PLUS 50 ML IV SCH (18:11)
[2021-02-17] MEDS: ENOXAPARIN 100MG/1ML SYRINGE (J1650 PER 10MG) SC SCH (18:12)
[2021-02-17] MEDS: AZITHROMYCIN INJ 500 MG, VIAL MATE ADAPTER 1 EACH in NS 250 ML IV SCH (19:54)
[2021-02-17] MEDS: REMDESIVIR 100 MG in NS 250 ML IV SCH (20:43)
[2021-02-17] MEDS: dexameTHASONE 4 MG/ML 1ML VIAL (J1100 PER 1MG) IV SCH (20:43)
[2021-02-17] MEDS: allopurinoL 300 MG TAB PO SCH (20:44)
[2021-02-17] MEDS: SODIUM CHLORIDE 0.9% INJ 10 ML SYR IV SCH (20:44)
[2021-02-18] VITALS (10 sets, daily range): BP systolic 123–146; BP diastolic 66–96; O2SAT 89–93
[2021-02-18 04:21] LABS: HEMATOCRIT 44.6 % (42.0-52.0); HEMOGLOBIN 14.3 g/dl (13.5-17.5); LYMPH # 0.5 10^3/uL (1.5-5.0); LYMPH % 5.6 % (24.0-44.0); MEAN CORPUSCULAR HGB CONC 32.1 g/dl (32.0-36.5); MEAN CORPUSCULAR VOLUME 81.1 fl (80.0-96.0); MONO # 0.4 10^3/uL (0.0-0.8); MONO % 4.6 % (2.0-8.0); NEUTROPHILS # 7.1 10^3/uL (1.5-8.5); NEUTROPHILS % 88.9 % (36.0-66.0)
[2021-02-18 04:30] LABS: PLTBLUE- EDTA FREE CALC 106 K/mm3 (172-450); PLTBLUE- EDTA FREE MACHINE 96 10^3/uL (172-450)
[2021-02-18 04:32] LABS: INR 1.73; PROTHROMBIN TIME 20.7 SECONDS (12.7-14.5)
[2021-02-18 04:33] LABS: PARTIAL THROMBOPLASTIN TIME 47.6 SECONDS (25.9-37.0)
[2021-02-18] MEDS: ENOXAPARIN 100MG/1ML SYRINGE (J1650 PER 10MG) SC SCH ×2 (05:53→17:03)
--- NOTE | 2021-02-18 07:13 | ECHO ---
ECHOCARDIOGRAM DATE OF PROCEDURE: 02/17/2021 Age: 80 Gender: M Height: 68 inches Weight: 209 pounds Body Surface Area: 2.09 meters squared Inpatient: 4 [facility]tan/Room 4104 REFERRING PHYSICIAN: Clint Weiss MD INDICATION: Abnormal EKG MEASUREMENTS: 2D Measurements: RV - 3.8 cm LV - 3.6 cm Septum 1.3 cm Posterior wall 1.3 cm Aortic Root 3.5 cm LA - 4.3 cm LVEF 65-75% Doppler Measurements: AV - 1.53 m/s LVOT - 0.9 m/s LVOT diameter 1.8 cm MV-E 76 Early mitral deceleration time 116 msec E prime medial 7.3, E prime lateral 6.9 Average E/E prime ratio 10.7/PCWP 15.2 mmHg RVSP 46 mmHg IVC - 2.5 cm COMMENTS: Underlying atrial fibrillation with rapid ventricular response. Technically difficulty study in light of the patient's body habitus but some diagnostically useful information was still obtained. M-mode and 2-dimensional echocardiography was performed with pulse, continuous wave, color flow, and tissue Doppler studies. Mild concentric left ventricular hypertrophy with normal wall motion. Mildly dilated left atrium with current estimated mean left atrial pressure upper limits of normal. Right ventricular size upper limits of normal with normal right ventricular free wall motion and moderate pulmonary hypertension. At least mildly dilated inferior vena cava with adequate respiratory collapse consistent with central venous pressure upper limits of normal. Normal aortic dimensions. Three equal-sized aortic cuffs with mild to moderate cusp thickening with adequate cusp separation. No apparent functional valvular abnormality. Normal-appearing and functioning mitral valve with mild mitral insufficiency. Normal-appearing tricuspid valve with mild insufficiency. Miniscule posterior pericardial effusion. No apparent intracardiac mass.
[2021-02-18 09:07] LABS: ALBUMIN 2.3 GM/DL (3.2-5.2); BILIRUBIN,DIRECT 0.1 MG/DL (0.0-0.2); BILIRUBIN,TOTAL 0.6 MG/DL (0.2-1.0); CALCIUM LEVEL 9.7 MG/DL (8.8-10.2); CREATININE FOR GFR 1.83 MG/DL (0.70-1.30); GLOMERULAR FILTRATION RATE 38.1 (>35); MAGNESIUM LEVEL 2.4 MG/DL (1.8-2.4); POTASSIUM SERUM 4.7 MEQ/L (3.5-5.1); TOTAL PROTEIN 7.9 GM/DL (6.4-8.2); TROPONIN I 0.07 NG/ML (< 0.10)
[2021-02-18] MEDS: HumaLOG INSULIN (NovoLOG) PER UNIT SC SCH ×4 (09:48→21:00)
[2021-02-18] MEDS: CARVedilol 12.5 MG TAB PO SCH ×3 (09:49→17:09)
[2021-02-18] MEDS: amLODIPine 5 MG TAB PO SCH ×2 (09:49→20:36)
[2021-02-18] MEDS: SYMBICORT 80/4.5MCG INHALER 6GM INH SCH ×2 (10:55→20:15)
--- NOTE | 2021-02-18 13:39 | ECGEPIP ---
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 : 1940 Requested By: LAURA CANAS Order Number: [id number] Reading MD: Joaquin Painter Measurements Intervals [place] Rate: 123 P: 95 SC: QRS: -6 QRSD: 84 T: 136 QT: 268 QTc: 383 Interpretive Statements Critical Test Result: AV Block Poor data quality, interpretation may be adversely affected Atrial fiubrillation with occasional premature ventricular complexes versus aberrant beats ST & T wave abnormality, consider lateral ischemia Compared to prior tracings in the system, patient with paroxysmal atrial f fibrillation noted on 07/17/2020 Electronically Signed on 02-18-2021 13:39:18 EDT by Joaquin Painter
[2021-02-18 14:09] LABS: MYCOPLASMA PNEUMONIAE IgG 864 U/mL (0-99); MYCOPLASMA PNEUMONIAE IgM <770 U/mL (0-769)
[2021-02-18] MEDS ORDERED: FUROSEMIDE 40MG/4ML VIAL (J1940) IV ONE (17:05)
[2021-02-18] MEDS: cefTRIAXone SOD 1 GM in D5W MINI-BAG PLUS 50 ML IV SCH (17:07)
[2021-02-18] MEDS ORDERED: PILL CUTTER 1 EACH XX PRN (17:10)
--- NOTE | 2021-02-18 17:22 | IPNPDOC ---
Date Seen The patient was seen on 02/18/21. Progress Note SUBJECTIVE: Seen and examined in ICU at bedside. Heart rate is slightly improved from yesterday now trending in the 110s. Patient able to tolerate p.o. metoprolol. Patient is alert and oriented x3 denies chest pain palpitations or shortness of breath His speech is still garbled, has been able to tolerate pured diet and honey thick liquids. He is taking medications crushed with applesauce. He is otherwise hemodynamically stable. OBJECTIVE PHYSICAL EXAMINATION: VITAL SIGNS: please see below General: NAD, comfortable HEENT: PERRLA, EOMI, sclerae clear Neck: supple, normal ROM, no JVD Respiratory: Reduced inspiratory effort, rales bilateral lung bases. No wheezing. CVS: Tachycardic, irregular, normal S1, S2, no murmurs Abdo: soft, no masses, no hepatosplenomegaly, BS+, no rebound tenderness Extremities: no edema, pulses 2+ MSK: no joint deformities, normal ROM Neuro: no focal neuro deficits, moving all 4 extremities, CN2-12 intact. Strength 5/5 in all 4 extremities. No nystagmus. Slurred speech, no facial asymmetry, no ambulatory uvular deviation. No tongue deviation. Psych: calm, cooperative, AAO x 3 LABORATORY DATA, IMAGING STUDIES, MICROBIOLOGY: Please see below. DVT prophylaxis ordered?: Y ASSESSMENT AND PLAN: Mr. Macias is an 80-year-old male with a history of CAD status post CABG, type 2 diabetes with neuropathy, atrial fibrillation on Eliquis, and history of prostate and bladder cancer. He presented to the ER with slurred slurred speech as well as cough. He was diagnosed with COVID-19 pneumonia. He has felt ill for approximately 2 to 3 weeks. Family had concern for CVA, CT head without contrast showed no acute intracranial abnormality. Given the fact that the patient has a pacemaker he is unable to receive an MRI scan. Repeat CT head on 02/17/2021. PROBLEMS: #. Acute hypoxic respiratory failure - 2/2 covid-19 pneumonia, max vapotherm. No resp acidosis on ABG> - d/w Dr. Lazo. Transfer to ICU. CPAP 10 mmH20 with FiO2 100% - using CPAP intermittently with vapotherm - c/w remdesivir (Day #3). C/w Dexamethaseone 6 mg IV (Day #3) - c/w symbicort, add combivent. - Ceftriaxone (Day #3). Azithromycin (Day #3). #. Slurred speech -Unable to obtain MRI -CT head negative for CVA x2 - ordered myasthenia gravis panel - d/w Dr. Kenney. Unable to consult due to covid-10 positive status - recommends adding lyme disease serology. Ordered tick borne panel - ordered panel for myasthenia gravis (remote possibility), and co-treatment with steroids should help alleviate MG symptoms - trial pyridostygmine 30 mg TID, can increase to [address] Kenney. - there is also posibility of dysfunction of swallowing mechanism 2/2 COVID-[address] Kenney. - Speech therapy evaluation: recommending pureed solids, honey thick liquids, meds crushed in applesauce. - will resume PO meds crushed with sauce. #. Paroxysmal atrial fibrillation - takes coreg 25 mg BID, eliquis 2.5 mg BID - did not receive medication this morning, due to slurred speech - in RVR this morning, HR 140s - transfered to ICU for CPAP due to hypoxia - ordered 5 mg IV metoprolol x 3 doses max, with moderate improvement in HR to 120s. - given 150 mg IV amiodarone, without significant change - d/w Dr. Santamaria. Recommends to c/w PO therapy with coreg PO - adjusted coreg to 12.5 mg q6h PO. - convert eliquis to lovenox renal dosage - EDTA free PLTs obtained, 130, trended down to 100 - will monitor closely for bleeding. #. NIDDM type 2 -Sliding scale insulin and carbohydrate consistent diet #. Hypertension - amlodipine 5 mg BID, unable to take PO at this time - BP normotensive at this time. #. Gout -Continue allopurinol #. COPD -c/w Symbicort and PRN duonebs #. Thrombocytopenia - EDTA free PLT 130. - eliquis was resumed, converted to SC lovenox, renally dosed as patient is unable to take PO #. CKD stage 3 -Baseline creatinine around 2 -At baseline -Supportive care #. DVT ppx -lovenox Disposition: Pending clinical improvement. VS, I&O, 24H, Fishbone Vital Signs/I&O Vital Signs Date Time Temp Pulse Resp B/P (MAP) Pulse Ox O2 Delivery O2 Flow Rate FiO2 02/18/21 16:00 40.0 100 02/18/21 14:22 126 146/71 02/18/21 12:00 89 HVNI-Vapotherm 02/18/21 04:00 97.6 24 I&O- Last 24 Hours up to 6 AM 02/18/21 06:00 Intake Total 100 ml Output Total 0 ml Balance 100 ml Laboratory Data 24H LABS Laboratory Tests 2 02/17/21 18:07: Bedside Glucose (Misc Panel) 201H 02/17/21 20:40: Bedside Glucose (Misc Panel) 205H 02/18/21 03:45: Immature Granulocyte % (Auto) 0.9, Neutrophils (%) (Auto) 88.9H, Lymphocytes (%) (Auto) 5.6L, Monocytes (%) (Auto) 4.6, Eosinophils (%) (Auto) 0.0, Basophils (%) (Auto) 0.0, Neutrophils # (Auto) 7.1, Lymphocytes # (Auto) 0.5L, Monocytes # (Auto) 0.4, Eosinophils # (Auto) 0.0, Basophils # (Auto) 0.0, Nucleated Red Blood Cells % (auto) 0.0, Platelet Count, EDTA Free 106L, Prothrombin Time 20.7H, Prothromb Time International Ratio 1.73, Activated Partial Thromboplast Time 47.6H, Fibrinogen 800H, Procalcitonin 0.77 02/18/21 07:38: Bedside Glucose (Misc Panel) 239H 02/18/21 07:55: Anion Gap 9, Glomerular Filtration Rate 38.1, Calcium Level 9.7, Magnesium Level 2.4, Ferritin 582H, Total Bilirubin 0.6, Direct Bilirubin 0.1, Aspartate Amino Transf (AST/SGOT) 134H, Alanine Aminotransferase (ALT/SGPT) 47, Alkaline Phosphatase 53, Lactate Dehydrogenase 659H, Total Creatine Kinase 1249#H, Troponin I 0.07#, PH-Gat-L-Type Natriuretic Peptide 6484H, Total Protein 7.9, Albumin 2.3L, Albumin/Globulin Ratio 0.4 02/18/21 12:42: Bedside Glucose (Misc Panel) 257H 02/18/21 15:02: CBC/BMP Laboratory Tests 02/18/21 03:45 02/18/21 07:55 Microbiology Microbiology 02/16/21 Urine Culture - Final, Complete 02/16/21 Blood Culture - Preliminary, Resulted No Growth after 48 hours. All Specime... 02/16/21 Blood Culture - Preliminary, Resulted No Growth after 48 hours. All Specime... LAURA CANAS MD Feb 18, 2021 17:22
--- NOTE | 2021-02-18 17:35 | REP ---
INDICATION: assess for lung edema. COMPARISON: 02/16/2021. TECHNIQUE: Single portable AP view of the chest was performed. FINDINGS: Infiltrates in the bilateral lower lung khalil are again noted, not significantly changed on the left but appearing mildly increased on the right. Cardiomegaly is again noted. The mediastinal silhouette is unchanged. Left pacemaker is again noted as well as multiple sternal wires. IMPRESSION: Mild increase in right lung infiltrates. Stable left lung infiltrates. Cardiomegaly. <Electronically signed by Federico Encarnacion > 02/18/21 [id number]
[2021-02-18] MEDS: AZITHROMYCIN INJ 500 MG, VIAL MATE ADAPTER 1 EACH in NS 250 ML IV SCH (20:35)
[2021-02-18] MEDS: PYRIDOSTIGMINE 60MG TABLET PO SCH (20:36)
[2021-02-18] MEDS: allopurinoL 300 MG TAB PO SCH (20:36)
[2021-02-18] MEDS: dexameTHASONE 4 MG/ML 1ML VIAL (J1100 PER 1MG) IV SCH (20:37)
[2021-02-18] MEDS: REMDESIVIR 100 MG in NS 250 ML IV SCH (22:10)
[2021-02-18] MEDS: SODIUM CHLORIDE 0.9% INJ 10 ML SYR IV SCH (22:13)
[2021-02-19] VITALS: BP 121/71; O2SAT 93
[2021-02-19] MEDS: CARVedilol 12.5 MG TAB PO SCH ×2 (00:18→05:08)
[2021-02-19 04:30] VITALS: O2SAT 91
[2021-02-19] MEDS: ENOXAPARIN 100MG/1ML SYRINGE (J1650 PER 10MG) SC SCH (05:09)
[2021-02-19 05:11] LABS: HEMATOCRIT 42.8 % (42.0-52.0); LYMPH # 0.5 10^3/uL (1.5-5.0); LYMPH % 5.5 % (24.0-44.0); MEAN CORPUSCULAR HEMOGLOBIN 26.3 pg (27.0-33.0); MEAN CORPUSCULAR HGB CONC 32.7 g/dl (32.0-36.5); MEAN CORPUSCULAR VOLUME 80.5 fl (80.0-96.0); MONO # 0.5 10^3/uL (0.0-0.8); MONO % 5.5 % (2.0-8.0); NEUTROPHILS # 7.4 10^3/uL (1.5-8.5); NEUTROPHILS % 87.8 % (36.0-66.0); RED BLOOD COUNT 5.32 10^6/uL (4.30-6.10); WHITE BLOOD COUNT 8.4 10^3/uL (4.0-10.0)
[2021-02-19 05:38] LABS: PLTBLUE- EDTA FREE CALC 123 K/mm3 (172-450); PLTBLUE- EDTA FREE MACHINE 112 10^3/uL (172-450)
[2021-02-19] MEDS: SYMBICORT 80/4.5MCG INHALER 6GM INH SCH (06:20)
[2021-02-19 06:21] LABS: CREATININE FOR GFR 1.73 MG/DL (0.70-1.30); GLOMERULAR FILTRATION RATE 40.7 (>35); MAGNESIUM LEVEL 2.1 MG/DL (1.8-2.4); POTASSIUM SERUM 3.1 MEQ/L (3.5-5.1)
[2021-02-19 08:00] VITALS: BP 156/80
[2021-02-19] MEDS: HumaLOG INSULIN (NovoLOG) PER UNIT SC SCH (08:21)
[2021-02-19 08:23] VITALS: BP 156/80
[2021-02-19] MEDS: amLODIPine 5 MG TAB PO SCH (08:23)
[2021-02-19] MEDS: PYRIDOSTIGMINE 60MG TABLET PO SCH (08:24)
[2021-02-19] MEDS ORDERED: POTASSIUM CHLORIDE 10% LIQ 20 MEQ/15 ML UDC PO ONE ×2 (08:30→12:00)
[2021-02-19] MEDS ORDERED: POTASSIUM CHLORIDE 10MEQ SR TABLET PO ONE ×2 (08:30→12:00)
[2021-02-19] MEDS ORDERED: ONDANSETRON 4MG/2ML VIAL IV PRN (09:30)
[2021-02-19] MEDS ORDERED: SCOPOLAMINE 1MG TRANSDERMAL PATCH TOP PRN (09:30)
[2021-02-19] MEDS ORDERED: HYOSCYAMINE SULFATE 0.125 MG SUBL TABLET PO PRN (09:30)
[2021-02-19] MEDS ORDERED: ATROPINE SULFATE 1% OP SOLN 2 ML BTL SL PRN (09:30)
[2021-02-19] MEDS ORDERED: diphenhydrAMINE 50MG/ML VIAL (J1200) IV PRN (10:00)
[2021-02-19] MEDS: MORPHINE 2 MG/ML 1ML VIAL (J2270) IV PRN ×3 (10:30→16:55)
[2021-02-19] MEDS: LORazepam 2 MG/ML VIAL IV PRN ×3 (11:12→16:55)
[2021-02-19] MEDS: MORPHINE 10MG/0.5ML ORAL CONCENTRATE SOLUTION U/D SL PRN ×3 (11:32→18:07)
[2021-02-19 12:43] VITALS: BP 156/80
--- NOTE | 2021-02-19 21:25 | IPNPDOC ---
Date Seen The patient was seen on 02/19/21. Progress Note SUBJECTIVE: Seen and examined in ICU at bedside. Hypoxic on max vapotherm, and non rebreather. Confused, asking for pospicles. [facility]. Was allowed to visit in ICU. They made a decision for CARTOGRAPHIC DRAFTER status. MOLST form was signed and witnessed. OBJECTIVE PHYSICAL EXAMINATION: VITAL SIGNS: please see below General: NAD, comfortable HEENT: PERRLA, EOMI, sclerae clear Neck: supple, normal ROM, no JVD Respiratory: Reduced inspiratory effort, rales bilateral lung bases. No wheezing. CVS: Tachycardic, irregular, normal S1, S2, no murmurs Abdo: soft, no masses, no hepatosplenomegaly, BS+, no rebound tenderness Extremities: no edema, pulses 2+ MSK: no joint deformities, normal ROM Neuro: no focal neuro deficits, moving all 4 extremities, CN2-12 intact. Stren gth 5/5 in all 4 extremities. No nystagmus. Slurred speech, no facial asymmetry, no ambulatory uvular deviation. No tongue deviation. Psych: calm, cooperative, AAO x 3 LABORATORY DATA, IMAGING STUDIES, MICROBIOLOGY: Please see below. Echocardiogram: . DVT prophylaxis ordered?: ASSESSMENT AND PLAN: Mr. Macias is an 80-year-old male with a history of CAD status post CABG, type 2 diabetes with neuropathy, atrial fibrillation on Eliquis, and history of prostate and bladder cancer. He presented to the ER with slurred slurred speech as well as cough. He was diagnosed with COVID-19 pneumonia. He has felt ill for approximately 2 to 3 weeks. Family had concern for CVA, CT head without contrast showed no acute intracranial abnormality. Given the fact that the patient has a pacemaker he is unable to receive an MRI scan. Repeat CT head on 02/17/2021. PROBLEMS: #. Acute hypoxic respiratory failure - 2/2 covid-19 pneumonia, max vapotherm. No resp acidosis on ABG> - d/w Dr. Lazo. Transfer to ICU. CPAP 10 mmH20 with FiO2 100% - using CPAP intermittently with vapotherm - c/w remdesivir (Day #3). C/w Dexamethaseone 6 mg IV (Day #3) - c/w symbicort, add combivent. - Ceftriaxone (Day #4). Azithromycin (Day #4). #. Slurred speech -Unable to obtain MRI -CT head negative for CVA x2 - ordered myasthenia gravis panel - d/w Dr. Kenney. Unable to consult due to covid-10 positive status - recommends adding lyme disease serology. Ordered tick borne panel - ordered panel for myasthenia gravis (remote possibility), and co-treatment with steroids should help alleviate MG symptoms - trial pyridostygmine 30 mg TID, can increase to [address] Kenney. - Speech therapy evaluation: recommending pureed solids, honey thick liquids, meds crushed in applesauce. - will resume PO meds crushed with sauce. #. Paroxysmal atrial fibrillation -takes coreg 25 mg BID, eliquis 2.5 mg BID - did not receive medication this morning, due to slurred speech - in RVR this morning, HR 140s - transfered to ICU for CPAP due to hypoxia - ordered 5 mg IV metoprolol x 3 doses max, with moderate improvement in HR to 120s. - given 150 mg IV amiodarone, without significant change - d/w Dr. Santamaria. Recommends to c/w PO therapy with coreg PO - adjusted coreg to 12.5 mg q6h PO. - convert eliquis to lovenox renal dosage - EDTA free PLTs obtained, 130, trended down to 100 - will monitor closely for bleeding. - #. NIDDM type 2 -Sliding scale insulin and carbohydrate consistent diet #. Hypertension - amlodipine 5 mg BID, unable to take PO at this time - BP normotensive at this time. #. Gout -Continue allopurinol #. COPD -c/w Symbicort and PRN duonebs #. Thrombocytopenia - EDTA free PLT 130. - eliquis was resumed, converted to SC lovenox, renally dosed as patient is unable to take PO #. CKD stage 3 -Baseline creatinine around 2 -At baseline -Supportive care #. DVT ppx -lovenox Disposition: CARTOGRAPHIC DRAFTER status. MOLST form signed and witnessed. Decision made by patient's at bedside. VS, I&O, 24H, Fishbone Vital Signs/I&O Vital Signs Date Time Temp Pulse Resp B/P (MAP) Pulse Ox O2 Delivery O2 Flow Rate FiO2 02/19/21 13:40 3.0 10/28/21 13:00 85 28 61 Nasal Cannula 02/19/21 12:43 97.0 156/80 100 I&O- Last 24 Hours up to 6 AM 02/19/21 06:00 Intake Total 545 ml Output Total 1875 ml Balance -1330 ml Laboratory Data 24H LABS Laboratory Tests 2 02/19/21 04:52: Immature Granulocyte % (Auto) 1.2, Neutrophils (%) (Auto) 87.8H, Lymphocytes (%) (Auto) 5.5L, Monocytes (%) (Auto) 5.5, Eosinophils (%) (Auto) 0.0, Basophils (%) (Auto) 0.0, Neutrophils # (Auto) 7.4, Lymphocytes # (Auto) 0.5L, Monocytes # (Auto) 0.5, Eosinophils # (Auto) 0.0, Basophils # (Auto) 0.0, Nucleated Red Blood Cells % (auto) 0.0, Platelet Count, EDTA Free 123L, Anion Gap 9, Glomerular Filtration Rate 40.7, Calcium Level 9.0, Magnesium Level 2.1 CBC/BMP Laboratory Tests 02/19/21 04:52 Microbiology Microbiology 02/16/21 Urine Culture - Final, Complete 02/16/21 Blood Culture - Preliminary, Resulted No Growth after 72 hours. All specime... 02/16/21 Blood Culture - Preliminary, Resulted No Growth after 72 hours. All specime... LAURA CANAS MD Feb 19, 2021 21:25
[2021-02-20] MEDS: LORazepam 2 MG/ML VIAL IV PRN ×3 (03:28→13:49)
[2021-02-20] MEDS: MORPHINE 10MG/0.5ML ORAL CONCENTRATE SOLUTION U/D SL PRN (03:29)
[2021-02-20] MEDS: MORPHINE 2 MG/ML 1ML VIAL (J2270) IV PRN ×2 (11:10→13:49)
[2021-02-20] MEDS ORDERED: LORazepam 2 MG/ML VIAL As Ordered ONE (13:43)
--- NOTE | 2021-02-20 22:07 | DS.PDOC ---
Discharge Summary General Date of Admission Feb 16, 2021 at 16:08 Date of Discharge Feb 19, 2021 Discharge Summary PROCEDURES PERFORMED DURING STAY: None ADMITTING DIAGNOSES: 1. Acute hypoxic respiratory failure 2. COVID-19 pneumonia 3. Slurred speech 4. Paroxysmal atrial fibrillation 5. NIDDM type 2 6. Hypertension 7. Gout 8. COPD 9. Thrombocytopenia 10. CKD stage 3 DISCHARGE DIAGNOSES: 1. Acute hypoxic respiratory failure 2. COVID-19 pneumonia 3. Slurred speech 4. Paroxysmal atrial fibrillation 5. NIDDM type 2 6. Hypertension 7. Gout 8. COPD 9. Thrombocytopenia 10. CKD stage 3 COMPLICATIONS/CHIEF COMPLAINT: Acute Resp Failure W Hypoxia,Pneumonia Due To COVID-19. HISTORY OF PRESENT ILLNESS: Mr. Salas is an 80-year-old male with CAD status post CABG, diabetes complicated with neuropathy, atrial fibrillation, and prostate and bladder cancer who presents with slurred/garbled speech and cough. He was subsequently found to have Covid pneumonia. Patient is a poor historian and his history does not match with his 's history. Patient tells me that about 2 weeks ago his was feeling ill. He then started feeling ill about a week ago. Denies any recent travel or hospitalizations. Denies any fever or chills, chest pain, abdominal pain, diarrhea, or dysuria. He does have headache and cough. He is hard of hearing. tells me that patient has been feeling ill for the past 3 weeks. He was sedentary and sleeping in the chair most of the time. They wanted him to go to the ED but he did not want to go. He had a slurred speech at home, and they were concerned that he had a stroke. They made him come to the ED for evaluation. While in the ED, he has been hypoxic. 85% at room air. He eventually required 8 L to maintain saturation of 90%. Otherwise afebrile, nontachycardic, and stable blood pressure. CT head demonstrates advance deep white matter ischemic disease but no evidence of a focal lesion. Chest x-rays demonstrate bilateral infiltrates. On labs, there is no leukocytosis. Patient does have CRP of 20.9. Rest of Covid labs are pending. Patient will be admitted for acute hypoxic respiratory failure secondary to Covid pneumonia. HOSPITAL COURSE: During hospitalization, patient did not do well. His oxygen requirements increased to max Vapotherm. Patient was transferred to the ICU. Speech therapy evaluated patient and recommended a pureed diet. Repeat CT head x2 negative for stroke. Touched base with neurology. Recommended trying pyridostigmine. Patient continued to decline. was also hospitalized for COVID. She saw him in the ICU. 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 Patient was made comfortable. On 02/20/2021 at 14:23, patient peacefully and quietly . Vital Signs/I&Os Vital Signs Date Time Temp Pulse Resp B/P (MAP) Pulse Ox O2 Delivery O2 Flow Rate FiO2 02/20/21 08:00 3.0 02/19/21 13:00 85 28 61 Nasal Cannula 02/19/21 12:43 97.0 156/80 100 I&O- Last 24 Hours up to 6 AM 02/20/21 06:00 Intake Total 60 ml Output Total 100 ml Balance -40 ml Microbiology Microbiology 02/16/21 Urine Culture - Final, Complete 02/16/21 Blood Culture - Preliminary, Resulted No Growth after 72 hours. All specime... 02/16/21 Blood Culture - Preliminary, Resulted No Growth after 72 hours. All specime... Discharge Medications Scheduled Amlodipine Besylate (Amlodipine Besylate) 5 Mg Tablet, 5 MG PO BID, (Reported) Apixaban (Eliquis) 5 Mg Tablet, 5 MG PO BID, (Reported) Budesonide/Formoterol (Symbicort 80-4.5 Mcg Inhaler) 60 Puff/Inhaler Aers, 2 PUFF INH BID, (Reported) Buspirone HCl (Buspirone HCl) 15 Mg Tablet, 15 MG PO BID, (Reported) Carvedilol (Carvedilol) 25 Mg Tablet, 25 MG PO BID, (Reported) Cholecalciferol (Vitamin D3) (Vitamin D3) 1,000 Unit Tablet, 1,000 UNITS PO DAILY, (Reported) Cyanocobalamin (Vitamin B-12) (Vitamin B-12) 500 Mcg Tab, 1,000 MCG PO DAILY, (Reported) Glipizide (Glipizide ER) 10 Mg Tab.er.24, 10 MG PO DAILY, (Reported) Icosapent Ethyl (Vascepa) 1 Gm Capsule, 2 GM PO BID, (Reported) Lactobacillus Acidophilus (Probiotic) 1 Each Capsule, 1 CAP PO DAILY, (Reported) Linagliptin (Tradjenta) 5 Mg Tab, 5 MG PO QHS, (Reported) Sertraline Hcl (Zoloft) 100 Mg Tablet, 100 MG PO QHS, (Reported) Zinc (Zinc) 50 Mg Tablet, 50 MG PO DAILY, (Reported) allopurinoL (allopurinoL) 300 Mg Tablet, 300 MG PO QHS, (Reported) Scheduled PRN Albuterol Sulfate (Proair Hfa) 8.5 Gm Hfa.aer.ad, 2 PUFF INH Q4H PRN for SHORTNESS OF BREATH, (Reported) Allergies Coded Allergies: digoxin (Verified Adverse Reaction, Severe, 08/05/20) codeine (Verified Adverse Reaction, Mild, confusion, 03/08/19) morphine (Verified Adverse Reaction, Mild, itching, 03/08/19) ROSY [address] DO Feb 20, 2021 22:06
--- NOTE | 2021-02-21 16:32 | ECGEPIP ---
[facility] Test Date: 2021-02-17 Pat Name: URSULA ONRRIS Department: Room: [place] [address] Gender: Male Guest Relations Receptionist: shruti : 1940 Requested By: LAURA CANAS Order Number: [id number] Reading MD: Joaquin Painter Measurements Intervals [place] Rate: 123 P: SC: QRS: -14 QRSD: 86 T: 158 QT: 266 QTc: 380 Interpretive Statements Probably atrial fib/flutter with frequent premature ventricular complexes ST & T wave abnormality, consider ischemia Last tracing on 02/17/21 at 13:15 No remarkable changes Electronically Signed on 02-21-2021 16:31:20 EDT by Joaquin Painter
== END 2021-02-20 14:24 | disposition expired | DRG 177 ==
LOC: M ED 12:44 → EDBD 12:44 → M ED INP 16:08 → M 4MAIN 21:20 → M ICU 02-17 14:26 → M 4MAIN 02-19 13:32
PROVIDERS: ADMIT Internal Medicine; ATTEND Family Medicine
PROC: XW033E5 Introduction of Remdesivir Anti-infective into Peripheral Vein, Percutaneous Approach, New Technology Group 5 (ICD-10-PCS; principal; 2021-02-16)
PROC: 3E0333Z Introduction of Anti-inflammatory into Peripheral Vein, Percutaneous Approach (ICD-10-PCS; 2021-02-16)
DX: U07.1 COVID-19 (principal); J12.82 Pneumonia due to coronavirus disease 2019; J96.01 Acute respiratory failure with hypoxia; N18.30 Chronic kidney disease, stage 3 unspecified; I25.10 Atherosclerotic heart disease of native coronary artery without angina pectoris; E11.40 Type 2 diabetes mellitus with diabetic neuropathy, unspecified; I48.0 Paroxysmal atrial fibrillation; E78.00 Pure hypercholesterolemia, unspecified; G47.30 Sleep apnea, unspecified; Z51.5 Encounter for palliative care; Z66 Do not resuscitate; I12.9 Hypertensive chronic kidney disease with stage 1 through stage 4 chronic kidney disease, or unspecified chronic kidney disease; D69.6 Thrombocytopenia, unspecified; M10.9 Gout, unspecified; E11.22 Type 2 diabetes mellitus with diabetic chronic kidney disease; K21.9 Gastro-esophageal reflux disease without esophagitis; I49.5 Sick sinus syndrome; H91.93 Unspecified hearing loss, bilateral; R47.81 Slurred speech; Z85.51 Personal history of malignant neoplasm of bladder; Z85.46 Personal history of malignant neoplasm of prostate; Z95.1 Presence of aortocoronary bypass graft; Z90.49 Acquired absence of other specified parts of digestive tract; Z79.01 Long term (current) use of anticoagulants; Z79.84 Long term (current) use of oral hypoglycemic drugs; Z79.899 Other long term (current) drug therapy; Z88.5 Allergy status to narcotic agent; Z88.8 Allergy status to other drugs, medicaments and biological substances; Z95.0 Presence of cardiac pacemaker; Z85.828 Personal history of other malignant neoplasm of skin; Z96.651 Presence of right artificial knee joint; Z96.641 Presence of right artificial hip joint; Z87.891 Personal history of nicotine dependence